=== PATIENT | female | born 1955 | race Caucasian/White ===

== ENCOUNTER → 2019-10-06 09:30 | Outpatient (BNVA) | payer MEDICARE, MEDICAID, SELFPAY | PROVIDERS: Visit Provider Family Medicine | DX: E11.9 Type 2 diabetes mellitus without complications (principal); I10 Essential (primary) hypertension; F41.9 Anxiety disorder, unspecified; N39.46 Mixed incontinence; K21.9 Gastro-esophageal reflux disease without esophagitis; J44.9 Chronic obstructive pulmonary disease, unspecified; F32.9 Major depressive disorder, single episode, unspecified; F17.219 Nicotine dependence, cigarettes, with unspecified nicotine-induced disorders | CPT/HCPCS: 80053; 80061; 82044; 83036; 85025 ==

== ENCOUNTER 2019-10-27 07:14 | Outpatient (CLI) | payer MEDICARE, MEDICAID, SELFPAY ==
[2019-10-27] MEDS: iohexol 300 mg/mL 100 mL Btl IV (07:35)
--- NOTE | 2019-10-27 09:00 | CT_ITS ---
WS: [id number] CT ABDOMEN PELVIS TECHNIQUE: Noncontrast CT of the abdomen and contrast-enhanced CT of the abdomen and pelvis with shadi nal and sagittal reformatted images. CLINICAL INFORMATION: HEMATOMA OF LEFT KIDNEY COMPARISON: August 06, 2019 DLP: 2412.[address] scans at [facility] use at least one of these dose optimization techniques: automat ed exposure control; mA and/or kV adjustment per patient size (includes targeted exams where dose is matched to clinical indication); or iterative reconstruction. FINDINGS: Previously described left renal subcapsular hematoma. Improved subcapsular hematoma with resolution o f the previous described mass effect. Small amount of induration and surrounding perinephric fat. Thi s has nearly resolved with a tiny amount of residual subcapsular hematoma/fluid measuring 3.7 x 0.8 c m. No significant mass effect. Normal renal parenchymal enhancement. Small bilateral renal cortical c ysts. No hydronephrosis. Prominent left extrarenal pelvis Bibasilar atelectasis. Normal GE junction. Diffuse fatty infiltration liver. Portal vein and splenic vein are normal. Cholecystectomy clips. Small right hepatic cyst is unchanged. Normal spleen. Normal visualized pancreas. Adrenal glands are normal. Normal caliber abdominal aorta. Mild aortic iliac ca lcification. No periaortic lymphadenopathy. No inguinal or pelvic sidewall lymphadenopathy. Diverticulosis. No evidence of acute diverticulitis. Scattered stool in the colon. Fat-containing ing uinal hernia with herniated abutting small bowel loops. No incarceration. This is unchanged from prev ious. Normal lumbar spine. CT/CT abdomen pelvis wo/w [id number] IMPRESSION: 1. Near interval resolution of the previously described left subcapsular hemat tasha with a trace amount of residual subcapsular fluid/blood products. No mass e ffect or hydronephrosis. 2. Small bilateral renal cysts. 3. Diffuse fatty infiltration of the liver. 4. Fat-containing umbilical hernia with slight herniation of a small bowel loo p. No incarceration. This was present previously. 5. Diverticulosis. No evidence of acute diverticulitis. 6. Normal caliber abdominal aorta.
== END 2019-10-27 07:15 | disposition home or self-care (01) ==
LOC: CT 07:17
PROVIDERS: Family Provider Family Medicine; PCP Urology; Visit Provider Urology
DX: S37.012A Minor contusion of left kidney, initial encounter (principal); X58.XXXA Exposure to other specified factors, initial encounter; Q61.02 Congenital multiple renal cysts; K76.0 Fatty (change of) liver, not elsewhere classified; K42.9 Umbilical hernia without obstruction or gangrene; K57.90 Diverticulosis of intestine, part unspecified, without perforation or abscess without bleeding
CPT/HCPCS: 74178

== ENCOUNTER 2020-11-26 10:29 | Inpatient (IN) | payer MEDICARE, MEDICAID, SELFPAY ==
[2020-11-26] VITALS (10 sets, daily range): BP systolic 110–152; BP diastolic 73–105; PULSE 75–88; RESP 17–24; TEMP 36.2–37.2; O2SAT 91–95; BMI 35.4
--- NOTE | 2020-11-26 10:37 | CTR_ITS ---
PROCEDURE INFORMATION: Exam: CT Angiography Chest With Contrast Exam date and time: 11/26/2020 10:45 AM Age: 65 years old Clinical indication: Chest pain; Additional info: Dyspnea/chest pain TECHNIQUE: Imaging protocol: Computed tomographic angiography of the chest with contrast. 3D rendering (Not supervised by radiologist): MIP and/or 3D reconstructed images were created by the technologist. Radiation optimization: All CT scans at this facility use at least one of these dose optimization techniques: automated exposure control; mA and/or kV adjustment per patient size (includes targeted exams where dose is matched to clinical indication); or iterative reconstruction. Contrast material: OMNI 350; Contrast volume: 68 ml; Contrast route: INTRAVENOUS (IV); COMPARISON: CR (CHEST, ) 11/26/2020 10:56 AM RADIATION DOSE METRICS: Total DLP (mGy-cm): 494.16 FINDINGS: Pulmonary arteries: No pulmonary embolus in the opacified pulmonary arteries. Aorta: Calcification and ectasia of the thoracic aorta. The enlarged ascending thoracic aorta measures 4.1 cm in diameter. Lungs: Interstitial disease, bibasilar airspace disease, and emphysematous change. Pleural spaces: Mild pleural thickening, without a significant pleural effusion. Heart: Borderline cardiomegaly and mild left ventricular hypertrophy. Lymph nodes: Enlarged lymph nodes including 2.4 x 2.0 by 1.9 cm right paratracheal and 3.7 x 2.5 x 2.3 cm right hilar lymph nodes. Upper abdomen: Fatty infiltration of the liver. Spleen upper limits of normal in size. 1 mm nonobstructing right renal calculus. Subcentimeter renal cyst. Bones/joints: Degenerative change. Soft tissues: Punctate left breast calcifications. CT/CT angio chest PE protcl [id number] IMPRESSION: 1. No pulmonary embolus in the opacified pulmonary arteries. 2. Enlarged lymph nodes including 2.4 x 2.0 by 1.9 cm right paratracheal and 3.7 x 2.5 x 2.3 cm right hilar lymph nodes. 3. Interstitial disease, bibasilar airspace disease, and emphysematous change. 4. Additional findings as described above. Radiation Dose CTDIVOL = (mGy): DLP = 494.16 (mGy-cm)
--- NOTE | 2020-11-26 10:37 | XRR_ITS ---
PROCEDURE INFORMATION: Exam: XR Chest Exam date and time: 11/26/2020 10:39 AM Age: 65 years old Clinical indication: Chest pain TECHNIQUE: Imaging protocol: XR of the chest Views: 1 view. COMPARISON: CR Chest 1 [place] [id number] 08/06/2019 5:58 PM FINDINGS: Lungs: Hypoinflation, interstitial disease, and mild basilar airspace disease. Pleural spaces: Questionable small pleural effusions. Heart/Mediastinum: Cardiac silhouette upper limits of normal in size. Bones/joints: Degenerative change. XR/XR chest 1V portable [id number] IMPRESSION: Hypoinflation, interstitial disease, and mild basilar airspace disease.
--- NOTE | 2020-11-26 10:39 | ED_ITS ---
HPI - Chest Pain General: Chief Complaint: Chest Pain Stated Complaint: SOB, CHEST PAIN Time Seen by Provider: 11/26/20 10:37 History of Present Illness: HPI narrative: 65-year-old female presents emergency room with severe chest pain and shortness of breath she said it began last night it was quite a bit worse this morning. On arrival here she is complaining of intense upper chest pain radiating across the chest she denies a going to the back she is short of breath with it she is mildly diaphoretic. She denies a previous [place] she is diabetic and she does have a history of hypertension hyperlipidemia. No history of PE no known history of aneurysm. MD complaint: chest pain Onset (ago): hour(s) Timing of current episode: constant and increasing Onset: during rest Pain location: left chest and right chest Severity: severe Pain scale (0-10): 10 Quality: sharp Relieving factors: nothing Exacerbating factors: nothing Associated symptoms: Reports diaphoresis, dyspnea, nausea and sense of impending doom; Deny abdominal pain, fever(s), leg edema, palpitations, syncope or vomiting Treatment prior to arrival: none Review of Systems Const: Reports: diaphoresis; Denies: fever(s) ENMT: Denies: throat pain, ear or mastoid pain, nasal discharge or nasal congestion Card: Denies: palpitations or syncope Resp: Reports: dyspnea GI: Reports: nausea; Denies: abdominal pain or vomiting : Denies: flank pain, difficulty voiding, dysuria, urinary frequency or urinary urgency Skin/Breast: Denies: rash or pruritus [facility] PFSH: Medical History (Updated 11/28/20 @ 06:36 by Gary Jose DO) Benign essential HTN COPD, moderate GERD (gastroesophageal reflux disease) H/O cholecystitis Hematoma of left kidney Major contusion of left kidney, subsequent encounter Type 2 diabetes mellitus, without long-term current use of insulin Urinary incontinence, mixed Urinary tract infection, site not specified Surgical History H/O: hysterectomy Family History Family/Other Diabetes CAD (coronary artery disease) Hypertension Lung disease Social History Smoking and tobacco status: current every day smoker cigarettes Packs smoked per day: 1 Alcohol intake: never Adopted: No Caregiver/support person: No Marital status: Current occupational status: disabled History of recent travel: No Physical Exam Const: COMMON NORMALS: no acute distress GENERAL APPEARANCE: cooperative and comfortable ORIENTATION/CONSCIOUSNESS: Yes awake, Yes oriented to person, Yes oriented to place and Yes oriented to time HENMT: COMMON NORMALS: normocephalic, atraumatic, hearing grossly normal bilaterally, external ears normal, EAC's normal, TM's normal bilaterally, Normal nasal mucous membranes and turbinates present, moist oral mucous membranes and oropharynx normal HEAD & SCALP: normocephalic and atraumatic NOSE: Normal nasal mucous membranes and turbinates present EXTERNAL EAR: Yes external ears normal EXTERNAL AUDITORY CANAL: EAC's normal TYMPANIC MEMBRANE: TM's normal bilaterally Eye: COMMON NORMALS: Equal, round and reactive pupils present, EOMs intact bilaterally, conjunctivae normal and no scleral icterus CONJUNCTIVA: Yes conjunctivae normal PUPIL: Yes Equal, round and reactive pupils present Neck/C-Spine: COMMON NORMALS: full ROM, no lymphadenopathy, supple and no JVD Lymph: LYMPHATIC: no lymphadenopathy noted and no lymphedema noted Resp: COMMON NORMALS: normal respiratory effort, No retractions, No use of accessory muscles and clear to auscultation bilaterally AUSCULTATION: clear to auscultation bilaterally Cardio: COMMON NORMALS: no JVD, regular rate, regular rhythm and No murmurs present (Cardio) RATE: regular rate RHYTHM: regular rhythm GI: COMMON NORMALS: Soft to palpation and No hepatosplenomegaly present AUSCULTATION: Yes normoactive bowel sounds PALPATION: Yes Soft to palpation, No Tenderness to palpation present (GI), No Guarding due to palpation present (GI) and Yes No hepatosplenomegaly present Extremity: COMMON NORMALS: normal to inspection, capillary refill normal, no clubbing, cyanosis or edema, no calf tenderness and no pedal edema Neuro: SENSORIUM/ORIENTATION: Yes oriented to person, Yes oriented to place and Yes oriented to time Skin: COMMON NORMALS: no rashes or lesions noted GENERAL SKIN EXAM: no rashes or lesions noted Course Vital Signs: Vital signs: Vital Signs Temperature 98.1 F 11/28/20 06:00 Pulse Rate 68 11/28/20 06:00 Respiratory Rate 20 H 11/28/20 06:00 Blood Pressure 130/81 11/28/20 06:00 Pulse Oximetry 97 11/28/20 06:00 MDM - Chest Pain MDM Narrative: Medical decision making narrative: Patient is currently on prednisone and doxycycline. Suspect that is partially what is driving her white count. At this point and she is failed outpatient therapy. Additionally suspect she has COPD exacerbation. Presentation concerning for coronary disease will admit. She will need further evaluation and treatment on the inpatient side discussed with hospitalist orders are written. Lab Data: Labs: Lab Results 11/26/20 11/26/20 11/26/20 Range/Units 10:35 10:35 10:35 WBC 25.1 H (4.0-10.0) 10^3/ uL RBC 5.64 H (4.1-5.3) 10^6/u L Hgb 15.3 (11.5-15.3) g/dL Hct 47.7 H (37.0-47.0) % MCV 84.6 (81-99) fL MCH 27.1 L (28.0-34.0) pg MCHC 32.1 (30.0-36.0) g/dL RDW 13.5 (12.1-15.1) % Plt Count 314 (130-400) 10^3/c mm MPV 11.2 H (7.4-10.4) fL Neut % (Auto) 76.5 % Lymph % (Auto) 15.2 % [place] % (Auto) 7.1 % Eos % (Auto) 0.2 % Baso % (Auto) 0.4 % Neut # (Auto) 19.21 H (1.8-7.7) 10^3/u L Lymph # (Auto) 3.8 (0.8-4.8) 10^3/u L [place] # (Auto) 1.8 H (0.2-0.9) 10^3/u L Eos # (Auto) 0.0 (0.0-0.8) 10^3/u L Baso # (Auto) 0.1 (0.0-0.1) 10^3/u L Nucleated RBC % (a uto) 0 % Nucleated RBCs # 0.0 /100WBC Specimen Type Sample Site ABG pH (7.35-7.45) ABG pCO2 (35-45) mmHg ABG pO2 (80.0-100.0) mmH g ABG HCO3 (22-26) mmol/L ABG O2 Saturation ABG Base Excess (-2.0-2.0) mmol/ L Renaldo Test A-a O2 Gradient (5-10) mmHg Hematocrit (37-47) % Hgb O2 Saturation (95-100) % Carboxyhemoglobin (0.4-20.1) %THgb Methemoglobin (0.4-1.5) % Total Hemoglobin (12-16) g/dL Ionized Calcium (1.1-1.4) mmol/L O2 Delivery Device O2 Liters/Min % Development Team Lead ID Sodium 135 L (136-145) mmol/L Potassium 4.2 (3.5-5.1) mmol/L Chloride 95 L (98-107) mmol/L Carbon Dioxide 25 (22-29) mmol/L Anion Gap 19.2 H (5-19) BUN 18 (8-23) mg/dL Creatinine 1.0 H (0.5-0.9) mg/dL GFR Calculation 55.8 L (90-130) mL/min Glucose 266 H (65-115) mg/dL POC Glucose (70-110) mg/dL Calculated Osmolal ity 291 (285-295) mOsm/k g Calcium 10.0 (8.5-10.5) mg/dL Total Bilirubin 0.5 (0.15-1.2) mg/dL AST 7 (0-32) U/L ALT 8 (0-33) U/L Alkaline Phosphata se 143 H (35-105) IU/L Creatine Kinase 30 (26-192) U/L Troponin T Baselin e 24 H (0-10) ng/L Troponin T 120 Min [place] (0-10) ng/L Delta Troponin T (0-10) ABS# Total Protein 7.5 (6.6-8.7) g/dL Albumin 4.4 (3.5-5.2) g/dL Globulin 3.1 (1.3-4.6) g/dL Lipase 66 H (13-60) U/L Urine Color (Yellow) Urine Appearance (CLEAR) Urine pH (5-7) Ur Specific Gravit y (1.005-1.030) Urine Protein (Negative) Urine Glucose (UA) (Normal) Urine Ketones (Negative) Urine Blood (Negative) Urine Nitrate (Negative) Urine Bilirubin (Negative) Urine Urobilinogen (Negative) mg/dL Ur Leukocyte Kristi ase (Negative) Urine RBC (0-2) /hpf Urine WBC (0-5) /hpf Ur Squamous Epith Cells (0-5) /hpf Amorphous Sediment Urine Bacteria (NONE) /hpf Hyaline Casts /lpf Urine Mucus /hpf Serum Ketones (Negative) SARS-CoV-2 Ag (Rap id) (Negative) 11/26/20 11/26/20 11/26/20 Range/Units 10:42 11:52 12:16 WBC (4.0-10.0) 10^3/ uL RBC (4.1-5.3) 10^6/u L Hgb (11.5-15.3) g/dL Hct (37.0-47.0) % MCV (81-99) fL MCH (28.0-34.0) pg MCHC (30.0-36.0) g/dL RDW (12.1-15.1) % Plt Count (130-400) 10^3/c mm MPV (7.4-10.4) fL Neut % (Auto) % Lymph % (Auto) % [place] % (Auto) % Eos % (Auto) % Baso % (Auto) % Neut # (Auto) (1.8-7.7) 10^3/u L Lymph # (Auto) (0.8-4.8) 10^3/u L [place] # (Auto) (0.2-0.9) 10^3/u L Eos # (Auto) (0.0-0.8) 10^3/u L Baso # (Auto) (0.0-0.1) 10^3/u L Nucleated RBC % (a uto) % Nucleated RBCs # /100WBC Specimen Type Arterial Sample Site Radial, left ABG pH 7.41 (7.35-7.45) ABG pCO2 41.5 (35-45) mmHg ABG pO2 58.6 L (80.0-100.0) mmH g ABG HCO3 26.1 H (22-26) mmol/L ABG O2 Saturation 91.2 ABG Base Excess 1.2 (-2.0-2.0) mmol/ L Renaldo Test Pos A-a O2 Gradient 5.4 (5-10) mmHg Hematocrit 43.3 (37-47) % Hgb O2 Saturation 89.4 L (95-100) % Carboxyhemoglobin 1.5 (0.4-20.1) %THgb Methemoglobin 0.5 (0.4-1.5) % Total Hemoglobin 14.1 (12-16) g/dL Ionized Calcium 1.3 (1.1-1.4) mmol/L O2 Delivery Device Nc O2 Liters/Min 2.0 % Development Team Lead ID jmn Sodium 134.0 (136-145) mmol/L Potassium 3.7 (3.5-5.1) mmol/L Chloride (98-107) mmol/L Carbon Dioxide (22-29) mmol/L Anion Gap (5-19) BUN (8-23) mg/dL Creatinine (0.5-0.9) mg/dL GFR Calculation (90-130) mL/min Glucose 262.0 H (65-115) mg/dL POC Glucose 262 H (70-110) mg/dL Calculated Osmolal ity (285-295) mOsm/k g Calcium (8.5-10.5) mg/dL Total Bilirubin (0.15-1.2) mg/dL AST (0-32) U/L ALT (0-33) U/L Alkaline Phosphata se (35-105) IU/L Creatine Kinase (26-192) U/L Troponin T Baselin e (0-10) ng/L Troponin T 120 Min [place] (0-10) ng/L Delta Troponin T (0-10) ABS# Total Protein (6.6-8.7) g/dL Albumin (3.5-5.2) g/dL Globulin (1.3-4.6) g/dL Lipase (13-60) U/L Urine Color Yellow (Yellow) Urine Appearance Sl hazy (CLEAR) Urine pH 6.5 (5-7) Ur Specific Gravit y 1.010 (1.005-1.030) Urine Protein 1+ H (Negative) Urine Glucose (UA) Norm (Normal) Urine Ketones 1+ H (Negative) Urine Blood Neg (Negative) Urine Nitrate Negative (Negative) Urine Bilirubin 1+ H (Negative) Urine Urobilinogen 4 H (Negative) mg/dL Ur Leukocyte Kristi ase Trace H (Negative) Urine RBC None (0-2) /hpf Urine WBC 0-4 H (0-5) /hpf Ur Squamous Epith Cells 0-4 H (0-5) /hpf Amorphous Sediment Not Reportable Urine Bacteria Trace (NONE) /hpf Hyaline Casts 15-25 H /lpf Urine Mucus 1+ /hpf Serum Ketones (Negative) SARS-CoV-2 Ag (Rap id) (Negative) 11/26/20 11/26/20 11/26/20 Range/Units 12:37 12:37 13:23 WBC (4.0-10.0) 10^3/ uL RBC (4.1-5.3) 10^6/u L Hgb (11.5-15.3) g/dL Hct (37.0-47.0) % MCV (81-99) fL MCH (28.0-34.0) pg MCHC (30.0-36.0) g/dL RDW (12.1-15.1) % Plt Count (130-400) 10^3/c mm MPV (7.4-10.4) fL Neut % (Auto) % Lymph % (Auto) % [place] % (Auto) % Eos % (Auto) % Baso % (Auto) % Neut # (Auto) (1.8-7.7) 10^3/u L Lymph # (Auto) (0.8-4.8) 10^3/u L [place] # (Auto) (0.2-0.9) 10^3/u L Eos # (Auto) (0.0-0.8) 10^3/u L Baso # (Auto) (0.0-0.1) 10^3/u L Nucleated RBC % (a uto) % Nucleated RBCs # /100WBC Specimen Type Sample Site ABG pH (7.35-7.45) ABG pCO2 (35-45) mmHg ABG pO2 (80.0-100.0) mmH g ABG HCO3 (22-26) mmol/L ABG O2 Saturation ABG Base Excess (-2.0-2.0) mmol/ L Renaldo Test A-a O2 Gradient (5-10) mmHg Hematocrit (37-47) % Hgb O2 Saturation (95-100) % Carboxyhemoglobin (0.4-20.1) %THgb Methemoglobin (0.4-1.5) % Total Hemoglobin (12-16) g/dL Ionized Calcium (1.1-1.4) mmol/L O2 Delivery Device O2 Liters/Min % Development Team Lead ID Sodium (136-145) mmol/L Potassium (3.5-5.1) mmol/L Chloride (98-107) mmol/L Carbon Dioxide (22-29) mmol/L Anion Gap (5-19) BUN (8-23) mg/dL Creatinine (0.5-0.9) mg/dL GFR Calculation (90-130) mL/min Glucose (65-115) mg/dL POC Glucose (70-110) mg/dL Calculated Osmolal ity (285-295) mOsm/k g Calcium (8.5-10.5) mg/dL Total Bilirubin (0.15-1.2) mg/dL AST (0-32) U/L ALT (0-33) U/L Alkaline Phosphata se (35-105) IU/L Creatine Kinase (26-192) U/L Troponin T Baselin e (0-10) ng/L Troponin T 120 Min [place] 21.22 H (0-10) ng/L Delta Troponin T -2.78 L (0-10) ABS# Total Protein (6.6-8.7) g/dL Albumin (3.5-5.2) g/dL Globulin (1.3-4.6) g/dL Lipase (13-60) U/L Urine Color (Yellow) Urine Appearance (CLEAR) Urine pH (5-7) Ur Specific Gravit y (1.005-1.030) Urine Protein (Negative) Urine Glucose (UA) (Normal) Urine Ketones (Negative) Urine Blood (Negative) Urine Nitrate (Negative) Urine Bilirubin (Negative) Urine Urobilinogen (Negative) mg/dL Ur Leukocyte Kristi ase (Negative) Urine RBC (0-2) /hpf Urine WBC (0-5) /hpf Ur Squamous Epith Cells (0-5) /hpf Amorphous Sediment Urine Bacteria (NONE) /hpf Hyaline Casts /lpf Urine Mucus /hpf Serum Ketones Negative (Negative) SARS-CoV-2 Ag (Rap id) Negative (Negative) Discharge Plan Discharge Patient Disposition: Admitted As Inpatient Admit Provider: Leila Soriano Clinical Impression: COPD exacerbation, Chest pain, Type 2 diabetes mellitus, without long-term current use of insulin, Benign essential HTN Condition: Stable Coding Level of Care Code ED Phthalic Acid Purifier for Chg Fwd Exam Comprehensive
[2020-11-26] MEDS: morphine 4 mg/mL SDV 1 mL IVP (10:43)
[2020-11-26] MEDS: aspirin 81 mg Chew Tablet 324 MG PO (10:43)
[2020-11-26 10:46] LABS: Glucose Point of Care 262 mg/dL (70-110)
[2020-11-26] MEDS: nitroglycerin 1 gm/inch oint Pkt 1 INCH TOPICAL (10:46)
[2020-11-26] MEDS: ondansetron 2 mg/ML SDV 2 mL 4 MG IVP (10:48)
[2020-11-26 11:11] LABS: Basophils # 0.1 10^3/uL (0.0-0.1); Basophils % 0.4 %; Eosinophils % 0.2 %; Hematocrit 47.7 % (37.0-47.0); Hemoglobin 15.3 g/dL (11.5-15.3); Lymphocytes # 3.8 10^3/uL (0.8-4.8); Lymphocytes % 15.2 %; Mean Corpuscular HGB Conc 32.1 g/dL (30.0-36.0); Mean Corpuscular Hemoglobin 27.1 pg (28.0-34.0); Mean Corpuscular Volume 84.6 fL (81-99); Mean Platelet Volume 11.2 fL (7.4-10.4); Monocytes # 1.8 10^3/uL (0.2-0.9); Monocytes % 7.1 %; Neutrophils # 19.21 10^3/uL (1.8-7.7); Neutrophils % 76.5 %; Nucleated Red Blood Cells % 0 %; Platelet Count 314 10^3/cmm (130-400); Red Blood Count 5.64 10^6/uL (4.1-5.3); Red Cell Distribution Width 13.5 % (12.1-15.1); White Blood Count 25.1 10^3/uL (4.0-10.0)
[2020-11-26 11:31] LABS: Alanine Aminotransferase 8 U/L (0-33); Albumin Level 4.4 g/dL (3.5-5.2); Alkaline Phosphatase 143 IU/L (35-105); Anion Gap 19.2 (5-19); Aspartate Amino Transferase 7 U/L (0-32); Blood Urea Nitrogen 18 mg/dL (8-23); Carbon Dioxide 25 mmol/L (22-29); Chloride 95 mmol/L (98-107); Creatine Phosphokinase 30 U/L (26-192); Globulin 3.1 g/dL (1.3-4.6); Glomerular Filtration Rate 55.8 mL/min (90-130); Glucose 266 mg/dL (65-115); Lipase 66 U/L (13-60); Osmolality Calculated 291 mOsm/kg (285-295); Potassium 4.2 mmol/L (3.5-5.1); Sodium 135 mmol/L (136-145); Total Bilirubin 0.5 mg/dL (0.15-1.2); Total Protein 7.5 g/dL (6.6-8.7)
[2020-11-26 11:32] LABS: Troponin(5th) Baseline 24 ng/L (0-10)
--- NOTE | 2020-11-26 11:57 | PC.NURSE ---
return from ct
[2020-11-26] MEDS: iohexol 350 mg/mL 100 mL Btl IV (11:59)
[2020-11-26 12:03] LABS: ABG PCO2 41.5 mmHg (35-45); ABG PH Result 7.41 (7.35-7.45); Alveolar-Arterial Oxygen Gradi 5.4 mmHg (5-10); Arterial Blood Gas Hematocrit 43.3 % (37-47); Base Excess ABG 1.2 mmol/L (-2.0-2.0); Blood Gas Allen Test Pos; Blood Gas Sample Type Arterial; Carboxyhemoglobin 1.5 %THgb (0.4-20.1); HCO3 ABG 26.1 mmol/L (22-26); HGB O2 Sat 89.4 % (95-100); Ionized Calcium Level - ABG 1.3 mmol/L (1.1-1.4); Methemoglobin 0.5 % (0.4-1.5); Oxygen Saturation ABG 91.2; PO2 ABG 58.6 mmHg (80.0-100.0); Potassium Level - ABG 3.7 mmol/L (3.5-5.0); Total Hemoglobin 14.1 g/dL (12-16)
[2020-11-26 12:04] LABS: Blood Gas Sample Site Radial, left; Oxygen Device NC
--- NOTE | 2020-11-26 12:37 | ECG_ITS ---
[facility] Test Date: 2020-11-26 Pat Name: Sarah Rogers Department: Room: Gender: Female Special Effects Person: : 1955 Requested By: Gary Teresa Order Number: [id number] Elana MD: Padmini Serrano M.D. Measurements Intervals [place] Rate: 79 P: 52 FL: 151 QRS: -33 QRSD: 100 T: 73 QT: 412 QTc: 472 Interpretive Statements SINUS RHYTHM POSSIBLE LEFT ATRIAL ENLARGEMENT [-0.1mV P WAVE IN V1/V2] LEFT AXIS DEVIATION [QRS AXIS < -30] POSSIBLE LEFT VENTRICULAR HYPERTROPHY [VOLTAGE CRITERIA PLUS LAE OR QRS WIDENING] NONSPECIFIC T-WAVE ABNORMALITY Compared to ECG 08/08/2019 20:10:57 T-wave abnormality now present Electronically Signed On 11-26-2020 19:43:52 SENIOR APPLICATION SECURITY CONSULTANT by Padmini Serrano M.D. [id number]
[2020-11-26 12:50] LABS: Bilirubin Urine 1+ (Negative); Blood Urine Neg (Negative); Glucose Urine UA Norm (Normal); Ketones Urine 1+ (Negative); Leukocyte Esterase Urine Trace (Negative); Nitrate Urine Negative (Negative); Protein Urine 1+ (Negative); Urine Appearance SL Hazy (CLEAR); Urine Color Yellow (Yellow); Urobilinogen Urine 4 mg/dL (Negative); pH Urine 6.5 (5-7)
[2020-11-26 12:51] LABS: Add Urine Microscopic? YES
--- NOTE | 2020-11-26 12:55 | CTR_ITS ---
PROCEDURE INFORMATION: Exam: CT Abdomen And Pelvis With Contrast Exam date and time: 11/26/2020 2:01 PM Age: 65 years old Clinical indication: Abdominal pain; Prior surgery; Surgery date: 6+ months; Surgery type: Hyst, gb, hernia; Patient HX: C/O epigastric/substernal pain w nausea; Additional info: Abd pain TECHNIQUE: Imaging protocol: Computed tomography of the abdomen and pelvis with contrast. Radiation optimization: All CT scans at this facility use at least one of these dose optimization techniques: automated exposure control; mA and/or kV adjustment per patient size (includes targeted exams where dose is matched to clinical indication); or iterative reconstruction. Contrast material: VISI 320; Contrast volume: 57 ml; Contrast route: INTRAVENOUS (IV); COMPARISON: CT abdomen pelvis wo/w [id number] 10/27/2019 7:48 AM and August 06, 2019. CTA chest earlier today. RADIATION DOSE METRICS: Total DLP (mGy-cm): 1804.42 FINDINGS: Lungs: Patchy dependent consolidation at the lung bases. Liver: Mild diffuse hepatic steatosis. No focal lesions. Gallbladder and bile ducts: Cholecystectomy. Unchanged mild prominence of the extrahepatic duct tapering distally, likely secondary to reservoir effect following cholecystectomy. Pancreas: Normal. No ductal dilation. Spleen: Normal. No splenomegaly. Adrenal glands: Normal. No mass. Kidneys and ureters: Excreted contrast within the renal collecting systems and ureters following earlier CTA of the chest. This limits evaluation for stones. No hydronephrosis. There are scattered bilateral small hypoattenuating renal lesions which cannot be definitively characterized but appear grossly unchanged, largest measuring 14 mm and 18 Hounsfield units left anterior upper pole on image 29 series 2 compatible with cyst. Stomach and bowel: Scattered colonic diverticula without active diverticulitis. Appendix: Normal appendix. Intraperitoneal space: No free air. No significant fluid collection. Vasculature: Scattered atherosclerotic calcification. No abdominal aortic aneurysm. Lymph nodes: Unremarkable. No enlarged lymph nodes. Urinary bladder: The bladder is partially filled contains excreted contrast. Reproductive: Uterus not identified. A small amount of contrast is seen within the vaginal canal (see sagittal image 42 series 601), raising the possibility of a vesicovaginal fistula although tract is not identified by CT. Bones/joints: No acute or aggressive osseous lesions. Lumbar degenerative changes. Soft tissues: Small umbilical hernia with short segment of small bowel protruding. No evidence of obstruction or incarceration. CT/CT abdomen pelvis w con* [id number] IMPRESSION: 1. No acute intra-abdominal findings. 2. Umbilical hernia containing a short segment of small bowel without evidence of obstruction or incarceration. Correlate clinically. 3. Mild hepatic steatosis. 4. Diverticulosis without evidence of active diverticulitis. 5. There are again multiple small relatively hypoattenuating bilateral renal lesions, largest 14 mm the left upper pole characterized as simple cyst, subcentimeter lesions too small to definitively characterize but grossly unchanged from prior. No confirmed enhancing mass. 6. There is contrast within the bladder and also within the vaginal canal (from earlier CTA chest) raising the possibility of a vesicovaginal fistula, although no tract is identified. Correlate clinically. COMMENTS: Consistent with the [place] [employer]'s Incidental Findings Committee white paper (J Am Flo Radiol 2018): Any incidental renal lesion less than 1 cm or classified as too small to characterize, or any incidental cystic renal lesion characterized as simple-appearing, is likely benign. No follow-up imaging is recommended for these lesions per consensus recommendations based on imaging criteria. Radiation Dose CTDIVOL = (mGy): DLP = 1804.42 (mGy-cm)
[2020-11-26 12:59] LABS: WBC Urine 0-4 /hpf (0-5)
[2020-11-26 13:00] LABS: Bacteria Urine TRACE /hpf; Hyaline Casts Urine 15-25 /lpf; Mucus Urine 1+ /hpf; Squamous Epithelial Cell Urine 0-4 /hpf (0-5)
[2020-11-26 13:01] LABS: Add Urine Culture? No
[2020-11-26 13:01] LABS: Ketone (Acetest) Serum Negative (Negative)
[2020-11-26 13:12] LABS: Troponin 5 2HR 21.22 ng/L (0-10)
[2020-11-26 13:15] LABS: Troponin 5 2HR Delta -2.78 ABS# (0-10)
[2020-11-26] MEDS: levofloxacin-dextrose 5 % 750 MG/150 ML PREMIX 100 MG IV (13:39)
[2020-11-26] MEDS: iodixanol 320 mg/mL 100mL Btl IV (14:06)
[2020-11-26 14:10] LABS: SARS Covid-2 Antigen Negative (Negative)
--- NOTE | 2020-11-26 16:37 | ECG_ITS ---
[facility] Test Date: 2020-11-26 Pat Name: Sarah Rogers Department: Room: 258 Gender: Female Library Director: : 1955 Requested By: Gary Teresa Order Number: [id number] Elana MD: Padmini Serrano M.D. Measurements Intervals [place] Rate: 79 P: 49 HI: 149 QRS: -35 QRSD: 89 T: 90 QT: 390 QTc: 449 Interpretive Statements SINUS RHYTHM POSSIBLE LEFT ATRIAL ENLARGEMENT [-0.1mV P WAVE IN V1/V2] MARKED LEFT AXIS DEVIATION [QRS AXIS < -30] POSSIBLE LEFT VENTRICULAR HYPERTROPHY [VOLTAGE CRITERIA PLUS LAE OR QRS WIDENING] NONSPECIFIC T-WAVE ABNORMALITY Compared to ECG 11/26/2020 12:32:52 No significant changes Electronically Signed On 11-26-2020 19:45:07 JOCKEY VALET by Padmini Serrano M.D. [id number]
[2020-11-26 16:57] LABS: Lactic Sepsis W/Reflex 1.5 mmol/L (0.5-2.2)
[2020-11-26 16:58] LABS: Troponin 5 6HR 17.39 ng/L (0-10)
[2020-11-26 16:59] LABS: Troponin 5 6HR Delta -6.61 ng/L (0-12)
[2020-11-26] MEDS: sodium chloride 0.9% 1,000 ML 100 ML IV (18:15)
--- NOTE | 2020-11-26 18:32 | P.HP_ITS ---
Providers/Chief Complaint Admitting Physician: Leila Soriano Chief Complaint: SOB, CHEST PAIN History of Present Illness 65 year old with past medical history of renal hematoma in 2019, hypertension, GERD, type 2 diabetes mellitus, urinary incontinence, tobacco abuse and chronic obstructive pulmonary disease who presented to ER with progressively worsening respiratory distress. This was associated with a non-productive cough, generaliz ed weakness and poor appetite. Patient also noted subjective fever and chills in addition to chest discomfort which she described as a heaviness. Patient had been started on doxycycline in addition to prednisone prior to arrival which did not prove to be effective. Denied any prior cardiac diagnosis. Upon arrival to ER her initial laboratory work up showed a WBC of 25.1 , hemoglobin of 15.3, hematocrit 47.7 and a platelet count of 314. Sodium of 135, potassium of 4.2 chloride of 95, bicarbonate of 25, BUN of 18 and a creatinine of 1.0. Glucose of 262. Lipase of 66. Troponin T of 24-> 21.2 -> 17.30. ABG showed a Ph. 7.41, Pco2 of 41.5, Po2 of 58.6 and a HCO3 of 26.1 on 2L via NC. Patient was not previously on supplemental o2 prior to arrival. Rapid COVID-19 was negative however a PCR was sent out. Diagnostic work up included a CTA chest/abd/pelvis which showed enlarged paratracheal lymph nodes and right hisar lymph as well. In ER patient was given Levaquin 750mg IV x1, nitro-paste in addition to iV pain medication. Review of Systems General: Reports: 10 or more systems reviewed and unremarkable except in HPI and below Medications/Allergies Home Medications Medication Instructions Recorded Confirmed Last Taken Type albuterol sulfate 90 mcg/actuation 2 puff INHALATION Q4H PRN gm 10/02/19 11/26/20 Unknown History aerosol inhaler ipratropium 20 mcg-albuterol 100 1 puff INHALATION QID 10/02/19 11/26/20 Unknown History mcg/actuation mist for inhalation metoprolol succinate 25 mg 25 mg PO BID 10/02/19 11/26/20 Unknown History tablet,extended release 24 hr nicotine 14 mg/24 hr daily 1 patch TRANSDERMA Q24H 10/02/19 11/26/20 Unknown History transdermal patch nitroglycerin 0.4 mg sublingual 0.4 mg SUBLINGUAL Q5M PRN 10/02/19 11/26/20 Unknown History tablet pantoprazole 40 mg tablet,delayed 40 mg PO DAILY 10/02/19 11/26/20 Unknown History release bupropion HCl 150 mg 24 hr tablet, 150 mg PO QAM #30 tab 10/06/19 11/26/20 Unknown Rx extended release lisinopril 10 mg tablet 10 mg PO DAILY 10/06/19 11/26/20 Unknown History atorvastatin 20 mg tablet 20 mg PO QDAY #30 tab 10/07/19 11/26/20 Unknown Rx metformin 500 mg tablet,extended 1,000 mg PO .every morning #60 tab 10/07/19 11/26/20 Unknown Rx release 24 hr doxycycline hyclate 100 mg PO BID 11/26/20 11/26/20 11/25/20 History prednisone 20 mg PO BID 11/26/20 11/26/20 11/25/20 History Allergies Allergy/AdvReac Type Severity Reaction Status Date / Time Sulfa (Sulfonamide Allergy na Verified 10/06/19 08:54 Antibiotics) PFSH Acute PFSH: Medical History (Updated 11/26/20 @ 18:59 by Leila Soriano MD) Benign essential HTN COPD, moderate GERD (gastroesophageal reflux disease) H/O cholecystitis Hematoma of left kidney Major contusion of left kidney, subsequent encounter Type 2 diabetes mellitus, without long-term current use of insulin Urinary incontinence, mixed Urinary tract infection, site not specified Surgical History H/O: hysterectomy Family History Family/Other Diabetes CAD (coronary artery disease) Hypertension Lung disease Social History Smoking and tobacco status: current every day smoker cigarettes Packs smoked per day: 1 Alcohol intake: never Adopted: No Caregiver/support person: No Marital status: Current occupational status: disabled History of recent travel: No Vitals/I&O/Wt Last Vital Signs Temp 97.5 F L 11/26/20 17:07 Pulse 76 11/26/20 17:07 Resp 18 11/26/20 17:07 BP 128/83 11/26/20 17:07 Pulse Ox 91 11/26/20 17:07 11/26/20 11/26/20 11/26/20 06:59 14:59 22:59 Intake Total 390 / 390 Balance 390 / 390 Weight last 48 hrs Weight 90.718 kg Physical Exam Narrative: EXAM NARRATIVE: General : Alert, awake oriented x 3 NAD HEENT: EOMI, grossly unremarkable Chest : Non-labored respiration CVS : NSR ABD: Soft,NT,ND Ext: No edema Data : 11/26/20 10:35 11/26/20 10:35 Micro: Microbiology 11/26/20 16:20 Blood Culture - Preliminary Blood SPECIMEN COLLECTED 11/26/20 16:21 Blood Culture - Preliminary Blood SPECIMEN COLLECTED A&P Assessment and plan (1) Chest pain: Status: Acute (2) COPD exacerbation: Status: Acute (3) Type 2 diabetes mellitus, without long-term current use of insulin: Status: Chronic Qualifiers: Diabetes mellitus complication status: without complication Qualified Code(s): E11.9 - Type 2 diabetes mellitus without complications (4) Benign essential HTN: Status: Chronic (5) GERD (gastroesophageal reflux disease): Status: Chronic Qualifiers: Esophagitis presence: esophagitis presence not specified Qualified Code(s): K21.9 - Gastro-esophageal reflux disease without esophagitis Acute respiratory distress due to COPD exacerbation - Possible pneumonia - Leukocytosis - infectious vs steroid induced. - Supplemental 02 as needed - Duoneb q6hr - Prednisone 40 mg PO qAM - Wean o2 as tolerated - Continue levaquin 750 mg daily - Sputum culture and gram stain - Check pro-calcitonin in am Chest pain - Troponin trend not consistent with ACS - Possible due to above - Will obtain ECHO - Monitor on tele - May consider Nuclear stress prior to d/c Diabetes Mellitus - Sliding scale insulin - Hold metformin - A1c in am Hypertension - Metoprolol 25 mg PO BID Dyslipidemia - Continue Lipitor 20 mg po Qhs GI pox - Pepcid 20 mg PO BID DVT pox - SCDs - No heparin given hx of renal hematoma and risk of bleeding Attestations Medical Necessity Statement*: Will require > 2 midnight stay in hospital for eval and treatment of acute hypoxic respiratory failure - possible pneumonia failed outpatient tx and chest pain rq cardiac work up Time Spent in Patient Care: Greater than 35 minutes (>than 50% of time spent in counselling and/or direct pt care on unit) . 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
[2020-11-26] MEDS: ipratropium-albuterol 3 mL Neb INHALATION (20:58)
[2020-11-26 21:45] LABS: Glucose Point of Care 425 mg/dL (70-110)
[2020-11-27] VITALS (28 sets, daily range): BP systolic 102–194; BP diastolic 62–104; PULSE 66–90; RESP 16–26; TEMP 35.9–36.8; O2SAT 89–100
[2020-11-27] MEDS: morphine 4 mg/mL SDV 1 mL 2 MG IVP (00:13)
--- NOTE | 2020-11-27 00:17 | ECG_ITS ---
[facility] Test Date: 2020-11-27 Pat Name: Sarah Rgoers Department: Room: 258 Gender: Female Outside Cutter: : 1955 Requested By: Andres Arriaza Order Number: [id number] Elana MD: Padmini Serrano M.D. Measurements Intervals [place] Rate: 87 P: 38 [place]: 137 QRS: -39 QRSD: 87 T: 91 QT: 363 QTc: 437 Interpretive Statements SINUS RHYTHM POSSIBLE LEFT ATRIAL ENLARGEMENT [-0.1mV P WAVE IN V1/V2] MARKED LEFT AXIS DEVIATION [QRS AXIS < -30] LEFT VENTRICULAR HYPERTROPHY AND ST-T CHANGE [VOLTAGE CRITERIA PLUS ST/T ABNORMALITY] INTERPRETATION BASED ON A DEFAULT AGE OF 40 YEARS Compared to ECG 11/26/2020 17:48:04 ST (T wave) deviation now present T-wave abnormality no longer present Electronically Signed On 11-27-2020 22:39:38 CDT by Padmini Serrano M.D. [id number] f
[2020-11-27] MEDS: nitroglycerin 0.4 mg sublingual Tablet SUBLINGUAL ×2 (00:19→00:24)
[2020-11-27] MEDS: ondansetron 2 mg/ML SDV 2 mL 4 MG IVP (00:22)
--- NOTE | 2020-11-27 00:45 | XRR_ITS ---
PROCEDURE INFORMATION: Exam: XR Chest Exam date and time: 11/27/2020 12:51 AM Age: 65 years old Clinical indication: Chest pain TECHNIQUE: Imaging protocol: XR of the chest Views: 1 view. COMPARISON: CR (CHEST, ) 11/26/2020 10:56 AM FINDINGS: Lungs: Low lung volumes with bibasilar pulmonary opacity. Pleural spaces: Unremarkable. No pleural effusion. No pneumothorax. Heart/Mediastinum: Heart is mildly enlarged. Bones/joints: Unremarkable. XR/XR chest 1V portable [id number] IMPRESSION: 1. Low lung volumes with bibasilar atelectasis versus pneumonia. 2. Mild cardiomegaly.
[2020-11-27] MEDS: FUROsemide 10 mg/mL SDV 4mL 40 MG IVP (00:58)
[2020-11-27 01:06] LABS: ABG PCO2 41.3 mmHg (35-45); Arterial Blood Gas Hematocrit 42.8 % (37-47); Base Excess ABG 0.9 mmol/L (-2.0-2.0); Blood Gas Sample Site Radial, left; Blood Gas Sample Type Arterial; HCO3 ABG 25.8 mmol/L (22-26); Oxygen Device NRB; PO2 ABG 57.9 mmHg (80.0-100.0)
[2020-11-27] MEDS: bumetanide 0.25 mg/mL SDV 4 mL 1 MG IV ×2 (03:09→13:03)
[2020-11-27] MEDS: LORazepam 2 mg/mL INJ 1 mL 1 MG IVP (03:09)
[2020-11-27] MEDS: morphine 4 mg/mL SDV 1 mL 1 MG IVP (03:09)
--- NOTE | 2020-11-27 03:19 | ECG_ITS ---
[facility] Test Date: 2020-11-27 Pat Name: Sarah Rogers Department: Room: 258 Gender: Female Driver Medic: : 1955 Requested By: Andres Arriaza Order Number: [id number] Elana MD: Padmini Serrano M.D. Measurements Intervals [place] Rate: 87 P: 56 [place]: 136 QRS: -34 QRSD: 87 T: 108 QT: 347 QTc: 420 Interpretive Statements SINUS RHYTHM POSSIBLE LEFT ATRIAL ENLARGEMENT [-0.1mV P WAVE IN V1/V2] MARKED LEFT AXIS DEVIATION [QRS AXIS < -30] POSSIBLE LEFT VENTRICULAR HYPERTROPHY [VOLTAGE CRITERIA PLUS LAE OR QRS WIDENING] NONSPECIFIC ST & T-WAVE ABNORMALITY INTERPRETATION BASED ON A DEFAULT AGE OF 40 YEARS Compared to ECG 11/26/2020 17:48:04 No significant changes Electronically Signed On 11-27-2020 22:45:57 CDT by Padmini Serrano M.D. [id number] f
--- NOTE | 2020-11-27 03:28 | PC.PHAR ---
Pharmacokinetic dosing service Date: 11/27/20 Time: 329 Objective: Patient: Sarah Rogers Floor: 258-1 Age: 65 yo Serum creatinine: 1.0 mg/dL Height: 63.0 Inches Weight (kg): 90.718 Diagnosis: Relevant medical/social history: Cultures and sensitivities: Other labs: Assessment: IBW (kg): 52.40 Dosing wt(kg): 90.718 Estimated Creatinine clearance (ml/min): 47.0 CRCL method: Cockcroft and Gault using ibw(default). Drug selected: Vancomycin Loading dose (mg): 0 Vd (liters): 81.6 (factor used: 0.9 L/kg) Tyrell (hr-1): 0.043 Half life (hrs): 16.12 Recommended dose: 1500 mg Interval: 24 hrs Infusion time (hrs): 1.5 Predicted peak (mcg/mL): 27.7 Predicted trough (mcg/mL): 10.53 Total body weight is being used for vancomycin dosing. Renal function is stable [ ] /unstable [ ] Recommendations: Give Vancomycin 1500 mg q 24 hrs with an expected Cpeak of 27.7 mcg/ml and an expected Ctrough of 10.53 mcg/ml Renal dosing of other antibiotics (review renal dosing of other medications and list guidelines here): Thank you for the consult, will continue to follow. Signature: [facility]
--- NOTE | 2020-11-27 03:35 | PC.NURSE ---
At 0010 this nurse observed the Patient walking back to bed from the bathroom, this nurse noticed the patient had an unsteady gait and went to assist Pt back to bed, once Pt got to the edge of the bed the pt grabbed her chest and leaned forward on the bed and stated oh my chest This nurse assisted PT into the bed and asked if she was having chest pain, Pt shook her head yes while holding her chest. This nurse called for help and began taking vital signs, PT's BP was 194/104 HR 90, Charge nurse Chrissy and ISAIAS Kinsey responded to room. Dr. Arriaza was notified by phone. New orders received for STAT EKG, troponin series, Nitro sublingual tab 0.4 mg NOW. PT was complaining of chest pain /, Morphine 2mg IVP administered at 0013, First Nitro tab administered at 0019. BP reassessed and noted to be 164/102 Pt was still complaining of 10/10 chest pain, second nitro tab administered at 0024. BP reassessed at 0033 BP noted to be 102/64. Dr. Arriaza notified at 0041 of EKG results, meds given, pt condition, current vital signs and pt complaints of chest pain 6/10, pt diaphoretic and respiratory status declining. Pt was 89% on non rebreather. Dr. Arriaza ordered 40 mg IV lasix and CXR stat, d/c fluids, place holman catheter, and place on Bipap. Pt placed on BIPAP at 100%. Dr. Arriaza came to see Pt at 0138, nurse updated Dr. Arriaza on current vital signs, Dr informed nurse of new meds he had just ordered for pt, Bumex and solu-medrol, Dr. Arriaza asked PT if she was still in pain and Pt shook her head yes and pointed to right side of her chest. Dr. Arriaza said he believed she was experiencing fluid overload and gave verbal orders for Morphine 1 mg IVP now and ativan 1 mg IVP now. Iv medications administered by charge Nurse chrissy. PT began to relax and bipap turned down to 50% at 0350. Pt resting quietly in bed with eyes closed at this time.
[2020-11-27] MEDS: ipratropium-albuterol 3 mL Neb INHALATION (03:44)
[2020-11-27 04:31] LABS: Basophils # 0.1 10^3/uL (0.0-0.1); Basophils % 0.6 %; Eosinophils # 0.1 10^3/uL (0.0-0.8); Eosinophils % 0.7 %; Hematocrit 42.1 % (37.0-47.0); Hemoglobin 13.4 g/dL (11.5-15.3); Lymphocytes # 4.3 10^3/uL (0.8-4.8); Mean Corpuscular HGB Conc 31.8 g/dL (30.0-36.0); Mean Corpuscular Hemoglobin 27.1 pg (28.0-34.0); Mean Corpuscular Volume 85.1 fL (81-99); Mean Platelet Volume 11.6 fL (7.4-10.4); Monocytes % 5.4 %; Neutrophils # 13.73 10^3/uL (1.8-7.7); Neutrophils % 70.8 %; Nucleated Red Blood Cells % 0 %; Platelet Count 300 10^3/cmm (130-400); Red Blood Count 4.95 10^6/uL (4.1-5.3); Red Cell Distribution Width 13.6 % (12.1-15.1); White Blood Count 19.4 10^3/uL (4.0-10.0)
[2020-11-27] MEDS: vancomycin 1,500 MG/300 ML PIGGYBACK 200 MG IV (04:31)
[2020-11-27 04:47] LABS: Troponin(5th) Baseline 22 ng/L (0-10)
[2020-11-27 05:05] LABS: NT Pro B Type Natriuretic Pept 1021 pg/mL (0-125); Procalcitonin 0.12 ng/mL (0-0.5)
[2020-11-27 05:16] LABS: Alanine Aminotransferase 7 U/L (0-33); Albumin Level 3.5 g/dL (3.5-5.2); Alkaline Phosphatase 124 IU/L (35-105); Anion Gap 19.3 (5-19); Aspartate Amino Transferase 8 U/L (0-32); Blood Urea Nitrogen 23 mg/dL (8-23); C Reactive Protein 83.1 mg/L (0.0-4.9); Carbon Dioxide 22 mmol/L (22-29); Chloride 96 mmol/L (98-107); Globulin 2.8 g/dL (1.3-4.6); Glomerular Filtration Rate 55.8 mL/min (90-130); Glucose 186 mg/dL (65-115); Magnesium 1.8 mg/dL (1.7-2.3); Osmolality Calculated 285 mOsm/kg (285-295); Potassium 4.3 mmol/L (3.5-5.1); Sodium 133 mmol/L (136-145); Total Bilirubin 0.4 mg/dL (0.15-1.2); Total Protein 6.3 g/dL (6.6-8.7)
[2020-11-27] MEDS: piperacillin-tazobactam 3.375 GM in sodium chloride 0.9% (plus) 50 ML IV ×2 (06:32→13:04)
[2020-11-27 06:38] LABS: Glucose Point of Care 336 mg/dL (70-110)
--- NOTE | 2020-11-27 07:19 | ECG_ITS ---
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 Measurements Intervals [place] Rate: 72 P: 61 MD: 160 QRS: -44 QRSD: 88 T: 109 QT: 421 QTc: 462 Interpretive Statements SINUS RHYTHM POSSIBLE LEFT ATRIAL ENLARGEMENT [-0.1mV P WAVE IN V1/V2] MARKED LEFT AXIS DEVIATION [QRS AXIS < -30] POSSIBLE LEFT VENTRICULAR HYPERTROPHY [VOLTAGE CRITERIA PLUS LAE OR QRS WIDENING] POSSIBLE ANTERIOR MYOCARDIAL INFARCTION [30 ms Q WAVE IN V3/V4, OR R < 0.2 mV IN V4], PROBABLY OLD INTERPRETATION BASED ON A DEFAULT AGE OF 40 YEARS Compared to ECG 11/27/2020 00:21:46 Myocardial infarct finding now present ST (T wave) deviation no longer present Electronically Signed On 11-27-2020 22:49:09 CDT by Padmini Serrano M.D. [id number]
[2020-11-27 07:52] LABS: Basophils # 0.1 10^3/uL (0.0-0.1); Basophils % 0.5 %; Eosinophils % 0.2 %; Hematocrit 44.7 % (37.0-47.0); Hemoglobin 13.8 g/dL (11.5-15.3); Lymphocytes # 1.6 10^3/uL (0.8-4.8); Lymphocytes % 10.1 %; Mean Corpuscular HGB Conc 30.9 g/dL (30.0-36.0); Mean Corpuscular Volume 87.5 fL (81-99); Mean Platelet Volume 11.4 fL (7.4-10.4); Monocytes # 0.3 10^3/uL (0.2-0.9); Monocytes % 2.2 %; Neutrophils # 13.62 10^3/uL (1.8-7.7); Neutrophils % 86.4 %; Nucleated Red Blood Cells % 0 %; Platelet Count 217 10^3/cmm (130-400); Red Blood Count 5.11 10^6/uL (4.1-5.3); Red Cell Distribution Width 13.6 % (12.1-15.1); White Blood Count 15.8 10^3/uL (4.0-10.0)
[2020-11-27 08:22] LABS: Alanine Aminotransferase 7 U/L (0-33); Albumin Level 3.7 g/dL (3.5-5.2); Alkaline Phosphatase 130 IU/L (35-105); Anion Gap 16.8 (5-19); Aspartate Amino Transferase 7 U/L (0-32); Blood Urea Nitrogen 26 mg/dL (8-23); Calcium 8.7 mg/dL (8.5-10.5); Carbon Dioxide 23 mmol/L (22-29); Chloride 96 mmol/L (98-107); Globulin 3.2 g/dL (1.3-4.6); Glucose 326 mg/dL (65-115); Osmolality Calculated 289 mOsm/kg (285-295); Potassium 4.8 mmol/L (3.5-5.1); Sodium 131 mmol/L (136-145); Total Bilirubin 0.4 mg/dL (0.15-1.2); Total Protein 6.9 g/dL (6.6-8.7)
[2020-11-27] MEDS: atorvastatin 40 mg Tablet 20 MG PO (08:49)
[2020-11-27] MEDS: famotidine 20 mg Tablet PO ×2 (08:49→18:27)
[2020-11-27] MEDS: buPROPion XL (24 HR) 150 mg Tablet PO (08:49)
[2020-11-27] MEDS: metoprolol succinate ER (24 HR) 25 mg Tablet PO ×2 (08:50→18:27)
[2020-11-27 08:52] LABS: Troponin 5 2HR 18.53 ng/L (0-10)
[2020-11-27 10:04] LABS: Troponin 5 6HR 12.18 ng/L (0-10)
[2020-11-27 10:11] LABS: Troponin 5 6HR Delta -9.8 ng/L (0-12)
[2020-11-27] MEDS: nicotine 14 mg Patch 1 PATCH TRANSDERMA (10:23)
[2020-11-27 10:53] LABS: Glucose Point of Care > 600 mg/dL (70-110)
[2020-11-27 10:53] LABS: Glucose Point of Care 586 mg/dL (70-110)
[2020-11-27 11:10] LABS: Magnesium 1.9 mg/dL (1.7-2.3); Thyroid Stimulating Hormone 0.54 uIU/mL (0.27-4.20)
[2020-11-27 12:37] LABS: Procalcitonin 0.12 ng/mL (0-0.5)
[2020-11-27 12:48] LABS: Chol HDL Ratio 3.51 mg/dL (0.0-4.40); Cholesterol 151 mg/dL (0-200); HDL Cholesterol 43 mg/dL (60-100); LDL Cholesterol Calculated 87 mg/dL (50-129); LDL HDL Ratio 2.02 RATIO (0.00-3.22); Triglycerides 104 mg/dL (0-150)
[2020-11-27 13:52] LABS: Glucose Point of Care > 600 mg/dL (70-110)
[2020-11-27] MEDS: insulin regular-human 10 UNIT in SYRINGE 1 EACH IVP ×2 (14:23→16:06)
[2020-11-27 15:07] LABS: Alanine Aminotransferase 8 U/L (0-33); Albumin Level 3.5 g/dL (3.5-5.2); Alkaline Phosphatase 123 IU/L (35-105); Anion Gap 19.4 (5-19); Aspartate Amino Transferase 7 U/L (0-32); Blood Urea Nitrogen 31 mg/dL (8-23); Calcium 8.9 mg/dL (8.5-10.5); Carbon Dioxide 22 mmol/L (22-29); Chloride 92 mmol/L (98-107); Globulin 3.3 g/dL (1.3-4.6); Osmolality Calculated 302 mOsm/kg (285-295); Potassium 4.4 mmol/L (3.5-5.1); Sodium 129 mmol/L (136-145); Total Bilirubin 0.2 mg/dL (0.15-1.2); Total Protein 6.8 g/dL (6.6-8.7)
[2020-11-27 15:09] LABS: Lactate (Lactic Acid level) 4.5 mmol/L (0.5-2.2)
[2020-11-27 15:19] LABS: Glucose Point of Care 529 mg/dL (70-110)
[2020-11-27 15:22] LABS: Glucose 598 mg/dL (65-115)
[2020-11-27 15:32] LABS: Glucose Point of Care 533 mg/dL (70-110)
[2020-11-27 15:56] LABS: Estmated Average Glucose 249; Hemoglobin A1C 10.3 % (4.0-6.0)
[2020-11-27 16:39] LABS: Troponin 5 2HR Delta -3.5 ABS# (0-10)
[2020-11-27 16:49] LABS: Glucose Point of Care 528 mg/dL (70-110)
[2020-11-27 18:02] LABS: Alanine Aminotransferase 6 U/L (0-33); Albumin Level 3.5 g/dL (3.5-5.2); Alkaline Phosphatase 114 IU/L (35-105); Blood Urea Nitrogen 33 mg/dL (8-23); Calcium 9.3 mg/dL (8.5-10.5); Carbon Dioxide 23 mmol/L (22-29); Chloride 94 mmol/L (98-107); Globulin 3.3 g/dL (1.3-4.6); Glomerular Filtration Rate 37.9 mL/min (90-130); Glucose 450 mg/dL (65-115); Osmolality Calculated 301 mOsm/kg (285-295); Sodium 132 mmol/L (136-145); Total Bilirubin 0.2 mg/dL (0.15-1.2); Total Protein 6.8 g/dL (6.6-8.7)
[2020-11-27 18:04] LABS: Anion Gap 19.2 (5-19); Aspartate Amino Transferase 8 U/L (0-32); Potassium 4.2 mmol/L (3.5-5.1)
[2020-11-27 18:14] LABS: Glucose Point of Care 458 mg/dL (70-110)
[2020-11-27 18:46] LABS: Glucose Point of Care 517 mg/dL (70-110)
--- NOTE | 2020-11-27 18:47 | USCV_ITS ---
Sarah Rogers Age: 65 Gender: F : 1955 Exam Date: 11/27/2020 15:18 Ordering Phys: Leila Soriano MD Technologist: Nataliya Santizo Exam Location: [facility] [place] Indication: CHEST PAIN BP: 112 / 78 HR: 72 Rhythm: Sinus Technical Quality: Fair MEASUREMENTS (Male / Female) Normal Values 2D ECHO LV Diastolic Diameter PLAX 4.6 cm 4.2 - 5.9 / 3.9 - 5.3 cm LV Systolic Diameter PLAX 3.2 cm LV Chamber Size 5.4 cm IVS Diastolic Thickness 1.2 cm 0.6 - 1.0 / 0.6 - 0.9 cm IVS Systolic Thickness 1.8 cm LVPW Diastolic Thickness 1.2 cm 0.6 - 1.0 / 0.6 - 0.9 cm LVPW Systolic Thickness 1.3 cm RV Chamber Size 2.4 cm LVOT Diameter 2.0 cm LV Ejection Fraction 2D Teich 58.9 % LV Ejection Fraction MOD 2C 58.1 % LV Ejection Fraction 2C AL 60.7 % LA Diameter 3.7 cm LA Width 3.8 cm LA Height 5.7 cm RA Width 2.9 cm RA Height 6.2 cm Aorta at Sinotubular Diameter 2.7 cm M-MODE LV Diastolic Diameter MM 7.0 cm 4.2 - 5.9 / 3.9 - 5.3 cm LV Systolic Diameter MM 5.1 cm LV Ejection Fraction MM Teich 52.1 % IVS Diastolic Thickness MM 1.3 cm 0.6 - 1.0 / 0.6 - 0.9 cm IVS Systolic Thickness MM 1.7 cm LVPW Diastolic Thickness MM 1.2 cm 0.6 - 1.0 / 0.6 - 0.9 cm LVPW Systolic Thickness MM 1.3 cm Aortic Annulus Diameter 3.5 cm LA Ao Ratio MM 1.3 MV E Point Septal Separation 1.3 cm DOPPLER AV Peak Velocity 140.0 cm/s LVOT Peak Velocity 102.0 cm/s AV Area Cont Eq vti 2.5 cm squared AV Area Cont Eq pk 2.3 cm squared MV Area PHT 3.0 cm squared Mitral E to A Ratio 0.6 MV E' Velocity 31.0 cm/s Mitral E to MV E' Ratio 13.7 Mitral E to LV E' Lateral Ratio 11.7 Mitral E to LV E' Septal Ratio 16.9 TV Peak E Velocity 40.0 cm/s Right Atrial Pressure 3.0 mmHg PV Peak Velocity 74.0 cm/s RV Acceleration Time 0.1 s RV Ejection Time 0.2 s RV AcT/ET 0.4 FINDINGS Left Ventricle Normal left ventricular size and systolic function, EF 58 %. Mild left ventricular hypertrophy. No regional wall motion abnormalities. Grade I/IV diastolic dysfunction (abnormal relaxation filling pattern), normal to mildly elevated filling pressures. Right Ventricle The right ventricle is normal in size and function. Right Atrium The right atrium is normal in size. Left Atrium The left atrium is normal in size. Mitral Valve Trace mitral valve regurgitation. Aortic Valve Thickened aortic valve. Tricuspid Valve No gross abnormalities noted Pulmonic Valve Pulmonic valve not well visualized. Pericardium Normal pericardium without effusion. Aorta Normal ascending aorta dimension. CONCLUSIONS Normal left ventricular size and systolic function, EF 58 %. Mild left ventricular hypertrophy. No regional wall motion abnormalities. Grade I/IV diastolic dysfunction (abnormal relaxation filling pattern), normal to mildly elevated filling pressures. Trace mitral valve regurgitation. Thickened aortic valve. There is no pericardial effusion. There are no intracardiac masses. No previous study is available for comparison. Dr Padmini Serrano MD FACC (Electronically Signed) Final Date: 27 November 2020 22:20 S
--- NOTE | 2020-11-27 18:54 | PM.PN ---
Subjective Subjective: Interval history: Patient's blood sugar noted to be in excess of 600 this evening with an anion gap of 19, elevated lactate, not resolved with 28 units of subacute insulin and 20 units of IV insulin pushes, transferring to ICU to start insulin drip. HbA1c at 10. Patient reports not taking insulin in over a year as she was depressed after her sister's and did not take any medications as prescribed. 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: no focal neuro deficits Extremity 1+ pitting edema Urinary Catheter Management^: Boyd: Cath Placed During This Visit: yes Reason for Continuing Indwelling Catheter: Other Urinary Catheter Date of Insertion: 11/27/20 Urinary Catheter Time of Insertion: 01:01 Data : 11/27/20 06:27 11/27/20 17:20 Micro: Microbiology 11/26/20 16:21 Blood Culture - Preliminary Blood NEGATIVE TO DATE 11/26/20 16:20 Blood Culture - Preliminary Blood NEGATIVE TO DATE A&P Assessment and plan (1) Chest pain: Status: Acute (2) COPD exacerbation: Status: Acute (3) Type 2 diabetes mellitus, without long-term current use of insulin: Status: Chronic Qualifiers: Diabetes mellitus complication status: without complication Qualified Code(s): E11.9 - Type 2 diabetes mellitus without complications (4) Benign essential HTN: Status: Chronic (5) GERD (gastroesophageal reflux disease): Status: Chronic Qualifiers: Esophagitis presence: esophagitis presence not specified Qualified Code(s): K21.9 - Gastro-esophageal reflux disease without esophagitis Acute respiratory distress due to COPD exacerbation - Ct chest without infiltrates, cannot rule out bacterial bronchitis, mediastinal lymphadenopathy noted, will need outpatient follow-up with pulmonary CTA chest negative for PE - Leukocytosis - infectious vs steroid induced. - Supplemental 02 as needed - Duoneb q6hr - Prednisone 40 mg PO qAM - Wean o2 as tolerated - Continue levaquin 750 mg daily - Sputum culture and gram stain - procal negative -Hyperglycemia, increased anion gap, check serum ketones, urine ketones positive on UA yesterday, fingersticks trending up in spite of 28 units of acute insulin and 20 units of regular IV insulin, will start insulin infusion, moved to ICU for the same due to concern for HHS. HbA1c at 10, patient reports noncompliance with her medications, she is supposed to be on insulin but discontinued use 1 year ago due to depression. 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
[2020-11-27 19:32] LABS: Ketone (Acetest) Serum Negative (Negative)
[2020-11-27 19:45] LABS: Alanine Aminotransferase 7 U/L (0-33); Albumin Level 3.4 g/dL (3.5-5.2); Alkaline Phosphatase 111 IU/L (35-105); Aspartate Amino Transferase 7 U/L (0-32); Blood Urea Nitrogen 34 mg/dL (8-23); Calcium 9.2 mg/dL (8.5-10.5); Carbon Dioxide 24 mmol/L (22-29); Chloride 92 mmol/L (98-107); Globulin 3.3 g/dL (1.3-4.6); Glomerular Filtration Rate 37.9 mL/min (90-130); Osmolality Calculated 301 mOsm/kg (285-295); Sodium 130 mmol/L (136-145); Total Bilirubin 0.2 mg/dL (0.15-1.2); Total Protein 6.7 g/dL (6.6-8.7)
[2020-11-27 19:50] LABS: Anion Gap 18.6 (5-19); Glucose 519 mg/dL (65-115); Potassium 4.6 mmol/L (3.5-5.1)
--- NOTE | 2020-11-27 19:52 | PC.NURSE ---
TRANSFER REPORT: REPORT CALLED TO ICU NURSE SIGRID MESSINA. WILL TRANSFER PATIENT TO ICU.
[2020-11-27] MEDS: insulin regular-human 250 UNIT in sodium chloride 0.9% 250 ML 12.5 UNIT IV (20:40)
[2020-11-28] VITALS (57 sets, daily range): BP systolic 116–149; BP diastolic 60–94; PULSE 60–83; RESP 15–32; TEMP 36.4–37.1; O2SAT 89–100
[2020-11-28 00:38] LABS: Alanine Aminotransferase 6 U/L (0-33); Albumin Level 3.3 g/dL (3.5-5.2); Alkaline Phosphatase 106 IU/L (35-105); Aspartate Amino Transferase 5 U/L (0-32); Blood Urea Nitrogen 35 mg/dL (8-23); Calcium 9.3 mg/dL (8.5-10.5); Carbon Dioxide 24 mmol/L (22-29); Chloride 97 mmol/L (98-107); Globulin 3.4 g/dL (1.3-4.6); Glucose 150 mg/dL (65-115); Osmolality Calculated 287 mOsm/kg (285-295); Sodium 133 mmol/L (136-145); Total Bilirubin 0.2 mg/dL (0.15-1.2); Total Protein 6.7 g/dL (6.6-8.7)
[2020-11-28] MEDS: FUROsemide 10 mg/mL SDV 4mL 40 MG IVP ×2 (00:58→14:10)
[2020-11-28] MEDS: levoFLOXacin 750 mg Tablet PO (06:08)
[2020-11-28] MEDS: buPROPion XL (24 HR) 150 mg Tablet PO (06:08)
[2020-11-28 06:52] LABS: Alanine Aminotransferase 7 U/L (0-33); Albumin Level 3.3 g/dL (3.5-5.2); Alkaline Phosphatase 114 IU/L (35-105); Anion Gap 15.9 (5-19); Aspartate Amino Transferase 6 U/L (0-32); Blood Urea Nitrogen 37 mg/dL (8-23); Calcium 8.8 mg/dL (8.5-10.5); Carbon Dioxide 26 mmol/L (22-29); Chloride 101 mmol/L (98-107); Globulin 3.2 g/dL (1.3-4.6); Glucose 108 mg/dL (65-115); Osmolality Calculated 297 mOsm/kg (285-295); Potassium 3.9 mmol/L (3.5-5.1); Sodium 139 mmol/L (136-145); Total Bilirubin 0.2 mg/dL (0.15-1.2); Total Protein 6.5 g/dL (6.6-8.7)
[2020-11-28] MEDS: famotidine 20 mg Tablet PO ×2 (08:05→17:53)
[2020-11-28] MEDS: atorvastatin 40 mg Tablet 20 MG PO (08:05)
[2020-11-28] MEDS: metoprolol succinate ER (24 HR) 25 mg Tablet PO ×2 (08:05→17:52)
[2020-11-28] MEDS: nicotine 14 mg Patch 1 PATCH TRANSDERMA (08:06)
[2020-11-28 08:13] LABS: Glucose Point of Care 115 mg/dL (70-110)
[2020-11-28 08:13] LABS: Glucose Point of Care 340 mg/dL (70-110)
[2020-11-28 08:13] LABS: Glucose Point of Care 131 mg/dL (70-110)
[2020-11-28 08:13] LABS: Glucose Point of Care 145 mg/dL (70-110)
[2020-11-28 08:13] LABS: Glucose Point of Care 227 mg/dL (70-110)
[2020-11-28 08:13] LABS: Glucose Point of Care 477 mg/dL (70-110)
[2020-11-28 08:13] LABS: Glucose Point of Care 122 mg/dL (70-110)
[2020-11-28 08:13] LABS: Glucose Point of Care 147 mg/dL (70-110)
[2020-11-28 08:13] LABS: Glucose Point of Care 82 mg/dL (70-110)
[2020-11-28 08:13] LABS: Glucose Point of Care 115 mg/dL (70-110)
[2020-11-28 08:13] LABS: Glucose Point of Care 154 mg/dL (70-110)
[2020-11-28 08:13] LABS: Glucose Point of Care 129 mg/dL (70-110)
--- NOTE | 2020-11-28 09:06 | PC.NURSE ---
Received new orders from Dr Mcnamara. Stopped insulin drip and starting on low dose insulin regemin. ACHS. CHange diet to carb consistent, allow breakfast and check blood sugar 1 hour after breakfast.
[2020-11-28 09:28] LABS: Glucose Point of Care 129 mg/dL (70-110)
--- NOTE | 2020-11-28 09:53 | PC.CHAP ---
Pastoral Care Encounter/Spiritual Assessment Type of Contact [] Declined library assistant visit [] Patient/Family/Request visit [] Outpatient visit [] Follow-up visit [] Physician referral [] Code/Alert [x] Routine visit [] Staff referral [] Actively dying [] Patient sleeping [] Family support [] [] Out of room [] Palliative care [] [] Receiving care in room [] Pre-surgical visit [] Trauma [] Long length of stay [x] ICU visit [] Other: Relational/Emotional Strength [] Patient feels connected with others/family/visitors/staff [] Distress [] Loneliness/isolation [] Abandonment Spirituality of Patient [] Person of Nat [] Attends Anglican of their Nat [] Believes in Prayer [] Reads Bible or Shinto materials [] There are Spiritual issues to be addressed Procedures Rn Interventions [x] Prayer [] Active listening [] Non-anxious presence [] Spiritual/emotional support [] Crisis/trauma care [] Spiritual counseling [] Bereavement support [] Provided bereavement packet [] Provided Bible/devotional materials [] Provided toy/stuffed animal, coloring book to patient or family member [] Provided Communion [] Anointing/Gwynn [] Salvation [x] Completed spiritual assessment [] Other: Impact on Illness or Injury [] Angry [] Fearful [] Anxious [] Often cries [] Exhaustion [] Unable to work [] Unable to attend confucianism [] Unable to walk/stand [] Unable to read [] Unable to drive [] Unable to eat/drink [] Unable to sleep [] Unable to be with family [] Patient intubated [] Other: Summary Time spent with patient
--- NOTE | 2020-11-28 10:59 | P.PN_ITS ---
Subjective Subjective: Interval history: No acute event overnight. off insulin drip, AG gas closed.Transitioned to sc insulin. Has remained afebrile,other vitals and labs have been reviewed.She says that she feels fine and is ready to go home. COVID PCR :Negative. Medications: Reviewed: Yes Vitals/I&O/Wt Last Vital Signs Temp 98.3 F 11/28/20 08:00 Pulse 70 11/28/20 10:00 Resp 19 H 11/28/20 10:00 BP 116/81 11/28/20 10:00 Pulse Ox 91 11/28/20 10:00 11/27/20 11/28/20 11/28/20 22:59 06:59 14:59 Intake Total 145.028 / 195.028 30.737 / 225.765 3.383 / 3.383 Output Total 1000 / 1000 1850 / 2850 Balance -854.972 / -804.972 -1819.263 / -2624.235 3.383 / 3.383 Weight last 48 hrs Weight 95.98 kg Weight 95.889 kg Weight 100.924 kg Weight 90.718 kg Physical Exam Const: COMMON NORMALS: patient oriented x3 HENMT: COMMON NORMALS: normocephalic, atraumatic, hearing grossly normal bilaterally and external ears normal HEAD & SCALP: normocephalic and atraumatic EXTERNAL EAR: Yes external ears normal Eye: COMMON NORMALS: no scleral icterus GENERAL EYE: appearance normal, both eyes and all related structures Chest: COMMONS NORMALS: normal inspection of the chest and normal palpation of entire chest wall CHEST: Yes Symmetrical chest wall rise Resp: COMMON NORMALS: normal respiratory effort, No retractions, No use of accessory muscles and clear to auscultation bilaterally EFFORT & INSPECTION: Yes symmetric chest movement AUSCULTATION: clear to auscultation bilaterally Cardio: COMMON NORMALS: regular rate, regular rhythm, S1 normal heart sound present, S2 normal heart sound present, No gallops present (Cardio), No murmurs present (Cardio), No rub (Cardio) and Peripheral pulses 2+ throughout RATE: regular rate RHYTHM: regular rhythm HEART SOUNDS: S1 normal heart sound present and S2 normal heart sound present PERIPHERAL PULSES: Peripheral pulses 2+ throughout GI: COMMON NORMALS: Normal to inspection, nondistended, normoactive bowel soun ds present, Soft to palpation, non-tender, No hepatosplenomegaly present and no masses AUSCULTATION: Yes normoactive bowel sounds PALPATION: Yes Soft to palpation and Yes No hepatosplenomegaly present RECTAL EXAM: deferred Neuro: COMMON NORMALS: patient oriented x3 Urinary Catheter Management^: Boyd: Cath Placed During This Visit: yes Reason for Continuing Indwelling Catheter: Accurate Measurement of Urinary Output in Critically Ill Patients Urinary Catheter Date of Insertion: 11/27/20 Urinary Catheter Time of Insertion: 01:01 Data : 11/27/20 06:27 11/28/20 04:48 Micro: Microbiology 11/27/20 13:50 Urine Culture - Preliminary Urine,Clean Catch 11/27/20 13:30 MRSA Culture - Final Nose 11/26/20 16:21 Blood Culture - Preliminary Blood NEGATIVE TO DATE 11/26/20 16:20 Blood Culture - Preliminary Blood NEGATIVE TO DATE A&P Assessment and plan (1) Chest pain: Status: Acute (2) COPD exacerbation: Status: Acute (3) Heart failure: Status: Acute (4) Type 2 diabetes mellitus, without long-term current use of insulin: Status: Chronic (5) Benign essential HTN: Status: Chronic (6) GERD (gastroesophageal reflux disease): Status: Chronic Qualifiers: Esophagitis presence: esophagitis presence not specified Qualified Code(s): K21.9 - Gastro-esophageal reflux disease without esophagitis Acute respiratory distress due to COPD exacerbation/Decompensated HFpEF - Ct chest without infiltrates, cannot rule out bacterial bronchitis, mediastinal lymphadenopathy noted, will need outpatient follow-up with pulmonary CTA chest negative for PE - Leukocytosis - infectious vs steroid induced. - Supplemental 02 as needed - Duoneb q6hr - Initially on Prednisone 40 mg PO qAM ( Stopped ) - Wean o2 as tolerated - Continue levaquin 750 mg daily - Sputum culture and gram stain - procal negative -COVID PCR ;Negative Decompensated HFpEF: Pro BNP: 1021, 2D Echo : Normal left ventricular size and systolic function, EF 58 %. Mild left ventricular hypertrophy. No regional wall motion abnormalities. Grade I/IV diastolic dysfunction (abnormal relaxation filling pattern), normal to mildly elevated filling pressures. Trace mitral valve regurgitation. Thickened aortic valve. There is no pericardial effusion. There are no intracardiac masses. -Lasix 40 mg I.V Q12 H Daily -Hyperglycemia, increased anion gap, check serum ketones, urine ketones positive on UA yesterday, fingersticks was trending up in spite of 28 units of acute insulin and 20 units of regular IV insulin, she was started on insulin infusion, and moved to ICU for the same due to concern for HHS. HbA1c at 10, patient reports noncompliance with her medications, she is supposed to be on insulin but discontinued use 1 year ago due to depression.off insulin drip, AG gas closed.Transitioned to sc insulin ( Lantus 1 u SC Daily as well as LDSSI ) Chest pain: - Elevated Troponin - Chest Tightness - Uncontrolled DM - Monitor on tele - Am Stress test - NPO after midnight Hypertension - Metoprolol 25 mg PO BID Dyslipidemia - Continue Lipitor 20 mg po Qhs GI pox - Pepcid 20 mg PO BID DVT pox - SCDs - No heparin given hx of renal hematoma and risk of bleeding Attestations Medical Necessity Statement*: Patient needs to be in hospital for the management chest pain, hyperglycemia,respiratory distress. Coding Level of Care Code Acute Director Enterprise Sales for Bobby Rothman Diagnoses Chest pain R07.9 COPD exacerbation J44.1 Heart failure I50.9 Type 2 diabetes mellitus, without long-term current use of insulin E11.9 Benign essential HTN I10 GERD (gastroesophageal reflux disease) K21.9 Esophagitis presence: esophagitis presence not specified
[2020-11-28] MEDS: insulin glargine 100 units/1 mL 10 UNIT SUBCUT ×2 (11:25→20:26)
[2020-11-28 12:00] LABS: Glucose Point of Care 306 mg/dL (70-110)
[2020-11-28 14:30] LABS: Coronavirus Test Green County Not Detected
[2020-11-28 17:31] LABS: Glucose Point of Care 120 mg/dL (70-110)
--- NOTE | 2020-11-28 18:36 | PC.NURSE ---
Shift summary: Patient was able to come off of the insulin drip. Blood sugar before dinner was 120. Plan for tommorow is to have a stess test. Patient ambulates well and doesn't require supplemental oxygen while sitting. Needs 1 or 2 Liters when laying in bed. 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 Uneventful shift.
[2020-11-28 21:21] LABS: Glucose Point of Care 335 mg/dL (70-110)
[2020-11-29] VITALS (27 sets, daily range): BP systolic 112–162; BP diastolic 63–93; PULSE 57–72; RESP 13–27; TEMP 36.3–37; O2SAT 90–97
[2020-11-29] MEDS: FUROsemide 10 mg/mL SDV 4mL 40 MG IVP (00:31)
[2020-11-29 04:07] LABS: Basophils # 0.1 10^3/uL (0.0-0.1); Basophils % 0.7 %; Eosinophils # 0.4 10^3/uL (0.0-0.8); Eosinophils % 3.1 %; Hematocrit 47.2 % (37.0-47.0); Hemoglobin 14.8 g/dL (11.5-15.3); Lymphocytes # 3.3 10^3/uL (0.8-4.8); Lymphocytes % 27.1 %; Mean Corpuscular HGB Conc 31.4 g/dL (30.0-36.0); Mean Corpuscular Hemoglobin 27.6 pg (28.0-34.0); Mean Corpuscular Volume 87.9 fL (81-99); Mean Platelet Volume 11.3 fL (7.4-10.4); Monocytes # 0.7 10^3/uL (0.2-0.9); Neutrophils # 7.56 10^3/uL (1.8-7.7); Neutrophils % 62.8 %; Nucleated Red Blood Cells % 0 %; Platelet Count 236 10^3/cmm (130-400); Red Blood Count 5.37 10^6/uL (4.1-5.3); Red Cell Distribution Width 13.5 % (12.1-15.1)
[2020-11-29 04:28] LABS: Blood Urea Nitrogen 38 mg/dL (8-23); Calcium 9.1 mg/dL (8.5-10.5); Carbon Dioxide 25 mmol/L (22-29); Chloride 99 mmol/L (98-107); Glucose 233 mg/dL (65-115); Osmolality Calculated 299 mOsm/kg (285-295); Sodium 136 mmol/L (136-145)
[2020-11-29 04:30] LABS: Anion Gap 16.4 (5-19); Potassium 4.4 mmol/L (3.5-5.1)
[2020-11-29 04:47] LABS: Magnesium 1.9 mg/dL (1.7-2.3)
[2020-11-29] MEDS: buPROPion XL (24 HR) 150 mg Tablet PO (05:21)
[2020-11-29] MEDS: levoFLOXacin 750 mg Tablet PO (05:21)
--- NOTE | 2020-11-29 06:52 | NMCV_ITS ---
NM masha perf SPECT r/s* [id number] Sarah Rogers Age: 65 Gender: F : 1955 Exam Date: 11/29/2020 07:58 Ordering Phys: Dee Gannon MD ([email or web address]) Technologist: BROOKE Florian Exam Location: [facility] Indications: Chest pain, SOB on exertion STRESS TEST Please see separate stress test report in [facility] for full findings IMAGE PROTOCOL Rest/Stress 1 Lexiscan Day Radiopharmaceutical Dose (mCi) Administration Site Administered by Rest: Tc-99m 11.0 IV BROOKE Price Sestamibi Stress:Tc-99m 32.7 IV BROOKE Florian Sestamibi Rest: 29-Nov-2020 60 Discovery 630 Stress: 29-Nov-2020 45 Discovery 630 0.4mg Lexiscan. Images obtained in supine and prone position. SPECT RESULTS Technical Quality: Poor Raw Data Analysis: Breast attenuation, Sub diaphragmatic attenuation artifact Image Corrections: No attenuation or motion correction applied Summed Stress Score: 3 Summed Rest Score: 0 Summed Difference Score: 3 PERFUSION FINDINGS Small sized perfusion abnormality of mild severity of mid inferior, mid inferolateral and apical lateral wall on rest images with subtle reversibility in stress images. FUNCTIONAL RESULTS (calculated via Gated SPECT) Stress Image LV EF (%): 22 Stress EDV (mL):166 TID: 1.12 Stress ESV (mL):130 FUNCTIONAL FINDINGS: The left ventricle is dilated. Transient Ischemia Dilatation of 1.1. There is severely reduced left ventricular global systolic function. The left ventricular ejection fraction is reduced with a value of 22%. There is global hypokinesis. Increased end diastolic anf end systolic volumes. IMPRESSIONS 1. Small sized perfusion abnormality of mild severity of mid inferior, mid inferolateral and apical lateral machado with subtle reversibility in stress images. 2. This very likely represents attenuation artifact. However, very small area of ischmia in circumflex artery territory cannot be completely ruled out. 3. The left ventricular ejection fraction is reduced with a value of 22%. There is global hypokinesis. 4. No prior similar studies to compare. Dee Gannon MD (Electronically Signed) Final Date: 29 November 2020 22:48 S
[2020-11-29 08:13] LABS: Glucose Point of Care 211 mg/dL (70-110)
[2020-11-29] MEDS: ondansetron 2 mg/ML SDV 2 mL 4 MG IVP (08:59)
[2020-11-29] MEDS: regadenoson 0.4 Mg/5 ml Syringe IVP (09:04)
--- NOTE | 2020-11-29 09:06 | PC.CHAP ---
Pastoral Care Encounter/Spiritual Assessment Type of Contact [] Declined natural gas treating unit operator visit [] Patient/Family/Request visit [] Outpatient visit [] Follow-up visit [] Physician referral [] Code/Alert [x] Routine visit [] Staff referral [] Actively dying [] Patient sleeping [] Family support [] [x] Out of room [] Palliative care [] [] Receiving care in room [] Pre-surgical visit [] Trauma [] Long length of stay [x] ICU visit [x] Other: testing Relational/Emotional Strength [] Patient feels connected with others/family/visitors/staff [] Distress [] Loneliness/isolation [] Abandonment Spirituality of Patient [] Person of Nat [] Attends Sikhism of their Nat [] Believes in Prayer [] Reads Bible or Anglican materials [] There are Spiritual issues to be addressed Dryer Feeder Interventions [x] Prayer [] Active listening [] Non-anxious presence [] Spiritual/emotional support [] Crisis/trauma care [] Spiritual counseling [] Bereavement support [] Provided bereavement packet [] Provided Bible/devotional materials [] Provided toy/stuffed animal, coloring book to patient or family member [] Provided Communion [] Anointing/Alviso [] Salvation [x] Completed spiritual assessment [] Other: Impact on Illness or Injury [] Angry [] Fearful [] Anxious [] Often cries [] Exhaustion [] Unable to work [] Unable to attend episcopal [] Unable to walk/stand [] Unable to read [] Unable to drive [] Unable to eat/drink [] Unable to sleep [] Unable to be with family [] Patient intubated [] Other: Summary Time spent with patient
--- NOTE | 2020-11-29 09:08 | PC.NURSE ---
6212 Transport personell here to take patient to stress test. Up into wheelchair. Tolerated well. No c/o's except slight nausea from not eating yet.
[2020-11-29] MEDS: aminophylline 25 mg/mL SDV 10 mL IVP (09:13)
[2020-11-29] MEDS: atorvastatin 40 mg Tablet 20 MG PO (10:32)
[2020-11-29] MEDS: famotidine 20 mg Tablet PO (10:33)
[2020-11-29] MEDS: metoprolol succinate ER (24 HR) 25 mg Tablet PO (10:33)
[2020-11-29] MEDS: nicotine 14 mg Patch 1 PATCH TRANSDERMA (10:34)
[2020-11-29 11:37] LABS: Glucose Point of Care 368 mg/dL (70-110)
--- NOTE | 2020-11-29 12:51 | P.DS_ITS ---
Discharge Providers Date of Admission: 11/26/20 15:23 Date of Discharge: November 29, 2020 Attending Provider at Admission: Leila Soriano Attending Provider at Discharge: Bonilla Mcnamara MD Diagnoses at Discharge Discharge Diagnosis (1) Chest pain: (2) COPD exacerbation: (3) Heart failure: (4) Uncontrolled diabetes mellitus: Status: Acute (5) Benign essential HTN: (6) GERD (gastroesophageal reflux disease): Qualifiers: Esophagitis presence: esophagitis presence not specified Qualified Code(s): K21.9 - Gastro-esophageal reflux disease without esophagitis Reason for Visit Reason for Visit: SOB, CHEST PAIN Hospital Course Hospital Course renal hematoma in 2019, hypertension, GERD, type 2 diabetes mellitus, urinary incontinence, tobacco abuse and chronic obstructive pulmonary disease who presented to ER with progressively worsening respiratory distress. This was associated with a non-productive cough, generalized weakness and poor appetite. Patient also noted subjective fever and chills in addition to chest discomfort which she described as a heaviness. Patient had been started on doxycycline in addition to prednisone prior to arrival which did not prove to be effective. Denied any prior cardiac diagnosis. Upon arrival to ER her initial laboratory work up showed a WBC of 25.1 , hemoglobin of 15.3, hematocrit 47.7 and a platelet count of 314. Sodium of 135, potassium of 4.2 chloride of 95, bicarbonate of 25, BUN of 18 and a creatinine of 1.0. Glucose of 262. Lipase of 66. Troponin T of 24-> 21.2 -> 17.30. ABG showed a Ph. 7.41, Pco2 of 41.5, Po2 of 58.6 and a HCO3 of 26.1 on 2L via NC. Patient was not previously on supplemental o2 prior to arrival. Rapid COVID-19 was negative , PCR was negative . Diagnostic work up included a CTA chest/abd/pelvis which showed enlarged paratracheal lymph nodes and right hisar lymph as well.She was admitted for the management and work up of chest paian as well as COPD Exacerbation. For her chest pain she underwent 2D Echo:Normal left ventricular size and systolic function, EF 58 %. Mild left ventricular hypertrophy. No regional wall motion abnormalities. Grade I/IV diastolic dysfunction (abnormal relaxation filling pattern), normal to mildly elevated filling pressures. Trace mitral valve regurgitation. Thickened aortic valve. There is no pericardial effusion. There are no intracardiac masses.Stress test:Small sized perfusion abnormality of mild severity of mid inferior, mid inferolateral and apical lateral machado with subtle reversibility in stress images. This very likely represents attenuation artifact. However, very small a joie of ischmia in circumflex artery territory cannot be completely ruled out. The left ventricular ejection fraction is reduced with a value of 22%. There is global hypokinesis. Chest pain is likely related to GERD. Hospital course was also complicated by the development of hyperglycemia concerning for HHS for which she was transferred to ICU and was kept on insulin drip later transitioned to subcutaneous insulin.She was also managed for Mildly Decompensated HFpEF: for which she was kept on lasix and is being discharged on lasix 40 mg po daily. Patient was also managed for COPD Exacerbation and was kept on duo nebs as well as on steroids as well as levofloxacin,she required supplemental oxygen during hospital stay but at the time of discharge she was saturating well on R/A and did not qualified for home oxygen.Cultures were negative. Patient responded well to the above medical management and is being discharged home in stable condition. She will continue to follow cardiology as well as PCP as outpatient. Physical Exam Const: COMMON NORMALS: patient oriented x3 HENMT: COMMON NORMALS: normocephalic, atraumatic, hearing grossly normal bilaterally and external ears normal HEAD & SCALP: normocephalic and atraumatic EXTERNAL EAR: Yes external ears normal Eye: COMMON NORMALS: no scleral icterus GENERAL EYE: appearance normal, both eyes and all related structures Chest: COMMONS NORMALS: normal inspection of the chest and normal palpation of entire chest wall CHEST: Yes Symmetrical chest wall rise Resp: COMMON NORMALS: normal respiratory effort, No retractions, No use of accessory muscles and clear to auscultation bilaterally EFFORT & INSPECTION: Yes symmetric chest movement AUSCULTATION: clear to auscultation bilaterally Cardio: COMMON NORMALS: regular rate, regular rhythm, S1 normal heart sound present, S2 normal heart sound present, No gallops present (Cardio), No murmurs present (Cardio), No rub (Cardio) and Peripheral pulses 2+ throughout RATE: regular rate RHYTHM: regular rhythm HEART SOUNDS: S1 normal heart sound present and S2 normal heart sound present PERIPHERAL PULSES: Peripheral pulses 2+ throughout GI: COMMON NORMALS: Normal to inspection, nondistended, normoactive bowel sounds present, Soft to palpation, non-tender, No hepatosplenomegaly present and no masses AUSCULTATION: Yes normoactive bowel sounds PALPATION: Yes Soft to palpation and Yes No hepatosplenomegaly present RECTAL EXAM: deferred Neuro: COMMON NORMALS: patient oriented x3 Urinary Catheter Management^: Boyd: Cath Placed During This Visit: yes Reason for Continuing Indwelling Catheter: Accurate Measurement of Urinary Output in Critically Ill Patients Urinary Catheter Date of Insertion: 11/27/20 Urinary Catheter Time of Insertion: 01:01 Discharge Data Data Completed and Pending: Completed Studies During Hospitalization Category Date Time Status CT abdomen pelvis w con* [id number] Stat Cat Scan 11/26/20 12:[address] angio chest PE protcl [id number] Stat Cat Scan 11/26/20 10:37 Completed Sestamibi Stress Test Request Routi ne Exams 11/29/20 18:50 Draft XR chest 1V rafael ble [id number] Stat Exams 11/26/20 10:37 Completed XR chest 1V rafael ble [id number] Stat Exams 11/27/20 00:45 Completed CV echo complete* [id number] Routine Ultrasound 11/27/20 18:47 Completed Pending at discharge Category Date Time Status Sestamibi Stress Test Request Routi ne Exams 11/28/20 18:50 Stop Req Sestamibi Stress Test Request Routi ne Exams 11/29/20 06:52 Ordered Basic Metabolic P merrick AM LABS Lab 11/30/20 04:00 Ordered Basic Metabolic P merrick AM LABS Lab 12/01/20 04:00 Ordered Blood Culture Sta t Lab 11/26/20 16:20 Results Magnesium AM LABS Lab 11/30/20 04:00 Ordered Magnesium AM LABS Lab 12/01/20 04:00 Ordered NM masha perf SPECT r/s* [id number] Routin e Nuc Med 11/29/20 06:52 Taken Labs from last 24 hours 11/29/20 11/29/20 11/29/20 11:34 07:52 03:27 WBC RBC Hgb Hct MCV MCH MCHC RDW Plt Count MPV Neut % (Auto) Lymph % (Auto) Burnett % (Auto) Eos % (Auto) Baso % (Auto) Neut # (Auto) Lymph # (Auto) Burnett # (Auto) Eos # (Auto) Baso # (Auto) Nucleated RBC % (a uto) Nucleated RBCs # Sodium Potassium Chloride Carbon Dioxide Anion Gap BUN Creatinine GFR Calculation Glucose POC Glucose 368 H 211 H Calculated Osmolal ity Calcium Magnesium 1.9 Nasal/Oral COVID-1 9 PCR 11/29/20 11/29/20 11/28/20 03:27 03:27 19:40 WBC 12.0 H RBC 5.37 H Hgb 14.8 Hct 47.2 H MCV 87.9 MCH 27.6 L MCHC 31.4 RDW 13.5 Plt Count 236 MPV 11.3 H Neut % (Auto) 62.8 Lymph % (Auto) 27.1 Burnett % (Auto) 6.0 Eos % (Auto) 3.1 Baso % (Auto) 0.7 Neut # (Auto) 7.56 Lymph # (Auto) 3.3 Burnett # (Auto) 0.7 Eos # (Auto) 0.4 Baso # (Auto) 0.1 Nucleated RBC % (a uto) 0 Nucleated RBCs # 0.0 Sodium 136 Potassium 4.4 Chloride 99 Carbon Dioxide 25 Anion Gap 16.4 BUN 38 H Creatinine 0.9 GFR Calculation 63.0 L Glucose 233 H POC Glucose 335 H Calculated Osmolal ity 299 H Calcium 9.1 Magnesium Nasal/Oral COVID-1 9 PCR 11/28/20 11/26/20 17:24 15:36 WBC RBC Hgb Hct MCV MCH MCHC RDW Plt Count MPV Neut % (Auto) Lymph % (Auto) Burnett % (Auto) Eos % (Auto) Baso % (Auto) Neut # (Auto) Lymph # (Auto) Burnett # (Auto) Eos # (Auto) Baso # (Auto) Nucleated RBC % (a uto) Nucleated RBCs # Sodium Potassium Chloride Carbon Dioxide Anion Gap BUN Creatinine GFR Calculation Glucose POC Glucose 120 H Calculated Osmolal ity Calcium Magnesium Nasal/Oral COVID-1 9 PCR Not detected Vitals: Last Vital Signs Temp 97.3 F L 11/29/20 11:05 Pulse 66 11/29/20 11:48 Resp 16 11/29/20 11:48 BP 124/80 11/29/20 11:05 Pulse Ox 97 11/29/20 12:41 Discharge Plan Discharge Patient Disposition: Home Condition: Stable Prescriptions: New Lasix 40 mg tablet 40 mg PO DAILY Qty: 30 RF: 0 Klor-Con 10 10 mEq tablet extended release 20 meq PO ONCE Qty: 30 RF: 0 Continued lisinopril 10 mg tablet 10 mg PO DAILY RF: 0 bupropion HCl [Wellbutrin XL] 150 mg tablet extended release 24 hr 150 mg PO QAM Qty: 30 RF: 0 nicotine 14 mg/24 hr patch 24 hour 1 patch TRANSDERMA Q24H RF: 0 albuterol sulfate 90 mcg/actuation HFA aerosol inhaler 2 puff INHALATION Q4H PRN (Reason: Shortness Of Breath) RF: 0 metoprolol succinate 25 mg tablet extended release 24 hr 25 mg PO BID RF: 0 nitroglycerin 0.4 mg tablet, sublingual 0.4 mg SUBLINGUAL Q5M PRN (Reason: Chest Pain) RF: 0 pantoprazole 40 mg tablet,delayed release (DR/EC) 40 mg PO DAILY RF: 0 Combivent Respimat 20-100 mcg/actuation mist 1 puff INHALATION QID RF: 0 atorvastatin 20 mg tablet 20 mg PO QDAY Qty: 30 RF: 0 metformin 500 mg tablet extended release 24 hr 1,000 mg PO .every morning Qty: 60 RF: 0 Discontinued doxycycline hyclate 100 mg Capsule 100 mg PO BID RF: 0 prednisone 20 mg tablet 20 mg PO BID RF: 0 Discharge Orders: Discharge Order (Routine); Ordered 11/29/20 Ordered By: Bonilla Mcnamara Referrals: Dee Rizvi MD [Physician] - 1 month (YOU HAVE A FOLLOW UP APPOINTMENT WITH DR RIZVI ON December AT 230 PM. IF YOU HAVE ANY QUESTIONS PLEASE CALL [phone].) Discharge Diet: Diabetic Discharge Activity: Resume usual activity Patient Instructions: Nitroglycerin (By mouth), Bupropion (By mouth), Lisinopril (By mouth), Albuterol (By breathing), Nicotine (Absorbed through the skin), Metformin (By mouth), Atorvastatin (By mouth), Ipratropium/Albuterol (By breathing), Pantoprazole (By mouth), Diabetes Mellitus Type 2 in Adults (DC), Gastroesophageal Reflux Disease (DC), Chronic Hypertension (DC), COPD Stoplight, Chest Pain Stoplight Discharge Attestations Time Spent in Discharge Care*: greater than 30 min Specific Discharge Activities: educating patient, educating and/or supporting family/caregiver, discussing with pcp/other providers, discussing with showcase maker/social workers/dc planners, documenting/other paperwork and evaluating patient/reviewing data Time Spent in Smoking Cessation: 3 to 10 minutes Status at Discharge: Cognitive status at discharge: cognitively intact , Behavioral status at discharge: cooperative , Functional status at discharge: independent ambulation Overall status at discharge: patient is back to baseline Quality Metrics Clinical Quality Measures During this hospital stay, did patient experience: None Coding Level of Care Code Acute Chg FW IN note Exam Detailed Diagnoses Chest pain R07.9 COPD exacerbation J44.1 Heart failure I50.9 Uncontrolled diabetes mellitus E11.65 Benign essential HTN I10 GERD (gastroesophageal reflux disease) K21.9 Esophagitis presence: esophagitis presence not specified
--- NOTE | 2020-11-29 13:47 | PC.SOCIAL ---
IMM update: Pg 2 IMM update given to patient. Patient verbalized an understanding, initialed, dated, and copy placed in chart.
--- NOTE | 2020-11-29 15:52 | PC.NURSE ---
1500 Discharge orders written. Patient preferred pharmacy newly [facility]. No continued meds at home. Has not had Rx filled over a year. Contacted Dr. Mcnamara, he contacted [facility] pharmacy to fill needed Rx to have at home. Patient does not have a primary care physician, but had contact with a [facility] pediatric care coordinator she liked and has her number and name at home and says she will contact [facility] to get an appointment with them within the next 30 days. Sister at bedside and discharged via w/c with all belongings to go home at 1535. To pickup Rx at [facility] on way home.
--- NOTE | 2020-11-29 18:50 | ECG_ITS ---
[facility] Test Date: 2020-11-29 Pat Name: Sarah Rogers Department: Room: ICU09 Gender: Female Jet Operator: : 1955 Requested By: Dee Gannon Order Number: [id number] Elana MD: Dee Gannon M.D. Interpretive Statements NAME OF STUDY: LEXISCAN SESTAMIBI STRESS TEST INDICATION: CHEST PAIN, dyspnea on exertion PROCEDURE: At the baseline, the blood pressure was 95/72 mmHg, oxygen saturation 91% with a heart rate of 62 bpm. The electrocardiogram showed normal sinus rhythm, leftward axis and nonspecific T wave changes. The Lexiscan was infused over a period of 20 seconds. A total of 0.4 milligrams of Lexiscan was infused. The stress phase was continued for a total of 5 minutes. Heart rate at the end of the stress phase was 64 bpm, oxygen saturation 85% with a blood pressure 107/70 mmHg. The EKG at the peak infusion revealed sinus rhythm with no significant ST-T wave changes. Sestamibi was injected 20 seconds after the Lexiscan infusion. Blood pressure at the end of the recovery phase was 139/82 mmHg, oxygen saturation 83 with a heart rate of 64 beats per minute. CONCLUSION: 1. No significant EKG changes with the LexiScan infusion. 2. No LexiScan induced chest pain or cardiac arrhythmia. 3. Normal blood pressure and heart rate response. 4. Sestamibi/sestamibi perfusion scan pending; see separate report. Electronically Signed On 11-30-2020 16:33:24 CDT by Dee Gannon M.D. [email or web address]
--- NOTE | 2020-11-29 22:22 | PM.CONSULT ---
Providers/Reason For Consult Consulting Physican/Specialty*: Dr. Gannon, Cardiology Reason for Consult*: Dyspnea on exertion Attending Physician: Bonilla Mcnamara MD History of Present Illness History of Present Illness Sarah Rogers is a 65 year old female with past medical history of hypertension, GERD, type 2 diabetes mellitus x 5 years, h/o urinary incontinence, tobacco abuse, h/o renal hematoma in 2019 and chronic obstructive pulmonary disease was in ER with worsening respiratory distress. Patient also noted some chest discomfort which she described as a heaviness on admission but denies it now. She was managed for elevated blood sugar and was treated for COPD exacerbation and congestive heart failure. Denied any prior cardiac diagnosis. Troponin T of 24-> 21.2 -> 17.30. Rapid COVID-19 was negative and PCR was negative. I was asked to assist in further evaluation. Review of Systems General: Reports: 10 or more systems reviewed and unremarkable except in HPI and below Meds/Allergies Home Medications and Allergies Home Medications Medication Instructions Recorded Confirmed Last Taken Type albuterol sulfate 90 mcg/actuation 2 puff INHALATION Q4H PRN gm 10/02/19 11/26/20 Unknown History aerosol inhaler ipratropium 20 mcg-albuterol 100 1 puff INHALATION QID 10/02/19 11/26/20 Unknown History mcg/actuation mist for inhalation metoprolol succinate 25 mg 25 mg PO BID 10/02/19 11/26/20 Unknown History tablet,extended release 24 hr nicotine 14 mg/24 hr daily 1 patch TRANSDERMA Q24H 10/02/19 11/26/20 Unknown History transdermal patch nitroglycerin 0.4 mg sublingual 0.4 mg SUBLINGUAL Q5M PRN 10/02/19 11/26/20 Unknown History tablet pantoprazole 40 mg tablet,delayed 40 mg PO DAILY 10/02/19 11/26/20 Unknown History release bupropion HCl 150 mg 24 hr tablet, 150 mg PO QAM #30 tab 10/06/19 11/26/20 Unknown Rx extended release lisinopril 10 mg tablet 10 mg PO DAILY 10/06/19 11/26/20 Unknown History atorvastatin 20 mg tablet 20 mg PO QDAY #30 tab 10/07/19 11/26/20 Unknown Rx metformin 500 mg tablet,extended 1,000 mg PO .every morning #60 tab 10/07/19 11/26/20 Unknown Rx release 24 hr furosemide [Lasix] 40 mg PO DAILY #30 tab 11/29/20 Unknown Rx potassium chloride [Klor-Con 10] 20 meq PO ONCE #30 tab 11/29/20 Unknown Rx Allergies Allergy/AdvReac Type Severity Reaction Status Date / Time Sulfa (Sulfonamide Allergy na Verified 10/06/19 08:54 Antibiotics) PFSH Acute PFSH: Medical History Benign essential HTN Chest pain COPD exacerbation COPD, moderate GERD (gastroesophageal reflux disease) H/O cholecystitis Heart failure Hematoma of left kidney Major contusion of left kidney, subsequent encounter Type 2 diabetes mellitus, without long-term current use of insulin Urinary incontinence, mixed Urinary tract infection, site not specified Surgical History H/O: hysterectomy Family History Family/Other Diabetes CAD (coronary artery disease) Hypertension Lung disease Social History Smoking and tobacco status: current every day smoker cigarettes Packs smoked per day: 1 Alcohol intake: never Adopted: No Caregiver/support person: No Marital status: Current occupational status: disabled History of recent travel: No Vitals/I&O/Wt Last Vital Signs Temp 97.4 F L 11/29/20 15:35 Pulse 72 11/29/20 15:35 Resp 20 H 11/29/20 15:35 BP 136/72 11/29/20 15:35 Pulse Ox 95 11/29/20 15:35 11/29/20 11/29/20 11/29/20 06:59 14:59 22:59 Intake Total 0 / 1361.383 360 / 360 Output Total 1900 / 3300 Balance -1900 / -1938.617 360 / 360 Weight last 48 hrs Weight 195 lb 8 oz Weight 211 lb 9.6 oz Weight 211 lb 6.4 oz Physical Exam Narrative: EXAM NARRATIVE: GENERAL: A obese woman sitting in bed in no acute distress HEENT: Extraocular movement intact. Pupils equal round reactive to light. No pallor or icterus. NECK: central trachea, no JVD appreciated. No carotid bruit. CARDIOVASCULAR SYSTEM: S1-S2 regular. No S3 or S4 present. No murmur rubs or gallops. RESPIRATORY SYSTEM: Chest clear to auscultation. No wheezes rhonchi or rubs heard. No use of accessory muscles. ABDOMEN: Soft, nontender and nondistended. Normal bowel sounds present. EXTREMITIES: No cyanosis or clubbing. No edema. No signs of chronic venous insufficiency. STAFF SUBMARINE WARFARE OFFICER: Patient is alert oriented ?3. No focal neurological deficits. SKIN: Normal turgor and temperature. No breakdown, rash or nail changes noted. PSYCH: Normal insight and judgment. Urinary Catheter Management^: Boyd: Cath Placed During This Visit: yes Reason for Continuing Indwelling Catheter: Accurate Measurement of Urinary Output in Critically Ill Patients Urinary Catheter Date of Insertion: 11/27/20 Urinary Catheter Time of Insertion: 01:01 Data Micro: Micro: Microbiology 11/27/20 13:50 Urine Culture - Fi nal Urine,Clean Catch Other Data: Attestation for Other Data: I personally reviewed and interpreted the following: Other data: Transthoracic echocardiogram 27 November 2020 CONCLUSIONS Normal left ventricular size and systolic function, EF 58 %. Mild left ventricular hypertrophy. No regional wall motion abnormalities. Grade I/IV diastolic dysfunction (abnormal relaxation filling pattern), normal to mildly elevated filling pressures. Trace mitral valve regurgitation. Thickened aortic valve. There is no pericardial effusion. There are no intracardiac masses. No previous study is available for comparison. Lexiscan sestamibi myocardial perfusion imaging 29 November 2020 IMPRESSIONS 1. Small sized perfusion abnormality of mild severity of mid inferior, mid inferolateral and apical lateral machado with subtle reversibility in stress images. 2. This very likely represents attenuation artifact. However, very small area of ischmia in circumflex artery territory cannot be completely ruled out. 3. The left ventricular ejection fraction is reduced with a value of 22%. There is global hypokinesis. 4. No prior similar studies to compare. A&P Assessment and plan (1) Chest pain: Patient denies having any chest discomfort but complains of exertional dyspnea. -Stress test without any significant reversible ischemia. -Finding of stress test as well as further management plan was discussed with the patient in detail and all her questions were answered. -Continue to manage medically for now with aspirin and statin. -Follow-up in 1 month with me in [facility] (2) Heart failure: Heart failure with preserved EF -There is a discrepancy in left ventricle ejection fraction reported by stress test and by echocardiogram. -Images were reviewed personally and LV function seems to be in range of 55 to 60% even though the study was technically difficult. -Continue with Lasix and potassium (3) Uncontrolled diabetes mellitus: Status: Acute (4) COPD, moderate: Status: Chronic (5) Benign essential HTN: Consult Attestations Medical Necessity Statement: As per primary team Time Spent in Patient Care: Greater than 35 minutes (>than 50% of time spent in counselling and/or direct pt care on unit). Coding Level of Care Code Acute Shipwright Apprentice for Chg Fwd Diagnoses Chest pain R07.9 Heart failure I50.9 Uncontrolled diabetes mellitus E11.65 COPD, moderate J44.9 Benign essential HTN I10
== END 2020-11-29 15:35 | disposition home or self-care (01) | DRG 190 ==
LOC: ER 15:43 → MEDSURG 15:45 → ICU 11-27 20:19
PROVIDERS: Family Medicine; Student in an Organized Health Care Education/Training Program; Admitting Provider Hospitalist; Emergency Provider Family Medicine; Visit Provider Internal Medicine
DX: J44.1 Chronic obstructive pulmonary disease with (acute) exacerbation (principal); J18.9 Pneumonia, unspecified organism; I50.33 Acute on chronic diastolic (congestive) heart failure; J96.01 Acute respiratory failure with hypoxia; E87.2 Acidosis; J44.0 Chronic obstructive pulmonary disease with (acute) lower respiratory infection; I11.0 Hypertensive heart disease with heart failure; K21.9 Gastro-esophageal reflux disease without esophagitis; E11.65 Type 2 diabetes mellitus with hyperglycemia; N39.46 Mixed incontinence; F17.210 Nicotine dependence, cigarettes, uncomplicated; R59.0 Localized enlarged lymph nodes; Z87.440 Personal history of urinary (tract) infections; E78.5 Hyperlipidemia, unspecified; T38.3X6A Underdosing of insulin and oral hypoglycemic [antidiabetic] drugs, initial encounter; Z91.128 Patient's intentional underdosing of medication regimen for other reason; F32.9 Major depressive disorder, single episode, unspecified; Z63.4 Disappearance and death of family member; I34.0 Nonrheumatic mitral (valve) insufficiency; Z79.51 Long term (current) use of inhaled steroids
CPT/HCPCS: 36415; 36416; 36600; 51702; 71045; 71275; 74177; 78452; 80048; 80051; 80053; 80061; 81001; 82009; 82330; 82550; 82803; 82805; 82962; 83036; 83605; 83690; 83735; 83880; 84145; 84443; 84484; 85025; 86140; 87040; 87086; 87426; 87635; 87641; 93005; 93017; 93306; 94640; 94660; 94760; 96365; 96372; 96375; 96376; 99285; A9500; J0280; J1815 ×2; J1940; J1956; J2060; J2270; J2405; J2543; J2785; J2930; J3370; J3490; J3535; J7030; J7050; Q9967

== ENCOUNTER 2021-01-16 15:15 | Outpatient (CLI) | payer MEDICARE, MEDICAID, SELFPAY ==
--- NOTE | 2021-01-16 | XR_ITS ---
WS: [id number] DEXA (DUAL ENERGY X-RAY ABSORPTIOMETRY) Bone mineral density was performed using a Exinda machine. HISTORY: POST MENOPAUSAL ESTROGEN DEFICIENCY COMPARISON: None available. Lumbar spine BMD (L1-L4): 1.035 g/cm2 T score: -1.2 Z score: -0.5 Total hip BMD: Left: 0.960 g/cm2. T score: -0.4 Z score: 0.2 Right: 0.924 g/cm2. T score: -0.7 Z score: -0.1 10 year probability of a major osteoporotic fracture is 8%. XR/XR DEXA axial skeleton* [id number] IMPRESSION: OSTEOPENIA based upon the WHO classification for females.
== END 2021-01-16 15:16 | disposition home or self-care (01) ==
PROVIDERS: Visit Provider Nurse Practitioner
DX: Z78.0 Asymptomatic menopausal state (principal); M85.89 Other specified disorders of bone density and structure, multiple sites
CPT/HCPCS: 77080

== ENCOUNTER 2021-10-13 19:03 | Inpatient (IN) | payer MEDICARE, MEDICAID, SELFPAY ==
[2021-10-13 19:08] VITALS: PULSE 85; RESP 45; O2SAT 85
--- NOTE | 2021-10-13 19:32 | XRR_ITS ---
PROCEDURE INFORMATION: Exam: XR Chest Exam date and time: 10/13/2021 7:32 PM Age: 66 years old Clinical indication: Shortness of breath; Additional info: SOB TECHNIQUE: Imaging protocol: XR of the chest. Views: 1 view. COMPARISON: CR XR chest 1V portable [id number] 11/27/2020 1:08 AM FINDINGS: There are bilateral lower lobe infiltrates. There is a right pleural effusion. There is no pneumothorax. There is cardiomegaly. There is plan vascular congestion. XR/XR chest 1V portable [id number] IMPRESSION: Findings suggestive of congestive heart failure.
[2021-10-13 19:40] VITALS: PULSE 92
[2021-10-13 19:47] LABS: Basophils # 0.1 10^3/uL (0.0-0.1); Basophils % 0.8 %; Eosinophils # 0.2 10^3/uL (0.0-0.8); Eosinophils % 2.3 %; Hematocrit 41.9 % (37.0-47.0); Hemoglobin 13.6 g/dL (11.5-15.3); Lymphocytes # 2.2 10^3/uL (0.8-4.8); Lymphocytes % 23.5 %; Mean Corpuscular HGB Conc 32.5 g/dL (30.0-36.0); Mean Corpuscular Hemoglobin 27.5 pg (28.0-34.0); Mean Corpuscular Volume 84.8 fl (81-99); Mean Platelet Volume 10.6 fL (7.4-10.4); Monocytes # 0.6 10^3/uL (0.2-0.9); Monocytes % 5.9 %; Neutrophils # 6.23 10^3/uL (1.8-7.7); Neutrophils % 67.3 %; Nucleated Red Blood Cells % 0 %; Platelet Count 257 10^3/cmm (130-400); Red Blood Count 4.94 10^6/uL (4.1-5.3); Red Cell Distribution Width 13.3 % (12.1-15.1); White Blood Count 9.3 10^3/uL (4.0-10.0)
[2021-10-13] MEDS: LORazepam 2 mg/mL INJ 1 mL 0.5 MG IVP (19:58)
--- NOTE | 2021-10-13 20:00 | ED_ITS ---
HPI - SOB/Dyspnea General: Chief Complaint: Shortness of Breath/Dyspnea Stated Complaint: sob Time Seen by Provider: 10/13/21 19:15 History of Present Illness: HPI Narrative: 66-year-old female with a history of COPD. She presents with worsening shortness of breath over the last week. She says she has not come in, because she had to find care for her grandson before she could come. She has been using her nebulizer machine but without any improvement. Cough is nonproductive. No fever. No leg swelling lately. No known sick contacts She does not use oxygen at home MD elicited complaint: shortness of breath and cough Pertinent past history: COPD Onset (ago): day(s) Timing: constant and progressively worsening Severity: severe Exacerbating factors: lying flat, exertion and coughing Relieving factors: oxygen Known history of: COPD Associated symptoms: Reports chest congestion and cough Treatment prior to arrival: bronchodilator Review of Systems Resp: Reports: chest congestion [facility] PFSH: Medical History (Updated 10/13/21 @ 22:41 by Andres Arriaza MD) Benign essential HTN Chest pain COPD exacerbation COPD, moderate GERD (gastroesophageal reflux disease) H/O cholecystitis Heart failure Hematoma of left kidney Major contusion of left kidney, subsequent encounter Type 2 diabetes mellitus, without long-term current use of insulin Uncontrolled diabetes mellitus Urinary incontinence, mixed Urinary tract infection, site not specified Surgical History H/O: hysterectomy Family History Family/Other Diabetes CAD (coronary artery disease) Hypertension Lung disease Social History Smoking and tobacco status: current every day smoker cigarettes Packs smoked per day: 1 Alcohol intake: never Adopted: No Caregiver/support person: No Marital status: Current occupational status: disabled History of recent travel: No Physical Exam Const: GENERAL APPEARANCE: cooperative, in distress and ill appearing HENMT: COMMON NORMALS: normocephalic, atraumatic and Normal external nose present HEAD & SCALP: normocephalic and atraumatic FACE & SINUS: normal facial exam NOSE: Normal external nose present Eye: COMMON NORMALS: Equal, round and reactive pupils present and EOMs intact bilaterally PUPIL: Yes Equal, round and reactive pupils present Chest: COMMONS NORMALS: normal inspection of the chest Resp: COMMON NORMALS: clear to auscultation bilaterally EFFORT & INSPECTION: Yes tachypneic, Yes respiratory distress and Yes uses accessory muscles AUSCULTATION: clear to auscultation bilaterally and diminished lung sounds Cardio: COMMON NORMALS: regular rate and regular rhythm RATE: regular rate RHYTHM: regular rhythm GI: COMMON NORMALS: Normal to inspection, nondistended, normoactive bowel sounds present and Soft to palpation PALPATION: Yes Soft to palpation Extremity: GENERAL: No edema Neuro: ANYI COMA SCALE: document GCS findings Anyi coma scale eye opening: Spontaneous Anyi coma scale verbal response: Orientated Anyi coma scale motor response: Obey commands [place] coma scale total score: 15 Skin: COMMON NORMALS: no rashes or lesions noted GENERAL SKIN EXAM: no rashes or lesions noted Course Consultations: Consultation #1: tiffani Time: 21:33 Vital Signs: Vital signs: Vital Signs Temperature 98.6 F 10/14/21 00:00 Pulse Rate 79 10/14/21 00:00 Respiratory Rate 18 10/14/21 00:00 Blood Pressure 138/92 10/14/21 00:00 Pulse Oximetry 94 10/14/21 00:00 MDM - SOB/Dyspnea Medical Decision Making 66-year-old female with shortness of breath. Her BNP is elevated. Her first troponin is 18. She does not have any chest pain. Sinus rhythm on the monitor. She was quite hypertensive on arrival, improved after nitroglycerin, Lasix and labetalol. Saturations are 93% now on 3 L. Respirations have come down from 40-20 per she has received Solu-Medrol, nebulizer treatment, Lasix, and is covered with antibiotics for what appears to be a right lower lobe infiltrate, superimposed on bilateral infiltrate suggestive of pulmonary edema. She will need to be admitted for hypoxic respiratory failure. Spoke with hospitalist. He requests CT angio as well as rapid flu. Her rapid Covid is negative. Lab Data : 10/13/21 19:35 10/13/21 19:35 Labs/Radiology: Radiology Impressions Chest X-Ray 10/13/21 19:32 IMPRESSION: Findings suggestive of congestive heart failure. Chest CTA 10/13/21 21:32 IMPRESSION: 1. No evidence for pulmonary embolism. 2. Findings suggestive of congestive heart failure. 3. Mediastinal and hilar adenopathy. This appears similar to the previous exam. Laboratory Results WBC 9.3 10^3/uL (4.0-10.0) 10/13/21 19:35 RBC 4.94 10^6/uL (4.1-5.3) 10/13/21 19:35 Hgb 13.6 g/dL (11.5-15.3) 10/13/21 19:35 Hct 41.9 % (37.0-47.0) 10/13/21 19:35 MCV 84.8 fl (81-99) 10/13/21 19: MCH 27.5 pg (28.0-34.0) L 10/13/21 19: MCHC 32.5 g/dL (30.0-36.0) 10/13/21 19:35 RDW 13.3 % (12.1-15.1) 10/13/21 19:35 Plt Count 257 10^3/cmm (130-400) 10/13/21 19:35 MPV 10.6 fL (7.4-10.4) H 10/13/21 19:35 Neut % (Auto) 67.3 % 10/13/21 19:35 Lymph % (Auto) 23.5 % 10/13/21 19:35 [place] % (Auto) 5.9 % 10/13/21 19:35 Eos % (Auto) 2.3 % 10/13/21 19:35 Baso % (Auto) 0.8 % 10/13/21:35 Neut # (Auto) 6.23 10^3/uL (1.8-7.7) 10/13/21 19:35 Lymph # (Auto) 2.2 10^3/uL (0.8-4.8) 10/13/21 19:35 [place] # (Auto) 0.6 10^3/uL (0.2-0.9) 10/13/21 19:35 Eos # (Auto) 0.2 10^3/uL (0.0-0.8) 10/13/21 19:35 Baso # (Auto) 0.1 10^3/uL (0.0-0.1) 10/13/21 19:35 Nucleated RBC % (auto) 0 % 10/13/21 19:35 Nucleated RBCs # 0.0 /100WBC 10/13/21 19:35 D-Dimer 1.00 ug/mIFEU (0-0.59) H 10/13/21 19:35 Sodium 137 mmol/L (136-145) 10/13/21 19:35 Potassium 4.2 mmol/L (3.5-5.1) 10/13/21 19:35 Chloride 102 mmol/L (98-107) 10/13/21 19:35 Carbon Dioxide 22 mmol/L (22-29) 10/13/21 19:35 Anion Gap 17.2 (5-19) 10/13/21 19:35 BUN 14 mg/dL (8-23) 10/13/21 19:35 Creatinine 0.8 mg/dL (0.5-0.9) 10/13/21 19:35 GFR Calculation 72.0 mL/min (90-130) L 10/13/21 19:35 Glucose 319 mg/dL (65-115) H 10/13/21 19:35 Estimat Average Glucose 243 10/13/21 19:35 Hemoglobin A1c 10.1 % (4.0-6.0) H 10/13/21 19:35 Calculated Osmolality 297 mOsm/kg (285-295) H 10/13/21 19:35 Lactic Acid 2.1 mmol/L (0.5-2.2) 10/13/21 19:35 Calcium 9.0 mg/dL (8.5-10.5) 10/13/21 19:35 Total Bilirubin 0.3 mg/dL (0.15-1.2) 10/13/21 19:35 AST 7 U/L (0-32) 10/13/21 19:35 ALT 6 U/L (0-33) 10/13/21 19:35 Alkaline Phosphatase 124 IU/L (35-105) H 10/13/21 19:35 Troponin T Gen 5 ng/L 18 ng/L (0-10) H 10/13/21 19:35 C-Reactive Protein 31.9 mg/L (0.0-4.9) H 10/13/21 19:35 NT-Pro-B Natriuret Pep 3988 pg/mL (0-125) H 10/13/21 19:35 Total Protein 6.4 g/dL (6.6-8.7) L 10/13/21 19:35 Albumin 3.9 g/dL (3.5-5.2) 10/13/21 19:35 Globulin 2.5 g/dL (1.3-4.6) 10/13/21 19:35 Procalcitonin 0.05 ng/mL (0-0.5) 10/13/21 19:35 TSH 0.61 uIU/mL (0.27-4.20) 10/13/21 19:35 SARS-CoV-2 Ag (Rapid) Negative (Negative) 10/13/21 20:02 Discharge Plan Discharge Patient Disposition: Admitted As Inpatient Admit Provider: Andres Arriaza Clinical Impression: Acute respiratory failure with hypoxia Condition: Stable Coding Level of Care Code ED Disability Counselor for Micheleg Fwd Exam Comprehensive
[2021-10-13 20:03] LABS: Lactic Sepsis W/Reflex 2.1 mmol/L (0.5-2.2)
[2021-10-13 20:06] LABS: Troponin T (5th) Once 18 ng/L (0-10)
[2021-10-13 20:13] LABS: Alanine Aminotransferase 6 U/L (0-33); Albumin Level 3.9 g/dL (3.5-5.2); Alkaline Phosphatase 124 IU/L (35-105); Anion Gap 17.2 (5-19); Aspartate Amino Transferase 7 U/L (0-32); Blood Urea Nitrogen 14 mg/dL (8-23); C Reactive Protein 31.9 mg/L (0.0-4.9); Carbon Dioxide 22 mmol/L (22-29); Chloride 102 mmol/L (98-107); Globulin 2.5 g/dL (1.3-4.6); Glucose 319 mg/dL (65-115); NT Pro B Type Natriuretic Pept 3988 pg/mL (0-125); Osmolality Calculated 297 mOsm/kg (285-295); Potassium 4.2 mmol/L (3.5-5.1); Sodium 137 mmol/L (136-145); Total Bilirubin 0.3 mg/dL (0.15-1.2); Total Protein 6.4 g/dL (6.6-8.7)
[2021-10-13 20:34] LABS: SARS Covid-2 Antigen Negative (Negative)
[2021-10-13 20:37] VITALS: PULSE 89; RESP 26; O2SAT 93
[2021-10-13] MEDS: ipratropium-albuterol 3 mL Neb INHALATION (20:37)
[2021-10-13] MEDS: FUROsemide 10 mg/mL SDV 10mL 80 MG IVP (21:02)
[2021-10-13] MEDS: cefTRIAXone 1,000 MG in sodium chloride 0.9% (plus) 50 ML 100 MG IV (21:02)
[2021-10-13] MEDS: nitroglycerin 1 gm/inch oint Pkt 2 INCH TOPICAL (21:02)
--- NOTE | 2021-10-13 21:13 | ECG_ITS ---
[facility] Test Date: 2021-10-13 Pat Name: Sarah Rogers Department: Room: Gender: Female Junior Programmer: : [id number] Requested By: Akash Lomax Order Number: [id number] Elana MD: LEW MOULTON Measurements Intervals Raymond Rate: 81 P: 20 CA: 151 QRS: -33 QRSD: 100 T: 73 QT: 417 QTc: 485 Interpretive Statements SINUS RHYTHM LEFT AXIS DEVIATION [QRS AXIS < -30] VOLTAGE CRITERIA FOR LVH [MEETS CRITERIA IN ONE OF: R(aVL), S(V1), R(V5), R(V5/V6)+S(V1)] POSSIBLE SEPTAL MYOCARDIAL INFARCTION , OF INDETERMINATE AGE [30 ms Q WAVE IN V1/V2] Compared to ECG 11/27/2020 10:10:45 No significant changes Electronically Signed On 10-14-2021 17:45:10 DATA WAREHOUSE SPECIALIST by LEW MOULTON [email or web address]
--- NOTE | 2021-10-13 21:32 | CTR_ITS ---
PROCEDURE INFORMATION: Exam: CTA Chest With Contrast Exam date and time: 10/13/2021 9:32 PM Age: 66 years old Clinical indication: Cough and shortness of breath; Patient HX: Cough with SOB and hypoxia. Elevated d d leo. History of copd. TECHNIQUE: Imaging protocol: Computed tomographic angiography of the chest with contrast. 3D rendering (Not supervised by radiologist): MIP and/or 3D reconstructed images were created by the technologist. Radiation optimization: All CT scans at this facility use at least one of these dose optimization techniques: automated exposure control; mA and/or kV adjustment per patient size (includes targeted exams where dose is matched to clinical indication); or iterative reconstruction. Contrast material: OMNI 350; Contrast volume: 63 ml; Contrast route: INTRAVENOUS (IV); COMPARISON: CT angio chest PE protcl [id number] 11/26/2020 12:04 PM RADIATION DOSE METRICS: Total DLP (mGy-cm): 497.02 FINDINGS: There are degenerative changes of the spine. There are bilateral lower lobe infiltrates. Interstitial infiltrates are seen throughout the lungs. There is a mosaic attenuation pattern of the lungs. There are bilateral pleural effusions right greater than left. There is no pneumothorax. There are no suspicious pulmonary nodules. The central airways are normal in caliber. The thyroid gland is unremarkable. There is no axillary adenopathy. There is mediastinal adenopathy. There is hilar adenopathy. This appears similar to the previous exam. Interrogation of the pulmonary arteries in multiple planes shows no evidence for pulmonary embolism. The aorta is normal in caliber with no evidence for aneurysm or dissection. There is cardiomegaly. There is no evidence for right heart failure. The upper abdominal structures are unremarkable. CT/CT angio chest PE protcl [id number] IMPRESSION: 1. No evidence for pulmonary embolism. 2. Findings suggestive of congestive heart failure. 3. Mediastinal and hilar adenopathy. This appears similar to the previous exam.
[2021-10-13 21:33] LABS: Reflex Lactate Order REFLEX LACTIC ORDERD
[2021-10-13] MEDS: iohexol 350 mg/mL 100 mL Btl IV (22:04)
[2021-10-13] MEDS: azithromycin 500 MG in sodium chloride 0.9% 250 ML 250 MG IV (22:22)
[2021-10-13 22:23] VITALS: BP 157/93; PULSE 85; RESP 25; O2SAT 90
[2021-10-13 22:27] LABS: Influenza A by IFA Negative (Negative); Influenza B by IFA Negative (Negative)
--- NOTE | 2021-10-13 22:36 | P.HP_ITS ---
Providers/Chief Complaint Chief Complaint: sob History of Present Illness Sarah Rogers is a 66 year old female with a past medical history of COPD, current smoker, diastolic CHF, insulin-dependent type 2 diabetes mellitus, hypertension, dyslipidemia who presents [facility] due to shortness of breath. She has not been vaccinated for Covid, has not received flu vaccine, has received pneumonia vaccine. No known exposure to COVID-19. She tells me that recently she has been undergoing a housing issue so she moved into a camper, she tells me that she has been a bit more immobile as she is in the camper, but with exertion she has been noticing increasingly more short of breath, some lower extremity edema, no orthopnea, no paroxysmal nocturnal dyspnea. She does report smoking, no cough, no fevers, no wheezing. Denies using oxygen at home. She tells me that her shortness of breath progressively worsened, she does take Lasix at home Review of Systems Const: Denies: fever(s), chills, fatigue or malaise Eyes: Denies: change in vision or blurry vision ENMT: Denies: nasal congestion Card: Reports: edema; Denies: chest pain, palpitations or irregular heart rhythm Resp: Reports: dyspnea; Denies: productive cough, non-productive cough or wheezing GI: Denies: abdominal pain, nausea, vomiting, hematemesis, diarrhea, constipation, hematochezia or melena : Denies: flank pain, dysuria or urinary frequency Musc: Denies: neck pain or back pain Skin/Breast: Denies: rash Neuro: Denies: headache(s), dizziness or vertigo Psych: Denies: anxiety or depression Endo: Denies: polyuria or polydipsia Medications/Allergies Home Medications Medication Instructions Recorded Confirmed Last Taken Type albuterol sulfate 90 mcg/actuation 2 puff INHALATION Q4H PRN gm 10/02/19 07/24/21 Unknown History aerosol inhaler ipratropium 20 mcg-albuterol 100 1 puff INHALATION QID 10/02/19 07/24/21 Unknown History mcg/actuation mist for inhalation (Combivent Respimat) metoprolol succinate 25 mg 25 mg PO BID 10/02/19 07/24/21 Unknown History tablet,extended release 24 hr nitroglycerin 0.4 mg sublingual 0.4 mg SUBLINGUAL Q5M PRN 10/02/19 07/24/21 Unknown History tablet pantoprazole 40 mg tablet,delayed 40 mg PO DAILY 10/02/19 07/24/21 Unknown History release bupropion HCl 150 mg 24 hr tablet, 150 mg PO QAM #30 tab 10/06/19 07/24/21 Unknown Rx extended release (Wellbutrin XL) lisinopril 10 mg tablet 10 mg PO DAILY 10/06/19 07/24/21 Unknown History atorvastatin 20 mg tablet 20 mg PO QDAY #30 tab 10/07/19 07/24/21 Unknown Rx metformin 500 mg tablet,extended 1,000 mg PO .every morning #60 tab 10/07/19 07/24/21 Unknown Rx release 24 hr furosemide 40 mg tablet (Lasix) 40 mg PO DAILY #30 tab 11/29/20 07/24/21 Unknown Rx potassium chloride 10 mEq 20 meq PO ONCE #30 tab 11/29/20 07/24/21 Unknown Rx tablet,extended release (Klor-Con) Allergies Allergy/AdvReac Type Severity Reaction Status Date / Time Sulfa (Sulfonamide Allergy na Verified 10/13/21 19:11 Antibiotics) PFSH Acute PFSH: Medical History (Updated 10/13/21 @ 22:41 by Andres Arriaza MD) Benign essential HTN Chest pain COPD exacerbation COPD, moderate GERD (gastroesophageal reflux disease) H/O cholecystitis Heart failure Hematoma of left kidney Major contusion of left kidney, subsequent encounter Type 2 diabetes mellitus, without long-term current use of insulin Uncontrolled diabetes mellitus Urinary incontinence, mixed Urinary tract infection, site not specified Surgical History H/O: hysterectomy Family History Family/Other Diabetes CAD (coronary artery disease) Hypertension Lung disease Social History Smoking and tobacco status: current every day smoker cigarettes Packs smoked per day: 1 Alcohol intake: never Adopted: No Caregiver/support person: No Marital status: Current occupational status: disabled History of recent travel: No Vitals/I&O/Wt Last Vital Signs Pulse 85 10/13/21 22:23 Resp 25 H 10/13/21 22:23 BP 157/93 10/13/21 22:23 Pulse Ox 90 10/13/21 22:23 Weight last 48 hrs Weight 90.718 kg Physical Exam Const: COMMON NORMALS: no acute distress and patient oriented x3 GENERAL APPEARANCE: cooperative, well kempt and well developed HENMT: COMMON NORMALS: normocephalic, Normal external nose present and orophar ynx normal HEAD & SCALP: normocephalic FACE & SINUS: normal facial exam NOSE: Normal external nose present MOUTH: Normal oral and palatal mucosa present THROAT: posterior oropharynx normal Eye: COMMON NORMALS: Equal, round and reactive pupils present, EOMs intact bilaterally, conjunctivae normal and no scleral icterus CONJUNCTIVA: Yes conjunctivae normal PUPIL: Yes Equal, round and reactive pupils present Neck/C-Spine: COMMON NORMALS: full ROM, no lymphadenopathy, Thyroid normal and No carotid bruits THYROID: Thyroid normal Lymph: LYMPHATIC: no lymphadenopathy noted Chest: COMMONS NORMALS: normal inspection of the chest Resp: COMMON NORMALS: normal respiratory effort, No retractions and No use of accessory muscles AUSCULTATION: crackles Cardio: COMMON NORMALS: regular rate, regular rhythm, S1 normal heart sound present, S2 normal heart sound present, No murmurs present (Cardio) and Peripheral pulses 2+ throughout RATE: regular rate RHYTHM: regular rhythm HEART SOUNDS: S1 normal heart sound present and S2 normal heart sound present PERIPHERAL PULSES: Peripheral pulses 2+ throughout GI: COMMON NORMALS: Normal to inspection, nondistended, normoactive bowel sounds present, Soft to palpation, non-tender and No hepatosplenomegaly present PALPATION: Yes Soft to palpation and Yes No hepatosplenomegaly present : COMMON NORMALS: Yes no CVA tenderness BLADDER/KIDNEY EXAM: Yes no CVA tenderness Back/Pelvis: COMMON NORMALS: no CVA tenderness Extremity: COMMON NORMALS: normal to inspection, full ROM, capillary refill normal, no calf tenderness and no pedal edema Neuro: COMMON NORMALS: patient oriented x3, CN's II-XII intact bilaterally, moves all extremities, no focal motor deficits and no sensory deficits noted MENINGEAL SIGNS: Yes no meningeal signs Psych: COMMON NORMALS: mental status grossly normal, Normal thought process present, cooperative and speech normal APPEARANCE: Yes well kempt SPEECH: Yes normal speech THOUGHT PROCESS: Normal thought process present Skin: COMMON NORMALS: turgor normal and no jaundice GENERAL SKIN EXAM: t urgor normal Data : 10/13/21 19:35 10/13/21 19:35 Micro: Microbiology 10/13/21 19:55 Blood Culture - Preliminary Blood SPECIMEN COLLECTED 10/13/21 19:46 Blood Culture - Preliminary Blood SPECIMEN COLLECTED A&P Assessment and plan (1) Acute respiratory failure with hypoxia: Status: Acute (2) Anxiety and depression: Status: Acute (3) Diastolic CHF: Status: Acute Plan Acute hypoxic respiratory failure secondary to diastolic CHF -CT angiogram showing evidence of fluid overload, elevated BNP -Echocardiogram in November 2020 showed diastolic CHF -Possible underlying pneumonia? Plan: -Admit to general medical floors -Lasix 40 mg IV twice daily -Fluid restrictions 1200 cc -Mag greater than 2, potassium greater than 4, monitor urine output, monitor creatinine -For now continue Rocephin azithromycin for antibiotic coverage, will consider de-escalating the next 24 hours -Follow blood cultures, sputum cultures, urine bacterial antigens, Legionella -No active wheezing, in my opinion not in a COPD exacerbation received Solu- [facility] emergency room, hold prednisone for now -Duo nebs every 4 hours -Serial troponins, serial EKGs, telemetry monitoring -Flu negative, Covid negative -Full code -Lovenox for DVT prophylaxis History of COPD, not in exacerbation Diastolic CHF as above Anxiety and depression, continue home meds Insulin-dependent type 2 diabetes mellitus, low-dose sliding scale Hypertension, continue home meds Attestations Medical Necessity Statement*: Patient requires hospitalization for diastolic CHF exacerbation Coding Level of Care Code 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
[2021-10-13 22:51] LABS: Estmated Average Glucose 243; Hemoglobin A1C 10.1 % (4.0-6.0)
[2021-10-13 22:59] LABS: Procalcitonin 0.05 ng/mL (0-0.5)
[2021-10-13 23:06] LABS: Lactic Acid level (Lactate) 1.3 mmol/L (0.5-2.2)
[2021-10-14] VITALS (16 sets, daily range): BP systolic 97–138; BP diastolic 61–92; PULSE 70–104; RESP 16–24; TEMP 36.4–37; O2SAT 90–97; BMI 34.9
[2021-10-14 00:06] LABS: Thyroid Stimulating Hormone 0.61 uIU/mL (0.27-4.20)
[2021-10-14] MEDS: acetaminophen 325 mg Tablet 650 MG PO (03:31)
[2021-10-14 04:22] LABS: Basophils % 0.3 %; Lymphocytes # 0.9 10^3/uL (0.8-4.8); Lymphocytes % 11.3 %; Mean Corpuscular HGB Conc 31.7 g/dL (30.0-36.0); Mean Corpuscular Hemoglobin 27.3 pg (28.0-34.0); Mean Corpuscular Volume 86.1 fl (81-99); Mean Platelet Volume 11.1 fL (7.4-10.4); Monocytes % 0.4 %; Neutrophils # 6.61 10^3/uL (1.8-7.7); Neutrophils % 87.6 %; Nucleated Red Blood Cells % 0 %; Platelet Count 256 10^3/cmm (130-400); Red Blood Count 4.76 10^6/uL (4.1-5.3); Red Cell Distribution Width 13.2 % (12.1-15.1); White Blood Count 7.5 10^3/uL (4.0-10.0)
[2021-10-14 05:04] LABS: Alanine Aminotransferase 7 U/L (0-33); Albumin Level 3.8 g/dL (3.5-5.2); Alkaline Phosphatase 123 IU/L (35-105); Aspartate Amino Transferase 7 U/L (0-32); Blood Urea Nitrogen 19 mg/dL (8-23); Calcium 9.1 mg/dL (8.5-10.5); Carbon Dioxide 22 mmol/L (22-29); Chloride 97 mmol/L (98-107); Glomerular Filtration Rate 62.8 mL/min (90-130); Osmolality Calculated 310 mOsm/kg (285-295); Phosphorus 4.3 mg/dL (2.5-4.5); Sodium 136 mmol/L (136-145); Total Bilirubin 0.3 mg/dL (0.15-1.2); Total Protein 6.8 g/dL (6.6-8.7)
[2021-10-14 05:13] LABS: Glucose 566 mg/dL (65-115)
[2021-10-14] MEDS: insulin glargine 100 units/1 mL 10 UNIT SUBCUT (06:01)
[2021-10-14] MEDS: buPROPion XL (24 HR) 150 mg Tablet PO (06:01)
[2021-10-14] MEDS: enoxaparin 40 mg/0.4 mL Syringe SUBCUT (06:01)
[2021-10-14] MEDS: insulin lispro 100 unit/1 mL 8 UNIT SUBCUT (06:01)
[2021-10-14] MEDS: ipratropium-albuterol 3 mL Neb INHALATION ×4 (07:42→21:47)
[2021-10-14 08:08] LABS: Glucose Point of Care 452 mg/dL (70-110)
[2021-10-14] MEDS: FUROsemide 10 mg/mL SDV 4mL 40 MG IVP ×2 (08:39→21:04)
[2021-10-14] MEDS: insulin lispro 100 unit/1 mL SUBCUT ×4 (09:03→21:41)
[2021-10-14] MEDS: atorvastatin 40 mg Tablet 20 MG PO (09:04)
[2021-10-14] MEDS: pantoprazole DR 40 mg Tablet PO (09:04)
[2021-10-14] MEDS: metoprolol succinate ER (24 HR) 25 mg Tablet PO ×2 (09:04→18:17)
[2021-10-14] MEDS: lisinopril 10 mg Tablet PO (09:04)
[2021-10-14] MEDS: potassium chloride ER 20 mEq Tablet 40 MEQ PO (09:05)
--- NOTE | 2021-10-14 11:35 | USCV_ITS ---
Ken Sarah Age: 66 Gender: F : 1955 Exam Date: 10/14/2021 13:09 Ordering Phys: Zulma Alex MD Technologist: Nataliya Santizo [place] [facility] [place]: CHF, Estimate systolic and diastolic function BP: 130 / 77 HR: 74 Rhythm: Sinus Technical Quality: Fair MEASUREMENTS (Male / Female) Normal Values 2D ECHO LV Diastolic Diameter PLAX 5.0 cm 4.2 - 5.9 / 3.9 - 5.3 cm LV Systolic Diameter PLAX 3.9 cm IVS Diastolic Thickness 1.1 cm 0.6 - 1.0 / 0.6 - 0.9 cm IVS Systolic Thickness 1.7 cm LVPW Diastolic Thickness 1.1 cm 0.6 - 1.0 / 0.6 - 0.9 cm LVPW Systolic Thickness 1.6 cm RV Chamber Size 2.2 cm LVOT Diameter 2.1 cm LV Ejection Fraction 2D Teich 42.7 % LV Ejection Fraction MOD 2C 36.6 % LV Ejection Fraction 2C AL 37.2 % LA Diameter 3.4 cm LA Width 3.6 cm LA Height 5.7 cm RA Width 2.1 cm RA Height 5.2 cm Aorta at Sinotubular Diameter 2.5 cm M-MODE Aortic Annulus Diameter 3.4 cm LA Ao Ratio MM 1.1 MV E Point Septal Separation 1.2 cm DOPPLER AV Peak Velocity 151.0 cm/s LVOT Peak Velocity 108.0 cm/s AV Area Cont Eq vti 2.3 cm squared AV Area Cont Eq pk 2.5 cm squared MV Area PHT 3.6 cm squared Mitral E to A Ratio 1.2 MV E' Velocity 46.0 cm/s Mitral E to MV E' Ratio 13.5 Mitral E to LV E' Lateral Ratio 10.9 Mitral E to LV E' Septal Ratio 18.2 TR Peak Velocity 240.0 cm/s TR Peak Gradient 23.0 mmHg TV Peak E Velocity 39.0 cm/s Right Atrial Pressure 3.0 mmHg Pulmonary Artery Systolic Pressu 26.0 mmHg RV Acceleration Time 0.1 s RV Ejection Time 0.2 s RV AcT/ET 0.4 FINDINGS Left Ventricle Moderately increased left ventricular cavity size. Moderately decreased left ventricular systolic function. Global left ventricular hypokinesis. Left ventricular ejection fraction is estimated at 40 %. Grade II/IV diastolic dysfunction, moderately elevated filling pressures. Right Ventricle The right ventricle is normal in size and function. Right Atrium The right atrium is normal in size. Left Atrium Moderately increased left atrial size. Mitral Valve Moderately thickened mitral valve. No mitral valve stenosis. Moderate mitral valve regurgitation. Aortic Valve Moderate aortic valve calcification. No aortic valve stenosis. Trace aortic valve regurgitation. Tricuspid Valve Mild tricuspid valve regurgitation. Pulmonic Valve Structurally normal pulmonic valve without significant stenosis. There is no pulmonic regurgitation. Pericardium Normal pericardium without effusion. Aorta Normal ascending aorta dimension. CONCLUSIONS 1-Moderately increased left ventricular cavity size. Moderately decreased left ventricular systolic function. Global left ventricular hypokinesis. Left ventricular ejection fraction is estimated at 40 %. Grade II/IV diastolic dysfunction, moderately elevated filling pressures. 2-Moderately increased left atrial size. 3-Moderately thickened mitral valve. No mitral valve stenosis. Moderate mitral valve regurgitation. 4-Moderate aortic valve calcification. No aortic valve stenosis. Trace aortic valve regurgitation. 5-There is no pericardial effusion. 6-Pulmonary artery systolic pressure is within normal limits. 7-Right atrial pressure is around 5 mm of mercury. 8-No significant change from the prior echocardiogram dated 11/27/2020 at that time ejection fraction was calculated as normal 58% however when compared it appear to be 40 to 45%. Danna Dawson MD (Electronically Signed) Final Date: 14 October 2021 16:58 S
[2021-10-14 11:50] LABS: Glucose Point of Care 515 mg/dL (70-110)
[2021-10-14 11:50] LABS: Glucose Point of Care 522 mg/dL (70-110)
[2021-10-14] MEDS: insulin regular-human 8 UNIT in SYRINGE 1 EACH IVP (12:19)
[2021-10-14 17:13] LABS: Glucose Point of Care 193 mg/dL (70-110)
--- NOTE | 2021-10-14 18:27 | P.PN_ITS ---
Subjective Subjective: Interval history: overnight labs and H&P reviewed, no acute interim events, no new complaints, afebrile and hemodynamically stable , blood sugar >500 Vitals/I&O/Wt Last Vital Signs Temp 97.8 F 10/14/21 14:57 Pulse 77 10/14/21 16:07 Resp 18 10/14/21 16:07 BP 97/61 10/14/21 14:57 Pulse Ox 95 10/14/21 16:07 10/14/21 10/14/21 10/14/21 06:59 14:59 22:59 Intake Total 780 / 780 120.08 / 120.08 Output Total 100 / 100 Balance 680 / 680 120.08 / 120.08 Weight last 48 hrs Weight 89.494 kg Weight 90.718 kg Physical Exam Narrative: EXAM NARRATIVE: GEN: Awake, alert and oriented, no acute distress CVS: S1S2 N RS: crackles to auscultation B/L lower lobes Abd: Soft, nt/nd , bs+ CHIEF DEPUTY: no focal neuro deficits Data : 10/14/21 03:43 10/14/21 03:43 Micro: Microbiology 10/14/21 03:40 Legionella Urinary Antigen - Final Urine,Voided Bacterial Antigens - Final 10/13/21 19:55 Blood Culture - Preliminary Blood SPECIMEN COLLECTED 10/13/21 19:46 Blood Culture - Preliminary Blood SPECIMEN COLLECTED A&P Assessment and plan (1) Acute respiratory failure with hypoxia: Status: Acute (2) Anxiety and depression: Status: Acute (3) Diastolic CHF: Status: Acute Plan Acute hypoxic respiratory failure secondary to diastolic CHF -CT angiogram showing evidence of fluid overload, elevated BNP -Echocardiogram in November 2020 showed diastolic CHF, repeat ordered to assess for interval change -Possible underlying pneumonia given effusion Plan: -Lasix 40 mg IV twice daily continued -Fluid restrictions 1200 cc -Mag greater than 2, potassium greater than 4, monitor urine output, monitor creatinine -For now continue Rocephin azithromycin for antibiotic coverage, will likely D/c over next 24 hrs if w/up remains negative -Duo nebs every 4 hours -Serial troponins negative, serial EKGs, telemetry monitoring -Flu negative, Covid rapid Ag neg, sent for PCR -Full code -Lovenox for DVT prophylaxis History of COPD, not in exacerbation Diastolic CHF as above Anxiety and depression, continue home meds Insulin-dependent type 2 diabetes mellitus, change to high dose sliding scale given BS >500, mild anion gap on labs. 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
[2021-10-14 20:48] LABS: Glucose Point of Care 209 mg/dL (70-110)
[2021-10-14] MEDS: azithromycin 500 MG in sodium chloride 0.9% 250 ML 250 MG IV (21:41)
[2021-10-14] MEDS: cefTRIAXone 1,000 MG in sodium chloride 0.9% (plus) 50 ML 100 MG IV (23:29)
[2021-10-15] VITALS (12 sets, daily range): BP systolic 101–136; BP diastolic 65–96; PULSE 67–73; RESP 16–24; TEMP 36.4–36.8; O2SAT 91–98
[2021-10-15 06:39] LABS: Glucose Point of Care 174 mg/dL (70-110)
[2021-10-15] MEDS: enoxaparin 40 mg/0.4 mL Syringe SUBCUT (06:49)
[2021-10-15] MEDS: buPROPion XL (24 HR) 150 mg Tablet PO (06:49)
[2021-10-15 06:59] LABS: Alanine Aminotransferase 9 U/L (0-33); Albumin Level 3.7 g/dL (3.5-5.2); Alkaline Phosphatase 114 IU/L (35-105); Aspartate Amino Transferase 9 U/L (0-32); Blood Urea Nitrogen 33 mg/dL (8-23); Calcium 8.7 mg/dL (8.5-10.5); Carbon Dioxide 22 mmol/L (22-29); Chloride 104 mmol/L (98-107); Glomerular Filtration Rate 55.6 mL/min (90-130); Glucose 186 mg/dL (65-115); Magnesium 2.2 mg/dL (1.7-2.3); Osmolality Calculated 298 mOsm/kg (285-295); Phosphorus 4.9 mg/dL (2.5-4.5); Sodium 138 mmol/L (136-145); Total Bilirubin 0.2 mg/dL (0.15-1.2); Total Protein 6.7 g/dL (6.6-8.7)
[2021-10-15 07:03] LABS: Basophils # 0.1 10^3/uL (0.0-0.1); Basophils % 0.5 %; Eosinophils # 0.1 10^3/uL (0.0-0.8); Eosinophils % 0.9 %; Hematocrit 41.2 % (37.0-47.0); Hemoglobin 12.9 g/dL (11.5-15.3); Lymphocytes # 3.5 10^3/uL (0.8-4.8); Lymphocytes % 24.9 %; Mean Corpuscular HGB Conc 31.3 g/dL (30.0-36.0); Mean Corpuscular Hemoglobin 27.9 pg (28.0-34.0); Mean Corpuscular Volume 89.2 fl (81-99); Mean Platelet Volume 10.8 fL (7.4-10.4); Monocytes # 0.8 10^3/uL (0.2-0.9); Monocytes % 5.7 %; Neutrophils # 9.38 10^3/uL (1.8-7.7); Neutrophils % 67.5 %; Nucleated Red Blood Cells % 0 %; Platelet Count 265 10^3/cmm (130-400); Red Blood Count 4.62 10^6/uL (4.1-5.3); Red Cell Distribution Width 13.5 % (12.1-15.1); White Blood Count 13.9 10^3/uL (4.0-10.0)
[2021-10-15] MEDS: ipratropium-albuterol 3 mL Neb INHALATION ×3 (08:15→20:05)
[2021-10-15] MEDS: metoprolol succinate ER (24 HR) 25 mg Tablet PO ×2 (09:01→18:19)
[2021-10-15] MEDS: insulin lispro 100 unit/1 mL SUBCUT ×3 (09:01→18:19)
[2021-10-15] MEDS: lisinopril 10 mg Tablet PO (09:01)
[2021-10-15] MEDS: potassium chloride ER 20 mEq Tablet 40 MEQ PO (09:01)
[2021-10-15] MEDS: atorvastatin 40 mg Tablet 20 MG PO (09:01)
[2021-10-15] MEDS: pantoprazole DR 40 mg Tablet PO (09:01)
[2021-10-15] MEDS: FUROsemide 10 mg/mL SDV 4mL 40 MG IVP (10:45)
[2021-10-15 11:49] LABS: Glucose Point of Care 256 mg/dL (70-110)
[2021-10-15 15:22] LABS: Quest SARS-CoV-2 RNA NOT DETECTED (NOT DETECTED)
--- NOTE | 2021-10-15 16:44 | PM.PN ---
Subjective Subjective: Interval history: Feels symptomatically improved. Down to room air today. Lower extremity edema is significantly improved. Stable renal function.Blood sugar is better controlled after transition to high-dose insulin sliding scale. Covid PCR returned negative. 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 Data : 10/15/21 05:57 10/15/21 05:57 Micro: Microbiology 10/13/21 19:55 Blood Culture - Preliminary Blood NEGATIVE TO DATE 10/13/21 19:46 Blood Culture - Preliminary Blood NEGATIVE TO DATE A&P Assessment and plan (1) Acute respiratory failure with hypoxia: Status: Acute (2) Anxiety and depression: Status: Acute (3) Diastolic CHF: Status: Acute Plan Acute hypoxic respiratory failure secondary to diastolic CHF -CT angiogram showing evidence of fluid overload, elevated BNP -Echocardiogram with grade 2 diastolic dysfunction, EF 40 to 45%, likely acute on chronic systolic and diastolic heart failure. -Possible underlying pneumonia given effusion, continue with ceftriaxone and azithromycin. -Diuresed well with Lasix 40 mg IV twice daily, today down to room air on which she currently appears comfortable. Lower extremity edema significantly improved. Transition to oral Lasix 80 mg twice daily and monitor for response -Fluid restrictions 1200 cc -Mag greater than 2, potassium greater than 4, monitor urine output, monitor creatinine -Duo nebs every 4 hours -Serial troponins negative, serial EKGs, telemetry monitoring without any acute events -Flu negative, Covid PCR negative, discontinue isolation precautions -Full code -Lovenox for DVT prophylaxis History of COPD, not in exacerbation DuoNeb inhalation scheduled Diastolic CHF as above Anxiety and depression, continue home meds Insulin-dependent type 2 diabetes mellitus, fingersticks are much better controlled after change to high-dose insulin sliding scale Hypertension, continue home meds Attestations Medical Necessity Statement*: Clinically improving today, down to room air, transition IV to oral diuretics and monitor for response over the next 24 hours. Continued need of IV antibiotics. 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
[2021-10-15 17:01] LABS: Glucose Point of Care 157 mg/dL (70-110)
[2021-10-15] MEDS: FUROsemide 40 mg Tablet 80 MG PO (18:19)
[2021-10-15 21:14] LABS: Glucose Point of Care 138 mg/dL (70-110)
[2021-10-15] MEDS: cefTRIAXone 1,000 MG in sodium chloride 0.9% (plus) 50 ML 100 MG IV (23:12)
[2021-10-16] VITALS: BP 111/67; PULSE 68; RESP 20; TEMP 36.6; O2SAT 93
[2021-10-16 04:00] VITALS: BP 106/67; PULSE 62; RESP 20; TEMP 36.6; O2SAT 93
[2021-10-16 04:50] LABS: Basophils # 0.1 10^3/uL (0.0-0.1); Basophils % 0.9 %; Eosinophils # 0.3 10^3/uL (0.0-0.8); Eosinophils % 2.7 %; Hematocrit 43.8 % (37.0-47.0); Hemoglobin 13.6 g/dL (11.5-15.3); Lymphocytes # 3.2 10^3/uL (0.8-4.8); Lymphocytes % 25.8 %; Mean Corpuscular HGB Conc 31.1 g/dL (30.0-36.0); Mean Corpuscular Hemoglobin 26.8 pg (28.0-34.0); Mean Corpuscular Volume 86.2 fl (81-99); Mean Platelet Volume 11.1 fL (7.4-10.4); Monocytes # 0.8 10^3/uL (0.2-0.9); Monocytes % 6.3 %; Neutrophils # 7.81 10^3/uL (1.8-7.7); Neutrophils % 63.9 %; Nucleated Red Blood Cells % 0 %; Platelet Count 277 10^3/cmm (130-400); Red Blood Count 5.08 10^6/uL (4.1-5.3); Red Cell Distribution Width 13.3 % (12.1-15.1); White Blood Count 12.2 10^3/uL (4.0-10.0)
[2021-10-16] MEDS: buPROPion XL (24 HR) 150 mg Tablet PO (05:05)
[2021-10-16] MEDS: enoxaparin 40 mg/0.4 mL Syringe SUBCUT (05:05)
[2021-10-16 05:20] LABS: Alanine Aminotransferase 9 U/L (0-33); Albumin Level 3.8 g/dL (3.5-5.2); Alkaline Phosphatase 119 IU/L (35-105); Aspartate Amino Transferase 10 U/L (0-32); Blood Urea Nitrogen 38 mg/dL (8-23); Calcium 9.1 mg/dL (8.5-10.5); Carbon Dioxide 22 mmol/L (22-29); Chloride 99 mmol/L (98-107); Globulin 3.2 g/dL (1.3-4.6); Glucose 216 mg/dL (65-115); Magnesium 2.1 mg/dL (1.7-2.3); Osmolality Calculated 298 mOsm/kg (285-295); Phosphorus 3.7 mg/dL (2.5-4.5); Sodium 136 mmol/L (136-145); Total Bilirubin 0.3 mg/dL (0.15-1.2)
[2021-10-16 05:30] LABS: Anion Gap 19.1 (5-19); Potassium 4.1 mmol/L (3.5-5.1)
[2021-10-16 06:45] LABS: Glucose Point of Care 229 mg/dL (70-110)
[2021-10-16 08:00] VITALS: BP 111/74; PULSE 67; RESP 18; TEMP 36.7; O2SAT 94
[2021-10-16] MEDS: pantoprazole DR 40 mg Tablet PO (10:13)
[2021-10-16] MEDS: metoprolol succinate ER (24 HR) 25 mg Tablet PO (10:13)
[2021-10-16] MEDS: FUROsemide 40 mg Tablet 80 MG PO (10:13)
[2021-10-16] MEDS: potassium chloride ER 20 mEq Tablet 40 MEQ PO (10:13)
[2021-10-16] MEDS: lisinopril 10 mg Tablet PO (10:13)
[2021-10-16] MEDS: atorvastatin 40 mg Tablet 20 MG PO (10:17)
[2021-10-16] MEDS: insulin lispro 100 unit/1 mL SUBCUT (10:21)
--- NOTE | 2021-10-16 10:47 | PM.DCS ---
Discharge Providers Date of Admission: 10/13/21 21:36 Date of Discharge: October 16, 2021 Attending Provider at Admission: Andres Arriaza MD Attending Provider at Discharge: Tank Epstein Diagnoses at Discharge Discharge Diagnosis (1) Acute respiratory failure with hypoxia: Status: Acute (2) Diastolic CHF: Status: Acute (3) Anxiety and depression: Status: Acute Reason for Visit Reason for Visit: sob Hospital Course Hospital Course Pleasant 66-year-old lady with history of COPD, current smoker CHF, DM 2, HTN, HLD, was admitted and treated for after presenting with shortness of breath, not normally on oxygen, requiring up to 6 L nasal cannula support in the hospital, with finding of acute respiratory failure with hypoxia presentation, with acute systolic and diastolic congestive heart failure, with CTA without evidence of PE, findings suggestive of CHF exacerbation, with incidentally noted mediastinal and hilar adenopathy, not new. During hospitalization echocardiogram was repeated without significant change, although ejection fraction was calculated as 50% in November 2020, when compared it appears to be 40-45%. Currently 40%, grade 2 diastolic dysfunction noted. Moderately increased left atrial size, moderately thickened MV moderate MVR. Trace AVR. No effusion. RA pressure around 5 mmHg. She underwent diuresis with IV Lasix, fluid restriction 1200mL/day, with good response. In negative balance. Subjectively feeling much better. Empirically also treated for possible pneumonia with noted leukocytosis, WBC count as high as 13.9, currently decreasing down to 12.2, although does not have cough. No fever or other signs of sepsis. On ceftriaxone azithromycin in the hospital will complete a brief course with cefdinir and azithromycin. COPD not found in exacerbation. Was not continue steroids after receiving initial dose. Rapid flu negative. Covid PCR negative. As she is feeling much better, hypoxia has resolved and she is doing well on room air, feels ready for discharge home. She is continued on Lasix by mouth, fluid restriction, referred for additional follow-up with cardiology in office. At presentation also noted significantly elevated blood glucose, which had improved. She is continued on Tresiba. Due to CHF, diabetes, was also started on dapagliflozin. She is asked to maintain a log of blood glucose at home. Please follow-up and reassess diabetes control. Please assist her in quitting smoking. Physical Exam Const: COMMON NORMALS: no acute distress and patient oriented x3 HENMT: COMMON NORMALS: oropharynx normal Neck/C-Spine: COMMON NORMALS: no JVD Resp: COMMON NORMALS: normal respiratory effort and clear to auscultation bilaterally AUSCULTATION: clear to auscultation bilaterally Cardio: COMMON NORMALS: no JVD, regular rhythm, S1 normal heart sound present, S2 normal heart sound present and No murmurs present (Cardio) RHYTHM: regular rhythm HEART SOUNDS: S1 normal heart sound present and S2 normal heart sound present GI: COMMON NORMALS: Normal to inspection, nondistended, normoactive bowel sounds present, Soft to palpation and non-tender PALPATION: Yes Soft to palpation Extremity: COMMON NORMALS: no joint enlargement and no pedal edema Neuro: COMMON NORMALS: patient oriented x3 and moves all extremities Skin: COMMON NORMALS: no rashes or lesions noted GENERAL SKIN EXAM: no rashes or lesions noted Discharge Data Studies Completed and Pending Completed Studies During Hospitalization Category Date Time Status CT angio chest PE protcl [id number] Urgent Cat Scan 10/13/21 21:32 Completed XR chest 1V portable [id number] Stat Exams 10/13/21 19:32 Completed CV. echo complete* [id number] Routine Ultrasound 10/14/21 11:35 Completed Pending at discharge Category Date Time Status Arterial Blood Gas W/O Coox Stat Lab 10/13/21 20:05 Received Blood Culture Stat Lab 10/13/21 19:55 Results Sputum Culture and Gram Stain Stat Lab 10/13/21 22:34 Uncollected Radiology Impressions Chest X-Ray 10/13/21 19:32 IMPRESSION: Findings suggestive of congestive heart failure. Chest CTA 10/13/21 21:32 IMPRESSION: 1. No evidence for pulmonary embolism. 2. Findings suggestive of congestive heart failure. 3. Mediastinal and hilar adenopathy. This appears similar to the previous exam. Laboratory Results WBC 12.2 10^3/uL (4.0-10.0) H 10/16/21 03:56 RBC 5.08 10^6/uL (4.1-5.3) 10/16/21 03:56 Hgb 13.6 g/dL (11.5-15.3) 10/16/21 03:56 Hct 43.8 % (37.0-47.0) 10/16/21 03:56 MCV 86.2 fl (81-99) 10/16/21 03:56 MCH 26.8 pg (28.0-34.0) L 10/16/21 03:56 MCHC 31.1 g/dL (30.0-36.0) 10/16/21 03:56 RDW 13.3 % (12.1-15.1) 10/16/21 03:56 Plt Count 277 10^3/cmm (130-400) 10/16/21 03:56 MPV 11.1 fL (7.4-10.4) H 10/16/21 03:56 Neut % (Auto) 63.9 % 10/16/21 03:56 Lymph % (Auto) 25.8 % 10/16/21 03:56 [place] % (Auto) 6.3 % 10/16/21 03:56 Eos % (Auto) 2.7 % 10/16/21 03:56 Baso % (Auto) 0.9 % 10/16/21 03:56 Neut # (Auto) 7.81 10^3/uL (1.8-7.7) H 10/16/21 03:56 Lymph # (Auto) 3.2 10^3/uL (0.8-4.8) 10/16/21 03:56 [place] # (Auto) 0.8 10^3/uL (0.2-0.9) 10/16/21 03:56 Eos # (Auto) 0.3 10^3/uL (0.0-0.8) 10/16/21 03:56 Baso # (Auto) 0.1 10^3/uL (0.0-0.1) 10/16/21 03:56 Nucleated RBC % (auto) 0 % 10/16/21 03:56 Nucleated RBCs # 0.0 /100WBC 10/16/21 03:56 D-Dimer 1.00 ug/mIFEU (0-0.59) H 10/13/21 19:35 Sodium 136 mmol/L (136-145) 10/16/21 03:56 Potassium 4.1 mmol/L (3.5-5.1) 10/16/21 03:56 Chloride 99 mmol/L (98-107) 10/16/21 03:56 Carbon Dioxide 22 mmol/L (22-29) 10/16/21 03:56 Anion Gap 19.1 (5-19) H 10/16/21 03:56 BUN 38 mg/dL (8-23) H 10/16/21 03:56 Creatinine 0.8 mg/dL (0.5-0.9) 10/16/21 03:56 GFR Calculation 72.0 mL/min (90-130) L 10/16/21 03:56 Glucose 216 mg/dL (65-115) H 10/16/21 03:56 POC Glucose 229 mg/dL (70-110) H 10/16/21 06:31 Estimat Average Glucose 243 10/13/21 19:35 Hemoglobin A1c 10.1 % (4.0-6.0) H 10/13/21 19:35 Calculated Osmolality 298 mOsm/kg (285-295) H 10/16/21 03:56 Lactic Acid 2.1 mmol/L (0.5-2.2) 10/13/21 19:35 Lactic Acid (Sepsis) 1.3 mmol/L (0.5-2.2) 10/13/21 22:25 Calcium 9.1 mg/dL (8.5-10.5) 10/16/21 03:56 Phosphorus 3.7 mg/dL (2.5-4.5) 10/16/21 03:56 Magnesium 2.1 mg/dL (1.7-2.3) 10/16/21 03:56 Total Bilirubin 0.3 mg/dL (0.15-1.2) 10/16/21 03:56 AST 10 U/L (0-32) 10/16/21 03:56 ALT 9 U/L (0-33) 10/16/21 03:56 Alkaline Phosphatase 119 IU/L (35-105) H 10/16/21 03:56 Troponin T Gen 5 ng/L 18 ng/L (0-10) H 10/13/21 19:35 C-Reactive Protein 31.9 mg/L (0.0-4.9) H 10/13/21 19:35 NT-Pro-B Natriuret Pep 3988 pg/mL (0-125) H 10/13/21 19:35 Total Protein 7.0 g/dL (6.6-8.7) 10/16/21 03:56 Albumin 3.8 g/dL (3.5-5.2) 10/16/21 03:56 Globulin 3.2 g/dL (1.3-4.6) 10/16/21 03:56 Procalcitonin 0.05 ng/mL (0-0.5) 10/13/21 19:35 TSH 0.61 uIU/mL (0.27-4.20) 10/13/21 19:35 Influenza Type A Ag Negative (Negative) 10/13/21 21:50 Influenza Type B Ag Negative (Negative) 10/13/21 21:50 SARS-CoV-2 RNA (RT-PCR) Not detected (NOT DETECTED) 10/14/21 Unknown SARS-CoV-2 Ag (Rapid) Negative (Negative) 10/13/21 20:02 Vitals Last Vital Signs Temp 98.0 F 10/16/21 08:00 Pulse 67 10/16/21 08:00 Resp 18 10/16/21 08:00 BP 111/74 10/16/21 08:00 Pulse Ox 94 10/16/21 08:00 Discharge Plan Discharge Patient Disposition: Home Condition: Stable Prescriptions: New azithromycin 250 mg tablet 250 mg PO DAILY 3 Days Qty: 3 0RF Rx Instructions: start on day 2 of therapy cefdinir 300 mg capsule 300 mg PO BID 3 Days Qty: 6 0RF dapagliflozin 5 mg tablet 5 mg PO DAILY Qty: 90 0RF Continued lisinopril 10 mg tablet 10 mg PO DAILY 0RF bupropion HCl [Wellbutrin XL] 150 mg tablet extended release 24 hr 150 mg PO QAM Qty: 30 0RF albuterol sulfate 90 mcg/actuation HFA aerosol inhaler 2 puff INHALATION Q4H PRN (Reason: Shortness Of Breath) 0RF metoprolol succinate 25 mg tablet extended release 24 hr 25 mg PO BID 0RF nitroglycerin 0.4 mg tablet, sublingual 0.4 mg SUBLINGUAL Q5M PRN (Reason: Chest Pain) 0RF pantoprazole 40 mg tablet,delayed release (DR/EC) 40 mg PO DAILY 0RF Combivent Respimat 20-100 mcg/actuation mist 1 puff INHALATION QID 0RF atorvastatin 20 mg tablet 20 mg PO QDAY Qty: 30 0RF metformin 500 mg tablet extended release 24 hr 1,000 mg PO .every morning Qty: 60 0RF furosemide [Lasix] 40 mg tablet 40 mg PO DAILY Qty: 30 0RF potassium chloride [Klor-Con 10] 10 mEq tablet extended release 20 meq PO ONCE Qty: 30 0RF Tresiba FlexTouch U-200 200 unit/mL (3 mL) insulin pen SUBCUT 0RF Discharge Orders: Discharge Order (Routine); Ordered 10/16/21 Ordered By: Tnak Epstein Referrals: CARDIOLOGY [Provider Group] - 2 weeks (CHF) Randi Peralta FNP [Staff Physician] - 4-7 days (CHF, hyperglycemia) Discharge Diet: Cardiac and Diabetic Discharge Activity: Increase activity as tolerated Patient Instructions: Diabetes and Diet, Furosemide (By injection), Dapagliflozin (By mouth), Insulin Degludec (By injection) (Tresiba), Heart Failure (GEN), How to Stop Smoking (GEN), Cigarette Smoking and Your Health (GEN), Low-Sodium Diet (GEN), Type 2 Diabetes Management for Adults (GEN) Activity Restrictions/Additional Instructions: Please maintain fluid restriction of 1200 mL/day. Please resume taking your diuretic -Lasix 40 mg daily. Please note for both congestive heart failure and diabetes you are also started on dapagliflozin. Please monitor blood sugars at least 3 times a day, write down values to bring to your appointment. Continues to take insulin, please maintain consistent carbohydrate diet. Increase insulin dose by 2 units unless any of the blood sugars are 100 or below. Please stop smoking. Discharge Attestations Time Spent in Discharge Care*: greater than 30 min Status at Discharge: Cognitive status at discharge: cognitively intact, Behavioral status at discharge: cooperative, Quality Metrics Clinical Quality Measures [ No reported AMI, CVA or VTE this stay] Coding Level of Care Code Acute Chg FW DC note Diagnoses Acute respiratory failure with hypoxia J96.01 Anxiety and depression F41.9; F32.9 Diastolic CHF I50.30
[2021-10-16 10:48] VITALS: O2SAT 95; O2SAT 96
[2021-10-16 12:00] VITALS: BP 108/70; PULSE 69; RESP 18; TEMP 36.4; O2SAT 93
[2021-10-16 12:19] LABS: Glucose Point of Care 336 mg/dL (70-110)
[2021-10-16 14:05] VITALS: BP 108/70; PULSE 69; RESP 18; TEMP 36.4; O2SAT 93
== END 2021-10-16 14:05 | disposition home or self-care (01) | DRG 291 ==
LOC: ER 21:35 → MEDSURG 22:45
PROVIDERS: Student in an Organized Health Care Education/Training Program; Admitting Provider Family Medicine; Emergency Provider Emergency Medicine; Visit Provider Internal Medicine
DX: I11.0 Hypertensive heart disease with heart failure (principal); I50.43 Acute on chronic combined systolic (congestive) and diastolic (congestive) heart failure; J96.01 Acute respiratory failure with hypoxia; K21.9 Gastro-esophageal reflux disease without esophagitis; Z87.440 Personal history of urinary (tract) infections; F17.210 Nicotine dependence, cigarettes, uncomplicated; E11.9 Type 2 diabetes mellitus without complications; E78.5 Hyperlipidemia, unspecified; F41.8 Other specified anxiety disorders; Z79.51 Long term (current) use of inhaled steroids; Z79.84 Long term (current) use of oral hypoglycemic drugs; Z79.4 Long term (current) use of insulin
CPT/HCPCS: 36415; 36416; 36600; 71045; 71275; 80053; 82803; 82962; 83036; 83605; 83735; 83880; 84100; 84145; 84443; 84484; 85025; 85378; 86140; 86403; 87040; 87426; 87449; 87635; 87804; 93005; 93306; 94640; 96365; 96367; 96372; 96375; 97116; 97161; 97165; 99285; J0456; J0696; J1650; J1815 ×2; J1940; J2060; J2930; J7050; Q9967

== ENCOUNTER → 2021-11-03 12:12 | Outpatient (BNVA) | payer MEDICARE, MEDICAID, SELFPAY | PROVIDERS: PCP Counselor Professional; Visit Provider Internal Medicine Cardiovascular Disease | DX: I50.9 Heart failure, unspecified (principal) | CPT/HCPCS: 80053; 83735; 83880 ==

== ENCOUNTER 2022-01-24 14:01 | Inpatient (IN) | payer MEDICARE, MEDICAID, SELFPAY ==
[2022-01-24] VITALS (13 sets, daily range): BP systolic 130–177; BP diastolic 68–131; PULSE 62–84; RESP 18–28; TEMP 36.7; O2SAT 90–97; BMI 35.4
--- NOTE | 2022-01-24 15:18 | ECG_ITS ---
[facility] Test Date: 2022-01-24 Pat Name: Sarah Rogers Department: Room: Gender: Female Brass Buffer: : 1955 Requested By: Thaddeus Schulz Order Number: [id number] Elana MD: Dee Gannon M.D. Measurements Intervals [place] Rate: 76 P: 56 MS: 165 QRS: -36 QRSD: 93 T: 94 QT: 366 QTc: 413 Interpretive Statements SINUS RHYTHM LEFT AXIS DEVIATION [QRS AXIS < -30] VOLTAGE CRITERIA FOR LVH [MEETS CRITERIA IN ONE OF: R(aVL), S(V1), R(V5), R(V5/V6)+S(V1)] NONSPECIFIC T-WAVE ABNORMALITY Compared to ECG 10/13/2021 21:48:04 T-wave abnormality now present Myocardial infarct finding no longer present Electronically Signed On 01-24-2022 22:32:45 CDT by Dee Gannon M.D. [id number]
--- NOTE | 2022-01-24 15:18 | XR_ITS ---
WS: [id number] XR chest 1V portable [id number] REASON FOR EXAM: SOB FINDINGS: Moderate tortuosity thoracic thoracic aorta with mild dilatation of the ascending aorta. Heart is at the upper limits of normal in size. Calcified granulomatous disease bilaterally. Interstitial reticular lung opacities in both lower lung lindsay which appear to be chronic in nature. No active pulmonary parenchymal or pleural disease is noted. Moderate to significant degenerative change in the mid and lower thoracic spine. XR/XR chest 1V portable [id number] IMPRESSION: No acute chest abnormality.
[2022-01-24 15:30] LABS: Basophils # 0.1 10^3/uL (0.0-0.1); Basophils % 0.8 %; Eosinophils # 0.2 10^3/uL (0.0-0.8); Eosinophils % 1.3 %; Hematocrit 48.4 % (37.0-47.0); Hemoglobin 15.4 g/dL (11.5-15.3); Lymphocytes % 23.7 %; Mean Corpuscular HGB Conc 31.8 g/dL (30.0-36.0); Mean Corpuscular Hemoglobin 26.6 pg (28.0-34.0); Mean Corpuscular Volume 83.4 fl (81-99); Mean Platelet Volume 11.2 fL (7.4-10.4); Monocytes # 0.7 10^3/uL (0.2-0.9); Monocytes % 5.2 %; Neutrophils # 8.77 10^3/uL (1.8-7.7); Neutrophils % 68.6 %; Nucleated Red Blood Cells % 0 %; Platelet Count 339 10^3/cmm (130-400); Red Cell Distribution Width 13.7 % (12.1-15.1); White Blood Count 12.8 10^3/uL (4.0-10.0)
[2022-01-24 15:48] LABS: Alanine Aminotransferase 10 U/L (0-33); Albumin Level 4.3 g/dL (3.5-5.2); Alkaline Phosphatase 140 IU/L (35-105); Aspartate Amino Transferase 13 U/L (0-32); Blood Urea Nitrogen 18 mg/dL (8-23); Carbon Dioxide 18 mmol/L (22-29); Chloride 100 mmol/L (98-107); Globulin 3.8 g/dL (1.3-4.6); Glomerular Filtration Rate 71.8 mL/min (90-130); Glucose 354 mg/dL (65-115); Magnesium 2.1 mg/dL (1.7-2.3); NT Pro B Type Natriuretic Pept 4127 pg/mL (0-125); Osmolality Calculated 298 mOsm/kg (285-295); Sodium 136 mmol/L (136-145); Total Bilirubin 0.4 mg/dL (0.15-1.2); Total Protein 8.1 g/dL (6.6-8.7)
[2022-01-24 16:27] LABS: Base Excess VBG -0.6 mmol/L (-3.0-3.0); Blood Gas Operator Identificat AMH; Blood Gas Sample Site Not specified; Blood Gas Sample Type Venous; HCO3 VBG 24.5 mmol/L (24-28); PCO2 VBG 41.1 mmHg (41-51); PO2 VBG 37.8 mmHg (25-40); Venous Blood Gas Hematocrit 44.5 % (37-47); pH VBG 7.38 (7.32-7.42)
[2022-01-24 18:24] LABS: Ketone (Acetest) Serum Negative (Negative)
[2022-01-24 19:05] LABS: Glucose Point of Care 198 mg/dL (70-110)
[2022-01-24] MEDS: albuterol 8 gm MDI 2 PUFF INHALATION (19:29)
--- NOTE | 2022-01-24 19:34 | ED_ITS ---
HPI - General Adult General: Chief complaint: Shortness of Breath/Dyspnea Stated complaint: RESPIRATORY DISTRESS Time Seen by Provider: 01/24/22 14:26 History of Present Illness: 67-year-old female presents the emergency department with several complaints including shortness of breath, high blood sugar, being out of her Tresiba insulin, being out of her Lasix. Patient does endorse some coughing and wheezing. Her shortness of breath seems to be intermittent. She denies any fever, hemoptysis, purulent sputum production. She is not having any chest pain. She has not noticed any swelling in her ankles. She does have orthopnea and dyspnea on exertion. She is still taking her metformin and metoprolol. Patient reports that she does not have a car and so she could not go to the pharmacy. She does not know whether the medications are ready at the pharmacy or not as she has not attempted to call them. Patient is also taking dapagliflozin. Patient has had nausea but is still eating. Associated symptoms: Deny chest pain, rash, syncope or vomiting Review of Systems General: Reports: 10 or more systems reviewed and unremarkable except in HPI and below Const: Denies: fever(s), chills or body aches Eyes: Denies: change in vision ENMT: Denies: throat pain Card: Denies: chest pain or syncope GI: Denies: abdominal pain, vomiting or diarrhea : Denies: flank pain, dysuria or urinary frequency Musc: Denies: neck pain, back pain, extremity pain or extremity swelling Skin/Breast: Denies: rash or erythema Neuro: Denies: numbness in extremities, weakness in extremities, lack of coordination or difficulty walking [facility] ED PFSH: Medical History (Updated 11/03/21 @ 12:09 by Dee Gannon MD) Anxiety and depression Benign essential HTN Chest pain CHF (congestive heart failure), NYHA class III COPD exacerbation COPD, moderate GERD (gastroesophageal reflux disease) H/O cholecystitis Heart failure Hematoma of left kidney Major contusion of left kidney, subsequent encounter Type 2 diabetes mellitus, without long-term current use of insulin Uncontrolled diabetes mellitus Urinary incontinence, mixed Urinary tract infection, site not specified Surgical History H/O: hysterectomy Family History Family/Other Diabetes CAD (coronary artery disease) Hypertension Lung disease Social History Smoking and tobacco status: current every day smoker cigarettes Packs smoked per day: 1 Alcohol intake: never Adopted: No Caregiver/support person: No Marital status: Current occupational status: disabled History of recent travel: No Physical Exam Const: COMMON NORMALS: no limitations, alert and well nourished EXAM RAI ITATIONS: no altered mental status GENERAL APPEARANCE: cooperative and well developed ORIENTATION/CONSCIOUSNESS: Yes awake; not confused HENMT: COMMON NORMALS: normocephalic, atraumatic, external ears normal and Normal external nose present HEAD & SCALP: normal to inspection, normocephalic and atraumatic FACE & SINUS: face symmetric NOSE: Normal external nose present EXTERNAL EAR: Yes external ears normal MOUTH: lip normal; no muffled voice Eye: COMMON NORMALS: EOMs intact bilaterally and conjunctivae normal GENERAL EYE: appearance normal, both eyes and all related structures CONJUNCTIVA: Yes conjunctivae normal Neck/C-Spine: COMMON NORMALS: no JVD GENERAL: Yes normal visual inspection and Yes trachea midline Resp: EFFORT & INSPECTION: Yes tachypneic, Yes labored, No retractions, No audible wheezes, Yes prolonged expiratory phase and Yes other (decreased breath sounds) Cardio: COMMON NORMALS: no JVD, regular rate and regular rhythm RATE: regular rate RHYTHM: regular rhythm PERIPHERAL PULSES: radial pulses present GI: COMMON NORMALS: Soft to palpation INSPECTION: Yes normal to inspection PALPATION: Yes Soft to palpation, No Tenderness to palpation present (GI) and No Guarding due to palpation present (GI) Back/Pelvis: COMMON NORMALS: thoraco-lumbar ROM normal Extremity: COMMON NORMALS: normal to inspection GENERAL: Yes normal exam except as noted Neuro: COMMON NORMALS: moves all extremities, no focal motor deficits and no sensory deficits noted SENSORIUM/ORIENTATION: Yes alert Psych: COMMON NORMALS: mental status grossly normal, Normal thought process present, cooperative, normal affect and speech normal SPEECH: Yes normal speech THOUGHT PROCESS: Normal thought process present Skin: COMMON NORMALS: no rashes or lesions noted, turgor normal and no jau ndice GENERAL SKIN EXAM: no rashes or lesions noted and turgor normal Course Vital Signs: Vital signs: Vital Signs Pulse Rate 76 01/24/22 19:00 Respiratory Rate 28 H 01/24/22 16:30 Blood Pressure 144/115 01/24/22 19:00 Pulse Oximetry 92 01/24/22 19:00 MDM - General Adult Medical Decision Making EKG: sinus, 76 bpm, LVH, left deviation of axis, no concerning st-t changes other than some t flattening 1,aVL Patient has COPD with decreased breath sounds, has been out of her lasix and re portedly gaining fluid, and is hyperglycemic. She may be hyperventilating trying to blow off acid if she is developing DKA. She has been noncompliant with some of her medications partly due to transportation issues. CXR: no focal consolidations, mild vascular congestion UPDATE: Patient does have metabolic acidosis and a widened anion gap but does not have serum ketones. pH is not less than 7.35. Patient does have an elevated BNP and orthopnea. She has an EF of around 40% on last echocardiogram. Therefore did not bolus her with fluids. I was preparing to give her IV insulin but her re peat glucose came down with fasting. Therefore I have changed her from an IV bolus to a correctional insulin regimen. I have not started her on diuresis at this point. Patient does not have a way to get her insulin if I discharged her. This needs to be arranged for since she is close to diabetic ketoacidosis. I discussed with the hospitalist for admission to close her anion gap and ensure that she has adequate resources in order to obtain her medications. Lab Data : 01/24/22 14:00 01/24/22 14:00 Radiology Impressions Chest X-Ray 01/24/22 15:18 IMPRESSION: No acute chest abnormality. Laboratory Results WBC 12.8 10^3/uL (4.0-10.0) H 01/24/22 14:00 RBC 5.80 10^6/uL (4.1-5.3) H 01/24/22 14:00 Hgb 15.4 g/dL (11.5-15.3) H 01/24/22 14:00 Hct 48.4 % (37.0-47.0) H 01/24/22 14:00 MCV 83.4 fl (81-99) 01/24/22 14:00 MCH 26.6 pg (28.0-34.0) L 01/24/22 14:00 MCHC 31.8 g/dL (30.0-36.0) 01/24/22 14:00 RDW 13.7 % (12.1-15.1) 01/24/22 14:00 Plt Count 339 10^3/cmm (130-400) 01/24/22 14:00 MPV 11.2 fL (7.4-10.4) H 01/24/22 14:00 Neut % (Auto) 68.6 % 01/24/22 14:00 Lymph % (Auto) 23.7 % 01/24/22 14:00 [place] % (Auto) 5.2 % 01/24/22 14:00 Eos % (Auto) 1.3 % 01/24/22 14:00 Baso % (Auto) 0.8 % 01/24/22 14:00 Neut # (Auto) 8.77 10^3/uL (1.8-7.7) H 01/24/22 14:00 Lymph # (Auto) 3.0 10^3/uL (0.8-4.8) 01/24/22 14:00 [place] # (Auto) 0.7 10^3/uL (0.2-0.9) 01/24/22 14:00 Eos # (Auto) 0.2 10^3/uL (0.0-0.8) 01/24/22 14:00 Baso # (Auto) 0.1 10^3/uL (0.0-0.1) 01/24/22 14:00 Nucleated RBC % (auto) 0 % 01/24/22 14:00 Nucleated RBCs # 0.0 /100WBC 01/24/22 14:00 Specimen Type Venous 01/24/22 16:06 Sample Site Not specified 01/24/22 16:06 Renaldo Test N/a 01/24/22 16:06 VBG pH 7.38 (7.32-7.42) 01/24/22 16:06 VBG pCO2 41.1 mmHg (41-51) 01/24/22 16:06 VBG pO2 37.8 mmHg (25-40) 01/24/22 16:06 VBG HCO3 24.5 mmol/L (24-28) 01/24/22 16:06 VBG Base Excess -0.6 mmol/L (-3.0-3.0) 01/24/22 16:06 VBG Hematocrit 44.5 % (37-47) 01/24/22 16:06 O2 Delivery Device Not Reportable 01/24/22 16:06 Linseed Oil Refiner ID Amh 01/24/22 16:06 Sodium 136 mmol/L (136-145) 01/24/22 14:00 Potassium 4.0 mmol/L (3.5-5.1) 01/24/22 14:00 Chloride 100 mmol/L (98-107) 01/24/22 14:00 Carbon Dioxide 18 mmol/L (22-29) L 01/24/22 14:00 Anion Gap 22.0 (5-19) H 01/24/22 14:00 BUN 18 mg/dL (8-23) 01/24/22 14:00 Creatinine 0.8 mg/dL (0.5-0.9) 01/24/22 14:00 GFR Calculation 71.8 mL/min (90-130) L 01/24/22 14:00 Glucose 354 mg/dL (65-115) H 01/24/22 14:00 POC Glucose 198 mg/dL (70-110) H 01/24/22 19:01 Calculated Osmolality 298 mOsm/kg (285-295) H 01/24/22 14:00 Calcium 10.0 mg/dL (8.5-10.5) 01/24/22 14:00 Magnesium 2.1 mg/dL (1.7-2.3) 01/24/22 14:00 Total Bilirubin 0.4 mg/dL (0.15-1.2) 01/24/22 14:00 AST 13 U/L (0-32) 01/24/22 14:00 ALT 10 U/L (0-33) 01/24/22 14:00 Alkaline Phosphatase 140 IU/L (35-105) H 01/24/22 14:00 NT-Pro-B Natriuret Pep 4127 pg/mL (0-125) H 01/24/22 14:00 Total Protein 8.1 g/dL (6.6-8.7) 01/24/22 14:00 Albumin 4.3 g/dL (3.5-5.2) 01/24/22 14:00 Globulin 3.8 g/dL (1.3-4.6) 01/24/22 14:00 Serum Ketones Negative (Negative) 01/24/22 14:00 Discharge Plan Discharge Condition: Stable Prescriptions: No Action furosemide [Lasix] 40 mg tablet 40 mg PO DAILY PRN (Reason: edema) 0RF aspirin 81 mg tablet,chewable 81 mg PO DAILY Qty: 30 3RF lisinopril 10 mg tablet 10 mg PO DAILY 0RF metoprolol succinate 25 mg tablet extended release 24 hr 25 mg PO BID 0RF nitroglycerin 0.4 mg tablet, sublingual 0.4 mg SUBLINGUAL Q5M PRN (Reason: Chest Pain) 0RF pantoprazole 40 mg tablet,delayed release (DR/EC) 40 mg PO DAILY 0RF Combivent Respimat 20-100 mcg/actuation mist 1 puff INHALATION QID 0RF atorvastatin 20 mg tablet 20 mg PO QDAY Qty: 30 0RF metformin 500 mg tablet extended release 24 hr 1,000 mg PO .every morning Qty: 60 0RF potassium chloride [Klor-Con 10] 10 mEq tablet extended release 20 meq PO ONCE Qty: 30 0RF Tresiba FlexTouch U-200 200 unit/mL (3 mL) insulin pen SUBCUT 0RF dapagliflozin 5 mg tablet 5 mg PO DAILY Qty: 90 0RF Referrals: Joann Cardona PA [Primary Care Provider] - Coding Level of Care Code ED Ceramic Mold Designer for Bobby Rothman
--- NOTE | 2022-01-24 19:40 | ECG_ITS ---
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 Measurements Intervals [place] Rate: 80 P: 25 MI: 169 QRS: -41 QRSD: 96 T: 83 QT: 393 QTc: 456 Interpretive Statements SINUS RHYTHM LEFT AXIS DEVIATION [QRS AXIS < -30] POSSIBLE RIGHT VENTRICULAR CONDUCTION DELAY [RSR (QR) IN V1/V2] LEFT VENTRICULAR HYPERTROPHY AND ST-T CHANGE Compared to ECG 01/24/2022 15:40:32 ST (T wave) deviation now present Myocardial infarct finding now present T-wave abnormality no longer present Electronically Signed On 01-24-2022 22:31:48 CDT by Dee Gannon M.D. [id number]
--- NOTE | 2022-01-24 19:42 | P.HP_ITS ---
Providers/Chief Complaint Primary Care Provider: Joann Cardona Chief Complaint: RESPIRATORY DISTRESS History of Present Illness The patient is a [age]-year-old female who percent chief complaint of shortness of breath. She is a known smoker and has a history of COPD and CHF. Is noncompliant with her medication intake as well. From what I was able to ascertain, the patient Cates that her dyspnea started proximally 24 hours prior to hospitalization and was of gradual onset. She missed onset of rigors. She denies fever, nausea, vomiting, cough, wheeze, abdominal pain, diarrhea, myalgia, chest pain, peripheral edema, a no dyspnea, dysgeusia, headache. She presents for further evaluation Review of Systems General: Reports: 10 or more systems reviewed and unremarkable except in HPI and below Medications/Allergies Home Medications Medication Instructions Recorded Confirmed Last Taken Type ipratropium 20 mcg-albuterol 100 1 puff INHALATION QID 10/02/19 11/03/21 Unknown History mcg/actuation mist for inhalation (Combivent Respimat) metoprolol succinate 25 mg 25 mg PO BID 10/02/19 11/03/21 Unknown History tablet,extended release 24 hr nitroglycerin 0.4 mg sublingual 0.4 mg SUBLINGUAL Q5M PRN 10/02/19 11/03/21 Unknown History tablet pantoprazole 40 mg tablet,delayed 40 mg PO DAILY 10/02/19 11/03/21 Unknown History release lisinopril 10 mg tablet 10 mg PO DAILY 10/06/19 11/03/21 Unknown History atorvastatin 20 mg tablet 20 mg PO QDAY #30 tab 10/07/19 11/03/21 Unknown Rx metformin 500 mg tablet,extended 1,000 mg PO .every morning #60 tab 10/07/19 11/03/21 Unknown Rx release 24 hr potassium chloride 10 mEq 20 meq PO ONCE #30 tab 11/29/20 11/03/21 Unknown Rx tablet,extended release (Klor-Con) dapagliflozin 5 mg tablet 5 mg PO DAILY #90 tab 10/16/21 11/03/21 Unknown Rx insulin degludec 200 unit/mL (3 unit SUBCUT 10/16/21 11/03/21 Unknown History mL) subcutaneous pen (Tresiba FlexTouch U-200 insulin) aspirin 81 mg chewable tablet 81 mg PO DAILY #30 tab 11/03/21 11/03/21 Unknown Rx furosemide 40 mg tablet (Lasix) 40 mg PO DAILY PRN tab 11/03/21 11/03/21 Unknown History Allergies Allergy/AdvReac Type Severity Reaction Status Date / Time Sulfa (Sulfonamide Allergy na Verified 11/03/21 11:28 Antibiotics) PFSH Acute PFSH: Medical History Anxiety and depression Benign essential HTN Chest pain CHF (congestive heart failure), NYHA class III COPD exacerbation COPD, moderate GERD (gastroesophageal reflux disease) H/O cholecystitis Heart failure Hematoma of left kidney Major contusion of left kidney, subsequent encounter Type 2 diabetes mellitus, without long-term current use of insulin Uncontrolled diabetes mellitus Urinary incontinence, mixed Urinary tract infection, site not specified Surgical History H/O: hysterectomy Family History Family/Other Diabetes CAD (coronary artery disease) Hypertension Lung disease Social History Smoking and tobacco status: current every day smoker cigarettes Packs smoked per day: 1 Alcohol intake: never Adopted: No Caregiver/support person: No Marital status: Current occupational status: disabled History of recent travel: No Vitals/I&O/Wt Last Vital Signs Pulse 76 01/24/22 19:35 Resp 20 H 01/24/22 19:35 BP 144/115 01/24/22 19:00 Pulse Ox 93 01/24/22 19:35 Weight last 48 hrs Weight 90.718 kg Physical Exam Narrative: General: -Alert -No acute distress -No dyspnea -No tachypnea Head: -Atraumatic -Normocephalic Eyes: -Pupils equally round and reactive to light and accommodation -Extraocular muscles intact Neurological: -Cranial nerves II-XII intact Neck: -No jugular venous distention -No thyromegaly -No cervical lymphadenopathy Heart: -Regular rate -Regular rhythm -No murmurs -No gallops -No rubs Lungs: -No wheeze -No rhonchi -No rales ? Abdomen: -Normal bowel sounds in all four quadrants -No rebound -No guarding -No tenderness Extremities: -2/4 pulse in all four extremities -No clubbing -No cyanosis -No edema -No calf tenderness present bilaterally -Negative John?s sign bilaterally Musculoskeletal: -5/5 bilateral upper extremity strength -5/5 bilateral lower extremity strength -Sensorium of bilateral upper extremities are equal and intact -Sensorium of bilateral lower extremities are equal and intact ? Additional Details / Additional Findings / Exceptions / Miscellaneous: Data : 01/24/22 14:00 01/24/22 14:00 A&P Assessment and plan (1) CHF (congestive heart failure), NYHA class III: Status: Acute Plan Dyspnea secondary to CHF exacerbation and/or COPD exacerbation CHF, ejection fraction 40% as of echo Blade randle from [facility] 05/06/2022 with moderate mitral regurgitation and grade 2 diastolic dysfunction. Strict I/O. Daily weight. Will monitor patient on telemetry and checks her cardiac enzymes. Recheck EKG on the morning of January 25, 2022. Lasix 20 Mill grams IV every 8 hours COPD, not O2 dependent. DuoNeb every 6 hours + Medrol 40 Mill cans IV every 8 hours Medical noncompliance. The patient will need to be counseled regarding medical compliance Query history of vesicovaginal fistula. Patient follow-up with obstetrics/gynecology upon discharge as directed Diverticulosis Hepatic steatosis Osteopenia Erythrocytosis. Will monitor hemoglobin level intermittently. Likely sequelae of her history of COPD Diabetes. Will check fasting glucose before meals and at bedtime and provide some slight scale plus Lantus 15 units subcu tensely twice a day GERD. Protonix 40 Mill grams by mouth daily Hyper lipemia Hypertension. Lasix 20 Mill grams IV every 8 hours Obesity. The patient becomes regarding left eye medication Smoker. The patient becomes regarding smoking cessation DVT Proflex is. Lovenox 40 Mill grams subcu tensely daily Attestations Medical Necessity Statement*: The patient's anticipated length of stay is less than 2 midnights for treatment of her dyspnea Coding Level of Care Code Acute Track Car Operator for Micheleg Fwd Diagnoses CHF (congestive heart failure), NYHA class III I50.9
[2022-01-24 20:18] LABS: Troponin(5th) Baseline 13 ng/L (0-10)
[2022-01-24 20:47] LABS: Glucose Point of Care 267 mg/dL (70-110)
[2022-01-24] MEDS: enoxaparin 40 mg/0.4 mL Syringe SUBCUT (21:30)
[2022-01-24] MEDS: FUROsemide 10 mg/mL SDV 2mL 20 MG IVP (21:30)
[2022-01-24] MEDS: insulin lispro 100 unit/1 mL SUBCUT (21:31)
[2022-01-24] MEDS: hyDRALAzine 20 mg/mL INJ 1 mL 10 MG IVP (21:31)
[2022-01-24] MEDS: ipratropium-albuterol 3 mL Neb INHALATION (21:38)
--- NOTE | 2022-01-24 21:40 | ECG_ITS ---
[facility] Test Date: 2022-01-24 Pat Name: Sarah Rogers Department: Room: 259 Gender: Female Key Maker: : 1955 Requested By: Mare Freire Order Number: [id number] Elana MD: Padmini Serrano M.D. Measurements Intervals [place] Rate: 80 P: 30 NM: 171 QRS: -39 QRSD: 92 T: 85 QT: 391 QTc: 451 Interpretive Statements SINUS RHYTHM LEFT AXIS DEVIATION [QRS AXIS < -30] POSSIBLE RIGHT VENTRICULAR CONDUCTION DELAY [RSR (QR) IN V1/V2] LEFT VENTRICULAR HYPERTROPHY AND ST-T CHANGE [VOLTAGE CRITERIA PLUS ST/T ABNORMALITY] POSSIBLE SEPTAL MYOCARDIAL INFARCTION , OF INDETERMINATE AGE [30 ms Q WAVE IN V1/V2] Compared to ECG 01/24/2022 20:56:05 Myocardial infarct finding now present ST (T wave) deviation still present Electronically Signed On 01-26-2022 0:10:44 CDT by Padmini Serrano M.D. [id number]
[2022-01-24 21:46] LABS: Troponin 5 2HR 13.97 ng/L (0-10)
[2022-01-24 21:53] LABS: Troponin 5 2HR Delta 0.97 ABS# (0-10)
[2022-01-25] VITALS (21 sets, daily range): BP systolic 111–145; BP diastolic 65–87; PULSE 71–89; RESP 16–24; TEMP 36.5–36.9; O2SAT 87–96
[2022-01-25] MEDS: hyDRALAzine 20 mg/mL INJ 1 mL 10 MG IVP ×3 (00:47→08:09)
--- NOTE | 2022-01-25 01:40 | ECG_ITS ---
[facility] Test Date: 2022-01-25 Pat Name: Sarah Rogers Department: Room: 259 Gender: Female Main Line Station Engineer: : 1955 Requested By: Mare Freire Order Number: [id number] Elana MD: Padmini Serrano M.D. Measurements Intervals [place] Rate: 76 P: 54 AL: 157 QRS: -48 QRSD: 94 T: 91 QT: 411 QTc: 465 Interpretive Statements SINUS RHYTHM POSSIBLE LEFT ATRIAL ENLARGEMENT [-0.1mV P-WAVE IN V1/V2] POSSIBLE RIGHT VENTRICULAR CONDUCTION DELAY [RSR (QR) IN V1/V2] LEFT ANTERIOR FASCICULAR BLOCK [QRS AXIS <= -45, QR IN I, RS IN II] POSSIBLE LEFT VENTRICULAR HYPERTROPHY [VOLTAGE CRITERIA PLUS LAE OR QRS WIDENING] POSSIBLE SEPTAL MYOCARDIAL INFARCTION , OF INDETERMINATE AGE [30 ms Q WAVE IN V1/V2] Nonspecific T wave changes Compared to ECG 01/24/2022 20:56:45 Left anterior fascicular block now present Left-axis deviation no longer present ST (T wave) deviation no longer present Myocardial infarct finding still present Electronically Signed On 01-26-2022 0:11:54 CDT by Padmini Serrano M.D. [id number]
[2022-01-25 03:05] LABS: Troponin 5 6HR 11.59 ng/L (0-10)
[2022-01-25 03:17] LABS: Troponin 5 6HR Delta -1.41 ng/L (0-12)
[2022-01-25 05:00] LABS: Amphetamines Screen Urine Negative (Negative); Barbiturates Screen Urine Negative (Negative); Benzodiazepines Screen Urine Negative (Negative); Cocaine Screen Urine Negative (Negative); Opiate Screen Urine Negative (Negative); PCP Screen Urine Negative (Negative); THC Screen Urine Negative (Negative)
[2022-01-25] MEDS: FUROsemide 10 mg/mL SDV 2mL 20 MG IVP (05:08)
[2022-01-25 07:36] LABS: Glucose Point of Care 293 mg/dL (70-110)
[2022-01-25] MEDS: atorvastatin 40 mg Tablet 20 MG PO (08:07)
[2022-01-25] MEDS: pantoprazole DR 40 mg Tablet PO ×2 (08:07→08:55)
[2022-01-25] MEDS: metoprolol succinate ER (24 HR) 25 mg Tablet PO ×2 (08:08→17:59)
[2022-01-25] MEDS: lisinopril 10 mg Tablet PO (08:08)
[2022-01-25] MEDS: aspirin 81 mg Chew Tablet PO (08:08)
[2022-01-25] MEDS: ipratropium-albuterol 3 mL Neb INHALATION ×4 (08:08→20:26)
[2022-01-25] MEDS: insulin glargine 100 units/1 mL 15 UNIT SUBCUT (08:08)
[2022-01-25] MEDS: insulin lispro 100 unit/1 mL SUBCUT ×2 (08:13→12:28)
[2022-01-25 09:20] LABS: Glucose Point of Care 381 mg/dL (70-110)
--- NOTE | 2022-01-25 10:09 | P.PN_ITS ---
Subjective Subjective: Seen this morning. Patient states that she has not seen a primary care doctor in months. She was set up at discharge last time to see Dr. Cardona but she has not made it to her appointments. She says she ran out of her medications about 4 weeks ago and has not taken any of her medications which i nclude insulin, blood pressure medications and her water pill. He states she lives at home with her grandson who she takes care of. She has been coughing the last couple of days more than usual and is also bringing up some sputum. She has also been fairly short of breath at times. Denies any fever or recent weight loss. Denies diarrhea nausea vomiting constipation. Patient is also a poor historian and does not know all of her medical conditions. She received a DuoNeb this morning. When I saw her she was coughing continuously and just looks like she was in distress. Vitals/I&O/Wt Last Vital Signs Temp 97.8 F 01/25/22 08:13 Pulse 87 01/25/22 08:13 Resp 18 01/25/22 08:13 BP 145/85 01/25/22 08:13 Pulse Ox 94 01/25/22 08:13 01/24/22 01/25/22 01/25/22 22:59 06:59 14:59 Intake Total 1100 / 1100 240 / 240 Output Total 700 / 700 Balance 400 / 400 240 / 240 Weight last 48 hrs Weight 67.631 kg Weight 90.718 kg Weight 90.718 kg Physical Exam Narrative: General: Alert oriented x3, patient seen sitting up in bed coughing continuously and appears in mild distress. Saturating 94% on room air at this time. HEENT: Normocephalic, atraumatic, EOMI, Cardio: Regular rate rhythm, normal S1-S2, Respiratory: Gross expiratory wheezes bilaterally all throughout posterior lung lindsay, anteriorly clear to auscultation GI: Abdomen soft, nontender, nondistended, bowel sounds + Extremities: 1+ edema bilateral lower extremities Data : 01/25/22 10:35 01/25/22 10:33 A&P Assessment and plan (1) CHF (congestive heart failure), NYHA class III: Status: Acute (2) Type 2 diabetes mellitus, without long-term current use of insulin: Status: Acute (3) Diastolic CHF: Status: Acute (4) COPD, moderate: Status: Acute (5) Nicotine dependence, cigarettes, with unspecified nicotine-induced disorders: Status: Chronic Plan #High anion gap metabolic acidosis due to hyperglycemia/DKA #Noncompliance to medications and medical treatment. Ran out of medication 4 weeks ago. Has not seen primary care in months. #Congestive heart failure NYHA class III, reduced EF #COPD with acute exacerbation #Diabetes mellitus complicated by peripheral neuropathy and hyperglycemia, last A1c 10.8 #GERD #Anxiety depression #Uncontrolled hypertension #Nicotine dependence #Elevated hemoglobin ? Patient was admitted for dyspnea secondary to CHF exacerbation and/or COPD exacerbation. Last echo from September 2021 shows moderate mitral regurgitation, grade 2 diastolic dysfunction with EF of 40%. BNP at admission 4038. ? Continue Lasix 40 IV daily ? Reduce Solu-Medrol to 40 daily instead of 3 times daily. Start azithromycin for 5 days ? Continue DuoNeb every 4 hours scheduled - Check sputum gram stain, MRSA nares. ? Transfer to ICU for insulin drip as anion gap is 23 and blood glucose 466. Once gap closes and we bridged her insulin we will transfer her back to floor. -Blood pressure has been elevated and she has been requiring 10 mg of IV hydralazine every 4 hours and has received 4 doses so far. I will switch her from lisinopril 10 mg to 40 mg daily. We will further optimize blood pressure medications in preparation for discharge in next 24 to 48 hours. ? Hemoglobin 15 today most likely secondary to smoking. Will monitor ? Tight glucose control. Most glucoses are in better range we will place her on sliding scale and adjust her medications ? Patient will require refill on all her medications at discharge. ? Continue Protonix ? Offered nicotine patch and counseled on smoking cessation. ? DVT prophylaxis: Lovenox 40 daily Full code Attestations Medical Necessity Statement*: Patient will need to stay in the hospital tonight for management of the above. Depending on her clinical improvement she may possibly be discharged tomorrow versus in the next 48 hours. She will be converted to inpatient today. Coding Level of Care Code Acute Gis Physical Scientist for Bobby Rothman Diagnoses CHF (congestive heart failure), NYHA class III I50.9 Type 2 diabetes mellitus, without long-term current use of insulin E11.9 Diastolic CHF I50.30 COPD, moderate J44.9 Nicotine dependence, cigarettes, with unspecified nicotine-induced disorders F17.219
[2022-01-25 11:00] LABS: Estmated Average Glucose 206; Hemoglobin A1C 8.8 % (4.0-6.0)
--- NOTE | 2022-01-25 11:00 | PC.CHAP ---
Pastoral Care Encounter/Spiritual Assessment Type of Contact [] Declined weight training instructor visit [] Patient/Family/Request visit [] Outpatient visit [] Follow-up visit [] Physician referral [] Code/Alert [x] Routine visit [] Staff referral [] Actively dying [] Patient sleeping [] Family support [] [] Out of room [] Palliative care [] [x] Receiving care in room [] Pre-surgical visit [] Trauma [x] Long length of stay [] ICU visit [] Other: Relational/Emotional Strength [] Patient feels connected with others/family/visitors/staff [x] Distress [] Loneliness/isolation [] Abandonment Spirituality of Patient [x] Person of Nat [] Attends Scientology of their Nat [x] Believes in Prayer [] Reads Bible or Muslim materials [] There are Spiritual issues to be addressed Floor Service Worker [place] Interventions [x] Prayer [x] Active listening [x] Non-anxious presence [x] Spiritual/emotional support [] Crisis/trauma care [x] Spiritual counseling [] Bereavement support [] Provided bereavement packet [] Provided Bible/devotional materials [] Provided toy/stuffed animal, coloring book to patient or family member [] Provided Communion [] Anointing/[place] [] Salvation [x] Completed spiritual assessment [] Other: Impact on Illness or Injury [] Angry [x] Fearful [] Anxious [] Often cries [] Exhaustion [x] Unable to work [] Unable to attend roman catholic [] Unable to walk/stand [] Unable to read [] Unable to drive [] Unable to eat/drink [] Unable to sleep [] Unable to be with family [] Patient intubated [] Other: Summary not able to coomunicate about her health negative feeling at this point, well get to go home soon Time spent with patient 10 mins
[2022-01-25 11:05] LABS: Basophils % 0.1 %; Hematocrit 46.5 % (37.0-47.0); Hemoglobin 14.9 g/dL (11.5-15.3); Lymphocytes # 0.9 10^3/uL (0.8-4.8); Lymphocytes % 6.8 %; Mean Corpuscular Hemoglobin 26.6 pg (28.0-34.0); Monocytes # 0.1 10^3/uL (0.2-0.9); Monocytes % 0.5 %; Neutrophils # 12.78 10^3/uL (1.8-7.7); Neutrophils % 92.2 %; Nucleated Red Blood Cells % 0 %; Platelet Count 314 10^3/cmm (130-400); Red Cell Distribution Width 13.7 % (12.1-15.1); White Blood Count 13.9 10^3/uL (4.0-10.0)
[2022-01-25 11:22] LABS: Alanine Aminotransferase 9 U/L (0-33); Albumin Level 4.4 g/dL (3.5-5.2); Alkaline Phosphatase 136 IU/L (35-105); Anion Gap 23.1 (5-19); Aspartate Amino Transferase 10 U/L (0-32); Blood Urea Nitrogen 23 mg/dL (8-23); Calcium 9.8 mg/dL (8.5-10.5); Carbon Dioxide 20 mmol/L (22-29); Chloride 96 mmol/L (98-107); Chol HDL Ratio 4.27 mg/dL (0.0-4.40); Cholesterol 175 mg/dL (0-200); Globulin 3.7 g/dL (1.3-4.6); Glomerular Filtration Rate 55.5 mL/min (90-130); Glucose 466 mg/dL (65-115); HDL Cholesterol 41 mg/dL (60-100); LDL Cholesterol Calculated 113 mg/dL (50-129); LDL HDL Ratio 2.76 RATIO (0.00-3.22); Osmolality Calculated 304 mOsm/kg (285-295); Potassium 4.1 mmol/L (3.5-5.1); Sodium 135 mmol/L (136-145); Total Bilirubin 0.3 mg/dL (0.15-1.2); Total Protein 8.1 g/dL (6.6-8.7); Triglycerides 107 mg/dL (0-150)
[2022-01-25 11:27] LABS: Procalcitonin 0.04 ng/mL (0-0.5)
[2022-01-25] MEDS: azithromycin 500 MG in sodium chloride 0.9% 250 ML 250 MG IV (12:08)
[2022-01-25 12:21] LABS: Glucose Point of Care 376 mg/dL (70-110)
[2022-01-25 13:17] LABS: ABG PCO2 29.8 mmHg (35-45); Alveolar-Arterial Oxygen Gradi 5.8 mmHg (5-10); Arterial Blood Gas Hematocrit 45.2 % (37-47); Base Excess ABG -4.9 mmol/L (-2.0-2.0); Blood Gas Allen Test Pos; Blood Gas Sample Site Radial, right; Blood Gas Sample Type Arterial; Carboxyhemoglobin 0.8 %THgb (0.4-20.1); HCO3 ABG 18.6 mmol/L (22-26); HGB O2 Sat 92.3 % (95-100); Ionized Calcium Level - ABG 1.2 mmol/L (1.1-1.4); Oxygen Saturation ABG 94.1; PO2 ABG 67.3 mmHg (80.0-100.0); Potassium Level - ABG 4.1 mmol/L (3.5-5.0); Total Hemoglobin 14.7 g/dL (12-16)
[2022-01-25] MEDS: acetaminophen 325 mg Tablet 650 MG PO ×2 (13:18→18:30)
[2022-01-25 14:52] LABS: Glucose Point of Care 430 mg/dL (70-110)
--- NOTE | 2022-01-25 16:20 | PC.NURSE ---
Called report to Jacque in ICU at 1540.
--- NOTE | 2022-01-25 16:31 | PC.NURSE ---
Patient arrived to ICU at 1615.
[2022-01-25] MEDS: insulin regular-human 250 UNIT in sodium chloride 0.9% 250 ML 9.1 UNIT IV (16:56)
[2022-01-25 17:00] LABS: Glucose Point of Care 363 mg/dL (70-110)
[2022-01-25 17:58] LABS: Glucose Point of Care 301 mg/dL (70-110)
--- NOTE | 2022-01-25 18:17 | PC.NURSE ---
Dr. Nguyen called and gave verbal orders to start Normal saline at 75 mL/hr and 40 meq of potassium orally. Once blood sugar levels reach 250 to switch fluids to D5 1/2 NS 20 meq of K+. Dr. Nguyen voiced to called Dr. Freire with further orders this evening.
[2022-01-25] MEDS: potassium chloride ER 20 mEq Tablet 40 MEQ PO (18:22)
[2022-01-25] MEDS: sodium chloride 0.9% 1,000 ML 75 ML IV (18:22)
[2022-01-25 19:29] LABS: Anion Gap 20.6 (5-19); Blood Urea Nitrogen 32 mg/dL (8-23); Calcium 10.2 mg/dL (8.5-10.5); Carbon Dioxide 21 mmol/L (22-29); Chloride 99 mmol/L (98-107); Glomerular Filtration Rate 55.5 mL/min (90-130); Glucose 249 mg/dL (65-115); Osmolality Calculated 299 mOsm/kg (285-295); Potassium 3.6 mmol/L (3.5-5.1); Sodium 137 mmol/L (136-145)
[2022-01-25 19:46] LABS: Glucose Point of Care 150 mg/dL (70-110)
[2022-01-25] MEDS: enoxaparin 40 mg/0.4 mL Syringe SUBCUT (20:03)
[2022-01-25] MEDS: D5-NS 0.45% + KCL 20 mEq 20 MEQ/1,000 ML BAG 75 MEQ IV (20:03)
[2022-01-25 20:47] LABS: Glucose Point of Care 108 mg/dL (70-110)
[2022-01-25 21:48] LABS: Glucose Point of Care 145 mg/dL (70-110)
[2022-01-25 22:43] LABS: Glucose Point of Care 173 mg/dL (70-110)
[2022-01-25 23:06] LABS: Anion Gap 16.3 (5-19); Blood Urea Nitrogen 32 mg/dL (8-23); Calcium 10.2 mg/dL (8.5-10.5); Carbon Dioxide 21 mmol/L (22-29); Chloride 106 mmol/L (98-107); Glomerular Filtration Rate 71.8 mL/min (90-130); Glucose 188 mg/dL (65-115); Osmolality Calculated 300 mOsm/kg (285-295); Potassium 4.3 mmol/L (3.5-5.1); Sodium 139 mmol/L (136-145)
[2022-01-25 23:51] LABS: Glucose Point of Care 171 mg/dL (70-110)
[2022-01-26] VITALS (37 sets, daily range): BP systolic 108–148; BP diastolic 52–85; PULSE 59–79; RESP 15–32; TEMP 36.6–37.1; O2SAT 90–99
[2022-01-26] MEDS: insulin glargine 100 units/1 mL 15 UNIT SUBCUT ×3 (00:52→20:57)
[2022-01-26 00:53] LABS: Glucose Point of Care 151 mg/dL (70-110)
--- NOTE | 2022-01-26 03:54 | PC.NURSE ---
01/25/222049 Reported rapid drop in patient's blood glucose to Dr. Freire. Orders to continue insulin drip per protocol to keep glucose greater than 100. At 2309 labs results were reviewed by Dr. Freire and orders for lantus, and to DC IVF and insulin drip one hour after lantus given, ok for patient to have diabetic diet.
[2022-01-26 04:55] LABS: Basophils % 0.2 %; Hematocrit 42.9 % (37.0-47.0); Hemoglobin 13.3 g/dL (11.5-15.3); Lymphocytes # 2.1 10^3/uL (0.8-4.8); Lymphocytes % 10.9 %; Mean Corpuscular Hemoglobin 26.7 pg (28.0-34.0); Mean Platelet Volume 10.9 fL (7.4-10.4); Monocytes # 1.2 10^3/uL (0.2-0.9); Monocytes % 6.2 %; Neutrophils # 15.55 10^3/uL (1.8-7.7); Neutrophils % 82.3 %; Nucleated Red Blood Cells % 0 %; Platelet Count 292 10^3/cmm (130-400); Red Blood Count 4.99 10^6/uL (4.1-5.3); Red Cell Distribution Width 14.1 % (12.1-15.1); White Blood Count 18.9 10^3/uL (4.0-10.0)
[2022-01-26 05:24] LABS: Anion Gap 15.7 (5-19); Blood Urea Nitrogen 32 mg/dL (8-23); Calcium 9.7 mg/dL (8.5-10.5); Carbon Dioxide 20 mmol/L (22-29); Chloride 107 mmol/L (98-107); Glomerular Filtration Rate 71.8 mL/min (90-130); Glucose 145 mg/dL (65-115); Magnesium 2.4 mg/dL (1.7-2.3); Osmolality Calculated 295 mOsm/kg (285-295); Potassium 4.7 mmol/L (3.5-5.1); Sodium 138 mmol/L (136-145)
[2022-01-26 07:51] LABS: Glucose Point of Care 135 mg/dL (70-110)
[2022-01-26] MEDS: ipratropium-albuterol 3 mL Neb INHALATION ×4 (08:07→21:31)
[2022-01-26] MEDS: pantoprazole DR 40 mg Tablet PO (08:34)
[2022-01-26] MEDS: atorvastatin 40 mg Tablet 20 MG PO (08:34)
[2022-01-26] MEDS: aspirin 81 mg Chew Tablet PO (08:34)
[2022-01-26] MEDS: metoprolol succinate ER (24 HR) 25 mg Tablet PO ×2 (08:34→18:04)
[2022-01-26] MEDS: azithromycin 500 MG in sodium chloride 0.9% 250 ML 250 MG IV (08:36)
--- NOTE | 2022-01-26 10:07 | PC.CHAP ---
Pastoral Care Encounter/Spiritual Assessment Type of Contact [] Declined paper rewinder operator visit [] Patient/Family/Request visit [] Outpatient visit [] Follow-up visit [] Physician referral [] Code/Alert [x] Routine visit [] Staff referral [] Actively dying [] Patient sleeping [] Family support [] [] Out of room [] Palliative care [] [] Receiving care in room [] Pre-surgical visit [] Trauma [] Long length of stay [x] ICU visit [] Other: Relational/Emotional Strength [] Patient feels connected with others/family/visitors/staff [] Distress [] Loneliness/isolation [] Abandonment Spirituality of Patient [] Person of Nat [] Attends Rastafarian of their Nat [] Believes in Prayer [] Reads Bible or Methodist materials [] There are Spiritual issues to be addressed Canal Lock Tender Chief Operator Interventions [x] Prayer [x] Active listening [x] Non-anxious presence []x Spiritual/emotional support [] Crisis/trauma care [] Spiritual counseling [] Bereavement support [] Provided bereavement packet [] Provided Bible/devotional materials [] Provided toy/stuffed animal, coloring book to patient or family member [] Provided Communion [] Anointing/[place] [] Salvation [x] Completed spiritual assessment [] Other: Impact on Illness or Injury [] Angry [] Fearful [] Anxious [] Often cries [] Exhaustion [] Unable to work [] Unable to attend shinto [] Unable to walk/stand [] Unable to read [] Unable to drive [] Unable to eat/drink [] Unable to sleep [] Unable to be with family [] Patient intubated [] Other: Summary Time spent with patient
[2022-01-26 11:51] LABS: Glucose Point of Care 234 mg/dL (70-110)
--- NOTE | 2022-01-26 11:59 | USCV_ITS ---
Ken Sarah Age: 67 Gender: F : 1955 Exam Date: 01/26/2022 16:31 Ordering Phys: Shirin Nguyen MD Technologist: Kristie Whitaker Exam Location: [facility] [place] Indication: SHORTNESS OF BREATH BP: / HR: 69 Rhythm: Sinus Technical Quality: Adequate MEASUREMENTS (Male / Female) Normal Values 2D ECHO LV Diastolic Diameter PLAX 4.1 cm 4.2 - 5.9 / 3.9 - 5.3 cm LV Systolic Diameter PLAX 3.1 cm LV Chamber Size 3.2 cm IVS Diastolic Thickness 1.0 cm 0.6 - 1.0 / 0.6 - 0.9 cm IVS Systolic Thickness 1.7 cm LVPW Diastolic Thickness 2.0 cm 0.6 - 1.0 / 0.6 - 0.9 cm LVPW Systolic Thickness 2.4 cm RV Chamber Size 3.6 cm LVOT Diameter 2.1 cm LV Ejection Fraction 2D Teich 49.1 % LV Ejection Fraction MOD 2C 37.7 % LV Ejection Fraction 2C AL 35.6 % LA Diameter 4.0 cm LA Width 3.4 cm LA Height 4.5 cm RA Width 3.5 cm RA Height 4.1 cm Aorta at Sinotubular Diameter 2.7 cm IVC Diameter 1.8 cm M-MODE Aortic Annulus Diameter 3.1 cm LA Ao Ratio MM 1.5 MV E Point Septal Separation 1.1 cm DOPPLER AV Peak Velocity 142.0 cm/s LVOT Peak Velocity 75.0 cm/s AV Area Cont Eq vti 2.2 cm squared AV Area Cont Eq pk 1.8 cm squared MV Area PHT 2.6 cm squared Mitral E to A Ratio 2.1 MV E' Velocity 56.0 cm/s Mitral E to MV E' Ratio 12.5 Mitral E to LV E' Lateral Ratio 9.1 Mitral E to LV E' Septal Ratio 20.3 TR Peak Velocity 237.6 cm/s TR Peak Gradient 22.6 mmHg TR Mean Velocity 188.2 cm/s TR Mean Gradient 15.8 mmHg TR Velocity Time Integral 78.5 cm TV Peak E Velocity 66.0 cm/s Right Atrial Pressure 3.0 mmHg Pulmonary Artery Systolic Pressu 25.6 mmHg PV Peak Velocity 68.0 cm/s RV Acceleration Time 0.1 s RV Ejection Time 0.3 s RV AcT/ET 0.4 FINDINGS Left Ventricle Normal left ventricular cavity size. Moderately decreased left ventricular systolic function. Left ventricular ejection fraction is estimated at 40 %. Moderate global hypokinesis. Grade II diastolic dysfunction, moderately elevated filling pressures. Right Ventricle Normal right ventricular size and systolic function. Right ventricular systolic pressure 25.6 mmHg. Right Atrium Normal right atrial size. Right atrial pressure estimated at 3 mm Hg. Left Atrium Normal left atrial size. Mitral Valve Structurally normal mitral valve. No mitral valve stenosis. Mild mitral valve regurgitation. Aortic Valve Structurally normal trileaflet aortic valve. No aortic valve stenosis. No aortic valve regurgitation. Tricuspid Valve Structurally normal tricuspid valve. Pulmonic Valve Structurally normal pulmonic valve. No pulmonary valve stenosis. No significant pulmonary valve regurgitation. Pericardium No pericardial effusion. Aorta Normal size aortic root and proximal ascending aorta. Normal- sized inferior vena cava with normal respiratory variation. CONCLUSIONS 1. This is a technically difficult study. 2. Normal left ventricular cavity size. Moderately decreased left ventricular systolic function. Left ventricular ejection fraction is estimated at 40 %. Moderate global hypokinesis. Grade II diastolic dysfunction, moderately elevated filling pressures. 3. Mild mitral valve regurgitation. 4. Pulmonary artery pressure estimated at 26 mmHg. 5. When compared to previous echocardiogram report dated 10/14/2021, mitral valve regurgitation appears to be mild now. Dee Gannon MD (Electronically Signed) Final Date: 27 Jan 2022 11:03 S
--- NOTE | 2022-01-26 12:00 | PM.PN ---
Subjective Subjective: Seen this morning. Patient states she is feeling better compared to before. Anion gap is closed. She will be transferred to floor this morning. White count elevated to 18,000. Blood pressure has been stable Vitals/I&O/Wt Last Vital Signs Temp 98.8 F 01/26/22 03:00 Pulse 68 01/26/22 11:58 Resp 29 H 01/26/22 11:58 BP 112/82 01/26/22 11:58 Pulse Ox 98 01/26/22 11:10 01/25/22 01/26/22 01/26/22 22:59 06:59 14:59 Intake Total 275.715 / 875.715 100 / 975.715 360 / 360 Output Total 600 / 600 Balance -324.285 / 275.715 100 / 375.715 360 / 360 Weight last 48 hrs Weight 85.729 kg Weight 67.631 kg Weight 90.718 kg Weight 90.718 kg Physical Exam Narrative: General: Alert oriented x3, patient seen sitting up in bed appearing comfortable. HEENT: Normocephalic, atraumatic, EOMI, Cardio: Regular rate rhythm, normal S1-S2, Respiratory: Mild rhonchi at bases bilaterally otherwise clear to auscultation. Diminished bilateral air entry overall. GI: Abdomen soft, nontender, nondistended, bowel sounds + Extremities: 1+ edema bilateral lower extremities Data : 01/26/22 04:08 01/26/22 04:08 A&P Assessment and plan (1) CHF (congestive heart failure), NYHA class III: Status: Acute (2) Type 2 diabetes mellitus, without long-term current use of insulin: Status: Acute (3) Diastolic CHF: Status: Acute (4) COPD, moderate: Status: Acute (5) Hematoma of left kidney: Status: Acute Qualifiers: Encounter type: subsequent encounter Qualified Code(s): S37.012D - Minor contusion of left kidney, subsequent encounter (6) Urinary incontinence, mixed: Status: Chronic (7) Nicotine dependence, cigarettes, with unspecified nicotine-induced disorders: Status: Chronic Plan #High anion gap metabolic acidosis due to hyperglycemia/HHS #Noncompliance to medications and medical treatment.? Ran out of medication 4 weeks ago.? Has not seen primary care in months. #Congestive heart failure NYHA class III, reduced EF #COPD with acute exacerbation #Diabetes mellitus complicated by peripheral neuropathy and hyperglycemia, last A1c 10.8 #GERD #Anxiety depression #Hypertension #Nicotine dependence #Elevated hemoglobin ? Patient was admitted for dyspnea secondary to CHF exacerbation and/or COPD exacerbation.? Last echo from September 2021 shows moderate mitral regurgitation, grade 2 diastolic dysfunction with EF of 40%.? BNP at admission 4038. ? Continue Lasix 40 IV daily ? Continue Solu-Medrol 40 - Levofloxacin 500 daily ? Continue DuoNeb every 4 hours scheduled - Check sputum gram stain, MRSA nares. ? Anion gap closed patient is out of ICU to floor now. Blood sugars much better. ? We will discharge patient on her previous home dose of Tresiba 10, dapagliflozin, metformin. A1c be checked and is now 8.8. I will always prescribe her glucose monitor at discharge to check her sugars at home and to follow-up with her primary for further management. ? Blood pressures have been stable on lisinopril 40 daily however she is also receiving prednisone 40 mg daily. Her home dose was lisinopril 10 mg daily. We will discharge her on lisinopril 20 mg daily. Once prednisone stops hopefully blood pressure will be lower. She will need to keep an eye on her blood pressure at home and take a log of readings to her primary care for further adjustment of medications. ? WBC 18,000 today. Unsure if this is stress leukocytosis versus steroid-induced. ? Monitor white count today in hospital. Hopefully she can be discharged home tomorrow. ? Hemoglobin 15 today most likely secondary to smoking.? Will monitor ? Patient will require refill on all her medications at discharge. I will also have her started on albuterol and Symbicort inhaler at discharge. She will need following with pulmonology for his COPD and follow-up with cardiology as an outpatient as well. ? Continue Protonix ? Offered nicotine patch and counseled on smoking cessation. ? DVT prophylaxis: Lovenox 40 daily Full code Attestations Medical Necessity Statement*: Monitor in the hospital tonight since WBC count jumped to 18,000. Unsure if this is stress leukocytosis versus steroid-induced. If there is a downward trend by tomorrow we will discharge her home. Continue antibiotics. Coding Level of Care Code Acute Traveling Freight Agent for Bobby Rothman Diagnoses CHF (congestive heart failure), NYHA class III I50.9 Type 2 diabetes mellitus, without long-term current use of insulin E11.9 Diastolic CHF I50.30 COPD, moderate J44.9 Hematoma of left kidney S37.012D Encounter type: subsequent encounter Urinary incontinence, mixed N39.46 Nicotine dependence, cigarettes, with unspecified nicotine-induced disorders F17.219
[2022-01-26] MEDS: insulin lispro 100 unit/1 mL SUBCUT ×3 (12:02→20:56)
[2022-01-26] MEDS: lisinopril 20 mg Tablet 40 MG PO (12:15)
[2022-01-26] MEDS: FUROsemide 10 mg/mL SDV 4mL 40 MG IVP (12:15)
[2022-01-26] MEDS: levofloxacin-dextrose 5 % 750 MG/150 ML PREMIX 100 MG IV (12:16)
[2022-01-26 12:56] LABS: Add Urine Microscopic? NO; Charge for UA Resulting for Rev
[2022-01-26 13:09] LABS: Urine Color Yellow (Yellow)
[2022-01-26 13:10] LABS: Bilirubin Urine Neg (Negative); Blood Urine Neg (Negative); Glucose Urine UA 2+ (Normal); Ketones Urine Negative (Negative); Leukocyte Esterase Urine Negative (Negative); Nitrate Urine Negative (Negative); Protein Urine Neg (Negative); Specific Gravity, Urine 1.025 (1.005-1.030); Urine Appearance Hazy (CLEAR); Urobilinogen Urine 1 mg/dL (Negative); pH Urine 5 (5-7)
--- NOTE | 2022-01-26 13:50 | PC.NURSE ---
report given to indio on 2nd floor.transferred to room 277-1 via w/c.
[2022-01-26 17:34] LABS: Glucose Point of Care 229 mg/dL (70-110)
--- NOTE | 2022-01-26 19:10 | PC.NURSE ---
Report given to Milvia ESPARZA at this time.
[2022-01-26 20:48] LABS: Glucose Point of Care 225 mg/dL (70-110)
[2022-01-26] MEDS: enoxaparin 40 mg/0.4 mL Syringe SUBCUT (20:57)
[2022-01-27] VITALS (7 sets, daily range): BP systolic 108–133; BP diastolic 69–81; PULSE 58–68; RESP 16–17; TEMP 36.4–36.7; O2SAT 94–97
[2022-01-27 04:56] LABS: Basophils # 0.1 10^3/uL (0.0-0.1); Basophils % 0.3 %; Eosinophils % 0.1 %; Hemoglobin 13.1 g/dL (11.5-15.3); Lymphocytes % 18.7 %; Mean Corpuscular HGB Conc 31.2 g/dL (30.0-36.0); Mean Corpuscular Hemoglobin 26.4 pg (28.0-34.0); Mean Corpuscular Volume 84.5 fl (81-99); Mean Platelet Volume 11.2 fL (7.4-10.4); Monocytes # 1.1 10^3/uL (0.2-0.9); Monocytes % 6.6 %; Neutrophils % 73.8 %; Nucleated Red Blood Cells % 0 %; Platelet Count 290 10^3/cmm (130-400); Red Blood Count 4.97 10^6/uL (4.1-5.3); Red Cell Distribution Width 14.1 % (12.1-15.1); White Blood Count 16.1 10^3/uL (4.0-10.0)
[2022-01-27 05:18] LABS: Anion Gap 17.1 (5-19); Blood Urea Nitrogen 39 mg/dL (8-23); Calcium 10.1 mg/dL (8.5-10.5); Carbon Dioxide 23 mmol/L (22-29); Chloride 103 mmol/L (98-107); Glomerular Filtration Rate 55.5 mL/min (90-130); Glucose 115 mg/dL (65-115); Magnesium 2.1 mg/dL (1.7-2.3); Osmolality Calculated 298 mOsm/kg (285-295); Potassium 4.1 mmol/L (3.5-5.1); Sodium 139 mmol/L (136-145)
[2022-01-27 06:44] LABS: Glucose Point of Care 112 mg/dL (70-110)
[2022-01-27] MEDS: ipratropium-albuterol 3 mL Neb INHALATION (07:33)
--- NOTE | 2022-01-27 08:00 | XRR_ITS ---
PROCEDURE INFORMATION: Exam: XR Chest Exam date and time: 01/27/2022 9:42 AM Age: 67 years old Clinical indication: Shortness of breath; Additional info: R/O pneumonia TECHNIQUE: Imaging protocol: XR of the chest. Views: 1 view. COMPARISON: CR XR chest 1V portable [id number] 01/24/2022 3:30 PM FINDINGS: Lungs: Mildly prominent interstitial markings similar to prior exam. No significant dense confluent lobar opacities concerning for pneumonia. Pleural spaces: No pneumothorax. No pleural effusion. Heart/Mediastinum: The cardiac silhouette is at the upper limits of normal versus mildly enlarged. Bones/joints: Unremarkable. XR/XR chest 1V portable [id number] IMPRESSION: No significant dense confluent lobar opacities concerning for pneumonia.
[2022-01-27] MEDS: atorvastatin 40 mg Tablet 20 MG PO (08:34)
[2022-01-27] MEDS: insulin glargine 100 units/1 mL 15 UNIT SUBCUT (08:34)
[2022-01-27] MEDS: lisinopril 20 mg Tablet 40 MG PO (08:34)
[2022-01-27] MEDS: aspirin 81 mg Chew Tablet PO (08:35)
[2022-01-27] MEDS: pantoprazole DR 40 mg Tablet PO (08:35)
[2022-01-27] MEDS: metoprolol succinate ER (24 HR) 25 mg Tablet PO (08:35)
--- NOTE | 2022-01-27 10:11 | PC.SOCIAL ---
Pg 2 IMM Explained to pt Pg 2 IMM. No questions voiced. Provided pt a copy. Initialed, dated, & timed a copy & placed in chart.
--- NOTE | 2022-01-27 10:47 | P.DS_ITS ---
Discharge Providers Date of Admission: 01/24/22 20:57 Date of Discharge: January 27, 2022 Attending Provider at Admission: Mare Freire DO Attending Provider at Discharge: Shirin Nguyen MD Primary Care Provider: Joann Cardona Diagnoses at Discharge Discharge Diagnosis (1) CHF (congestive heart failure), NYHA class III: Status: Acute (2) Type 2 diabetes mellitus, without long-term current use of insulin: Status: Acute (3) Diastolic CHF: Status: Acute (4) COPD, moderate: Status: Acute (5) Hematoma of left kidney: Status: Acute Qualifiers: Encounter type: subsequent encounter Qualified Code(s): S37.012D - Minor contusion of left kidney, subsequent encounter (6) Urinary incontinence, mixed: Status: Chronic (7) Nicotine dependence, cigarettes, with unspecified nicotine-induced disorders: Status: Chronic Reason for Visit Reason for Visit: RESPIRATORY DISTRESS Brief History: The patient is a [age]-year-old female who percent chief complaint of shortness of breath.? She is a known smoker and has a history of COPD and CHF.? Is noncompliant with her medication intake as well.? From what I was able to ascertain, the patient Cates that her dyspnea started proximally 24 hours prior to hospitalization and was of gradual onset.? She missed onset of rigors.? She denies fever, nausea, vomiting, cough, wheeze, abdominal pain, diarrhea, myalgia, chest pain, peripheral edema, a no dyspnea, dysgeusia, headache.? She presents for further evaluation Hospital Course Hospital Course Patient was admitted for shortness of breath. She had not taken her medications for 4 weeks and has not seen a primary care doctor in months. She says she ran out and has not taken any of her meds. During hospital stay she did have HHS with blood sugar of 466 and high anion gap metabolic acidosis. Patient was transferred to ICU for insulin drip. After being. She was transferred back to the floor. She was also treated for COPD exacerbation with Solu-Medrol 40 daily and given levofloxacin 5 days at discharge. She was also started on albuterol inhaler and Symbicort inhaler. Patient's BNP was 4000 but patient clinically does not seem to be in fluid overload. She is on Lasix as needed at home. However I started her on Lasix 40 daily. Echo showed EF 40% with global hypokinesis and mitral regurgitation that has improved. WBC count was high which was probably due to stress leukocytosis versus steroid-induced. Urine was clear. Chest x-ray did not show any evidence of pneumonia. Procalcitonin was negative. I had a low suspicion for infection. Patient also had a home oxygen evaluation and she did not qualify for any home oxygen. At discharge she was heavily counseled regarding all her home medications and to take them on time. It seems patient did not know how to use a glucometer. I showed her how to use a glucometer and check her blood sugar at home. She demonstrated understanding. I also went over all her medications with her at bedside and she demonstrated understanding. I also asked her to check her blood pressure at home and keep readings for blood glucose and blood blood pressure and to take to her primary care doctor's appointment. She will get a 30-day supply of all her medications at this time. Lisinopril was increased to 20 mg daily. All the rest of her medications were kept the same as her home doses previously. I did not make any major changes. She will follow-up with her primary care for further adjust ments. Patient states that she will follow-up with cardiology and her primary care doctor as advised. She will also go see her primary care doctor. She also agreed to write down her blood sugar readings twice a day including her blood pressure check. Physical Exam Narrative: General: Alert oriented x3, patient seen sitting up in bed appearing comfortable. HEENT: Normocephalic, atraumatic, EOMI, Cardio: Regular rate rhythm, normal S1-S2, Respiratory: Clear to auscultation bilaterally but diminished at bases. GI: Abdomen soft, nontender, nondistended, bowel sounds + Extremities: Trace edema bilateral lower extremities Discharge Data Studies Completed and Pending Completed Studies During Hospitalization Category Date Time Status XR chest 1V portable [id number] Routine Exams 01/27/22 08:00 Completed XR chest 1V portable [id number] Urgent Exams 01/24/22 15:18 Completed Pending at discharge Category Date Time Status Sputum Culture and Gram Stain Stat Lab 01/25/22 09:58 Uncollected Vancomycin Trough Timed Lab 01/28/22 06:00 Ordered CV. echo complete* [id number] Routine Ultrasound 01/26/22 11:59 Taken Radiology Impressions Chest X-Ray 01/27/22 08:00 IMPRESSION: No significant dense confluent lobar opacities concerning for pneumonia. Laboratory Results WBC 16.1 10^3/uL (4.0-10.0) H 01/27/22 03:45 RBC 4.97 10^6/uL (4.1-5.3) 01/27/22 03:45 Hgb 13.1 g/dL (11.5-15.3) 01/27/22 03:45 Hct 42.0 % (37.0-47.0) 01/27/22 03:45 MCV 84.5 fl (81-99) 01/27/22 03:45 MCH 26.4 pg (28.0-34.0) L 01/27/22 03:45 MCHC 31.2 g/dL (30.0-36.0) 01/27/22 03:45 RDW 14.1 % (12.1-15.1) 01/27/22 03:45 Plt Count 290 10^3/cmm (130-400) 01/27/22 03:45 MPV 11.2 fL (7.4-10.4) H 01/27/22 03:45 Neut % (Auto) 73.8 % 01/27/22 03:45 Lymph % (Auto) 18.7 % 01/27/22 03:45 Clarke % (Auto) 6.6 % 01/27/22 03:45 Eos % (Auto) 0.1 % 01/27/22 03:45 Baso % (Auto) 0.3 % 01/27/22 03:45 Neut # (Auto) 11.90 10^3/uL (1.8-7.7) H 01/27/22 03:45 Lymph # (Auto) 3.0 10^3/uL (0.8-4.8) 01/27/22 03:45 Clarke # (Auto) 1.1 10^3/uL (0.2-0.9) H 01/27/22 03:45 Eos # (Auto) 0.0 10^3/uL (0.0-0.8) 01/27/22 03:45 Baso # (Auto) 0.1 10^3/uL (0.0-0.1) 01/27/22 03:45 Nucleated RBC % (auto) 0 % 01/27/22 03:45 Nucleated RBCs # 0.0 /100WBC 01/27/22 03:45 Specimen Type Arterial 01/25/22 13:06 Sample Site Radial, right 01/25/22 13:06 ABG pH 7.40 (7.35-7.45) 01/25/22 13:06 ABG pCO2 29.8 mmHg (35-45) L 01/25/22 13:06 ABG pO2 67.3 mmHg (80.0-100.0) L 01/25/22 13:06 ABG HCO3 18.6 mmol/L (22-26) L 01/25/22 13:06 ABG O2 Saturation 94.1 01/25/22 13:06 ABG Base Excess -4.9 mmol/L (-2.0-2.0) L 01/25/22 13:06 Renaldo Test Pos 01/25/22 13:06 VBG pH 7.38 (7.32-7.42) 01/24/22 16:06 VBG pCO2 41.1 mmHg (41-51) 01/24/22 16:06 VBG pO2 37.8 mmHg (25-40) 01/24/22 16:06 VBG HCO3 24.5 mmol/L (24-28) 01/24/22 16:06 VBG Base Excess -0.6 mmol/L (-3.0-3.0) 01/24/22 16:06 VBG Hematocrit 44.5 % (37-47) 01/24/22 16:06 A-a O2 Gradient 5.8 mmHg (5-10) 01/25/22 13:06 Hematocrit 45.2 % (37-47) 01/25/22 13:06 Hgb O2 Saturation 92.3 % (95-100) L 01/25/22 13:06 Carboxyhemoglobin 0.8 %THgb (0.4-20.1) 01/25/22 13:06 Methemoglobin 1.0 % (0.4-1.5) 01/25/22 13:06 Total Hemoglobin 14.7 g/dL (12-16) 01/25/22 13:06 Sodium 139.0 mmol/L (131-143) 01/25/22 13:06 Potassium 4.1 mmol/L (3.5-5.0) 01/25/22 13:06 Glucose 423.0 mg/dL (70-115) H 01/25/22 13:06 Ionized Calcium 1.2 mmol/L (1.1-1.4) 01/25/22 13:06 O2 Delivery Device Not Reportable 01/25/22 13:06 FiO2 21.0 % 01/25/22 13:06 Medical Office Professional Instructor ID yorna 01/25/22 13:06 Sodium 139 mmol/L (136-145) 01/27/22 03:45 Potassium 4.1 mmol/L (3.5-5.1) 01/27/22 03:45 Chloride 103 mmol/L (98-107) 01/27/22 03:45 Carbon Dioxide 23 mmol/L (22-29) 01/27/22 03:45 Anion Gap 17.1 (5-19) 01/27/22 03:45 BUN 39 mg/dL (8-23) H 01/27/22 03:45 Creatinine 1.0 mg/dL (0.5-0.9) H 01/27/22 03:45 GFR Calculation 55.5 mL/min (90-130) L 01/27/22 03:45 Glucose 115 mg/dL (65-115) 01/27/22 03:45 POC Glucose 112 mg/dL (70-110) H 01/27/22 06:40 Estimat Average Glucose 206 01/24/22 14:00 Hemoglobin A1c 8.8 % (4.0-6.0) H 01/24/22 14:00 Glucose Screen Cancelled 01/24/22 14:00 Calculated Osmolality 298 mOsm/kg (285-295) H 01/27/22 03:45 Calcium 10.1 mg/dL (8.5-10.5) 01/27/22 03:45 Magnesium 2.1 mg/dL (1.7-2.3) 01/27/22 03:45 Total Bilirubin 0.3 mg/dL (0.15-1.2) 01/25/22 10:33 AST 10 U/L (0-32) 01/25/22 10:33 ALT 9 U/L (0-33) 01/25/22 10:33 Alkaline Phosphatase 136 IU/L (35-105) H 01/25/22 10:33 Troponin T Baseline 13 ng/L (0-10) H 01/24/22 14:00 Troponin T 120 Minute 13.97 ng/L (0-10) H 01/24/22 21:12 Delta Troponin T 0.97 ABS# (0-10) 01/24/22 21:12 Troponin T Hi Sens 6Hr 11.59 ng/L (0-10) H 01/25/22 01:42 Troponin T Hi Sens 6Hr Delta -1.41 ng/L (0-12) L 01/25/22 01:42 NT-Pro-B Natriuret Pep 4127 pg/mL (0-125) H 01/24/22 14:00 Total Protein 8.1 g/dL (6.6-8.7) 01/25/22 10:33 Albumin 4.4 g/dL (3.5-5.2) 01/25/22 10:33 Globulin 3.7 g/dL (1.3-4.6) 01/25/22 10:33 Triglycerides 107 mg/dL (0-150) 01/25/22 10:33 Cholesterol 175 mg/dL (0-200) 01/25/22 10:33 LDL Cholesterol, Calc 113 mg/dL (50-129) 01/25/22 10:33 HDL Cholesterol 41 mg/dL (60-100) L 01/25/22 10:33 LDL/HDL Ratio 2.76 RATIO (0.00-3.22) 01/25/22 10: Cholesterol/HDL Ratio 4.27 mg/dL (0.0-4.40) 01/25/22 10:33 Procalcitonin 0.04 ng/mL (0-0.5) 01/25/22 10:33 Urine Color Yellow (Yellow) 01/25/22 12:15 Urine Appearance Hazy (CLEAR) A 01/25/22 12:15 Urine pH 5 (5-7) 01/25/22 12:15 Ur Specific [place] 1.025 (1.005-1.030) 01/25/22 12:15 Urine Protein Neg (Negative) 01/25/22 12:15 Urine Glucose (UA) 2+ (Normal) H 01/25/22 12:15 Urine Ketones Negative (Negative) 01/25/22 12:15 Urine Blood Neg (Negative) 01/25/22 12:15 Urine Nitrate Negative (Negative) 01/25/22 12:15 Urine Bilirubin Neg (Negative) 01/25/22 12:15 Urine Urobilinogen 1 mg/dL (Negative) H 01/25/22 12:15 Ur Leukocyte Esterase Negative (Negative) 01/25/22 12:15 Urine Opiates Screen Negative ng/mL (Negative) 01/25/22 04:10 Ur Barbiturates Screen Negative ng/mL (Negative) 01/25/22 04:10 Ur Phencyclidine Scrn Negative ng/mL (Negative) 01/25/22 04:10 Ur Amphetamines Screen Negative ng/mL (Negative) 01/25/22 04:10 U Benzodiazepines Scrn Negative ng/mL (Negative) 01/25/22 04:10 Urine Cocaine Screen Negative ng/mL (Negative) 01/25/22 04:10 U Marijuana (THC) Screen Negative ng/mL (Negative) 01/25/22 04:10 Serum Ketones Negative (Negative) 01/24/22 14:00 Vitals Last Vital Signs Temp 97.9 F 01/27/22 08:10 Pulse 58 L 01/27/22 08:10 Resp 16 01/27/22 08:10 BP 108/69 01/27/22 08:10 Pulse Ox 94 01/27/22 08:10 Discharge Plan Discharge Patient Disposition: Home Condition: Stable Prescriptions: New levofloxacin 500 mg tablet 500 mg PO DAILY 5 Days Qty: 5 0RF prednisone 20 mg tablet 20 mg PO DAILY 3 Days Qty: 6 0RF albuterol sulfate 90 mcg/actuation HFA aerosol inhaler 2 inh inhalation Q6H PRN (Reason: shortness of breath or wheezing) 30 Days Qty: 8.5 0RF Symbicort 160-4.5 mcg/actuation HFA aerosol inhaler 2 inh inhalation BID 30 Days Qty: 10.2 0RF (DME) Accu-Chek Guide Glucose Meter Misc See Rx Instructions .Route Qty: 1 0RF Rx Instructions: As directed (DME) Accu-Chek Coretta Plus test strp Strip See Rx Instructions .Route Qty: 100 0RF Rx Instructions: As directed (DME) Accu-Chek Fastclix Lancet Drum Misc See Rx Instructions .Route Qty: 100 0RF Rx Instructions: As directed (DME) Blood Pressure Cuff Misc See Rx Instructions .Route Qty: 1 0RF Rx Instructions: As directed Continued metoprolol succinate 25 mg tablet extended release 24 hr 25 mg PO BID 0RF pantoprazole 40 mg tablet,delayed release (DR/EC) 40 mg PO DAILY 0RF metformin 500 mg tablet extended release 24 hr 1,000 mg PO .every morning Qty: 60 0RF atorvastatin 20 mg tablet 20 mg PO QDAY 30 Days Qty: 30 0RF potassium chloride 20 mEq tablet,ER particles/crystals 20 meq PO DAILY 30 Days Qty: 30 0RF nitroglycerin 0.4 mg tablet, sublingual 0.4 mg SUBLINGUAL Q5M PRN (Reason: Chest Pain) 30 Days Qty: 10 0RF aspirin 81 mg tablet,chewable 81 mg PO DAILY 30 Days Qty: 30 3RF Tresiba FlexTouch U-200 200 unit/mL (3 mL) insulin pen 10 unit SUBCUT DAILY 30 Days Qty: 3 0RF dapagliflozin 5 mg tablet 5 mg PO DAILY 30 Days Qty: 30 0RF Changed Lasix 40 mg tablet 40 mg PO DAILY 30 Days Qty: 30 0RF lisinopril 10 mg tablet 20 mg PO DAILY 30 Days Qty: 30 0RF Discharge Orders: Discharge Order (Routine); Ordered 01/27/22 Ordered By: Shirin Nguyen Other Ambulatory Orders: Basic Metabolic Panel (Routine) Timeframe: 1 Week Facility: [facility] - Location: Lab - Main Lab Ordered By: Shirin Nguyen Complete Blood Count w/Auto (Routine) Timeframe: 1 Week Location: Determined by Patient Ordered By: Shirin Nguyen Referrals: [facility] [Other] (You can call this number to set up transportation for doctors appointments. You will need your Medicaid number and address of where you going and where you are being picked up from when you call. ) Joann Cardona PA [Primary Care Provider] - 01/30/22 11:00 am Dee Gannon MD [Physician] - 1 month (Please call Saturday01/29/22 to schedule appointment ) Joe Giron MD [Physician] - 2 weeks Discharge Diet: Cardiac and Diabetic Discharge Activity: Resume usual activity Patient Instructions: Albuterol (By breathing), Prednisone (By mouth), Lev ofloxacin (By mouth), Heart Failure (DC), Diabetic Ketoacidosis (DC), How to Check your Blood Sugar (DC), Opioid Safety Activity Restrictions/Additional Instructions: Please check your blood sugars at home using glucose monitor. Record your readings and take to your primary care doctor for further adjustment of your medications. If glucose more than 250 or less than 120 on checks, please call your primary right away. Please monitor your blood pressure at home as well. If blood pressure less than 100/60 or greater than 140/90, please call your primary care doctor right away. Keep a record of your readings and take to your primary doctor at next appointment for adjustment of medications. If you experience chest pain, shortness of breath, lightheadedness please return to the ER. Please take all medications as directed and take them on time. Do not miss doses of your medications. PLEASE DO NOT TAKE ANY OTHER MEDICATIONS THAT ARE NOT ON THIS DISCHARGE LIST OF MEDICATIONS. Discharge Attestations Time Spent in Discharge Care*: greater than 30 min Status at Discharge: Cognitive status at discharge: cognitively intact , Behavioral status at discharge: [facility] , Quality Metrics Clinical Quality Measures [ No reported AMI, CVA or VTE this stay] Coding Level of Care Code Acute [facility] [place] note Diagnoses CHF (congestive heart failure), NYHA class III I50.9 Type 2 diabetes mellitus, without long-term current use of insulin E11.9 Diastolic CHF I50.30 COPD, moderate J44.9 Hematoma of left kidney S37.012D Encounter type: subsequent encounter Urinary incontinence, mixed N39.46 Nicotine dependence, cigarettes, with unspecified nicotine-induced disorders F17.219
[2022-01-27 11:22] LABS: Glucose Point of Care 160 mg/dL (70-110)
== END 2022-01-27 12:16 | disposition home or self-care (01) | DRG 190 ==
LOC: ER 19:40 → MEDSURG 21:15 → ICU 01-25 16:10 → MEDSURG 01-26 14:03
PROVIDERS: Admitting Provider Internal Medicine; Emergency Provider Emergency Medicine; PCP Physician Assistant; Visit Provider Internal Medicine
DX: J44.1 Chronic obstructive pulmonary disease with (acute) exacerbation (principal); E11.00 Type 2 diabetes mellitus with hyperosmolarity without nonketotic hyperglycemic-hyperosmolar coma (NKHHC); I50.33 Acute on chronic diastolic (congestive) heart failure; I11.0 Hypertensive heart disease with heart failure; E11.42 Type 2 diabetes mellitus with diabetic polyneuropathy; F17.210 Nicotine dependence, cigarettes, uncomplicated; Z91.19 Patient's noncompliance with other medical treatment and regimen; K57.90 Diverticulosis of intestine, part unspecified, without perforation or abscess without bleeding; K76.0 Fatty (change of) liver, not elsewhere classified; D75.1 Secondary polycythemia; K21.9 Gastro-esophageal reflux disease without esophagitis; E78.5 Hyperlipidemia, unspecified; E66.9 Obesity, unspecified; Z68.33 Body mass index [BMI] 33.0-33.9, adult; F41.8 Other specified anxiety disorders; I34.0 Nonrheumatic mitral (valve) insufficiency; Z79.4 Long term (current) use of insulin; Z79.84 Long term (current) use of oral hypoglycemic drugs; Z79.82 Long term (current) use of aspirin
CPT/HCPCS: 36415; 36416; 36600; 71045; 80048; 80051; 80053; 80061; 80306; 81003; 82009; 82330; 82803; 82805; 82962; 83036; 83735; 83880; 84145; 84484; 85025; 87641; 93005; 93306; 94640; 96361; 96372; 96374; 97161; 99285; J0360; J0456; J1650; J1815 ×2; J1940; J1956; J2920; J3535; J7030; J7050

== ENCOUNTER 2022-07-09 19:05 | Emergency (ER) | payer MEDICARE, MEDICAID, SELFPAY ==
--- NOTE | 2022-07-09 19:08 | XRR_ITS ---
PROCEDURE INFORMATION: Exam: XR Chest Exam date and time: 07/09/2022 7:29 PM Age: 67 years old Clinical indication: Shortness of breath; Additional info: SOB TECHNIQUE: Imaging protocol: Radiologic exam of the chest. Views: 1 view. COMPARISON: CR (CHEST, ) 01/27/2022 9:42 AM FINDINGS: Lungs: Unremarkable. No consolidation. Pleural spaces: Unremarkable. No pleural effusion. No pneumothorax. Heart/Mediastinum: Unremarkable. No cardiomegaly. Bones/joints: Unremarkable. XR/XR chest 1V portable [id number] IMPRESSION: No acute findings.
[2022-07-09 19:22] VITALS: BP 186/106; PULSE 85; RESP 33; TEMP 36.6; O2SAT 96; BMI 37.2
[2022-07-09 19:28] LABS: Basophils # 0.1 10^3/uL (0.0-0.1); Basophils % 0.7 %; Eosinophils # 0.2 10^3/uL (0.0-0.8); Eosinophils % 1.9 %; Hematocrit 45.5 % (37.0-47.0); Lymphocytes # 2.4 10^3/uL (0.8-4.8); Lymphocytes % 25.1 %; Mean Corpuscular Hemoglobin 27.6 pg (28.0-34.0); Mean Corpuscular Volume 83.6 fl (81-99); Mean Platelet Volume 10.5 fL (7.4-10.4); Monocytes # 0.7 10^3/uL (0.2-0.9); Monocytes % 6.9 %; Neutrophils # 6.21 10^3/uL (1.8-7.7); Neutrophils % 65.1 %; Nucleated Red Blood Cells % 0 %; Platelet Count 227 10^3/cmm (130-400); Red Blood Count 5.44 10^6/uL (4.1-5.3); Red Cell Distribution Width 14.3 % (12.1-15.1); White Blood Count 9.6 10^3/uL (4.0-10.0)
--- NOTE | 2022-07-09 19:29 | ECG_ITS ---
[facility] Test Date: 2022-07-09 Pat Name: Sarah Rogers Department: Room: Gender: Female Raw Sampler: : 1955 Requested By: Teresa Diego Order Number: [id number] Elana MD: Dee Gannon M.D. Measurements Intervals [place] Rate: 85 P: 40 [place]: 163 QRS: -47 QRSD: 102 T: 87 QT: 398 QTc: 474 Interpretive Statements SINUS RHYTHM POSSIBLE LEFT ATRIAL ENLARGEMENT [-0.1mV P-WAVE IN V1/V2] LEFT ANTERIOR FASCICULAR BLOCK [QRS AXIS <= -45, QR IN I, RS IN II] LEFT VENTRICULAR HYPERTROPHY AND ST-T CHANGE [VOLTAGE CRITERIA PLUS ST/T ABNORMALITY] Compared to ECG 01/25/2022 01:18:56 ST (T wave) deviation now present Myocardial infarct finding no longer present T-wave abnormality no longer present Electronically Signed On 07-09-2022 22:48:21 CDT by Dee Gannon M.D. [email or web address]
[2022-07-09 19:56] LABS: Alanine Aminotransferase 8 U/L (0-33); Albumin Level 3.9 g/dL (3.5-5.2); Alkaline Phosphatase 118 U/L (35-105); Anion Gap 15.2 (5-19); Aspartate Amino Transferase 9 U/L (0-32); Blood Urea Nitrogen 20 mg/dL (8-23); Calcium 9.7 mg/dL (8.5-10.5); Carbon Dioxide 22 mmol/L (22-29); Chloride 94 mmol/L (98-107); Globulin 3.4 g/dL (1.3-4.6); Glomerular Filtration Rate 44.9 mL/min (90-130); NT Pro B Type Natriuretic Pept 1698 pg/mL (0-125); Osmolality Calculated 290 mOsm/kg (285-295); Potassium 4.2 mmol/L (3.5-5.1); Sodium 127 mmol/L (136-145); Total Bilirubin 0.2 mg/dL (0.15-1.2); Total Protein 7.3 g/dL (6.6-8.7)
[2022-07-09 19:59] LABS: Glucose 523 mg/dL (65-115)
--- NOTE | 2022-07-09 20:31 | W.ED.SOB ---
HPI - SOB/Dyspnea General: Chief Complaint: Shortness of Breath/Dyspnea Stated Complaint: SOB Time Seen by Provider: 07/09/22 20:26 Source: patient Mode of arrival: ambulatory Limitations: no limitations History of Present Illness: HPI Narrative: 67-year-old female has a history of hypertension along with CHF COPD and diabetes. She states that she had got something in the back of her meds in room and all of her meds 2 days ago. She states that she had a throughout all of her meds and she has not had any of them. States she has been hypertensive and her glucose has been high and she has been out of her Lasix and has had some shortness of breath. She has had some right-sided chest pain as well she denies any worsening improving factors denies any vomiting or diarrhea. Associated symptoms: Deny abdominal pain, chest pain, fever(s), nausea or vomiting Review of Systems Const: Denies: fever(s), chills, body aches or change in appetite Eyes: Denies: blurry vision or eye discomfort ENMT: Denies: throat pain or dental pain Card: Denies: chest pain Resp: Reports: dyspnea GI: Denies: abdominal pain, nausea, vomiting or diarrhea : Denies: dysuria Musc: Denies: neck pain or back pain Skin/Breast: Denies: rash Neuro: Denies: headache(s) Psych: Denies: depression Yuval/Lymph: Denies: easy bruising All/Imm: Denies: urticaria PFSH ED PFSH: Medical History Anxiety and depression Benign essential HTN Chest pain CHF (congestive heart failure), NYHA class III COPD exacerbation COPD, moderate GERD (gastroesophageal reflux disease) H/O cholecystitis Heart failure Hematoma of left kidney Major contusion of left kidney, subsequent encounter Type 2 diabetes mellitus, without long-term current use of insulin Uncontrolled diabetes mellitus Urinary incontinence, mixed Urinary tract infection, site not specified Surgical History H/O: hysterectomy Family History Family/Other Diabetes CAD (coronary artery disease) Hypertension Lung disease Social History Smoking and tobacco status: current every day smoker cigarettes Packs smoked per day: 1 Alcohol intake: never Adopted: No Caregiver/support person: No Marital status: Current occupational status: disabled History of recent travel: No Physical Exam Const: COMMON NORMALS: no acute distress, patient oriented x3 and healthy appearing HENMT: COMMON NORMALS: normocephalic and atraumatic HEAD & SCALP: normocephalic and atraumatic Eye: COMMON NORMALS: Equal, round and reactive pupils present and EOMs intact bilaterally PUPIL: Yes Equal, round and reactive pupils present Neck/C-Spine: COMMON NORMALS: full ROM and supple Chest: COMMONS NORMALS: normal inspection of the chest and normal palpation of entire chest wall Resp: COMMON NORMALS: normal respiratory effort, No retractions, No use of accessory muscles and clear to auscultation bilaterally AUSCULTATION: clear to auscultation bilaterally Cardio: COMMON NORMALS: regular rate, regular rhythm and No murmurs present (Cardio) RATE: regular rate RHYTHM: regular rhythm GI: COMMON NORMALS: Normal to inspection, nondistended, normoactive bowel sounds present, Soft to palpation, non-tender and no masses PALPATION: Yes Soft to palpation Extremity: COMMON NORMALS: normal to inspection and full ROM Neuro: COMMON NORMALS: patient oriented x3, moves all extremities and no focal motor deficits Psych: COMMON NORMALS: mental status grossly normal, Normal thought process present and cooperative THOUGHT PROCESS: Normal thought process present Skin: COMMON NORMALS: no rashes or lesions noted and no wounds GENERAL SKIN EXAM: no rashes or lesions noted Course Vital Signs: Vital signs: Vital Signs Temperature 97.9 F 07/09/22 19:22 Pulse Rate 81 07/09/22 21:22 Respiratory Rate 16 07/09/22 21:22 Blood Pressure 193/120 07/09/22 21:22 Pulse Oximetry 99 07/09/22 21:22 Oxygen Delivery Me thod 07/09/22 21:22 MDM - SOB/Dyspnea Medical Decision Making Patient presents here with shortness of breath that is improved here her blood sugar and blood pressure is improved however symptoms likely due to her being out of her medicines over the last 2 days we will refill her meds for her she is to follow-up with her PCP and return for worsening she has no signs of acute coronary syndrome or pulmonary embolism. Lab Data : 07/09/22 19:20 07/09/22 19:20 Labs/Radiology: Radiology Impressions Chest X-Ray 07/09/22 19:08 IMPRESSION: No acute findings. Laboratory Results WBC 9.6 10^3/uL (4.0-10.0) 07/09/22 19:20 RBC 5.44 10^6/uL (4.1-5.3) H 07/09/22 19:20 Hgb 15.0 g/dL (11.5-15.3) 07/09/22 19:20 Hct 45.5 % (37.0-47.0) 07/09/22 19:20 MCV 83.6 fl (81-99) 07/09/22 19:20 MCH 27.6 pg (28.0-34.0) L 07/09/22 19:20 MCHC 33.0 g/dL (30.0-36.0) 07/09/22 19:20 RDW 14.3 % (12.1-15.1) 07/09/22 19:20 Plt Count 227 10^3/cmm (130-400) 07/09/22 19:20 MPV 10.5 fL (7.4-10.4) H 07/09/22 19:20 Neut % (Auto) 65.1 % 07/09/22 19:20 Lymph % (Auto) 25.1 % 07/09/22 19:20 [place] % (Auto) 6.9 % 07/09/22 19:20 Eos % (Auto) 1.9 % 07/09/22 19:20 Baso % (Auto) 0.7 % 07/09/22 19:20 Neut # (Auto) 6.21 10^3/uL (1.8-7.7) 07/09/22 19:20 Lymph # (Auto) 2.4 10^3/uL (0.8-4.8) 07/09/22 19:20 [place] # (Auto) 0.7 10^3/uL (0.2-0.9) 07/09/22 19:20 Eos # (Auto) 0.2 10^3/uL (0.0-0.8) 07/09/22 19:20 Baso # (Auto) 0.1 10^3/uL (0.0-0.1) 07/09/22 19:20 Nucleated RBC % (auto) 0 % 07/09/22 19:20 Nucleated RBCs # 0.0 /100WBC 07/09/22 19:20 Sodium 127 mmol/L (136-145) L 07/09/22 19:20 Potassium 4.2 mmol/L (3.5-5.1) 07/09/22 19:20 Chloride 94 mmol/L (98-107) L 07/09/22 19:20 Carbon Dioxide 22 mmol/L (22-29) 07/09/22 19:20 Anion Gap 15.2 (5-19) 07/09/22 19:20 BUN 20 mg/dL (8-23) 07/09/22 19:20 Creatinine 1.2 mg/dL (0.5-0.9) H 07/09/22 19:20 GFR Calculation 44.9 mL/min (90-130) L 07/09/22 19:20 Glucose 523 mg/dL (65-115) H* 07/09/22 19:20 POC Glucose 298 mg/dL (70-110) H 07/09/22 22:19 Calculated Osmolality 290 mOsm/kg (285-295) 07/09/22 19:20 Calcium 9.7 mg/dL (8.5-10.5) 07/09/22 19:20 Total Bilirubin 0.2 mg/dL (0.15-1.2) 07/09/22 19:20 AST 9 U/L (0-32) 07/09/22 19:20 ALT 8 U/L (0-33) 07/09/22 19:20 Alkaline Phosphatase 118 U/L (35-105) H 07/09/22 19:20 Troponin T Baseline 13 ng/L (0-10) H 07/09/22 19:20 Troponin T 120 Minute 12.45 ng/L (0-10) H 07/09/22 21:30 Delta Troponin T -0.55 ABS# (0-10) L 07/09/22 21:30 NT-Pro-B Natriuret Pep 1698 pg/mL (0-125) H 07/09/22 19:20 Total Protein 7.3 g/dL (6.6-8.7) 07/09/22 19:20 Albumin 3.9 g/dL (3.5-5.2) 07/09/22 19:20 Globulin 3.4 g/dL (1.3-4.6) 07/09/22 19:20 EKG Data EKG 1: I personally reviewed and interpreted this EKG as follows: EKG Interpretation Date: 07/09/22 EKG interpretation time: 20:41 Interpretation: nsr hr [address] or t wave abnormalities qrs 89 qtc 437 Discharge Plan Discharge Patient Disposition: Home Clinical Impression: Dyspnea, Chest pain, Hyperglycemia, Hypertension Condition: Stable Prescriptions: Continued Lasix 40 mg tablet 40 mg PO DAILY 30 Days Qty: 30 0RF potassium chloride 20 mEq tablet,ER particles/crystals 20 meq PO DAILY 30 Days Qty: 30 0RF pantoprazole 40 mg tablet,delayed release (DR/EC) 40 mg PO DAILY Qty: 30 0RF lisinopril 10 mg tablet 20 mg PO DAILY 30 Days Qty: 30 0RF nitroglycerin 0.4 mg tablet, sublingual 0.4 mg SUBLINGUAL Q5M PRN (Reason: Chest Pain) 30 Days Qty: 10 0RF metoprolol succinate 25 mg tablet extended release 24 hr 25 mg PO DAILY Qty: 30 0RF Changed atorvastatin 20 mg tablet 20 mg PO DAILY Qty: 30 0RF aspirin 81 mg tablet,chewable 81 mg PO EVERY OTHER DAY Qty: 30 0RF metformin 500 mg tablet extended release 24 hr 1,000 mg PO BEDTIME Qty: 30 0RF No Action (DME) lancets [Accu-Chek Fastclix Lancet Drum] Misc See Rx Instructions .Route Qty: 100 0RF Rx Instructions: As directed (DME) Blood Pressure Cuff Misc See Rx Instructions .Route Qty: 1 0RF Rx Instructions: As directed Discharge Orders: Discharge ED (Routine); Ordered 07/09/22 Ordered By: Teresa Diego Referrals: Joann Cardona PA [Primary Care Provider] - 1-3 days Discharge Diet: Advance as tolerated Discharge Activity: Resume usual activity Patient Instructions: Dyspnea (ED) Coding Level of Care Code ED Layboy Operator for Chg Fwd Exam Comprehensive
--- NOTE | 2022-07-09 20:32 | ECG_ITS ---
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 Measurements Intervals [place] Rate: 81 P: 35 TX: 157 QRS: -48 QRSD: 89 T: 93 QT: 400 QTc: 465 Interpretive Statements SINUS RHYTHM POSSIBLE LEFT ATRIAL ENLARGEMENT [-0.1mV P-WAVE IN V1/V2] LEFT ANTERIOR FASCICULAR BLOCK [QRS AXIS <= -45, QR IN I, RS IN II] LEFT VENTRICULAR HYPERTROPHY AND ST-T CHANGE Compared to ECG 01/25/2022 01:18:56 ST (T wave) deviation now present Myocardial infarct finding no longer present T-wave abnormality no longer present Electronically Signed On 07-09-2022 22:47:45 CDT by Dee Gannon M.D. [id number]
[2022-07-09] MEDS: FUROsemide 10 mg/mL SDV 4mL 40 MG IVP (20:52)
[2022-07-09] MEDS: insulin regular-human 100 units/1 mL 10 UNIT IVP (20:52)
[2022-07-09] MEDS: hyDRALAzine 20 mg/mL INJ 1 mL 10 MG IVP (20:52)
[2022-07-09 20:57] VITALS: BP 191/11; PULSE 81; RESP 16; O2SAT 96
[2022-07-09 20:57] LABS: Troponin(5th) Baseline 13 ng/L (0-10)
[2022-07-09 21:12] VITALS: PULSE 85; RESP 18; O2SAT 94
[2022-07-09] MEDS: ipratropium-albuterol 3 mL Neb INHALATION (21:12)
[2022-07-09 21:15] VITALS: PULSE 84
[2022-07-09 21:22] VITALS: BP 193/120; PULSE 81; RESP 16; O2SAT 99
[2022-07-09 21:23] LABS: Glucose Point of Care 349 mg/dL (70-110)
[2022-07-09] MEDS: labetalol 5 mg/mL SDV 20mL 10 MG IVP (21:28)
[2022-07-09 22:07] LABS: Troponin 5 2HR 12.45 ng/L (0-10); Troponin 5 2HR Delta -0.55 ABS# (0-10)
[2022-07-09 22:21] LABS: Glucose Point of Care 298 mg/dL (70-110)
[2022-07-09 22:29] VITALS: BP 193/120; PULSE 81; RESP 16; O2SAT 99
== END 2022-07-09 22:30 | disposition home or self-care (01) ==
PROVIDERS: Emergency Provider Emergency Medicine; PCP Physician Assistant
DX: R06.00 Dyspnea, unspecified (principal); R07.9 Chest pain, unspecified; E11.65 Type 2 diabetes mellitus with hyperglycemia; Z79.82 Long term (current) use of aspirin; Z79.84 Long term (current) use of oral hypoglycemic drugs; F17.210 Nicotine dependence, cigarettes, uncomplicated; I11.0 Hypertensive heart disease with heart failure; I50.9 Heart failure, unspecified
CPT/HCPCS: 36415; 36416; 71045; 80053; 82962; 83880; 84484; 85025; 93005; 94640; 96374; 96375; 99285; J0360; J1815; J1940; J3490

== ENCOUNTER 2023-04-09 20:21 | Inpatient (IN) | payer MEDICARE, MEDICAID, SELFPAY ==
[2023-04-09 20:24] VITALS: BP 173/114; PULSE 88; RESP 24; TEMP 36.7; O2SAT 94; BMI 33.6
--- NOTE | 2023-04-09 20:36 | CTR_ITS ---
PROCEDURE INFORMATION: Exam: CT Head Without Contrast Exam date and time: 04/09/2023 8:39 PM Age: 68 years old Clinical indication: Stroke-like symptoms; Altered mental status/memory loss and other: Unresponsive; Additional info: Symptoms of acute stroke. Lkw [id number] TECHNIQUE: Imaging protocol: Computed tomography of the head without contrast. Radiation optimization: All CT scans at this facility use at least one of these dose optimization techniques: automated exposure control; mA and/or kV adjustment per patient size (includes targeted exams where dose is matched to clinical indication); or iterative reconstruction. Other technique: STROKE PROTOCOL was implemented. REPORTING DATA: Count of CT and Cardiac NM exams in prior 12 months: This patient has received 0 known CTs and 0 known cardiac nuclear medicine studies in the 12 months prior to the current study. COMPARISON: No relevant prior studies available. RADIATION DOSE METRICS: Total DLP (mGy-cm): 1182.39 FINDINGS: Brain: No acute infarct. No hemorrhage. Involutional changes of the brain, commensurate with age. No mass effect. Cerebral ventricles: No ventriculomegaly. Paranasal sinuses: No significant inflammation. No fluid levels. Mastoid air cells: Visualized mastoid air cells are well aerated. Bones/joints: Unremarkable. No acute fracture. Soft tissues: Unremarkable. CT/CT head thrombolytic [id number] IMPRESSION: No acute intracranial abnormality. ASSESSMENT: ASPECTS ([place] Stroke Program Early CT Score) is 10.
--- NOTE | 2023-04-09 20:36 | XRR_ITS ---
PROCEDURE INFORMATION: Exam: XR Chest Exam date and time: 04/09/2023 8:43 PM Age: 68 years old Clinical indication: Other: AMS TECHNIQUE: Imaging protocol: Radiologic exam of the chest. Views: 1 view. COMPARISON: CR XR chest 1V portable [id number] 07/09/2022 7:29 PM FINDINGS: Lungs: Minimal perihilar and right medial lung base interstitial infiltrates are present. Pleural spaces: Unremarkable. No pleural effusion. No pneumothorax. Heart/Mediastinum: Heart size is unchanged. Bones/joints: Bones are stable. XR/XR chest 1V portable [id number] IMPRESSION: Minimal perihilar and right medial lung base interstitial infiltrates are present. Correlate for pneumonia versus pulmonary vascular congestion.
--- NOTE | 2023-04-09 20:36 | ECG_ITS ---
[facility] Test Date: 2023-04-09 Pat Name: Sarah Rogers Department: Room: Gender: Female Health Advisor: : 1955 Requested By: Jayesh Leary Order Number: [id number] Elana MD: Oj Rojas M.D. Measurements Intervals [place] Rate: 82 P: 21 [place]: 168 QRS: -39 QRSD: 97 T: 90 QT: 349 QTc: 408 Interpretive Statements SINUS RHYTHM LEFT AXIS DEVIATION [QRS AXIS < -30] LEFT VENTRICULAR HYPERTROPHY AND ST-T CHANGE [VOLTAGE CRITERIA PLUS ST/T ABNORMALITY] Compared to ECG 04/09/2023 22:31:42 No significant changes Electronically Signed On 04-09-2023 23:29:34 CDT by Oj Rojas M.D. [id number]
--- NOTE | 2023-04-09 20:37 | ECG_ITS ---
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 Measurements Intervals [place] Rate: 83 P: 20 MA: 158 QRS: -39 QRSD: 98 T: 94 QT: 392 QTc: 462 Interpretive Statements SINUS RHYTHM LEFT AXIS DEVIATION [QRS AXIS < -30] LEFT VENTRICULAR HYPERTROPHY AND ST-T CHANGE [VOLTAGE CRITERIA PLUS ST/T ABNORMALITY] Compared to ECG 04/09/2023 22:30:26 No significant changes Electronically Signed On 04-09-2023 23:29:38 CDT by Oj Rojas M.D. [id number]
[2023-04-09 20:38] LABS: Glucose Point of Care 466 mg/dL (70-110)
--- NOTE | 2023-04-09 20:40 | ED_ITS ---
HPI - Altered Mental Status General: Chief Complaint: Altered Mental Status Stated Complaint: AMS Time Seen by Provider: 04/09/23 20:29 Limitations: altered mental status History of Present Illness: Presents to the ER by EMS with complaints of unresponsiveness, with lethargy, altered mental status, patient's last known well was approximately 1955 when she was at home and lay down. Patient's son tried to arouse her and she was altered and unresponsive. EMS was called and they obtained a glucose on scene of 562. Patient has a history of being noncompliant diabetic. There is no family members currently here and patient is unable to give any history. Review of Systems General: Reports: ROS unobtainable due to medical condition and ROS unobtainable due to mental status PFSH ED PFSH: Medical History Anxiety and depression Benign essential HTN Chest pain CHF (congestive heart failure), NYHA class III COPD exacerbation COPD, moderate GERD (gastroesophageal reflux disease) H/O cholecystitis Heart failure Hematoma of left kidney Major contusion of left kidney, subsequent encounter Type 2 diabetes mellitus, without long-term current use of insulin Uncontrolled diabetes mellitus Urinary incontinence, mixed Urinary tract infection, site not specified Surgical History H/O: hysterectomy Family History Family/Other Diabetes CAD (coronary artery disease) Hypertension Lung disease Social History Smoking and tobacco status: current every day smoker cigarettes Packs smoked per day: 1 Alcohol intake: never Substance/Drug Use: never Adopted: No Caregiver/support person: No Marital status: Current occupational status: disabled Physical Exam Const: EXAM LIMITATIONS: altered mental status HENMT: COMMON NORMALS: normocephalic, atraumatic, Normal external nose present and moist oral mucous membranes HEAD & SCALP: normocephalic and atraumatic NOSE: Normal external nose present Eye: COMMON NORMALS: Equal, round and reactive pupils present, conjunctivae normal and no scleral icterus CONJUNCTIVA: Yes conjunctivae normal PUPIL: Yes Equal, round and reactive pupils present Neck/C-Spine: COMMON NORMALS: no JVD Chest: COMMONS NORMALS: normal inspection of the chest and normal palpation of entire chest wall Resp: COMMON NORMALS: normal respiratory effort, No retractions, No use of a ccessory muscles and clear to auscultation bilaterally AUSCULTATION: clear to auscultation bilaterally Cardio: COMMON NORMALS: no JVD, regular rate, regular rhythm, S1 normal heart sound present, S2 normal heart sound present, No gallops present (Cardio), No clicks present (Cardio) and No murmurs present (Cardio) RATE: regular rate RHYTHM: regular rhythm HEART SOUNDS: S1 normal heart sound present and S2 normal heart sound present GI: COMMON NORMALS: Normal to inspection, nondistended, normoactive bowel sounds present, Soft to palpation, non-tender, No hepatosplenomegaly present and no masses PALPATION: Yes Soft to palpation and Yes No hepatosplenomegaly present Neuro: OTHER: Painful sternal rub only. Patient will move all 4 extremities and head and will open eyes but will not follow commands or answer questions. Course Reevaluation(s): Reevaluation #1: Further evaluation patient is now alert oriented moving all extremities sitting up in bed mumbling. Patient She tries to answer questions but she does not make any sense verbally. Patient will follow commands. Family is now at bedside and said she normally does not mumble and she speaks normal understandable. Vital Signs: Vital signs: Vital Signs Temperature 98.1 F 04/09/23 20:24 Pulse Rate 88 04/09/23 20:24 Respiratory Rate 24 H 04/09/23 20:24 Blood Pressure 173/114 04/09/23 20:24 Pulse Oximetry 94 04/09/23 20:24 Oxygen Delivery Me thod Room Air 04/09/23 20:24 MDM - Altered Mental Status Medical Decision Making Presents to the ER by EMS with complaints of altered mental status. Patient's arousable only to sternal rub. Code stroke was called Dr. Faye was on hand for evaluation. Patient was still altered she would not follow commands making an NIH almost impossible to get but patient would move all 4 extremities and try to sit up and reposition herself in bed. Stroke work-up and altered mental status work-up was obtained which showed slightly elevated white count of 12.5 very elevated blood sugar in the 400s. Head CT was negative chest x-ray showed minimal perihilar and right medial lung base infiltrates correlate for pneumonia versus pulmonary vascular congestion. Once we get the rest of the lab work and imaging back Dr. Faye was called again to come back down and reassess the patient. Dr. Sykes was consulted who agreed for admission. Dr. Faye came down and reevaluated the patient still no need for tPA at this time. He wants to goal blood pressure the mean blood pressure between 70 and 100. And he suggested we do a 2D echo and a carotid ultrasound as well as speech PT and OT for in the morning. Differential Diagnosis Likely altered mental status; Unlikely alcoholic intoxication, delirium, dementia, hypoglycemia, hyponatremia, subarachnoid hemorrhage or sepsis Medical Records I reviewed the patient's medical records. Lab Data I reviewed the patient's lab results. 04/09/23 20:12 04/09/23 21:25 Radiology Impressions Chest X-Ray 04/09/23 20:36 IMPRESSION: Minimal perihilar and right medial lung base interstitial infiltrates are present. Correlate for pneumonia versus pulmonary vascular congestion. Head CT 04/09/23 20:36 IMPRESSION: No acute intracranial abnormality. ASSESSMENT: ASPECTS ([place] Stroke Program Early CT Score) is 10. Laboratory Results WBC 12.5 10^3/uL (4.0-10.0) H 04/09/23 20:12 RBC 5.41 10^6/uL (4.1-5.3) H 04/09/23 20:12 Hgb 14.5 g/dL (11.5-15.3) 04/09/23 20:12 Hct 44.9 % (37.0-47.0) 04/09/23 20:12 MCV 83.0 fl (81-99) 04/09/23 20:12 MCH 26.8 pg (28.0-34.0) L 04/09/23 20:12 MCHC 32.3 g/dL (30.0-36.0) 04/09/23 20:12 RDW 13.7 % (12.1-15.1) 04/09/23 20:12 Plt Count 257 10^3/cmm (130-400) 04/09/23 20:12 MPV 11.5 fL (7.4-10.4) H 04/09/23 20:12 Neut % (Auto) 76.2 % 04/09/23 20:12 Lymph % (Auto) 16.6 % 04/09/23 20:12 [place] % (Auto) 5.8 % 04/09/23 20:12 Eos % (Auto) 0.4 % 04/09/23 20:12 Baso % (Auto) 0.7 % 04/09/23 20:12 Neut # (Auto) 9.51 10^3/uL (1.8-7.7) H 04/09/23 20:12 Lymph # (Auto) 2.1 10^3/uL (0.8-4.8) 04/09/23 20:12 [place] # (Auto) 0.7 10^3/uL (0.2-0.9) 04/09/23 20:12 Eos # (Auto) 0.1 10^3/uL (0.0-0.8) 04/09/23 20:12 Baso # (Auto) 0.1 10^3/uL (0.0-0.1) 04/09/23 20:12 Nucleated RBC % (auto) 0 % 04/09/23 20:12 Nucleated RBCs # 0.0 /100WBC 04/09/23 20:12 PT 14.50 SECONDS (12.1-14.9) 04/09/23 21:25 INR 1.09 (0.8-1.2) 04/09/23 21:25 APTT 25.1 SECONDS (23.9-36.7) 04/09/23 21:25 Sodium 136 mmol/L (136-145) 04/09/23 21:25 Potassium 3.8 mmol/L (3.5-5.1) 04/09/23 21:25 Chloride 102 mmol/L (98-107) 04/09/23 21:25 Carbon Dioxide 22 mmol/L (22-29) 04/09/23 21:25 Anion Gap 15.8 (5-19) 04/09/23 21:25 BUN 15 mg/dL (8-23) 04/09/23 21:25 Creatinine 1.0 mg/dL (0.5-0.9) H 04/09/23 21:25 GFR Calculation 55.3 mL/min (90-130) L 04/09/23 21:25 Glucose 308 mg/dL (65-115) H 04/09/23 21:25 POC Glucose 316 mg/dL (70-110) H 04/09/23 21:29 Calculated Osmolality 294 mOsm/kg (285-295) 04/09/23 21:25 Lactic Acid 3.0 mmol/L (0.5-2.2) H 04/09/23 21:25 Calcium 9.1 mg/dL (8.5-10.5) 04/09/23 21: Magnesium 1.9 mg/dL (1.7-2.3) 04/09/23 21: Total Bilirubin 0.2 mg/dL (0.15-1.2) 04/09/23 21: AST 10 U/L (0-32) 04/09/23 21: ALT 9 U/L (0-33) 04/09/23 21:25 Alkaline Phosphatase 128 U/L (35-105) H 04/09/23 21:25 Troponin T Baseline 19 ng/L (0-10) H 04/09/23 20:12 Troponin T 120 Minute 17.07 ng/L (0-10) H 04/09/23 22:09 Delta Troponin T -1.93 ABS# (0-10) L 04/09/23 22:09 NT-Pro-B Natriuret Pep 1461 pg/mL (0-125) H 04/09/23 21:25 Total Protein 6.9 g/dL (6.6-8.7) 04/09/23 21:25 Albumin 3.6 g/dL (3.5-5.2) 04/09/23 21: Globulin 3.3 g/dL (1.3-4.6) 04/09/23 21:25 Urine Color Yellow (Yellow) 04/09/23 21:00 Urine Appearance Clear (CLEAR) 04/09/23 21:00 Urine pH 5 (5-7) 04/09/23 21:00 Ur Specific [place] 1.020 (1.005-1.030) 04/09/23 21:00 Urine Protein Neg (Negative) 04/09/23 21:00 Urine Glucose (UA) 4+ (Normal) H 04/09/23 21:00 Urine Ketones Negative (Negative) 04/09/23 21:00 Urine Blood Neg (Negative) 04/09/23 21:00 Urine Nitrate Negative (Negative) 04/09/23 21:00 Urine Bilirubin Neg (Negative) 04/09/23 21:00 Urine Urobilinogen Norm mg/dL (Negative) 04/09/23 21:00 Ur Leukocyte Esterase Negative (Negative) 04/09/23 21:00 Urine Opiates Screen Negative ng/mL (Negative) 04/09/23 21:00 Ur Barbiturates Screen Negative ng/mL (Negative) 04/09/23 21:00 Ur Phencyclidine Scrn Negative ng/mL (Negative) 04/09/23 21:00 Ur Amphetamines Screen Positive ng/mL (Negative) H 04/09/23 21:00 U Benzodiazepines Scrn Negative ng/mL (Negative) 04/09/23 21:00 Urine Cocaine Screen Negative ng/mL (Negative) 04/09/23 21:00 U Marijuana (THC) Screen Negative ng/mL (Negative) 04/09/23 21:00 Ethyl Alcohol < 10 mg/dL (0-10) 04/09/23 21:25 Serum Ketones Negative (Negative) 04/09/23 21:25 EKG Data EKG 1: I personally reviewed and interpreted this EKG as follows: EKG interpretation date: 04/09/23 EKG interpretation time: 20:33 Prior EKG tracings: not available for review Interpretation: EKG shows sinus rhythm at 90 bpm, ND interval 166, QRS duration 95, QTc 445, left axis deviation, Q waves in V1 and V2, Discharge Plan Discharge Patient Disposition: Admitted As Inpatient Clinical Impression: Type 2 diabetes mellitus, without long-term current use of insulin Qualifiers: Diabetes mellitus complication status: with hyperglycemia Qualified Code(s): E11.65 - Type 2 diabetes mellitus with hyperglycemia CHF (congestive heart failure), NYHA class III Qualifiers: Congestive heart failure type: unspecified Qualified Code(s): I50.9 - Heart failure, unspecified Altered mental status Qualifiers: Altered mental status type: unspecified Qualified Code(s): R41.82 - Altered mental status, unspecified Condition: Stable Coding Level of Care Code ED Vegetable Washer for [facility] Stephan
[2023-04-09 20:47] LABS: Basophils # 0.1 10^3/uL (0.0-0.1); Basophils % 0.7 %; Eosinophils # 0.1 10^3/uL (0.0-0.8); Eosinophils % 0.4 %; Hematocrit 44.9 % (37.0-47.0); Hemoglobin 14.5 g/dL (11.5-15.3); Lymphocytes # 2.1 10^3/uL (0.8-4.8); Lymphocytes % 16.6 %; Mean Corpuscular HGB Conc 32.3 g/dL (30.0-36.0); Mean Corpuscular Hemoglobin 26.8 pg (28.0-34.0); Mean Platelet Volume 11.5 fL (7.4-10.4); Monocytes # 0.7 10^3/uL (0.2-0.9); Monocytes % 5.8 %; Neutrophils # 9.51 10^3/uL (1.8-7.7); Neutrophils % 76.2 %; Nucleated Red Blood Cells % 0 %; Platelet Count 257 10^3/cmm (130-400); Red Blood Count 5.41 10^6/uL (4.1-5.3); Red Cell Distribution Width 13.7 % (12.1-15.1); White Blood Count 12.5 10^3/uL (4.0-10.0)
[2023-04-09] MEDS: sodium chloride 0.9% 1,000 ML 999 ML IV ×2 (20:47→22:45)
[2023-04-09 20:52] VITALS: BP 164/108; PULSE 86; RESP 25; O2SAT 92
[2023-04-09] MEDS: insulin regular-human 100 units/1 mL 10 UNIT IVP (20:57)
[2023-04-09 21:07] VITALS: BP 117/111; PULSE 84; RESP 30; O2SAT 95
[2023-04-09 21:12] LABS: Troponin(5th) Baseline 19 ng/L (0-10)
[2023-04-09 21:14] LABS: Add Urine Microscopic? NO; Charge for UA Resulting for Rev
[2023-04-09 21:22] VITALS: BP 177/110; PULSE 87; RESP 30; O2SAT 95
[2023-04-09 21:22] LABS: Bilirubin Urine Neg (Negative); Blood Urine Neg (Negative); Glucose Urine UA 4+ (Normal); Ketones Urine Negative (Negative); Nitrate Urine Negative (Negative); Protein Urine Neg (Negative); Urine Appearance Clear (CLEAR); Urine Color Yellow (Yellow); pH Urine 5 (5-7)
[2023-04-09 21:23] LABS: Leukocyte Esterase Urine Negative (Negative); Urobilinogen Urine Norm (Negative)
[2023-04-09 21:26] LABS: Amphetamines Screen Urine Positive (Negative); Barbiturates Screen Urine Negative (Negative); Benzodiazepines Screen Urine Negative (Negative); Cocaine Screen Urine Negative (Negative); Opiate Screen Urine Negative (Negative); PCP Screen Urine Negative (Negative); THC Screen Urine Negative (Negative)
--- NOTE | 2023-04-09 21:29 | PM.CONSULT ---
Providers/Reason For Consult Consulting Physician/Specialty*: Michael Faye MD Neurology and Epilepsy Reason for Consult*: Code stroke ER 13/Encephalopathy Primary Care Provider: Joann Cardona History of Present Illness History of Present Illness Sarah Rogers is a 68 year old female with a history of poorly controlled diabetes mellitus, COPD and congestive heart failure. The patient was reported to go to bed around 7:55 PM on 04/09/2023. It was reported that the patient's son could not arouse the patient and therefore she was brought to [facility] emergency room. Code stroke was initiated but after blood sugar was obtained and was 466 patient's clinical presentation was more consistent with a diffuse encephalopathy related to hyperglycemic. No family member was available to give any additional details. Initially the patient was only arousable to sternal rub. The patient was given IV insulin for elevated blood sugar 466. After approximately 15 minutes the patient became more arousable and remained awake although still confused and nonverbal except for moaning and mumbling. The patient will follow some commands. There is no obvious facial weakness. Pupils 3 to 4 mm and reactive to light. Patient looking in all directions. The patient moves all extremities with no obvious focal weakness. Plantar responses flexor bilaterally. There is no clonus. Sensory examination is intact to touch and tactile stimulation. There was no obvious neglect. Visual lindsay could not be assessed secondary to lack of patient cooperation and confusion. There was no obvious ataxia when the patient was moving her arms and legs. Dysarthria and speech could not be assessed secondary to confusion. Grossly NIH score =5. Noncontrast head CT scan was obtained and reported to be negative. Blood pressure was elevated 177/111 with heart rate of 82 and O2 saturations 94% on room. CBC reveals slightly elevated white of 12.5. Other metabolic labs were pending at the time of this dictation. Past medical history: Chronic obstructive pulmonary disease Diabetes mellitus, poorly controlled Hypertension Congestive heart failure Drug allergies: Sulfonamide antibiotics type of reaction unknown Home medications: Lipitor 40 mg p.o. daily Wellbutrin XL 150 mg p.o. daily Farxiga 5 mg p.o. daily Lasix 40 mg p.o. daily Potassium chloride 20 mEq p.o. daily Lisinopril 10 mg p.o. daily Metformin 1000 mg p.o. daily Metoprolol XL 25 mg p.o. daily Pantoprazole 40 mg p.o. daily Nitroglycerin as needed chest pain Tresiba 200 units subcutaneously daily Habits: Unknown Family history: Unknown Review of Systems General: Reports: ROS unobtainable due to mental status Medications/Allergies Home Medications Medication Instructions Recorded Confirmed Last Taken Type lancets (Accu-Chek Fastclix Lancet #100 ea 01/26/22 07/09/22 Unknown Rx Drum) miscellaneous medical supply #1 ea 01/26/22 07/09/22 Unknown Rx (Blood Pressure Cuff) aspirin 81 mg chewable tablet 81 mg PO EVERY OTHER DAY #30 tabs 07/09/22 Unknown Rx atorvastatin 20 mg tablet 20 mg PO DAILY #30 tabs 07/09/22 Unknown Rx furosemide 40 mg tablet (Lasix) 40 mg PO DAILY 30 days #30 tabs 07/09/22 Unknown Rx lisinopril 10 mg tablet 20 mg PO DAILY 30 days #30 tabs 07/09/22 Unknown Rx metformin 500 mg tablet,extended 1,000 mg PO BEDTIME #30 tabs 07/09/22 Unknown Rx release 24 hr metoprolol succinate 25 mg 25 mg PO DAILY #30 tabs 07/09/22 Unknown Rx tablet,extended release 24 hr nitroglycerin 0.4 mg sublingual 0.4 mg sublingual Q5M PRN Chest 07/09/22 Unknown Rx tablet Pain 30 days #10 tabs pantoprazole 40 mg tablet,delayed 40 mg PO DAILY #30 tabs 07/09/22 Unknown Rx release potassium chloride 20 mEq 20 meq PO DAILY 30 days #30 tabs 07/09/22 Unknown Rx tablet,extended release(part/cryst) Allergies Allergy/AdvReac Type Severity Reaction Status Date / Time Sulfa (Sulfonamide Allergy na Verified 11/03/21 11:28 Antibiotics) Current Medications Generic Name Dose Route Start Last Admin Trade Name Freq PRN Reason Stop Dose Admin Sodium Chloride 1,000 mls @ 999 mls/hr 04/09/23 20:39 04/09/23 20:47 Sodium Chloride 0.9% IV 04/09/23 21:39 999 mls/hr .Q1H1M ONE Administration PFSH Acute PFSH: Medical History Anxiety and depression Benign essential HTN Chest pain CHF (congestive heart failure), NYHA class III COPD exacerbation COPD, moderate GERD (gastroesophageal reflux disease) H/O cholecystitis Heart failure Hematoma of left kidney Major contusion of left kidney, subsequent encounter Type 2 diabetes mellitus, without long-term current use of insulin Uncontrolled diabetes mellitus Urinary incontinence, mixed Urinary tract infection, site not specified Surgical History H/O: hysterectomy Family History Family/Other Diabetes CAD (coronary artery disease) Hypertension Lung disease Social History Smoking and tobacco status: current every day smoker cigarettes Packs smoked per day: 1 Alcohol intake: never Substance/Drug Use: never Adopted: No Caregiver/support person: No Marital status: Current occupational status: disabled Vitals/I&O/Wt Last Vital Signs Temp 98.1 F 04/09/23 20:24 Pulse 88 04/09/23 20:24 Resp 24 H 04/09/23 20:24 BP 173/114 04/09/23 20:24 Pulse Ox 94 04/09/23 20:24 O2 Del Method Room Air 04/09/23 20:24 Weight last 48 hrs Weight 190 lb Physical Exam Narrative: NIH score =5 Blood sugar 466 in the emergency room Blood pressure 177/111 heart rate 82 O2 saturations 94% on room air The patient is alert but confused and nonverbal except for moaning and mumbling. The patient will follow some commands. There is no obvious facial weakness. Pupils 3 to 4 mm and reactive to light. Patient looking in all directions. The patient moves all extremities with no obvious focal weakness. Plantar responses flexor bilaterally. There is no clonus. Sensory examination is intact to touch and tactile stimulation. There was no obvious neglect. Visual lindsay could not be assessed secondary to lack of patient cooperation and confusion. There was no obvious ataxia when the patient was moving her arms and legs. Dysarthria and speech could not be assessed secondary to confusion. Throat clear. Patient periodically coughing there is no obvious wheezes. Heart regular rhythm and rate. Abdomen soft extremities were negative for clubbing cyanosis or edema Data 04/09/23 20:12 04/09/23 20:12 A&P Assessment and plan (1) Encephalopathy acute: Assessment: 1. Metabolic encephalopathy secondary to uncontrolled diabetes/hyperglycemia 2. Insulin-dependent diabetes mellitus, poorly controlled 3. Congestive heart failure 4. Chronic obstructive pulmonary disease 5. Hypertension Plan: 1. Agree with current work-up and treatment for metabolic causes for altered mental status 2. Patient was not a candidate for tPA and no tPA was administered (2) CHF (congestive heart failure), NYHA class III: (3) Type 2 diabetes mellitus, without long-term current use of insulin: (4) COPD, moderate: (5) Nicotine dependence, cigarettes, with unspecified nicotine-induced disorders: (6) Diastolic CHF: Consult Attestations Medical Necessity Statement: Patient was evaluated by neurology for code stroke and diffuse encephalopathy secondary to uncontrolled diabetes/hyperglycemia Coding Level of Care Code 53556 Diagnoses Encephalopathy acute G93.40 CHF (congestive heart failure), NYHA class III I50.9 Type 2 diabetes mellitus, without long-term current use of insulin E11.9 COPD, moderate J44.9 Nicotine dependence, cigarettes, with unspecified nicotine-induced disorders F17.219 Diastolic CHF I50.30 Time Spent (min) 40
[2023-04-09 21:34] LABS: Glucose Point of Care 316 mg/dL (70-110)
[2023-04-09 21:49] LABS: INR 1.09 (0.8-1.2)
[2023-04-09 21:50] LABS: Partial Thromboplastin Time 25.1 SECONDS (23.9-36.7)
[2023-04-09 22:05] LABS: Ketone (Acetest) Serum Negative (Negative)
[2023-04-09 22:23] LABS: Alanine Aminotransferase 9 U/L (0-33); Albumin Level 3.6 g/dL (3.5-5.2); Alkaline Phosphatase 128 U/L (35-105); Anion Gap 15.8 (5-19); Aspartate Amino Transferase 10 U/L (0-32); Blood Urea Nitrogen 15 mg/dL (8-23); Calcium 9.1 mg/dL (8.5-10.5); Carbon Dioxide 22 mmol/L (22-29); Chloride 102 mmol/L (98-107); Globulin 3.3 g/dL (1.3-4.6); Glomerular Filtration Rate 55.3 mL/min (90-130); Glucose 308 mg/dL (65-115); Magnesium 1.9 mg/dL (1.7-2.3); NT Pro B Type Natriuretic Pept 1461 pg/mL (0-125); Osmolality Calculated 294 mOsm/kg (285-295); Potassium 3.8 mmol/L (3.5-5.1); Sodium 136 mmol/L (136-145); Total Bilirubin 0.2 mg/dL (0.15-1.2); Total Protein 6.9 g/dL (6.6-8.7)
[2023-04-09 22:25] LABS: Alcohol Level < 10 mg/dL (0-10)
[2023-04-09 22:31] LABS: Troponin 5 2HR 17.07 ng/L (0-10); Troponin 5 2HR Delta -1.93 ABS# (0-10)
--- NOTE | 2023-04-09 22:37 | ECG_ITS ---
[facility] Test Date: 2023-04-09 Pat Name: Sarah Rogers Department: Room: Gender: Female Chain Person: : 1955 Requested By: Jayesh Leary Order Number: [id number] Elana MD: Oj Rojas M.D. Measurements Intervals [place] Rate: 81 P: 19 [place]: 164 QRS: -38 QRSD: 97 T: 87 QT: 391 QTc: 455 Interpretive Statements SINUS RHYTHM LEFT AXIS DEVIATION [QRS AXIS < -30] LEFT VENTRICULAR HYPERTROPHY AND ST-T CHANGE [VOLTAGE CRITERIA PLUS ST/T ABNORMALITY] Compared to ECG 07/09/2022 20:41:22 Left-axis deviation now present Left anterior fascicular block no longer present ST (T wave) deviation still present Electronically Signed On 04-09-2023 23:31:57 CDT by Oj Rojas M.D. [id number]
[2023-04-09 23:18] LABS: Reflex Lactate Order REFLEX LACTIC ORDERD
[2023-04-09] MEDS: hyDRALAzine 20 mg/mL INJ 1 mL 10 MG IVP (23:18)
[2023-04-09 23:33] VITALS: BP 162/102; BP 173/104; PULSE 80; PULSE 88; RESP 21; O2SAT 94; O2SAT 96
[2023-04-09 23:50] VITALS: BP 153/81; RESP 18; TEMP 36.6; O2SAT 97
[2023-04-09 23:53] LABS: Glucose Point of Care 263 mg/dL (70-110)
[2023-04-10] VITALS (34 sets, daily range): BP systolic 116–200; BP diastolic 69–144; PULSE 78–93; RESP 15–32; TEMP 36.2–38.2; O2SAT 91–99; BMI 33.6
[2023-04-10 00:51] LABS: Lactic Acid level (Lactate) 1.5 mmol/L (0.5-2.2)
--- NOTE | 2023-04-10 00:55 | P.HP_ITS ---
Providers/Chief Complaint Admitting Physician: Anthony Kelly MD Primary Care Provider: Joann Cardona Chief Complaint: AMS History of Present Illness History as per conversation with ER physician and documentation review. Patient is unable to provide history. No family members around. Sarah Rogers is a 68 year old female with a history of poorly controlled diabetes mellitus, hypertension, COPD and congestive heart failure.? The patient was reported to go to bed around 7:55 PM on 04/09/2023.? It was reported that the patient's son could not arouse the patient and therefore she was brought to [facility] emergency room.? Code stroke was initiated. She was found to have uncontrolled blood sugars and high blood pressures. She was given IV insulin, IV fluids and CT head without contrast was obtained. Neurology was consulted. After fluid resuscitation and better control of blood sugar patient woke up but continued to have dysarthria. Decision was made against tPA given concerns for metabolic encephalopathy in setting of uncontrolled diabetes kristin itus and hypertension along with amphetamines in urine drug screen. Hospital service was consulted for further evaluation. On examination patient was awake and alert but not following simple commands, confused, not able to form a sentence but moving all limbs, looking in all directions. So far in the ER patient has received 2 L of IV fluids, 10 units of insulin and 10 mg of IV hydralazine. Patient blood pressure on examination 168/110 mmHg with heart rate running in 88 bpm and saturating 95% on room air. Review of Systems General: Reports: ROS unobtainable due to mental status Medications/Allergies Home Medications Medication Instructions Recorded Confirmed Last Taken Type lancets (Accu-Chek Fastclix Lancet #100 ea 01/26/22 07/09/22 Unknown Rx Drum) miscellaneous medical supply #1 ea 01/26/22 07/09/22 Unknown Rx (Blood Pressure Cuff) aspirin 81 mg chewable tablet 81 mg PO EVERY OTHER DAY #30 tabs 07/09/22 Unknown Rx atorvastatin 20 mg tablet 20 mg PO DAILY #30 tabs 07/09/22 Unknown Rx furosemide 40 mg tablet (Lasix) 40 mg PO DAILY 30 days #30 tabs 07/09/22 Unknown Rx lisinopril 10 mg tablet 20 mg PO DAILY 30 days #30 tabs 07/09/22 Unknown Rx metformin 500 mg tablet,extended 1,000 mg PO BEDTIME #30 tabs 07/09/22 Unknown Rx release 24 hr metoprolol succinate 25 mg 25 mg PO DAILY #30 tabs 07/09/22 Unknown Rx tablet,extended release 24 hr nitroglycerin 0.4 mg sublingual 0.4 mg sublingual Q5M PRN Chest 07/09/22 Unknown Rx tablet Pain 30 days #10 tabs pantoprazole 40 mg tablet,delayed 40 mg PO DAILY #30 tabs 07/09/22 Unknown Rx release potassium chloride 20 mEq 20 meq PO DAILY 30 days #30 tabs 07/09/22 Unknown Rx tablet,extended release(part/cryst) Allergies Allergy/AdvReac Type Severity Reaction Status Date / Time Sulfa (Sulfonamide Allergy na Verified 11/03/21 11:28 Antibiotics) PFSH Acute PFSH: Medical History (Updated 04/10/23 @ 01:04 by Anthony Kelly MD) Anxiety and depression Benign essential HTN Chest pain CHF (congestive heart failure), NYHA class III COPD exacerbation COPD, moderate GERD (gastroesophageal reflux disease) H/O cholecystitis Heart failure Hematoma of left kidney Major contusion of left kidney, subsequent encounter Type 2 diabetes mellitus, without long-term current use of insulin Uncontrolled diabetes mellitus Urinary incontinence, mixed Urinary tract infection, site not specified Surgical History H/O: hysterectomy Family History Family/Other Diabetes CAD (coronary artery disease) Hypertension Lung disease Social History Smoking and tobacco status: current every day smoker cigarettes Packs smoked per day: 1 Alcohol intake: never Substance/Drug Use: never Adopted: No Caregiver/support person: No Marital status: Current occupational status: disabled Vitals/I&O/Wt Last Vital Signs Temp 98.1 F 04/09/23 20:24 Pulse 88 04/10/23 00:53 Resp 20 H 04/10/23 00:53 BP 164/105 04/10/23 00:53 Pulse Ox 97 04/10/23 00:53 O2 Del Method Room Air 04/10/23 00:00 04/09/23 04/09/23 04/10/23 14:59 22:59 06:59 Intake Total 1000 / 1000 999 / 1999 Balance 1000 / 1000 999 / 1999 Weight last 48 hrs Weight 86.183 kg Physical Exam Narrative: General: No acute distress, awake, not following commands, altered, dysarthria HEENT: PERRLA, pupils bilaterally equal and reactive Chest: Normal vesicular breath sounds, no added sounds, equal good air entry bilaterally CVS: S1-S2 regular, no murmurs, no tachycardia, no gallops, no rubs Abdomen: Soft, nontender, no organomegaly, bowel sounds present Neuro: No focal deficits, no facial deformity, moving all limbs Urinary Catheter Management: Boyd: Cath Placed During This Visit: yes Urinary Catheter Date of Insertion: 04/09/23 Urinary Catheter Time of Insertion: 20:50 Data 04/09/23 20:12 04/09/23 21:25 A&P Assessment and plan (1) Encephalopathy acute: Unknown etiology. CVA ruled out with a normal CT head on admission. Neurology consulted by ER. Decision not to give tPA. Etiology most likely in setting of uncontrolled hypertension along with uncontrolled hyperglycemia and amphetamine abuse as seen in urine drug screen. Cannot rule out press syndrome. If mentation does not improve in next 24 hours can plan for MRI brain. Alcohol level negative. Check salicylate and Tylenol level. Liver functions normal on admission. Sitter at bedside. We will try to avoid benzos/Haldol or Precedex. Keep NPO. PT/OT/speech therapy once patient is more alert. Frequent orientation. (2) Uncontrolled diabetes mellitus: Check A1c. Insulin sliding scale at moderate dose protocol every 6 hourly. (3) Uncontrolled hypertension: Goal blood pressure less than 140/90 mmHg. Currently cannot give any oral medication given poor mentation. Start on nitro drip. Wean as per goal blood pressures. (4) Amphetamine abuse: As seen in urine drug screen. Start on gentle IV hydration with normal saline at 75 cc/h given history of systolic congestive heart failure. (5) CHF (congestive heart failure), NYHA class III: Past history. Echocardiogram from January 2022 showed EF of 40% with grade 2 diastolic dysfunction, moderate global LV hypokinesia. Mild MR, PASP of 26 mmHg. Myocardial perfusion scan negative for acute ischemia. Compensated for now. Watch for fluid overload. Qualifiers: Congestive heart failure type: unspecified Qualified Code(s): I50.9 - Heart failure, unspecified (6) COPD, moderate: No exacerbation. DuoNebs as needed. (7) Nicotine dependence, cigarettes, with unspecified nicotine-induced disorders: Nicotine patch Plan Full code NPO. Protonix for PUD prophylaxis Lovenox for DVT prophylaxis. Attestations Medical Necessity Statement*: Admission for more than 2 midnights for further evaluation and management of altered mental status in a patient with uncontrolled type 2 diabetes mellitus, uncontrolled hypertension, amphetamine abuse Coding Level of Care Code Critical Care >/= 30 minutes Critical care time (in minutes): 60 The high probability of a clinically significant, sudden or life threatening deterioration, as referenced in this documentation, required my full and direct attention, intervention and personal management. The critical care time shown is in addition to time spent performing any reported separately billable procedures and includes the following: [x] Data and vital sign review and interpretation [x ] Patient assessment, examination and intervention [x] Medication orders and management [x] Patient/Family updates as able [x] Care Coordination and Documentation. Diagnoses Encephalopathy acute G93.40 Uncontrolled diabetes mellitus E11.65 Uncontrolled hypertension I10 Amphetamine abuse F15.10 CHF (congestive heart failure), NYHA class III I50.9 Congestive heart failure type: unspecified COPD, moderate J44.9 Nicotine dependence, cigarettes, with unspecified nicotine-induced disorders F17.219
[2023-04-10 01:12] LABS: Iron 36 ug/dL (37-145); Percent Saturation 12.8 % (20-50); Total Iron Binding Capacity 281 mcg/dl; Unsaturated Iron Binding 245 ug/dL (112-347)
[2023-04-10 01:19] LABS: Glucose Point of Care 282 mg/dL (70-110)
[2023-04-10] MEDS: enoxaparin 40 mg/0.4 mL Syringe SUBCUT (01:26)
[2023-04-10] MEDS: insulin lispro 100 unit/1 mL SUBCUT ×3 (01:26→14:14)
[2023-04-10] MEDS: pantoprazole 40 mg SDV IVP (01:26)
[2023-04-10] MEDS: nitroglycerin drip 50 MG/250 ML PREMIX IV (01:27)
[2023-04-10 01:28] LABS: Vitamin B12 732 pg/mL (232-1245)
[2023-04-10 02:53] LABS: Basophils # 0.1 10^3/uL (0.0-0.1); Basophils % 0.4 %; Eosinophils # 0.1 10^3/uL (0.0-0.8); Eosinophils % 0.7 %; Hematocrit 42.6 % (37.0-47.0); Hemoglobin 13.9 g/dL (11.5-15.3); Lymphocytes # 2.2 10^3/uL (0.8-4.8); Lymphocytes % 19.3 %; Mean Corpuscular HGB Conc 32.6 g/dL (30.0-36.0); Mean Corpuscular Hemoglobin 27.2 pg (28.0-34.0); Mean Corpuscular Volume 83.4 fl (81-99); Monocytes # 0.5 10^3/uL (0.2-0.9); Monocytes % 4.3 %; Neutrophils # 8.56 10^3/uL (1.8-7.7); Nucleated Red Blood Cells % 0 %; Platelet Count 224 10^3/cmm (130-400); Red Blood Count 5.11 10^6/uL (4.1-5.3); Red Cell Distribution Width 13.5 % (12.1-15.1); White Blood Count 11.4 10^3/uL (4.0-10.0)
[2023-04-10 03:16] LABS: Alanine Aminotransferase 8 U/L (0-33); Albumin Level 3.6 g/dL (3.5-5.2); Alkaline Phosphatase 126 U/L (35-105); Anion Gap 16.4 (5-19); Aspartate Amino Transferase 10 U/L (0-32); Blood Urea Nitrogen 12 mg/dL (8-23); Calcium 8.6 mg/dL (8.5-10.5); Carbon Dioxide 20 mmol/L (22-29); Chloride 104 mmol/L (98-107); Chol HDL Ratio 4.43 mg/dL (0.0-4.40); Cholesterol 133 mg/dL (0-200); Creatinine Clr Calc Pharmacy 71.0055; Globulin 2.9 g/dL (1.3-4.6); Glomerular Filtration Rate 71.5 mL/min (90-130); Glucose 221 mg/dL (65-115); HDL Cholesterol 30 mg/dL (60-100); LDL Cholesterol Calculated 76 mg/dL (50-129); Osmolality Calculated 291 mOsm/kg (285-295); Potassium 3.4 mmol/L (3.5-5.1); Sodium 137 mmol/L (136-145); Total Bilirubin 0.3 mg/dL (0.15-1.2); Total Protein 6.5 g/dL (6.6-8.7); Triglycerides 137 mg/dL (0-150); VLDL Cholestrol Calculation 27 mg/dL (0-30)
[2023-04-10 03:19] LABS: Troponin 5 6HR Delta 0 ng/L (0-12)
[2023-04-10 03:22] LABS: Estmated Average Glucose 258; Hemoglobin A1C 10.6 % (4.0-6.0)
[2023-04-10 03:26] LABS: Procalcitonin 0.04 ng/mL (0-0.5)
[2023-04-10 03:28] LABS: Thyroid Stimulating Hormone 0.58 uIU/mL (0.27-4.20)
[2023-04-10 03:45] LABS: Folate Level 13.4 ng/mL (4.8-37.3)
--- NOTE | 2023-04-10 05:56 | CTR_ITS ---
PROCEDURE INFORMATION: Exam: CT Head Without Contrast Exam date and time: 04/10/2023 6:03 AM Age: 68 years old Clinical indication: Stroke-like symptoms; Altered mental status/memory loss and speech disturbance; Additional info: Right sided weakness TECHNIQUE: Imaging protocol: Computed tomography of the head without contrast. Radiation optimization: All CT scans at this facility use at least one of these dose optimization techniques: automated exposure control; mA and/or kV adjustment per patient size (includes targeted exams where dose is matched to clinical indication); or iterative reconstruction. Other technique: STROKE PROTOCOL was implemented. REPORTING DATA: Count of CT and Cardiac NM exams in prior 12 months: This patient has received [address] and 0 known cardiac nuclear medicine studies in the 12 months prior to the current study. COMPARISON: CT head thrombolytic [id number] 04/09/2023 8:39 PM RADIATION DOSE METRICS: Total DLP (mGy-cm): 1148.09 FINDINGS: Brain: There is developing heterogeneity within the left posterior insula, posterior temporal lobe and inferior parietal lobule with smudging of the berger-white indicating developing acute infarct. Patchy hemispheric white matter disease likely reflects microvascular ischemic change. Cerebral ventricles: No ventriculomegaly. Paranasal sinuses: Patchy mucosal thickening and opacities noted within ethmoid air cells. Mastoid air cells: Visualized mastoid air cells are well aerated. Bones/joints: Unremarkable. No acute fracture. Soft tissues: Unremarkable. CT/CT head wo con* [id number] IMPRESSION: Developing acute infarct in the posterior left insula and M3 branch distribution. ASSESSMENT: ASPECTS ([place] Stroke Program Early CT Score) is 8.
[2023-04-10 05:58] LABS: Glucose Point of Care 226 mg/dL (70-110)
--- NOTE | 2023-04-10 06:21 | CTR_ITS ---
PROCEDURE INFORMATION: Exam: CTA Head With Contrast, Arteriography Exam date and time: 04/10/2023 6:41 AM Age: 68 years old Clinical indication: Speech disturbance; Type not specified; Additional info: Acute stroke TECHNIQUE: Imaging protocol: Computed tomographic angiography of the head with contrast. Exam focused on the arteries. 3D rendering (Not supervised by radiologist): MIP and/or 3D reconstructed images were created by the technologist. Radiation optimization: All CT scans at this facility use at least one of these dose optimization techniques: automated exposure control; mA and/or kV adjustment per patient size (includes targeted exams where dose is matched to clinical indication); or iterative reconstruction. Contrast material: OMNIPAQUE 350; Contrast volume: 100 ml; Contrast route: INTRAVENOUS (IV); REPORTING DATA: Count of CT and Cardiac NM exams in prior 12 months: This patient has received [address] and 0 known cardiac nuclear medicine studies in the 12 months prior to the current study. COMPARISON: CT head wo con* [id number] 04/10/2023 6:03 AM RADIATION DOSE METRICS: Total DLP (mGy-cm): 545.9 FINDINGS: ANTERIOR CIRCULATION: Right internal carotid artery: Intracranial segment is patent with no significant stenosis. No aneurysm. Right middle cerebral artery: No occlusion or significant stenosis. No aneurysm. Right anterior cerebral artery: No occlusion or significant stenosis. No aneurysm. Left internal carotid artery: Intracranial segment is patent with no significant stenosis. No aneurysm. Left middle cerebral artery: No occlusion or significant stenosis. No aneurysm. Left anterior cerebral artery: No occlusion or significant stenosis. No aneurysm. POSTERIOR CIRCULATION: Right vertebral artery: No occlusion or significant stenosis. No aneurysm. Left vertebral artery: No occlusion or significant stenosis. No aneurysm. Basilar artery: No occlusion or significant stenosis. No aneurysm. Right posterior cerebral artery: No occlusion or significant stenosis. No aneurysm. Left posterior cerebral artery: No occlusion or significant stenosis. No aneurysm. Brain: There is again noted heterogeneous low density developing in the left posterior temporal and inferior parietal lobes compatible with developing acute infarct in the branch distribution of the left middle cerebral artery. No large vessel occlusion is identified. Cerebral ventricles: No ventriculomegaly. Bones/joints: Unremarkable. No acute fracture. Soft tissues: Unremarkable. PROCEDURE INFORMATION: Exam: CTA Neck With Contrast Exam date and time: 04/10/2023 6:41 AM Age: 68 years old Clinical indication: Speech disturbance; Type not specified; Additional info: Acute stroke TECHNIQUE: Imaging protocol: Computed tomographic angiography of the neck with contrast. 3D rendering (Not supervised by radiologist): MIP and/or 3D reconstructed images were created by the technologist. Radiation optimization: All CT scans at this facility use at least one of these dose optimization techniques: automated exposure control; mA and/or kV adjustment per patient size (includes targeted exams where dose is matched to clinical indication); or iterative reconstruction. Contrast material: OMNIPAQUE 350; Contrast volume: 100 ml; Contrast route: INTRAVENOUS (IV); REPORTING DATA: Count of CT and Cardiac NM exams in prior 12 months: This patient has received [address] and 0 known cardiac nuclear medicine studies in the 12 months prior to the current study. COMPARISON: CT angio chest PE protcl [id number] 10/13/2021 9:57 PM RADIATION DOSE METRICS: Total DLP (mGy-cm): 0.01 FINDINGS: Right common carotid artery: No stenosis. No dissection or occlusion. Right internal carotid artery: No stenosis of the extracranial segment. No dissection or occlusion. Right external carotid artery: No occlusion or stenosis of the origin. Left common carotid artery: No stenosis. No dissection or occlusion. Left internal carotid artery: No stenosis of the extracranial segment. No dissection or occlusion. Left external carotid artery: No occlusion or stenosis of the origin. Right vertebral artery: No stenosis. No dissection or occlusion. Left vertebral artery: No stenosis. No dissection or occlusion. Soft tissues: Normal. No significant soft tissue swelling. Bones/joints: No acute fracture. CT/CT angio headneck* [id number] IMPRESSION: No intracranial large vessel occlusion. IMPRESSION: No stenosis or occlusion. REFERENCES: NASCET CRITERIA. The degree of stenosis in the cervical segment of the internal carotid artery is based on NASCET criteria. Normal is no stenosis. Mild is less than 50% stenosis. Moderate is 50-69% stenosis. Severe is 70% to 99% stenosis. Total occlusion is no detectable patent lumen.
[2023-04-10] MEDS: hyDRALAzine 20 mg/mL INJ 1 mL 10 MG IVP ×2 (06:27→06:33)
[2023-04-10] MEDS: aspirin 300 mg Supp PR (06:32)
[2023-04-10] MEDS: iohexol 350 mg/mL 500 mL Btl (per mL) IV (06:44)
--- NOTE | 2023-04-10 07:10 | PC.NURSE ---
Pt sat up and became more lucid at approx. 0600. This nurse asked the pt her name and she was able to say her name. It was very slurred, but previously the pt was unable to answer any questions. Pt was asked to squeeze this nurse's hands and only the left hand had a aluminum can collector. The right arm was held up, but pt was unable to hold the arm in the air. Dr Kelly was notified and a CT head was ordered. See MAR for medications given and reports for CT head results and CTA results. Report given to SIGRID Vogel and care transferred.
[2023-04-10] MEDS: LORazepam 2 mg/mL INJ 1 mL 0.5 MG IVP (07:20)
--- NOTE | 2023-04-10 07:57 | PM.PN ---
Subjective Subjective: Sarah Rogers is a 68 year old female with a history of poorly controlled diabetes mellitus, COPD and congestive heart failure.? The patient was reported to go to bed around 7:55 PM on 04/09/2023.? It was reported that the patient's grandson who is 12 years of age could not arouse the patient and therefore she was brought to [facility] emergency room.? Code stroke was initiated but after blood sugar was obtained and was 466 patient's clinical presentation was more consistent with a diffuse encephalopathy related to hyperglycemic.? No family member was available to give any additional details.? Initially the patient was only arousable to sternal rub. The patient was given IV insulin for elevated blood sugar 466.? After approximately 15 minutes the patient became more arousable and remained awake although still confused and nonverbal except for moaning and mumbling. The patient will follow some commands.? There is no obvious facial weakness.? Pupils 3 to 4 mm and reactive to light.? Patient looking in all directions.? The patient moves all extremities with no obvious focal weakness.? Plantar responses flexor bilaterally.? There is no clonus.? Sensory examination is intact to touch and tactile stimulation.? There was no obvious neglect.? Visual lindsay could not be assessed secondary to lack of patient cooperation and confusion.? There was no obvious ataxia when the patient was moving her arms and legs.? Dysarthria and speech could not be assessed secondary to confusion.? Grossly NIH score =5.? Noncontrast head CT scan was obtained and reported to be negative.? Blood pressure was elevated 177/111 with heart rate of 82 and O2 saturations 94% on room.? CBC reveals slightly elevated white of 12.5.? Drug screen was positive for amphetamines. Other metabolic labs were unrevealing. In view of the patient's history of poorly controlled diabetes with significant elevated blood glucose and malignant hypertension and noncompliant with medications, the decision not to give tPA was made since patient's clinical picture was suggestive of metabolic encephalopathy and patient would be at increased risk for intracerebral hemorrhage secondary to history of poorly controlled diabetes if tPA was administered. I reassessed the patient 1 hour later and her condition remained unchanged. The patient's sister and another family member were at the patient's bedside in the emergency room. The family informing that the patient does not take her medications as prescribed. The family also informed me that the patient drinks moonshine. They are not sure when the last time she had moonshine. I question the family regarding the patient's positive amphetamine drug screen but they are unsure and could not give me any additional information on 04/09/2023. I spoke with the ER physician and the patient was admitted to address the malignant hypertension and uncontrolled blood glucose. At 6:19 AM on 04/10/2023 I was contacted by the hospitalist who reported that the patient was displaying some right sided weakness after the patient was reported to sit up in bed. Repeat noncontrast head CT scan was obtained and revealed Developing acute infarct in the posterior left insula and M3 branch distribution. CT angiogram of the head and neck were ordered and were reported to be negative for thrombus. The patient was brought back to the intensive care unit bed #3 and at this time the patient was moving all extremities awake, agitated and confused and still nonverbal. Blood glucose 226 blood pressure elevated 191/84. I recommended discontinuing hydralazine and continuing nitroglycerin drip to manage blood pressure. Also recommended starting IV thiamine 100 mg IV daily since patient has history of using moonshine. Also ordered Ativan IV to be used as needed for any agitation. Currently the patient is awake, moving all extremities, patient is turning over in bed from the right side of the bed to the left side of the bed and lying on either her right side or left side. Patient not following commands. Past medical history: Chronic obstructive pulmonary disease Diabetes mellitus, poorly controlled Hypertension Congestive heart failure Drug allergies: Sulfonamide antibiotics type of reaction unknown Home medications: Lipitor 40 mg p.o. daily Wellbutrin XL 150 mg p.o. daily Farxiga 5 mg p.o. daily Lasix 40 mg p.o. daily Potassium chloride 20 mEq p.o. daily Lisinopril 10 mg p.o. daily Metformin 1000 mg p.o. daily Metoprolol XL 25 mg p.o. daily Pantoprazole 40 mg p.o. daily Nitroglycerin as needed chest pain Tresiba 200 units subcutaneously daily Habits: Unknown Family history: Unknown Habits: Unknown Family history: Unknown ROS: Unable to obtain secondary to confusion and agitation Vitals/I&O/Wt Last Vital Signs Temp 97.1 F L 04/10/23 07:36 Pulse 88 04/10/23 07:36 Resp 19 H 04/10/23 03:00 BP 184/144 04/10/23 07:36 Pulse Ox 91 04/10/23 05:00 O2 Del Method Room Air 04/10/23 00:55 04/09/23 04/10/23 04/10/23 22:59 06:59 14:59 Intake Total 1000 / 1000 1002.325 / 2002.325 Output Total 300 / 300 Balance 1000 / 1000 702.325 / 1702.325 Weight last 48 hrs Weight 190 lb Physical Exam Narrative: Blood pressure 191/84 blood sugar 226 The patient is alert but agitated and confused. Patient is moving all extremities. Head atraumatic. Cranial nerves II through XII grossly intact. Pupils 4 mm and reactive to light. There is no obvious facial weakness. Motor testing patient moves all extremities against gravity spontaneously. Deep tendon reflexes grossly symmetrical plantar responses flexor bilaterally. There is no clonus. Sensory examination was intact to touch. Throat clear. Lungs revealed no obvious wheezes. Heart regular rhythm and rate. Abdomen soft bowel sounds positive. Extremities were negative for clubbing or cyanosis Urinary Catheter Management: Boyd: Cath Placed During This Visit: yes Reason for Continuing Indwelling Catheter: Accurate Measurement of Urinary Output in Critically Ill Patients Urinary Catheter Date of Insertion: 04/09/23 Urinary Catheter Time of Insertion: 20:50 Data 04/10/23 02:25 04/10/23 02:25 A&P Assessment and plan (1) Cerebral infarction, left hemisphere: Assessment: 1. Acute left cerebral infarction involving the left insula and M3 branch on repeat head CT performed on 04/10/2023 (CT angiogram of the head and neck on 04/10/2023 report to be negative for thrombus) 1a.? Metabolic encephalopathy secondary to uncontrolled diabetes/hyperglycemia 2.? Insulin-dependent diabetes mellitus, poorly controlled 3.? Congestive heart failure 4.? Chronic obstructive pulmonary disease 5.? Hypertension 6. Positive drug screen for amphetamine 7. History of drinking moonshine Plan: 1. Recommend titrating nitroglycerin to control malignant hypertension and maintain mean arterial blood pressure between 70 and 100 2. Discontinue hydralazine 3. Thiamine 100 mg IV daily 4. Continue to monitor neurological condition 5. Ativan 1 to 2 mg IV every 6 hours as needed agitation 6. Continue medical management for COPD, and congestive heart failure 7. In my medical opinion with a reasonable degree of medical certainty, patient is not a candidate for tPA (2) Encephalopathy acute: (3) Altered mental status: Qualifiers: Altered mental status type: unspecified Qualified Code(s): R41.82 - Altered mental status, unspecified (4) Uncontrolled hypertension: (5) Amphetamine abuse: (6) Type 2 diabetes mellitus, without long-term current use of insulin: Qualifiers: Diabetes mellitus complication status: with hyperglycemia Qualified Code(s): E11.65 - Type 2 diabetes mellitus with hyperglycemia (7) CHF (congestive heart failure), NYHA class III: Qualifiers: Congestive heart failure type: unspecified Qualified Code(s): I50.9 - Heart failure, unspecified (8) COPD, moderate: Attestations Medical Necessity Statement*: Patient evaluated by neurology for metabolic encephalopathy, and stroke Coding Level of Care Code 83023 Diagnoses Cerebral infarction, left hemisphere I63.9 Encephalopathy acute G93.40 Altered mental status R41.82 Altered mental status type: unspecified Uncontrolled hypertension I10 Amphetamine abuse F15.10 Type 2 diabetes mellitus, without long-term current use of insulin E11.65 Diabetes mellitus complication status: with hyperglycemia CHF (congestive heart failure), NYHA class III I50.9 Congestive heart failure type: unspecified COPD, moderate J44.9 Time Spent (min) 20
[2023-04-10] MEDS: morphine 4 mg/mL SDV 1 mL 2 MG IVP (09:24)
[2023-04-10] MEDS: nicotine 14 mg Patch 1 PATCH TRANSDERMA (10:41)
[2023-04-10 12:41] LABS: Glucose Point of Care 225 mg/dL (70-110)
--- NOTE | 2023-04-10 13:51 | PC.OT ---
Occupational therapy eval held per nursing recommendation.
--- NOTE | 2023-04-10 13:55 | PM.MISC ---
Miscellaneous Note Purpose of Documentation: Overnight labs and H&P, consult reviewed. This morning patient continues to be lethargic. Moves all extremities while laying in bed however does not follow commands or respond meaningfully to questions. She motors her name Barbara on and off. She is currently on a nitro drip at 40, systolic blood pressure currently between 1 50-1 60. Continue Thiamine, CIWA monitoring, nitro infusion, monitor for improvement in mentation .
--- NOTE | 2023-04-10 17:13 | PC.SLP ---
Orders received, chart reviewed. Patient is not alert enough at this time to fully participate in her bedside swallowing evaluation. Will continue to monitor and evaluate patient when it is appropriate.
[2023-04-10 17:26] LABS: Ammonia 23 umol/L (11-51)
[2023-04-10 17:35] LABS: Creatine Phosphokinase 50 U/L (26-192)
[2023-04-10 17:45] LABS: Glucose Point of Care 175 mg/dL (70-110)
[2023-04-11] VITALS (39 sets, daily range): BP systolic 107–177; BP diastolic 56–111; PULSE 76–98; RESP 14–39; TEMP 37.2–37.9; O2SAT 91–99
[2023-04-11 00:52] LABS: Glucose Point of Care 237 mg/dL (70-110)
[2023-04-11] MEDS: insulin lispro 100 unit/1 mL SUBCUT ×4 (01:21→18:32)
[2023-04-11] MEDS: pantoprazole 40 mg SDV IVP (01:22)
[2023-04-11] MEDS: enoxaparin 40 mg/0.4 mL Syringe SUBCUT (01:22)
[2023-04-11 04:25] LABS: Basophils # 0.1 10^3/uL (0.0-0.1); Basophils % 0.5 %; Eosinophils % 0.2 %; Hematocrit 44.5 % (37.0-47.0); Hemoglobin 13.8 g/dL (11.5-15.3); Lymphocytes # 2.2 10^3/uL (0.8-4.8); Lymphocytes % 16.3 %; Mean Corpuscular Hemoglobin 26.5 pg (28.0-34.0); Mean Corpuscular Volume 85.6 fl (81-99); Monocytes % 7.3 %; Neutrophils # 10.06 10^3/uL (1.8-7.7); Neutrophils % 75.3 %; Nucleated Red Blood Cells % 0 %; Platelet Count 221 10^3/cmm (130-400); Red Cell Distribution Width 13.9 % (12.1-15.1); White Blood Count 13.4 10^3/uL (4.0-10.0)
[2023-04-11 04:50] LABS: Alanine Aminotransferase 7 U/L (0-33); Albumin Level 3.9 g/dL (3.5-5.2); Alkaline Phosphatase 134 U/L (35-105); Aspartate Amino Transferase 10 U/L (0-32); Blood Urea Nitrogen 9 mg/dL (8-23); Calcium 9.1 mg/dL (8.5-10.5); Carbon Dioxide 20 mmol/L (22-29); Chloride 103 mmol/L (98-107); Creatinine Clr Calc Pharmacy 71.0055; Globulin 2.5 g/dL (1.3-4.6); Glomerular Filtration Rate 83.5 mL/min (90-130); Glucose 212 mg/dL (65-115); Magnesium 1.9 mg/dL (1.7-2.3); Osmolality Calculated 289 mOsm/kg (285-295); Phosphorus 2.9 mg/dL (2.5-4.5); Sodium 137 mmol/L (136-145); Total Bilirubin 0.5 mg/dL (0.15-1.2); Total Protein 6.4 g/dL (6.6-8.7)
[2023-04-11 05:42] LABS: Glucose Point of Care 199 mg/dL (70-110)
--- NOTE | 2023-04-11 07:48 | P.PN_ITS ---
Subjective Subjective: Sarah Rogers is a 68 year old f emale with a histo ry of poorly contr olled diabetes huber litus, COPD and co ngestive heart ilda lure.? The patient was reported to g o to bed around 7: 55 PM on 04/09/2023 .? It was reported that the patient' s grandson who is 12 years of age co uld not arouse the patient and there fore she was broug ht to [facility] emergency ro om.? Code stroke w as initiated but a fter blood sugar w as obtained and wa s 466 patient's cl inical presentatio n was more consist ent with a diffuse encephalopathy re lated to hyperglyc emic.? No family m ember was availabl e to give any rocky tional details.? I nitially the patie nt was only arousa ble to sternal rub . The patient was given IV insulin f or elevated blood sugar 466.? After approximately 15 m inutes the patient became more arous able and remained awake although sti ll confused and no nverbal except for moaning and mumbl ing. The patient w ill follow some co mmands.? There is no obvious facial weakness.? Pupils 3 to 4 mm and reac tive to light.? Pa tient looking in a ll directions.? Th e patient moves al l extremities with no obvious focal weakness.? Plantar responses flexor bilaterally.? Ther e is no clonus.? S ensory examination is intact to touc h and tactile stim ulation.? There wa s no obvious negle ct.? Visual lindsay could not be asse ssed secondary to lack of patient co operation and conf usion.? There was no obvious ataxia when the patient w as moving her arms and legs.? [place] hria and speech co uld not be assesse d secondary to con fusion.? Grossly N IH score =5.? Nonc ontrast head CT sc an was obtained an d reported to be n egative.? Blood pr essure was elevate d 177/111 with hea rt rate of 82 and O2 saturations 94% on room.? CBC rev eals slightly elev ated white of 12.5 .? Drug screen was positive for amph etamines.? Other m etabolic labs were unrevealing.? In view of the patien t's history of poo rly controlled lopez betes with signifi cant elevated bloo d glucose and cathy gnant hypertension and noncompliant with medications, the decision not t o give tPA was mad e since patient's clinical picture w as suggestive of m etabolic encephalo wilfrido and patient would be at increa sed risk for intra cerebral hemorrhag e secondary to his tory of poorly con trolled diabetes i f tPA was administ ered.? I reassesse d the patient 1 ho ur later and her c ondition remained unchanged.? The pa eunice's sister and another family me mber were at the p atient's bedside i n the emergency ro om.? The family in forming that the p atient does not ta ke her medications as prescribed.? T he family also inf ormed me that the patient drinks moo nshine.? They are not sure when the last time she had moonshine.? I ques tion the family re garding the patien t's positive amphe tamine drug screen but they are unsu re and could not g joselyn me any additio nal information on 04/09/2023.? I spo ke with the ER brook lemus and the pat lauren was admitted to address the mal ignant hypertensio n and uncontrolled blood glucose.? A t 6:19 AM on 2022 I was contact ed by the hospital ist who reported t hat the patient wa s displaying some right sided weakne ss after the patie nt was reported to sit up in bed.? R epeat noncontrast head CT scan was o btained on 04/10/20 and revealed?de veloping acute inf arct in the director of patient care ior left insula an d M3 branch distri bution.? CT angiog smiley of the head an d neck were ordere d and were reporte d to be negative f or thrombus.? The patient [facility] su[facility] and at this t anastacia the patient wa s moving all extre mities awake, agit ated and confused and still nonverba l. Blood glucose 2 26 blood pressure elevated 191/84.? I recommended disc ontinuing hydralaz ine and continuing nitroglycerin dri p to manage blood pressure.? Also I recommended starti ng IV thiamine 100 mg IV daily since patient has histo ry of using moonsh ine.? Also ordered Ativan IV to be u sed as needed for any agitation.? Cu rrently the patien t is awake, moving all extremities, patient is able to turn over in bed from her right si de to her left si de.? Patient is fo llowing commands w hen I asked her to squeeze with both hands and move he r legs which appea r to be fairly sym metrical. The pat ient is still nonv erbal. The patien t is less agitated and rested last e vening. Blood pre ssure on IV nitrog lycerin drip 151/9 3 with a mean edgar rial blood pressur e 112 heart rate 8 2 O2 saturation 96 % on room air. Am monia level was un remarkable at 23. CPK was normal at 50. Glucose this morning was 199. Past medical his tory: Chronic obst ructive pulmonary disease Diabetes m ellitus, poorly co ntrolled Hypertens ion Congestive hea rt failure Positiv e drug screen for amphetamine Histor y of drinking hankins shine Drug allerg ies: Sulfonamide a ntibiotics type of reaction unknown Home medications: Lipitor 40 mg p.o . daily Wellbutrin XL 150 mg p.o. da ricky Farxiga 5 mg p .o. daily Lasix 40 mg p.o. daily Pot assium chloride 20 mEq p.o. daily Li sinopril 10 mg p.o . daily Metformin 1000 mg p.o. daily Metoprolol XL 25 mg p.o. daily Pant oprazole 40 mg p.o . daily Nitroglyce rin as needed ches t pain Tresiba 200 units subcutaneou sly daily Habits: Patient smokes, d rug screen positiv e for amphetamine Family history: U nknown Habits: Un known ROS: Unabl e to obtain second karoline to confusion a nd agitation Vitals/I&O/Wt Last Vital Signs Temp 100.2 F H 04/11/23 03:00 Pulse 83 04/11/23 05:43 Resp 30 H 04/11/23 04:45 BP 166/90 04/11/23 04:45 Pulse Ox 94 04/11/23 04:45 O2 Del Method Room Air 04/10/23 20:00 04/10/23 04/11/23 04/11/23 22:59 06:59 14:59 Intake Total 83.625 / 83.625 22.875 / 106.500 Output Total 700 / 700 250 / 950 Balance -616.375 / -616.375 -227.125 / -843.500 Weight last 48 hrs Weight 190 lb Weight 190 lb Physical Exam Narrative: Physical examination: Blood pressure on IV nitroglycerin drip 151/93 mean arterial blood pressure 112, heart rate 82, O2 saturation 96% on room air. Serum glucose 199, ammonia level 23, CPK 50 The patient is alert but still nonverbal. The patient will follow some commands when I asked her to squeeze my hands and move her legs. Head atraumatic. Cranial nerves II through XII revealed right lower facial weakness. Motor testing grossly nonfocal and patient moving all extremities. Deep tendon reflexes grossly symmetrical plantar responses flexor bilaterally. There was no clonus. Sensory examination intact to touch. Throat clear. Lungs reveal no obvious wheezes. Heart regular rhythm and rate. Extremities were negative for clubbing or cyanosis Urinary Catheter Management: Boyd: Cath Placed During This Visit: yes Reason for Continuing Indwelling Catheter: Accurate Measurement of Urinary Output in Critically Ill Patients Urinary Catheter Date of Insertion: 04/09/23 Urinary Catheter Time of Insertion: 20:50 Data 04/11/23 04:00 04/11/23 04:00 Micro: Microbiology 04/11/23 04:04 Blood Culture - Preliminary Blood SPECIMEN COLLECTED 04/11/23 04:00 Blood Culture - Preliminary Blood SPECIMEN COLLECTED A&P Assessment and plan (1) Cerebral infarction, left hemisphere: (2) Encephalopathy acute: (3) Uncontrolled hypertension: (4) Uncontrolled diabetes mellitus: (5) Altered mental status: Qualifiers: Altered mental status type: unspecified Qualified Code(s): R41.82 - Altered mental status, unspecified (6) Amphetamine abuse: (7) CHF (congestive heart failure), NYHA class III: Qualifiers: Congestive heart failure type: unspecified Qualified Code(s): I50.9 - Heart failure, unspecified (8) Type 2 diabetes mellitus, without long-term current use of insulin: Qualifiers: Diabetes mellitus complication status: with hyperglycemia Qualified Code(s): E11.65 - Type 2 diabetes mellitus with hyperglycemia (9) Nicotine dependence, cigarettes, with unspecified nicotine-induced disorders: Plan 1.? Acute left cerebral infarction involving the left insula and M3 branch on repeat head CT performed on 04/10/2023 (CT angiogram of the head and neck on 04/10/2023 report to be negative for thrombus) 1a.? Metabolic encephalopathy secondary to uncontrolled diabetes/hyperglycemia 2.? Insulin-dependent diabetes mellitus, poorly controlled 3.? Congestive heart failure 4.? Chronic obstructive pulmonary disease 5.? Hypertension 6.? Positive drug screen for amphetamine 7.? History of drinking moonshine Plan: 1.? Recommend continue titrating nitroglycerin to control malignant hypertension and maintain mean arterial blood pressure between 70 and 100 2.? Discontinue hydralazine (done on 04/10/2023) 3.? Continue Thiamine 100 mg IV daily 4.? Continue to monitor neurological condition 5.?Continue Ativan 1 to 2 mg IV every 6 hours as needed agitation 6.? Continue medical management for COPD, and congestive heart failure 7.? In my medical opinion with a reasonable degree of medical certainty, patient was not a candidate for tPA Attestations Medical Necessity Statement*: Patient evaluated by neurology for metabolic encephalopathy, and left cerebral stroke Coding Level of Care Code 27826 Diagnoses Cerebral infarction, left hemisphere I63.9 Encephalopathy acute G93.40 Uncontrolled hypertension I10 Uncontrolled diabetes mellitus E11.65 Altered mental status R41.82 Altered mental status type: unspecified Amphetamine abuse F15.10 CHF (congestive heart failure), NYHA class III I50.9 Congestive heart failure type: unspecified Type 2 diabetes mellitus, without long-term current use of insulin E11.65 Diabetes mellitus complication status: with hyperglycemia Nicotine dependence, cigarettes, with unspecified nicotine-induced disorders F17.219 Time Spent (min) 15
[2023-04-11] MEDS: nicotine 14 mg Patch 1 PATCH TRANSDERMA (08:48)
[2023-04-11] MEDS: piperacillin-tazobactam 3.375 GM in sodium chloride 0.9% (plus) 50 ML IV ×2 (11:58→20:26)
[2023-04-11 12:04] LABS: Glucose Point of Care 217 mg/dL (70-110)
--- NOTE | 2023-04-11 15:38 | P.PN_ITS ---
Subjective Subjective: Continues to be disoriented, no understandable words but follows commands. Moves all extremities to command, tries to grab objects put in front of her. developed fever overnight T max 100.7F. Medications: Reviewed: Yes Vitals/I&O/Wt Last Vital Signs Temp 100.2 F H 04/11/23 03:00 Pulse 85 04/11/23 15:00 Resp 16 04/11/23 15:00 BP 133/79 04/11/23 15:00 Pulse Ox 94 04/11/23 15:00 O2 Del Method Room Air 04/11/23 08:00 04/11/23 04/11/23 04/11/23 06:59 14:59 22:59 Intake Total 22.875 / 106.500 32.80 / 32.80 Output Total 250 / 950 Balance -227.125 / -843.500 32.80 / 32.80 Weight last 48 hrs Weight 86.183 kg Weight 86.183 kg Physical Exam Narrative: General: No acute distress, follows commands but does not use any words. Moans and groans only. HEENT: PERRLA, pupils bilaterally equal and reactive, pallors not present Chest: reduced breath sounds LLL CVS: S1-S2 regular, no murmurs, no tachycardia, no gallops, no rubs Abdomen: Soft, non distended , BS+ Neuro: moves all extremities, though left appearing to weaker compared to right, follows commands to line tender flakeboard fingers, moves legs, billing customer service representative objects to command Urinary Catheter Management: Boyd: Cath Placed During This Visit: yes Reason for Continuing Indwelling Catheter: Accurate Measurement of Urinary Output in Critically Ill Patients Urinary Catheter Date of Insertion: 04/09/23 Urinary Catheter Time of Insertion: 20:50 Data 04/11/23 04:00 04/11/23 04:00 Micro: Microbiology 04/11/23 04:04 Blood Culture - Preliminary Blood SPECIMEN COLLECTED 04/11/23 04:00 Blood Culture - Preliminary Blood SPECIMEN COLLECTED A&P Assessment and plan (1) Cerebral infarction, left hemisphere: Sarah Rogers is a 68 year old female with a history of poorly controlled diabetes mellitus, hypertension, COPD and congestive heart failure.? lase ssen normal at 7:55 PM on 04/09/2023. She was unable to be awakened the next morning by her family and brought to the ER. Found to be hypertensive on arrival, with aletred mental status which has persisted Initial CT head did not show any CVA Subsequently repeated a few hours later when she developed RUE weakness which showed developing infarct in posterior insula and M3. NIHSS 5 at time of neuro evaluation. Not a candidate for tPA (2) Altered mental status: related to CVA vs metabolic encephalopathy Ct head as above Htn on admission for which patient has been on nitro drip, being titrated down TSH WNL , ammonia 23 Ethyl alcohol negative, has h/o moonshine use in the past per family, currently sober On [place] monitoring currently U tox + amphetamines Overnight has now developed fever, blood cx taken CXR with infiltrates which may represent pneumonia, perhaps aspiration UA negative start Zosyn empirically Qualifiers: Altered mental status type: unspecified Qualified Code(s): R41.82 - Altered mental status, unspecified (3) Uncontrolled diabetes mellitus: hba1c 10.6 Insulin sliding scale at moderate dose protocol every 6 hourly. (4) Uncontrolled hypertension: Goal blood pressure less than 140/90 mmHg. Currently cannot give any oral medication given poor mentation. Start on nitro drip. Wean as per goal blood pressures. Avoding hydralazine per neuro recommendations Labetalol prn (5) Amphetamine abuse: As seen in urine drug screen. (6) CHF (congestive heart failure), NYHA class III: Past history. Echocardiogram from January 2022 showed EF of 40% with grade 2 diastolic dysfunction, moderate global LV hypokinesia. Mild MR, PASP of 26 mmHg. Myocardial perfusion from 2020 scan negative for acute ischemia. Compensated for now. trop series 19--> 17--> 19, not concerning for ACS Qualifiers: Congestive heart failure type: unspecified Qualified Code(s): I50.9 - Heart failure, unspecified (7) COPD, moderate: No exacerbation. DuoNebs as needed. (8) Nicotine dependence, cigarettes, with unspecified nicotine-induced disorders: Nicotine patch Plan Full code NPO. Protonix for PUD prophylaxis Lovenox for DVT prophylaxis. Attestations Medical Necessity Statement*: persisting AMS, needs neuro monitoring, BP management, fever, iv abx Coding Level of Care Code Acute Code for Chg Fwd Diagnoses Cerebral infarction, left hemisphere I63.9 Altered mental status R41.82 Altered mental status type: unspecified Uncontrolled diabetes mellitus E11.65 Uncontrolled hypertension I10 Amphetamine abuse F15.10 CHF (congestive heart failure), NYHA class III I50.9 Congestive heart failure type: unspecified COPD, moderate J44.9 Nicotine dependence, cigarettes, with unspecified nicotine-induced disorders F17.219
[2023-04-11 18:16] LABS: Adenovirus Not Detected (NOT DETECT); Chlamydia Pneumoniae Not Detected (NOT DETECT); Coronavirus 229E,HKU1,NL63,OC4 Not Detected (NOT DETECT); Human Metapneumovirus Not Detected (NOT DETECT); Human Rhinovirus/Enterovirus Not Detected (NOT DETECT); Influenza A Not Detected (NOT DETECT); Influenza A H1 Not Detected (NOT DETECT); Influenza A H1-2009 Not Detected (NOT DETECT); Influenza A H3 Not Detected (NOT DETECT); Influenza B Not Detected (NOT DETECT); Mycoplasma Pneumoniae Not Detected (NOT DETECT); Parainfluenza Virus Type 1 Not Detected (NOT DETECT); Parainfluenza Virus Type 2 Not Detected (NOT DETECT); Parainfluenza Virus Type 3 Not Detected (NOT DETECT); Parainfluenza Virus Type 4 Not Detected (NOT DETECT); Respiratory Syncytial Virus A Not Detected (NOT DETECT); Respiratory Syncytial Virus B Not Detected (NOT DETECT); SARS-COV-2 Not Detected (NOT DETECT)
[2023-04-11 18:33] LABS: Glucose Point of Care 175 mg/dL (70-110)
[2023-04-12] VITALS (25 sets, daily range): BP systolic 118–166; BP diastolic 78–114; PULSE 70–86; RESP 15–29; TEMP 36.3–37.3; O2SAT 89–99
[2023-04-12 01:02] LABS: Glucose Point of Care 209 mg/dL (70-110)
[2023-04-12] MEDS: enoxaparin 40 mg/0.4 mL Syringe SUBCUT (01:05)
[2023-04-12] MEDS: pantoprazole 40 mg SDV IVP (01:05)
[2023-04-12] MEDS: insulin lispro 100 unit/1 mL SUBCUT ×4 (01:05→18:15)
[2023-04-12] MEDS: piperacillin-tazobactam 3.375 GM in sodium chloride 0.9% (plus) 50 ML IV ×3 (02:54→18:47)
[2023-04-12 03:55] LABS: Basophils # 0.1 10^3/uL (0.0-0.1); Basophils % 0.5 %; Eosinophils # 0.2 10^3/uL (0.0-0.8); Eosinophils % 1.6 %; Hematocrit 44.1 % (37.0-47.0); Hemoglobin 13.7 g/dL (11.5-15.3); Lymphocytes # 2.4 10^3/uL (0.8-4.8); Lymphocytes % 19.4 %; Mean Corpuscular HGB Conc 31.1 g/dL (30.0-36.0); Mean Corpuscular Hemoglobin 26.3 pg (28.0-34.0); Mean Corpuscular Volume 84.8 fl (81-99); Mean Platelet Volume 11.2 fL (7.4-10.4); Neutrophils % 70.1 %; Nucleated Red Blood Cells % 0 %; Platelet Count 211 10^3/cmm (130-400); Red Cell Distribution Width 13.9 % (12.1-15.1); White Blood Count 12.1 10^3/uL (4.0-10.0)
[2023-04-12 04:16] LABS: Alanine Aminotransferase 6 U/L (0-33); Albumin Level 3.7 g/dL (3.5-5.2); Alkaline Phosphatase 117 U/L (35-105); Anion Gap 17.7 (5-19); Aspartate Amino Transferase 11 U/L (0-32); Blood Urea Nitrogen 13 mg/dL (8-23); Calcium 9.1 mg/dL (8.5-10.5); Carbon Dioxide 22 mmol/L (22-29); Chloride 105 mmol/L (98-107); Globulin 2.5 g/dL (1.3-4.6); Glomerular Filtration Rate 55.3 mL/min (90-130); Glucose 193 mg/dL (65-115); Osmolality Calculated 297 mOsm/kg (285-295); Potassium 3.7 mmol/L (3.5-5.1); Sodium 141 mmol/L (136-145); Total Bilirubin 0.5 mg/dL (0.15-1.2); Total Protein 6.2 g/dL (6.6-8.7)
[2023-04-12 05:20] LABS: Glucose Point of Care 171 mg/dL (70-110)
[2023-04-12] MEDS: nicotine 14 mg Patch 1 PATCH TRANSDERMA (09:01)
--- NOTE | 2023-04-12 09:09 | PC.NURSE ---
Upon morning assessment, patient's mental status has improved. She is following commands, but has moderate weakness to the right arm, and severe weakness to the right leg. It appears as though patient fully understands everything said to her, but is having expressive aphasia and can only grunt. Nurse attempted to have her write to communicate, but she was unable to, unsure if it was due to expressive aphasia or the right arm weakness. Nurse explained stroke symptoms and interventions. Patient appears to understand. NUrse alerted Dr marinelli to mental improvement and received orders for speech therapy.
[2023-04-12 12:17] LABS: Glucose Point of Care 174 mg/dL (70-110)
--- NOTE | 2023-04-12 14:52 | PM.PN ---
Subjective Subjective: Patient is much more alert and awake today. She is sitting up in bed, follows all commands. She is attempting to talk to her sister, however appears to have expressive aphasia. She did not yet passed a speech evaluation. High risk for aspiration. Tmax 99.7 over last 24 hours. Medications: Reviewed: Yes Vitals/I&O/Wt Last Vital Signs Temp 99.2 F 04/12/23 12:00 Pulse 79 04/12/23 12:00 Resp 29 H 04/12/23 12:00 BP 148/86 04/12/23 12:00 Pulse Ox 90 04/12/23 12:00 O2 Del Method Nasal Cannula 04/12/23 12:00 O2 Flow Rate 2 04/12/23 12:00 04/11/23 04/12/23 04/12/23 22:59 06:59 14:59 Intake Total 50 / 82.80 50 / 132.80 150 / 150 Output Total 600 / 600 200 / 800 150 / 150 Balance -550 / -517.20 -150 / -667.20 0 / 0 Weight last 48 hrs Weight 92 kg Physical Exam Narrative: General: No acute distress, following all commands, expressive aphasia , failed swallow eval HEENT: PERRLA, pupils bilaterally equal and reactive, pallors not present Chest: Normal vesicular breath sounds, no added sounds, equal good air entry bilaterally CVS: S1-S2 regular, no murmurs, no tachycardia, no gallops, no rubs Abdomen: Soft, nontender, no organomegaly, bowel sounds present Neuro: RUE and RLE weaker compared to left Urinary Catheter Management: Boyd: Cath Placed During This Visit: yes Reason for Continuing Indwelling Catheter: Accurate Measurement of Urinary Output in Critically Ill Patients Urinary Catheter Date of Insertion: 04/09/23 Urinary Catheter Time of Insertion: 20:50 Data 04/12/23 03:25 04/12/23 03:25 Micro: Microbiology 04/11/23 04:04 Blood Culture - Preliminary Blood NEGATIVE TO DATE 04/11/23 04:00 Blood Culture - Preliminary Blood NEGATIVE TO DATE A&P Assessment and plan (1) Cerebral infarction, left hemisphere: Sarah Rogers is a 68 year old female with a history of poorly controlled diabetes mellitus, hypertension, COPD and congestive heart failure.? lase ssen normal at 7:55 PM on 04/09/2023. She was unable to be awakened the next morning by her family and brought to the ER. Found to be hypertensive on arrival, with aletred mental status which has now started to improve Initial CT head did not show any CVA Subsequently repeated a few hours later when she developed RUE weakness which showed developing infarct in posterior insula and M3. NIHSS 5 at time of neuro evaluation. Not a candidate for tPA Currently patient is much more alert and awake today. She is sitting up in bed, attempting to have a conversation with her sister at bedside, follows all commands, however unable to speak. Suspect she may have expressive aphasia. She is able to point and gesture to make her needs known. She has appreciable right-sided weakness when compared to left. She has failed a swallow evaluation today. (2) Altered mental status: related to CVA vs metabolic encephalopathy Ct head as above Mental status is improving today Other evaluation: TSH WNL , ammonia 23 Ethyl alcohol negative, has h/o moonshine use in the past per family, currently sober On [facility] monitoring currently U tox + amphetamines Has had low-grade fever, blood cx taken and pending continue CXR with infiltrates which may represent pneumonia, perhaps aspiration UA negative Zosyn empirically Qualifiers: Altered mental status type: unspecified Qualified Code(s): R41.82 - Altered mental status, unspecified (3) Uncontrolled diabetes mellitus: hba1c 10.6 Insulin sliding scale at moderate dose protocol every 6 hourly. (4) Uncontrolled hypertension: Goal blood pressure less than 140/90 mmHg. Weaned off nitro drip. Wean as per goal blood pressures. Labetalol prn for now Once able to swallow will resume oral medications (5) Amphetamine abuse: As seen in urine drug screen. (6) CHF (congestive heart failure), NYHA class III: Past history. Echocardiogram from January 2022 showed EF of 40% with grade 2 diastolic dysfunction, moderate global LV hypokinesia. Mild MR, PASP of 26 mmHg. Myocardial perfusion from 2020 scan negative for acute ischemia. Compensated for now. trop series 19--> 17--> 19, not concerning for ACS Qualifiers: Congestive heart failure type: unspecified Qualified Code(s): I50.9 - Heart failure, unspecified (7) COPD, moderate: No exacerbation. DuoNebs as needed. (8) Nicotine dependence, cigarettes, with unspecified nicotine-induced disorders: Nicotine patch Plan Full code NPO. Protonix for PUD prophylaxis Lovenox for DVT prophylaxis. Attestations Medical Necessity Statement*: Mental status improving today, needs continued neuro monitoring, PT OT speech therapy is ongoing. Coding Level of Care Code Acute Code for Chg Fwd High MDM includes number and complexity of problems actively addressed during encounter, amount and/or complexity of data reviewed/ordered and described risk of complication, morbidity or mortality of management as documented Diagnoses Cerebral infarction, left hemisphere I63.9 Altered mental status R41.82 Altered mental status type: unspecified Uncontrolled diabetes mellitus E11.65 Uncontrolled hypertension I10 Amphetamine abuse F15.10 CHF (congestive heart failure), NYHA class III I50.9 Congestive heart failure type: unspecified COPD, moderate J44.9 Nicotine dependence, cigarettes, with unspecified nicotine-induced disorders F17.219
--- NOTE | 2023-04-12 16:01 | PC.SOCIAL ---
IMM update IMM updated. Copy PG 2 placed at bedside. Initialled, dated, timed, and placed in chart.
[2023-04-12] MEDS: ketorolac 30 mg/mL INJ 15 MG IVP (16:20)
--- NOTE | 2023-04-12 17:47 | PC.NURSE ---
SHift SUmmary. Patient sat on the side of the bed with physical therapy, but unable to stand. Mental status, strength, and coordination is improved compared to yesterday. By the end of shift, patient is able to raise both arms with the right arm drifting, raise both legs with the right leg drifting. Able to bring both hands to face, but unable to touch nose due to lack of coordination. Unable to perform heel to merlos test, possibly due to lack of understanding. Patient has been communicating with hand gestures, nodding head yes and no, and occasionally saying yes and no. Speech has been too mumbled to understand, but words are starting to become more clear, whereas this morning it was completely unintelligible. When asked to smile patient is unable to do so, but face appears symmetrical at rest. Ability to perform neuro check tests has varied throughout the day, but overall improved. Total urine output has been 250mL.
[2023-04-12 18:10] LABS: Glucose Point of Care 167 mg/dL (70-110)
[2023-04-13] VITALS (27 sets, daily range): BP systolic 124–180; BP diastolic 68–103; PULSE 65–79; RESP 16–29; TEMP 36.3–37.3; O2SAT 92–98; BMI 35.9
[2023-04-13 00:58] LABS: Glucose Point of Care 143 mg/dL (70-110)
[2023-04-13] MEDS: pantoprazole 40 mg SDV IVP (01:09)
[2023-04-13] MEDS: insulin lispro 100 unit/1 mL SUBCUT ×3 (01:09→17:15)
[2023-04-13] MEDS: enoxaparin 40 mg/0.4 mL Syringe SUBCUT (01:09)
[2023-04-13 02:58] LABS: Basophils # 0.1 10^3/uL (0.0-0.1); Basophils % 0.7 %; Eosinophils # 0.3 10^3/uL (0.0-0.8); Eosinophils % 3.3 %; Hematocrit 42.7 % (37.0-47.0); Hemoglobin 13.5 g/dL (11.5-15.3); Lymphocytes # 1.5 10^3/uL (0.8-4.8); Lymphocytes % 17.1 %; Mean Corpuscular HGB Conc 31.6 g/dL (30.0-36.0); Mean Corpuscular Hemoglobin 26.6 pg (28.0-34.0); Mean Corpuscular Volume 84.2 fl (81-99); Mean Platelet Volume 10.8 fL (7.4-10.4); Monocytes # 0.6 10^3/uL (0.2-0.9); Monocytes % 6.5 %; Neutrophils # 6.41 10^3/uL (1.8-7.7); Neutrophils % 72.2 %; Nucleated Red Blood Cells % 0 %; Platelet Count 195 10^3/cmm (130-400); Red Blood Count 5.07 10^6/uL (4.1-5.3); Red Cell Distribution Width 13.8 % (12.1-15.1); White Blood Count 8.9 10^3/uL (4.0-10.0)
[2023-04-13] MEDS: piperacillin-tazobactam 3.375 GM in sodium chloride 0.9% (plus) 50 ML IV ×3 (03:04→19:42)
[2023-04-13 03:18] LABS: Alanine Aminotransferase 7 U/L (0-33); Albumin Level 3.6 g/dL (3.5-5.2); Alkaline Phosphatase 115 U/L (35-105); Anion Gap 17.7 (5-19); Aspartate Amino Transferase 13 U/L (0-32); Blood Urea Nitrogen 19 mg/dL (8-23); Calcium 8.9 mg/dL (8.5-10.5); Carbon Dioxide 21 mmol/L (22-29); Chloride 106 mmol/L (98-107); Globulin 2.4 g/dL (1.3-4.6); Glomerular Filtration Rate 55.3 mL/min (90-130); Glucose 134 mg/dL (65-115); Osmolality Calculated 296 mOsm/kg (285-295); Potassium 3.7 mmol/L (3.5-5.1); Sodium 141 mmol/L (136-145); Total Bilirubin 0.6 mg/dL (0.15-1.2)
[2023-04-13 06:16] LABS: Glucose Point of Care 138 mg/dL (70-110)
--- NOTE | 2023-04-13 08:16 | PC.NURSE ---
weakness on right remains attempt to verbalize but unadible words understands and follow commands at this time on o2 2l few crackes bases of lungs noted clearing with cough oral care done npo pending speech eval this am
[2023-04-13] MEDS: nicotine 14 mg Patch 1 PATCH TRANSDERMA (08:41)
--- NOTE | 2023-04-13 11:21 | PC.NURSE ---
christopher brown ensure this am.. large loose bm noted . sister here agree with pt going to rehab center when question about grandson who live with her and sister related that he is with her brother
[2023-04-13 11:40] LABS: Glucose Point of Care 209 mg/dL (70-110)
[2023-04-13] MEDS: ketorolac 30 mg/mL INJ 15 MG IVP (13:37)
--- NOTE | 2023-04-13 13:44 | PC.NURSE ---
very restless moaning cleaned linen change done .. loose bm beverley care done medication given for disomfort in back
--- NOTE | 2023-04-13 14:32 | PM.PN ---
Subjective Subjective: Patient continues to be alert and awake today. She is able to answer some questions, however her words are extremely slurred. She has been started on drinking Ensure today with little sips from straw. She is able to communicate that she lives with her grandson and is okay with being transitioned to a SNF. Medications: Reviewed: Yes Vitals/I&O/Wt Last Vital Signs Temp 98 F 04/13/23 14:00 Pulse 74 04/13/23 14:00 Resp 19 H 04/13/23 14:00 BP 131/89 04/13/23 14:00 Pulse Ox 92 04/13/23 13:00 O2 Del Method Nasal Cannula 04/13/23 10:23 O2 Flow Rate 2 04/13/23 10:23 04/12/23 04/13/23 04/13/23 22:59 06:59 14:59 Intake Total 500 / 650 550 / 550 Output Total 250 / 400 300 / 700 600 / 600 Balance 250 / 250 -300 / -50 -50 / -50 Weight last 48 hrs Weight 92 kg Weight 92 kg Physical Exam Narrative: General: No acute distress, following all commands, expressive aphasia HEENT: PERRLA, pupils bilaterally equal and reactive, pallors not present Chest: Normal vesicular breath sounds, no added sounds, equal good air entry bilaterally CVS: S1-S2 regular, no murmurs, no tachycardia, no gallops, no rubs Abdomen: Soft, nontender, no organomegaly, bowel sounds present Neuro: RUE and RLE weaker compared to left , attempting to work with PT currently, unstaedy on her feet, unable to walk Urinary Catheter Management: Boyd: Cath Placed During This Visit: yes Reason for Continuing Indwelling Catheter: Accurate Measurement of Urinary Output in Critically Ill Patients Urinary Catheter Date of Insertion: 04/09/23 Urinary Catheter Time of Insertion: 20:50 Data 04/13/23 02:09 04/13/23 02:09 A&P Assessment and plan (1) Cerebral infarction, left hemisphere: Sarah Rogers is a 68 year old female with a history of poorly controlled diabetes mellitus, hypertension, COPD and congestive heart failure.? lase ssen normal at 7:55 PM on 04/09/2023. She was unable to be awakened the next morning by her family and brought to the ER. Found to be hypertensive on arrival, with altered mental status which is much improved Initial CT head did not show any CVA Subsequently repeated a few hours later when she developed RUE weakness which showed developing infarct in posterior insula and M3. NIHSS 5 at time of neuro evaluation. Not a candidate for tPA Currently patient is much more alert and awake. She is able to communicat evia gestures and few slurred words. Attempting to drink Ensure with straw. (2) Altered mental status: related to CVA Ct head as above Mental status is improved, she has residual right sided paralysis and expressive aphasia. Other evaluation: TSH WNL , ammonia 23 Ethyl alcohol negative, has h/o moonshine use in the past per family, currently sober On [facility] monitoring currently U tox + amphetamines Has had low-grade fever, blood cx taken and pending continue CXR with infiltrates which may represent pneumonia, perhaps aspiration UA negative Zosyn empirically Qualifiers: Altered mental status type: unspecified Qualified Code(s): R41.82 - Altered mental status, unspecified (3) Uncontrolled diabetes mellitus: hba1c 10.6 Insulin sliding scale at moderate dose protocol every 6 hourly. (4) Uncontrolled hypertension: Goal blood pressure less than 140/90 mmHg. Weaned off nitro drip. Wean as per goal blood pressures. Labetalol prn for now Once able to swallow will resume oral medications (5) Amphetamine abuse: As seen in urine drug screen. (6) CHF (congestive heart failure), NYHA class III: Past history. Echocardiogram from January 2022 showed EF of 40% with grade 2 diastolic dysfunction, moderate global LV hypokinesia. Mild MR, PASP of 26 mmHg. Myocardial perfusion from 2020 scan negative for acute ischemia. Compensated for now. trop series 19--> 17--> 19, not concerning for ACS Qualifiers: Congestive heart failure type: unspecified Qualified Code(s): I50.9 - Heart failure, unspecified (7) COPD, moderate: No exacerbation. DuoNebs as needed. (8) Nicotine dependence, cigarettes, with unspecified nicotine-induced disorders: Nicotine patch Plan Full code NPO. Protonix for PUD prophylaxis Lovenox for DVT prophylaxis. Attestations Medical Necessity Statement*: slowly improving, will benefit from continued rehab, transition to SNF Coding Level of Care Code Acute Code for Chg Fwd Diagnoses Cerebral infarction, left hemisphere I63.9 Altered mental status R41.82 Altered mental status type: unspecified Uncontrolled diabetes mellitus E11.65 Uncontrolled hypertension I10 Amphetamine abuse F15.10 CHF (congestive heart failure), NYHA class III I50.9 Congestive heart failure type: unspecified COPD, moderate J44.9 Nicotine dependence, cigarettes, with unspecified nicotine-induced disorders F17.219
[2023-04-13 17:10] LABS: Glucose Point of Care 210 mg/dL (70-110)
[2023-04-14] VITALS (23 sets, daily range): BP systolic 126–218; BP diastolic 74–123; PULSE 62–74; RESP 17–30; TEMP 36.4–36.5; O2SAT 89–98; BMI 35.9
[2023-04-14 00:29] LABS: Glucose Point of Care 188 mg/dL (70-110)
[2023-04-14] MEDS: insulin lispro 100 unit/1 mL SUBCUT ×3 (01:12→18:13)
[2023-04-14] MEDS: pantoprazole 40 mg SDV IVP (01:13)
[2023-04-14] MEDS: enoxaparin 40 mg/0.4 mL Syringe SUBCUT (01:13)
[2023-04-14 03:02] LABS: Basophils # 0.1 10^3/uL (0.0-0.1); Basophils % 0.6 %; Eosinophils # 0.3 10^3/uL (0.0-0.8); Eosinophils % 3.7 %; Hematocrit 42.4 % (37.0-47.0); Hemoglobin 13.3 g/dL (11.5-15.3); Lymphocytes # 1.7 10^3/uL (0.8-4.8); Lymphocytes % 19.6 %; Mean Corpuscular HGB Conc 31.4 g/dL (30.0-36.0); Mean Corpuscular Hemoglobin 26.8 pg (28.0-34.0); Mean Corpuscular Volume 85.5 fl (81-99); Mean Platelet Volume 10.7 fL (7.4-10.4); Monocytes # 0.7 10^3/uL (0.2-0.9); Monocytes % 7.5 %; Neutrophils # 5.89 10^3/uL (1.8-7.7); Neutrophils % 68.4 %; Nucleated Red Blood Cells % 0 %; Platelet Count 208 10^3/cmm (130-400); Red Blood Count 4.96 10^6/uL (4.1-5.3); Red Cell Distribution Width 13.7 % (12.1-15.1); White Blood Count 8.6 10^3/uL (4.0-10.0)
[2023-04-14 03:25] LABS: Alanine Aminotransferase 8 U/L (0-33); Albumin Level 3.5 g/dL (3.5-5.2); Alkaline Phosphatase 108 U/L (35-105); Anion Gap 16.9 (5-19); Aspartate Amino Transferase 12 U/L (0-32); Blood Urea Nitrogen 18 mg/dL (8-23); Calcium 9.1 mg/dL (8.5-10.5); Carbon Dioxide 23 mmol/L (22-29); Chloride 108 mmol/L (98-107); Globulin 2.5 g/dL (1.3-4.6); Glomerular Filtration Rate 62.5 mL/min (90-130); Glucose 170 mg/dL (65-115); Osmolality Calculated 304 mOsm/kg (285-295); Potassium 3.9 mmol/L (3.5-5.1); Sodium 144 mmol/L (136-145); Total Bilirubin 0.3 mg/dL (0.15-1.2)
[2023-04-14] MEDS: piperacillin-tazobactam 3.375 GM in sodium chloride 0.9% (plus) 50 ML IV ×3 (03:59→19:57)
[2023-04-14 05:43] LABS: Glucose Point of Care 124 mg/dL (70-110)
[2023-04-14] MEDS: thiamine 100 mg Tablet PO (08:36)
[2023-04-14] MEDS: folic acid 1 mg Tablet PO (08:36)
[2023-04-14] MEDS: lisinopril 10 mg Tablet 20 MG PO (08:36)
[2023-04-14] MEDS: atorvastatin 40 mg Tablet PO (08:36)
[2023-04-14] MEDS: multivitamin therapeutic Tablet 1 TAB PO (08:36)
[2023-04-14] MEDS: aspirin 81 mg EC Tablet PO (08:36)
[2023-04-14] MEDS: nicotine 14 mg Patch 1 PATCH TRANSDERMA (08:36)
--- NOTE | 2023-04-14 11:00 | PC.SOCIAL ---
IMM Updated Updated pt on IMM. No questions voiced. Provided pt a copy. Initialed, dated, & timed copy in chart.
[2023-04-14 12:02] LABS: Glucose Point of Care 203 mg/dL (70-110)
--- NOTE | 2023-04-14 12:26 | PC.NURSE ---
up in chair assist with beverley care bath had large loose bm at this time . taking po ensure tid no issues at this time .
--- NOTE | 2023-04-14 13:00 | PC.NURSE ---
pt up out of bed and pulled out iv by accident ,, resited into left inner arm has had several loose stools at this time ... taking small amt of pureed food
--- NOTE | 2023-04-14 15:28 | P.PN_ITS ---
Subjective Subjective: No acute overnight events. Continues to participate with the PT OT and which therapy. Cleared to take pur?ed diet today. Medications: Reviewed: Yes Vitals/I&O/Wt Last Vital Signs Temp 98.3 F 04/13/23 23:00 Pulse 68 04/14/23 14:00 Resp 22 H 04/14/23 14:00 BP 145/80 04/14/23 14:00 Pulse Ox 93 04/14/23 12:00 O2 Del Method Nasal Cannula 04/14/23 08:32 O2 Flow Rate 2 04/14/23 08:32 04/14/23 04/14/23 04/14/23 06:59 14:59 22:59 Intake Total 50 / 1215 650 / 650 Output Total 200 / 1400 Balance -150 / -185 650 / 650 Weight last 48 hrs Weight 92 kg Weight 92 kg Physical Exam Narrative: General: No acute distress HEENT: PERRLA, pupils bilaterally equal and reactive, pallors not present Chest: Normal vesicular breath sounds, no added sounds, equal good air entry bilaterally CVS: S1-S2 regular, no murmurs, no tachycardia, no gallops, no rubs Abdomen: Soft, nontender, no organomegaly, bowel sounds present Neuro: Right-sided weakness, facial droop, unchanged over previous exams. Expressive aphasia. Urinary Catheter Management: Boyd: Cath Placed During This Visit: yes Reason for Continuing Indwelling Catheter: Accurate Measurement of Urinary Output in Critically Ill Patients Urinary Catheter Date of Insertion: 04/09/23 Urinary Catheter Time of Insertion: 20:50 Data 04/14/23 02:17 04/14/23 02:17 A&P Assessment and plan (1) Cerebral infarction, left hemisphere: Sarah Rogers is a 68 year old female with a history of poorly controlled diabetes mellitus, hypertension, COPD and congestive heart failure.? lase ssen normal at 7:55 PM on 04/09/2023. She was unable to be awakened the next morning by her family and brought to the ER. Found to be hypertensive on arrival, with altered mental status which is now resolved. Patient has expressive aphasia. She is able to communicate with gestures and response to all commands. Initial CT head did not show any CVA Subsequently repeated a few hours later when she developed RUE weakness which showed developing infarct in posterior insula and M3. NIHSS 5 at time of neuro evaluation. Not a candidate for tPA Cleared by speech therapy today to start pur?ed diet. (2) Altered mental status: related to CVA Ct head as above Mental status is improved, she has residual right sided paralysis and expressive aphasia. Other evaluation: TSH WNL , ammonia 23 Ethyl alcohol negative, has h/o moonshine use in the past per family, currently sober On [facility] monitoring currently U tox + amphetamines Has had low-grade fever, blood cx taken and pending continue CXR with infiltrates which may represent pneumonia, perhaps aspiration UA negative Zosyn empirically for 5 days Qualifiers: Altered mental status type: unspecified Qualified Code(s): R41.82 - Altered mental status, unspecified (3) Uncontrolled diabetes mellitus: hba1c 10.6 Insulin sliding scale at moderate dose protocol every 6 hourly. (4) Uncontrolled hypertension: Goal blood pressure less than 140/90 mmHg. Weaned off nitro drip. Labetalol prn for now Start amlodipine 10 mg p.o. daily now that she is able to swallow (5) Amphetamine abuse: As seen in urine drug screen. (6) CHF (congestive heart failure), NYHA class III: Past history. Echocardiogram from January 2022 showed EF of 40% with grade 2 diastolic dysfu nction, moderate global LV hypokinesia. Mild MR, PASP of 26 mmHg. Myocardial perfusion from 2020 scan negative for acute ischemia. Compensated for now. trop series 19--> 17--> 19, not concerning for ACS Qualifiers: Congestive heart failure type: unspecified Qualified Code(s): I50.9 - Heart failure, unspecified (7) COPD, moderate: No exacerbation. DuoNebs as needed. (8) Nicotine dependence, cigarettes, with unspecified nicotine-induced disorder s: Nicotine patch Plan Full code NPO. Protonix for PUD prophylaxis Lovenox for DVT prophylaxis. Dispo: Plan for transition to SNF for continued rehab post stroke. Case management working on placement. She lives at home with her 12-year-old grandson who is currently being cared for by other family members. Patient will not be safe to return home alone by herself. This documentation was created by [employer] strategy analyst software. Every effort was made to ensure accuracy of strategy analyst. Any obvious errors or omissions should be clarified with the author of the document. Transfer to [facility] [place] Attestations Medical Necessity Statement*: Will benefit from continued inpatient stay for rehab, ongoing disposition planning Coding Level of Care Code Acute Code for Chg Fwd Diagnoses Cerebral infarction, left hemisphere I63.9 Altered mental status R41.82 Altered mental status type: unspecified Uncontrolled diabetes mellitus E11.65 Uncontrolled hypertension I10 Amphetamine abuse F15.10 CHF (congestive heart failure), NYHA class III I50.9 Congestive heart failure type: unspecified COPD, moderate J44.9 Nicotine dependence, cigarettes, with unspecified nicotine-induced disorders F17.219
[2023-04-14 17:54] LABS: Glucose Point of Care 155 mg/dL (70-110)
--- NOTE | 2023-04-14 19:51 | PC.NURSE ---
ISolation order refelxed from testing all testing negative
[2023-04-14 23:22] LABS: Glucose Point of Care 172 mg/dL (70-110)
[2023-04-15] VITALS (7 sets, daily range): BP systolic 112–145; BP diastolic 70–84; PULSE 66–75; RESP 16–18; TEMP 36.4–36.6; O2SAT 92–98
[2023-04-15] MEDS: enoxaparin 40 mg/0.4 mL Syringe SUBCUT (01:14)
[2023-04-15] MEDS: insulin lispro 100 unit/1 mL SUBCUT ×3 (01:14→18:01)
[2023-04-15] MEDS: piperacillin-tazobactam 3.375 GM in sodium chloride 0.9% (plus) 50 ML IV (04:54)
[2023-04-15 06:24] LABS: Glucose Point of Care 135 mg/dL (70-110)
[2023-04-15] MEDS: aspirin 81 mg EC Tablet PO (08:20)
[2023-04-15] MEDS: atorvastatin 40 mg Tablet PO (08:20)
[2023-04-15] MEDS: thiamine 100 mg Tablet PO (08:20)
[2023-04-15] MEDS: nicotine 14 mg Patch 1 PATCH TRANSDERMA (08:20)
[2023-04-15] MEDS: multivitamin therapeutic Tablet 1 TAB PO (08:20)
[2023-04-15] MEDS: amlodipine 5 mg Tablet PO (08:20)
[2023-04-15] MEDS: pantoprazole DR 40 mg Tablet PO (08:20)
[2023-04-15] MEDS: folic acid 1 mg Tablet PO (08:20)
[2023-04-15] MEDS: lisinopril 10 mg Tablet 20 MG PO (08:20)
--- NOTE | 2023-04-15 08:39 | PM.PN ---
Subjective Subjective: History of Present Illness: Sarah Rogers is a 68 year old female with a history of poorly controlled diabetes mellitus, COPD and congestive heart failure, hypertension, nicotine use and positive amphetamine drug screen and history of moonshine use.? The patient was reported to go to bed around 7:55 PM on 04/09/2023.? It was reported that the patient's 12-year-old grandson who lives with the patient could not arouse the patient at 7:55 PM on 04/09/2023 which was the time the patient was reported to go to bed. Therefore the time of the patient's last known well was not clear and could not be determined. The patient was brought to [facility] emergency room only responsive to sternal rub.? Code stroke was initiated but after blood sugar was obtained and reported to elevated at 522, and blood pressure was significantly. The patient's clinical presentation was more consistent with a diffuse encephalopathy related to hyperglycemic.?No family member was available to give any additional information regarding the patient.? Initially the patient was only arousable to sternal rub. The patient was given IV insulin for elevated serum glucose.? After approximately 15 minutes the patient became more arousable and remained awake although still confused and nonverbal except for moaning and mumbling. The patient followed some commands.? There was no obvious facial weakness.? Pupils 3 to 4 mm and reactive to light.? Patient was looking in all directions.? The patient was moving all extremities with no obvious focal weakness.? Plantar responses were flexor bilaterally.? There was no clonus.? Sensory examination was intact to touch and tactile stimulation.? There was no obvious neglect.? Visual lindsay could not be assessed secondary to lack of patient cooperation and confusion.? There was no obvious ataxia when the patient was moving her arms and legs.? Dysarthria and speech could not be assessed secondary to confusion and nonfluent aphasia.? Grossly NIH score =5.? Noncontrast head CT scan was obtained and reported to be negative.? Blood pressure was elevated 177/111 with heart rate of 82 and O2 saturations 94% on room.? CBC reveals slightly elevated white of 12.5.? Other metabolic labs were unremarkable. The patient was admitted to the intensive care unit ICU bed #3. In the ICU the patient's blood pressure remained elevated on IV nitroglycerin and blood sugars although improved remain elevated. The patient was reported to have a change in mental status on 04/10/2023 and repeat noncontrast head CT was obtained and revealed Developing acute infarct in the posterior left insula and M3 branch distribution. The patient was given IV hydralazine but blood pressure remained elevated and therefore IV hydralazine was discontinued in case the medication was contributing to the patient's mental status changes and IV nitroglycerin was titrated up to address elevated blood pressure. Patient was placed on Ativan as needed for agitation. The patient became less agitated and her blood pressure improved as well as her blood sugar and she was transferred to [facility] room 275 bed 1. This morning on 04/15/2023 the patient is in no apparent distress. She is calm and will follow some commands. She will attempt to say her name but has clear nonfluent aphasia. There is no obvious focal weakness. Blood pressure was reported to be stable this morning. Past medical history: Chronic obstructive pulmonary disease Diabetes mellitus, poorly controlled Hypertension Congestive heart failure Drug allergies: Sulfonamide antibiotics type of reaction unknown Home medications: Lipitor 40 mg p.o. daily Wellbutrin XL 150 mg p.o. daily Farxiga 5 mg p.o. daily Lasix 40 mg p.o. daily Potassium chloride 20 mEq p.o. daily Lisinopril 10 mg p.o. daily Metformin 1000 mg p.o. daily Metoprolol XL 25 mg p.o. daily Pantoprazole 40 mg p.o. daily Nitroglycerin as needed chest pain Tresiba 200 units subcutaneously daily Habits: Patient smokes, drug screen positive for amphetamines and family reports patient has history of drinking moonshine Family history: Unknown Review of Systems General:?? Reports: ROS unobt ainable due to men angie status Vitals/I&O/Wt Last Vital Signs Temp 97.7 F 04/15/23 07:47 Pulse 66 04/15/23 07:47 Resp 16 04/15/23 07:47 BP 145/84 04/15/23 07:47 Pulse Ox 92 04/15/23 07:47 O2 Del Method Room Air 04/15/23 07:47 O2 Flow Rate 2 04/14/23 22:41 04/14/23 04/15/23 04/15/23 22:59 06:59 14:59 Intake Total 490 / 1140 50 / 1190 240 / 240 Output Total 325 / 325 Balance 165 / 815 50 / 865 240 / 240 Weight last 48 hrs Weight 202 lb 13.204 oz Weight 202 lb 13.204 oz Physical Exam Narrative: The patient is lying in bed in no apparent distress. The sitter is at the patient's bedside sitting on the left side of the patient in the corner of the patient's room. The patient is alert. Patient has a nonfluent aphasia. The patient does follow some commands and attempted to tell me her name this morning. Cranial nerves II through XII grossly intact pupils 4 mm round and reactive to light. Extraocular movements appear to be grossly intact. Motor exam grossly nonfocal. Throat clear. Lungs reveal no wheezes. Extremities were negative for clubbing or cyanosis Urinary Catheter Management: Boyd: Cath Placed During This Visit: yes Reason for Continuing Indwelling Catheter: Other Urinary Catheter Date of Insertion: 04/09/23 Urinary Catheter Time of Insertion: 20:50 Data 04/14/23 02:17 04/14/23 02:17 A&P Assessment and plan (1) Cerebral infarction, left hemisphere: (2) Encephalopathy acute: (3) Uncontrolled hypertension: (4) Uncontrolled diabetes mellitus: (5) Altered mental status: Qualifiers: Altered mental status type: unspecified Qualified Code(s): R41.82 - Altered mental status, unspecified (6) Amphetamine abuse: (7) CHF (congestive heart failure), NYHA class III: Qualifiers: Congestive heart failure type: unspecified Qualified Code(s): I50.9 - Heart failure, unspecified (8) Type 2 diabetes mellitus, without long-term current use of insulin: Qualifiers: Diabetes mellitus complication status: with hyperglycemia Qualified Code(s): E11.65 - Type 2 diabetes mellitus with hyperglycemia (9) COPD, moderate: (10) Urinary incontinence, mixed: (11) Nicotine dependence, cigarettes, with unspecified nicotine-induced disorders: Plan Assessment: 1. Acute infarct in the posterior left insula and M3 branch distribution associated with nonfluent aphasia 2. Metabolic encephalopathy secondary to hyperglycemia 3. Poorly controlled type 2 diabetes mellitus 4. Malignant hypertension, improved 5. Chronic obstructive pulmonary disease 6. History of noncompliance with prescription medications 7. Congestive heart failure 8. Tobacco use 9. Positive amphetamine drug screen 10. History of drinking moonshine Plan: 1. Discontinue Ativan since patient mental status has improved and patient is no longer agitated 2. Continue occupational therapy, physical therapy and speech therapy 3. Agree with low-dose aspirin 81 mg p.o. every morning and consider increasing aspirin to 325 mg p.o. every morning with food once patient is no longer on Lovenox 4. Agree with Lipitor as prescribed following stroke per NIH stroke protocol Attestations Medical Necessity Statement*: Patient seen by neurology secondary to stroke, and metabolic encephalopathy Coding Level of Care Code 23060 Diagnoses Cerebral infarction, left hemisphere I63.9 Encephalopathy acute G93.40 Uncontrolled hypertension I10 Uncontrolled diabetes mellitus E11.65 Altered mental status R41.82 Altered mental status type: unspecified 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 Urinary incontinence, mixed N39.46 Nicotine dependence, cigarettes, with unspecified nicotine-induced disorders F17.219
--- NOTE | 2023-04-15 11:07 | P.PN_ITS ---
Subjective Subjective: expressive aphasia, shakes head yes and knowingly nod. Does follow simple commands. seen sitting in chair with a sitter. Vitals/I&O/Wt Last Vital Signs Temp 97.7 F 04/15/23 07:47 Pulse 66 04/15/23 07:47 Resp 16 04/15/23 07:47 BP 145/84 04/15/23 07:47 Pulse Ox 92 04/15/23 07:47 O2 Del Method Room Air 04/15/23 07:47 O2 Flow Rate 2 04/14/23 22:41 04/14/23 04/15/23 04/15/23 22:59 06:59 14:59 Intake Total 490 / 1140 50 / 1190 290 / 290 Output Total 325 / 325 Balance 165 / 815 50 / 865 290 / 290 Weight last 48 hrs Weight 92 kg Physical Exam Narrative: 68year-old female in no acute distress. Moist cough. NIHSS: 13. Severe expressive aphasia right arm drift right leg lifts from gravity, unable to say words or repeat sentences. Right arm leg sensory defect possible extinction. Heart: Normal S1-S2 without murmurs gallops or rubs Lungs: Diminished throughout a few scattered rhonch Abdomen: Soft nontender nondistended normal bowel sounds Extremities trace bilateral lower extremity pitting edema i Urinary Catheter Management: Boyd: Cath Placed During This Visit: yes Reason for Continuing Indwelling Catheter: Other Urinary Catheter Date of Insertion: 04/09/23 Urinary Catheter Time of Insertion: 20:50 Data 04/14/23 02:17 04/14/23 02:17 A&P Assessment and plan (1) Cerebral infarction, left hemisphere: Patient was found to have CVA after admission thus no tPA administered. NIHSS is 13. Spoke with case management I think with patient's age and the need to care for a grandson as a legal guardian I would recommend more intensive therapy at a inpatient [facility]. I spoke with patient about that and she seemed to be agreeable. Recommend talking to family. (2) Uncontrolled hypertension: Must allow permissive hypertension for now. Patient is currently on Norvasc and lisinopril with blood pressure 145/84. Will hold Norvasc for now and decrease lisinopril dose allow systolic BP up to 180. In a few months, goal blood pressure would be 140/85 or lower. (3) Uncontrolled diabetes mellitus: Globin A1c 10.6, last checked January 2022 was 8.2. We will start low-dose Lantus with short acting insulin as needed (4) Amphetamine abuse: (5) CHF (congestive heart failure), NYHA class III: Currently only treatment regimen is lisinopril will investigate further Qualifiers: Congestive heart failure type: unspecified Qualified Code(s): I50.9 - Heart failure, unspecified (6) Type 2 diabetes mellitus, without long-term current use of insulin: As above we will start long-term insulin Qualifiers: Diabetes mellitus complication status: with hyperglycemia Qualified Code(s): E11.65 - Type 2 diabetes mellitus with hyperglycemia (7) COPD, moderate: Patient not on any inhalers will attempt to start. I not be able to participate correctly given her CVA. (8) Nicotine dependence, cigarettes, with unspecified nicotine-induced disorders: On nicotine replacement patch, will need counseling to quit Plan Recommend inpatient rehab for more intensive rehabilitation Attestations Medical Necessity Statement*: Patient is status post CVA. Needs close monitoring and transfer to an inpatient rehabilitation program. Coding Level of Care Code Acute Code for [facility] Fwd Diagnoses Cerebral infarction, left hemisphere I63.9 Uncontrolled hypertension I10 Uncontrolled diabetes mellitus E11.65 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 Nicotine dependence, cigarettes, with unspecified nicotine-induced disorders F17.219
[2023-04-15 11:24] LABS: Glucose Point of Care 215 mg/dL (70-110)
[2023-04-15] MEDS: amoxicillin-clav 875-125 mg Tablet 1 TAB PO ×2 (13:01→18:01)
[2023-04-15] MEDS: ipratropium-albuterol 3 mL Neb INHALATION (14:06)
[2023-04-15] MEDS: ketorolac 30 mg/mL INJ 15 MG IVP (16:43)
[2023-04-15] MEDS: acetaminophen 325 mg Tablet 650 MG PO (17:25)
[2023-04-15 18:09] LABS: Glucose Point of Care 225 mg/dL (70-110)
[2023-04-15 20:39] LABS: Glucose Point of Care 213 mg/dL (70-110)
[2023-04-15] MEDS: LORazepam 0.5 mg Tablet PO (20:54)
[2023-04-15] MEDS: insulin glargine 100 units/1 mL 10 UNIT SUBCUT (20:54)
[2023-04-15] MEDS: atorvastatin 40 mg Tablet 80 MG PO (20:55)
[2023-04-16] VITALS (11 sets, daily range): BP systolic 120–166; BP diastolic 58–98; PULSE 62–83; RESP 16–22; TEMP 36.3–36.9; O2SAT 89–98
[2023-04-16 00:20] LABS: Glucose Point of Care 192 mg/dL (70-110)
[2023-04-16] MEDS: enoxaparin 40 mg/0.4 mL Syringe SUBCUT (01:02)
[2023-04-16] MEDS: insulin lispro 100 unit/1 mL SUBCUT ×3 (01:02→18:08)
[2023-04-16 06:11] LABS: Glucose Point of Care 109 mg/dL (70-110)
[2023-04-16] MEDS: acetaminophen 325 mg Tablet 650 MG PO (06:18)
[2023-04-16] MEDS: aspirin 81 mg EC Tablet PO (08:36)
[2023-04-16] MEDS: folic acid 1 mg Tablet PO (08:36)
[2023-04-16] MEDS: lisinopril 10 mg Tablet PO (08:36)
[2023-04-16] MEDS: amoxicillin-clav 875-125 mg Tablet 1 TAB PO ×2 (08:36→18:05)
[2023-04-16] MEDS: multivitamin therapeutic Tablet 1 TAB PO (08:36)
[2023-04-16] MEDS: thiamine 100 mg Tablet PO (08:37)
[2023-04-16] MEDS: nicotine 14 mg Patch 1 PATCH TRANSDERMA (08:37)
[2023-04-16] MEDS: ipratropium-albuterol 3 mL Neb INHALATION ×3 (08:55→20:18)
[2023-04-16 11:59] LABS: Glucose Point of Care 209 mg/dL (70-110)
--- NOTE | 2023-04-16 12:44 | PC.SOCIAL ---
IMM Updated Updated pt on IMM. No questions voiced. Provided pt a copy. Initialed, dated, & timed copy in chart.
[2023-04-16 17:57] LABS: Glucose Point of Care 370 mg/dL (70-110)
--- NOTE | 2023-04-16 18:56 | P.PN_ITS ---
Subjective Subjective: expressive aphasia, shakes head yes and knowingly nod. Does follow simple commands. seen sitting in chair with a sitter. Vitals/I&O/Wt Last Vital Signs Temp 97.5 F L 04/16/23 15:12 Pulse 70 04/16/23 15:12 Resp 20 H 04/16/23 15:12 BP 128/79 04/16/23 15:12 Pulse Ox 89 L 04/16/23 15:12 O2 Del Method Room Air 04/16/23 15:12 O2 Flow Rate 2 04/14/23 22:41 04/16/23 04/16/23 04/16/23 06:59 14:59 22:59 Intake Total 240 / 1490 360 / 360 120 / 480 Output Total 350 / 1150 300 / 300 Balance -110 / 340 360 / 360 -180 / 180 Weight last 48 hrs Weight 95.527 kg Weight 95.572 kg Physical Exam Narrative: Patient seen lying in bed somewhat restless. She had a few moments. Moist cough. NIHSS: 13. Severe expressive aphasia right arm drift right leg lifts from gravity, unable to say words or repeat sentences. Right arm leg sensory deficit Heart: Normal S1-S2 without murmurs gallops or rubs Lungs: Diminished throughout a few scattered rhonch Abdomen: Soft nontender nondistended normal bowel sounds Extremities trace bilateral lower extremity pitting edema Urinary Catheter Management: Boyd: Cath Placed During This Visit: yes Reason for Continuing Indwelling Catheter: Acute Urinary Retention or Obstruction Urinary Catheter Date of Insertion: 04/09/23 Urinary Catheter Time of Insertion: 20:50 Data 04/14/23 02:17 04/14/23 02:17 Micro: Microbiology 04/11/23 04:04 Blood Culture - Final Blood NO GROWTH AFTER 5 DAYS 04/11/23 04:00 Blood Culture - Final Blood NO GROWTH AFTER 5 DAYS A&P Assessment and plan (1) Cerebral infarction, left hemisphere: Patient was found to have CVA after admission thus no tPA administered. NIHSS is 13. Recommend inpatient rehabilitation center. Case management said that [facility] denied admission however I would like to investigate further tomorrow (2) Uncontrolled hypertension: Must allow permissive hypertension for now. Stopped Norvasc on 04/15 and decreased lisinopril. Blood pressures range 1 20-1 60. In a few months, goal blood pressure would be 140/85 or lower. (3) Uncontrolled diabetes mellitus: Yuval globin A1c 10.6, last checked January 2022 was 8.2. We will start low-dose Lantus with short acting insulin as needed (4) Amphetamine abuse: (5) CHF (congestive heart failure), NYHA class III: Currently only treatment regimen is lisinopril will investigate further Qualifiers: Congestive heart failure type: unspecified Qualified Code(s): I50.9 - Heart failure, unspecified (6) Type 2 diabetes mellitus, without long-term current use of insulin: As above we will start long-term insulin Qualifiers: Diabetes mellitus complication status: with hyperglycemia Qualified Cod e(s): E11.65 - Type 2 diabetes mellitus with hyperglycemia (7) COPD, moderate: Patient not on any inhalers will attempt to start. I not be able to participate correctly given her CVA. (8) Nicotine dependence, cigarettes, with unspecified nicotine-induced disorde rs: On nicotine replacement patch, will need counseling to quit Plan Recommend inpatient rehab for more intensive rehabilitation Attestations Medical Necessity Statement*: Patient with stroke monitoring for neurologic conversion blood pressure management and cardiac complications. Coding Level of Care Code Acute Code for [facility] Fwd Diagnoses Cerebral infarction, left hemisphere I63.9 Uncontrolled hypertension I10 Uncontrolled diabetes mellitus E11.65 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 Nicotine dependence, cigarettes, with unspecified nicotine-induced disorders F17.219
[2023-04-16 20:48] LABS: Glucose Point of Care 197 mg/dL (70-110)
[2023-04-16] MEDS: atorvastatin 40 mg Tablet 80 MG PO (20:49)
[2023-04-16] MEDS: insulin glargine 100 units/1 mL 10 UNIT SUBCUT (20:49)
[2023-04-17] VITALS (8 sets, daily range): BP systolic 136–160; BP diastolic 82–100; PULSE 62–74; RESP 16–20; TEMP 36.4–36.6; O2SAT 90–96
[2023-04-17 00:50] LABS: Glucose Point of Care 255 mg/dL (70-110)
[2023-04-17] MEDS: enoxaparin 40 mg/0.4 mL Syringe SUBCUT (00:53)
[2023-04-17] MEDS: acetaminophen 325 mg Tablet 650 MG PO ×2 (00:53→10:18)
[2023-04-17] MEDS: insulin lispro 100 unit/1 mL SUBCUT ×2 (00:54→12:39)
[2023-04-17 06:07] LABS: Glucose Point of Care 123 mg/dL (70-110)
[2023-04-17] MEDS: ipratropium-albuterol 3 mL Neb INHALATION ×2 (08:31→13:23)
[2023-04-17] MEDS: multivitamin therapeutic Tablet 1 TAB PO (09:42)
[2023-04-17] MEDS: amoxicillin-clav 875-125 mg Tablet 1 TAB PO (09:42)
[2023-04-17] MEDS: thiamine 100 mg Tablet PO (09:42)
[2023-04-17] MEDS: aspirin 81 mg EC Tablet PO (09:42)
[2023-04-17] MEDS: lisinopril 10 mg Tablet PO (09:42)
[2023-04-17] MEDS: folic acid 1 mg Tablet PO (09:42)
[2023-04-17] MEDS: nicotine 14 mg Patch 1 PATCH TRANSDERMA (09:42)
[2023-04-17 11:12] LABS: SARS Covid-2 Antigen negative (Negative)
[2023-04-17 11:48] LABS: Glucose Point of Care 208 mg/dL (70-110)
--- NOTE | 2023-04-17 14:38 | P.DS_ITS ---
Discharge Providers Date of Admission: 04/09/23 23:20 Date of Discharge: April 17, 2023 Attending Provider at Admission: Cristiane Kelly MD Attending Provider at Discharge: Rashard Trinidad DO Primary Care Provider: Joann Cardona Diagnoses at Discharge Discharge Diagnosis (1) Cerebral infarction, left hemisphere: Status: Acute (2) Uncontrolled hypertension: Status: Acute (3) Uncontrolled diabetes mellitus: Status: Acute (4) Amphetamine abuse: Status: Acute (5) CHF (congestive heart failure), NYHA class III: Status: Acute Qualifiers: Congestive heart failure type: unspecified Qualified Code(s): I50.9 - Heart failure, unspecified (6) Type 2 diabetes mellitus, without long-term current use of insulin: Status: Acute Qualifiers: Diabetes mellitus complication status: with hyperglycemia Qualified Code(s): E11.65 - Type 2 diabetes mellitus with hyperglycemia (7) COPD, moderate: Status: Acute (8) Nicotine dependence, cigarettes, with unspecified nicotine-induced disorders: Status: Chronic Reason for Visit Reason for Visit: AMS Brief History: Patient presented with altered mental status and was treated for pneumonia initially. Work-up ensued and showed left MCA Hospital Course Hospital Course Patient was admitted and treated for pneumonia. When her mental status improved it was obvious that patient had a right-sided weakness and she was found to have a left MCA stroke and global aphasia. She was out of window for tPA. She was allowed permissive hypertension her blood pressure medicine was on hold. She was placed on a baby aspirin. Initially I recommended inpatient rehabilitation at [facility]. Apparently her insurance limits therapy days. Thus it would be better to go to a long term facility for a few weeks and then to transfer to inpatient rehab. He is allow permissive hypertension for another couple of weeks and then slowly bring her down to a normal blood pressure over the course of 1 to 2 months. Be placed on Lovenox for DVT prophylaxis in approximately 3 more days. Physical Exam Narrative: Patient seen lying in bed somewhat restless. She had a few moments. Moist cough. NIHSS: 13. Severe expressive aphasia right arm drift right leg lifts from gravity, unable to say words or repeat sentences. Right arm leg sensory deficit Heart: Normal S1-S2 without murmurs gallops or rubs Lungs: Diminished throughout a few scattered rhonch Abdomen: Soft nontender nondistended normal bowel sounds Extremities trace bilateral lower extremity pitting edema Urinary Catheter Management: Boyd: Cath Placed During This Visit: yes Reason for Continuing Indwelling Catheter: Acute Urinary Retention or Obstruction Urinary Catheter Date of Insertion: 04/09/23 Urinary Catheter Time of Insertion: 20:50 Discharge Data Studies Completed and Pending Completed Studies During Hospitalization Category Date Time Status CT head thrombolytic [id number] Stat Cat Scan 04/09/23 20:[address] head wo con* [id number] Stat Cat Scan 04/10/23 05:56 Completed CTA head neck [CT angio headneck* [id number]] Stat Cat Scan 04/10/23 06:21 Completed XR chest 1V portable [id number] Stat Exams 04/09/23 20:36 Completed Radiology Impressions Chest X-Ray 04/09/23 20:36 IMPRESSION: Minimal perihilar and right medial lung base interstitial infiltrates are present. Correlate for pneumonia versus pulmonary vascular congestion. Head CT 04/10/23 05:56 IMPRESSION: Developing acute infarct in the posterior left insula and M3 branch distribution. ASSESSMENT: ASPECTS ([place] Stroke Program Early CT Score) is 8. ADDENDUM: 04/10/23 0621 THIS REPORT CONTAINS FINDINGS THAT MAY BE CRITICAL TO PATIENT CARE. The findings were verbally communicated via telephone conference with CRISTIANE KELLY at 6:18 AM CDT on 04/10/2023. The findings were acknowledged and understood. Head/Neck CTA 04/10/23 06:21 IMPRESSION: No intracranial large vessel occlusion. IMPRESSION: No stenosis or occlusion. REFERENCES: NASCET CRITERIA. The degree of stenosis in the cervical segment of the internal carotid artery is based on NASCET criteria. Normal is no stenosis. Mild is less than 50% stenosis. Moderate is 50-69% stenosis. Severe is 70% to 99% stenosis. Total occlusion is no detectable patent lumen. Laboratory Results WBC 8.6 10^3/uL (4.0-10.0) 04/14/23 02:17 RBC 4.96 10^6/uL (4.1-5.3) 04/14/23 02:17 Hgb 13.3 g/dL (11.5-15.3) 04/14/23 02:17 Hct 42.4 % (37.0-47.0) 04/14/23 02:17 MCV 85.5 fl (81-99) 04/14/23 02:17 MCH 26.8 pg (28.0-34.0) L 04/14/23 02:17 MCHC 31.4 g/dL (30.0-36.0) 04/14/23 02:17 RDW 13.7 % (12.1-15.1) 04/14/23 02:17 Plt Count 208 10^3/cmm (130-400) 04/14/23 02:17 MPV 10.7 fL (7.4-10.4) H 04/14/23 02:17 Neut % (Auto) 68.4 % 04/14/23 02:17 Lymph % (Auto) 19.6 % 04/14/23 02:17 [place] % (Auto) 7.5 % 04/14/23 02:17 Eos % (Auto) 3.7 % 04/14/23 02:17 Baso % (Auto) 0.6 % 04/14/23 02:17 Neut # (Auto) 5.89 10^3/uL (1.8-7.7) 04/14/23 02:17 Lymph # (Auto) 1.7 10^3/uL (0.8-4.8) 04/14/23 02:17 [place] # (Auto) 0.7 10^3/uL (0.2-0.9) 04/14/23 02:17 Eos # (Auto) 0.3 10^3/uL (0.0-0.8) 04/14/23 02:17 Baso # (Auto) 0.1 10^3/uL (0.0-0.1) 04/14/23 02:17 Nucleated RBC % (auto) 0 % 04/14/23 02:17 Nucleated RBCs # 0.0 /100WBC 04/14/23 02:17 PT 14.50 SECONDS (12.1-14.9) 04/09/23 21:25 INR 1.09 (0.8-1.2) 04/09/23 21:25 APTT 25.1 SECONDS (23.9-36.7) 04/09/23 21:25 Sodium 144 mmol/L (136-145) 04/14/23 02:17 Potassium 3.9 mmol/L (3.5-5.1) 04/14/23 02:17 Chloride 108 mmol/L (98-107) H 04/14/23 02:17 Carbon Dioxide 23 mmol/L (22-29) 04/14/23 02:17 Anion Gap 16.9 (5-19) 04/14/23 02:17 BUN 18 mg/dL (8-23) 04/14/23 02:17 Creatinine 0.9 mg/dL (0.5-0.9) 04/14/23 02:17 GFR Calculation 62.5 mL/min (90-130) L 04/14/23 02:17 Glucose 170 mg/dL (65-115) H 04/14/23 02:17 POC Glucose 208 mg/dL (70-110) H 04/17/23 11:46 Estimat Average Glucose 258 04/10/23 02:25 Hemoglobin A1c 10.6 % (4.0-6.0) H 04/10/23 02:25 Calculated Osmolality 304 mOsm/kg (285-295) H 04/14/23 02:17 Lactic Acid 3.0 mmol/L (0.5-2.2) H 04/09/23 21:25 Lactic Acid (Sepsis) 1.5 mmol/L (0.5-2.2) 04/10/23 00:27 Calcium 9.1 mg/dL (8.5-10.5) 04/14/23 02:17 Phosphorus 2.9 mg/dL (2.5-4.5) 04/11/23 04:00 Magnesium 1.9 mg/dL (1.7-2.3) 04/11/23 04:00 Iron 36 ug/dL (37-145) L 04/09/23 21:25 TIBC 281 mcg/dl 04/09/23 21:25 % Saturation 12.8 % (20-50) L 04/09/23 21:25 Unsat Iron Binding 245 ug/dL (112-347) 04/09/23 21:25 Total Bilirubin 0.3 mg/dL (0.15-1.2) 04/14/23 02:17 AST 12 U/L (0-32) 04/14/23 02:17 ALT 8 U/L (0-33) 04/14/23 02:17 Alkaline Phosphatase 108 U/L (35-105) H 04/14/23 02:17 Ammonia 23 umol/L (11-51) 04/10/23 17:02 Creatine Kinase 50 U/L (26-192) 04/10/23 17:02 Troponin T Baseline 19 ng/L (0-10) H 04/09/23 20:12 Troponin T 120 Minute 17.07 ng/L (0-10) H 04/09/23 22:09 Delta Troponin T -1.93 ABS# (0-10) L 04/09/23 22:09 Troponin T Hi Sens 6Hr 19.00 ng/L (0-10) H 04/10/23 02:25 Troponin T Hi Sens 6Hr Delta 0 ng/L (0-12) 04/10/23 02:25 NT-Pro-B Natriuret Pep 1461 pg/mL (0-125) H 04/09/23 21:25 Total Protein 6.0 g/dL (6.6-8.7) L 04/14/23 02:17 Albumin 3.5 g/dL (3.5-5.2) 04/14/23 02:17 Globulin 2.5 g/dL (1.3-4.6) 04/14/23 02:17 Triglycerides 137 mg/dL (0-150) 04/10/23 02:25 Cholesterol 133 mg/dL (0-200) 04/10/23 02:25 LDL Cholesterol, Calc 76 mg/dL (50-129) 04/10/23 02:25 Total VLDL Cholesterol 27 mg/dL (0-30) 04/10/23 02:25 HDL Cholesterol 30 mg/dL (60-100) L 04/10/23 02:25 Cholesterol/HDL Ratio 4.43 mg/dL (0.0-4.40) H 04/10/23 02:25 Aldolase 6.0 U/L (< OR = 8.1) 04/10/23 17:02 Vitamin B12 732 pg/mL (232-1245) 04/09/23 21:25 Folate 13.4 ng/mL (4.8-37.3) 04/10/23 02:25 Procalcitonin 0.04 ng/mL (0-0.5) 07/26/23 02:25 TSH 0.58 uIU/mL (0.27-4.20) 04/10/23 02:25 Urine Color Yellow (Yellow) 04/09/23 21:00 Urine Appearance Clear (CLEAR) 04/09/23 21:00 Urine pH 5 (5-7) 04/09/23 21:00 Ur Specific [place] 1.020 (1.005-1.030) 04/09/23 21:00 Urine Protein Neg (Negative) 04/09/23 21:00 Urine Glucose (UA) 4+ (Normal) H 04/09/23 21:00 Urine Ketones Negative (Negative) 04/09/23 21:00 Urine Blood Neg (Negative) 04/09/23 21:00 Urine Nitrate Negative (Negative) 04/09/23 21:00 Urine Bilirubin Neg (Negative) 04/09/23 21:00 Urine Urobilinogen Norm mg/dL (Negative) 04/09/23 21:00 Ur Leukocyte Esterase Negative (Negative) 04/09/23 21:00 Nasal Influ A H1 2009 PCR Not detected (NOT DETECT) 04/11/23 16:27 Urine Opiates Screen Negative ng/mL (Negative) 04/09/23 21:00 Ur Barbiturates Screen Negative ng/mL (Negative) 04/09/23 21:00 Ur Phencyclidine Scrn Negative ng/mL (Negative) 04/09/23 21:00 Ur Amphetamines Screen Positive ng/mL (Negative) H 04/09/23 21:00 U Benzodiazepines Scrn Negative ng/mL (Negative) 04/09/23 21:00 Urine Cocaine Screen Negative ng/mL (Negative) 04/09/23 21:00 U Marijuana (THC) Screen Negative ng/mL (Negative) 04/09/23 21:00 Ethyl Alcohol < 10 mg/dL (0-10) 04/09/23 21:25 Serum Ketones Negative (Negative) 04/09/23 21:25 Adenovirus (PCR) Not detected (NOT DETECT) 04/11/23 16:27 C. pneumoniae DNA (PCR) Not detected (NOT DETECT) 04/11/23 16:27 Coronavirus 229E (PCR) Not detected (NOT DETECT) 04/11/23 16:27 Human Metapneumovir PCR Not detected (NOT DETECT) 04/11/23 16:27 Influenza A (H1) PCR Not detected (NOT DETECT) 04/11/23 16:27 Influenza A (H3) PCR Not detected (NOT DETECT) 04/11/23 16:27 Influenza Type A (PCR) Not detected (NOT DETECT) 04/11/23 16:27 Influenza Type B (PCR) Not detected (NOT DETECT) 04/11/23 16:27 M. pneumoniae (PCR) Not detected (NOT DETECT) 04/11/23 16:27 Parainfluenza 1 (PCR) Not detected (NOT DETECT) 04/11/23 16:27 Parainfluenza 2 (PCR) Not detected (NOT DETECT) 04/11/23 16:27 Parainfluenza 3 (PCR) Not detected (NOT DETECT) 04/11/23 16:27 Parainfluenza 4 (PCR) Not detected (NOT DETECT) 04/11/23 16:27 RSV Type A (PCR) Not detected (NOT DETECT) 04/11/23 16:27 RSV Type B (PCR) Not detected (NOT DETECT) 04/11/23 16:27 Entero/Rhino (PCR) Not detected (NOT DETECT) 04/11/23 16:27 SARS-CoV-2 (PCR) Not detected (NOT DETECT) 04/11/23 16:27 SARS-CoV-2 Ag (Rapid) negative (Negative) 04/17/23 09:52 Vitals Last Vital Signs Temp 97.6 F 04/17/23 11:12 Pulse 62 04/17/23 13:23 Resp 16 04/17/23 13:23 BP 160/100 04/17/23 11:12 Pulse Ox 92 04/17/23 13:23 O2 Del Method Room Air 04/17/23 13:23 O2 Flow Rate 2 04/14/23 22:41 Discharge Plan Discharge Patient Disposition: Xfer SNF Condition: Stable Prescriptions: New nicotine 14 mg/24 hr Patch 24 Hour 1 patch transdermal DAILY Qty: 30 0RF Vitamin B-1 (mononitrate) 100 mg Tablet 100 mg PO DAILY Qty: 30 0RF Continued (DME) lancets [Accu-Chek Fastclix Lancet Drum] Misc See Rx Instructions .Route Qty: 100 0RF Rx Instructions: As directed (DME) Blood Pressure Cuff Misc See Rx Instructions .Route Qty: 1 0RF Rx Instructions: As directed furosemide [Lasix] 40 mg tablet 40 mg PO DAILY 30 Days Qty: 30 0RF potassium chloride 20 mEq tablet,ER particles/crystals 20 meq PO DAILY 30 Days Qty: 30 0RF pantoprazole 40 mg tablet,delayed release (DR/EC) 40 mg PO DAILY Qty: 30 0RF lisinopril 10 mg tablet 20 mg PO DAILY 30 Days Qty: 30 0RF nitroglycerin 0.4 mg tablet, sublingual 0.4 mg SUBLINGUAL Q5M PRN (Reason: Chest Pain) 30 Days Qty: 10 0RF aspirin 81 mg tablet,chewable 81 mg PO EVERY OTHER DAY Qty: 30 0RF metoprolol succinate 25 mg tablet extended release 24 hr 25 mg PO DAILY Qty: 30 0RF atorvastatin 40 mg tablet 40 mg PO DAILY metformin 1,000 mg tablet 1,000 mg PO BID bupropion HCl 150 mg tablet extended release 24 hr 150 mg PO DAILY Tresiba FlexTouch U-200 200 unit/mL (3 mL) insulin pen 10 unit SUBCUT DAILY Combivent Respimat 20-100 mcg/actuation mist 1 puff INHALATION QID PRN (Reason: Shortness Of Breath) Discharge Orders: Discharge Order (Routine); Ordered 04/17/23 Ordered By: Rashard Trinidad Referrals: [facility] [Outside] Joann Cardona PA [Primary Care Provider] - Discharge Diet: Advance as tolerated Discharge Activity: Increase activity as tolerated Discharge Attestations Time Spent in Discharge Care*: greater than 30 min Status at Discharge: Cognitive status at discharge: cognitively intact , Behavioral status at discharge: cooperative , Quality Metrics Clinical Quality Measures [ Cerebrovascular Accident { Contraindication to Antithrombotic: None; antithrombotic prescribed; Contraindication to Anticoagulation: Medical contraindication; Contraindication to Statin: None; Statin prescribed; Contraindication to antithrombotic day 2: Medical contraindication; Contraindication to tPA: Did not meet criteria; Symptom Onset Unknown: Yes; Reason stroke education not provided: Stroke education provided to patient; Rehab services assessed: Physical therapy, Occupational therapy, Speech therapy; Reason rehab assessment not done: Rehab assessment done}] Coding Level of Care Code Acute Code for [facility] Fwd Diagnoses Cerebral infarction, left hemisphere I63.9 Uncontrolled hypertension I10 Uncontrolled diabetes mellitus E11.65 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 Nicotine dependence, cigarettes, with unspecified nicotine-induced disorders F17.219
--- NOTE | 2023-04-17 15:38 | PC.NURSE ---
report called to Sandy ESPARZA at [facility]
== END 2023-04-17 15:40 | disposition skilled nursing facility (03) | DRG 64 ==
LOC: ER 23:03 → ER IP 04-10 00:06 → ICU 04-10 00:45 → MEDSURG 04-14 20:16
PROVIDERS: Psychiatry & Neurology Neurology; Student in an Organized Health Care Education/Training Program; Admitting Provider Student in an Organized Health Care Education/Training Program; Emergency Provider Emergency Medicine; PCP Physician Assistant; Visit Provider Internal Medicine
DX: I63.512 Cerebral infarction due to unspecified occlusion or stenosis of left middle cerebral artery (principal); G93.41 Metabolic encephalopathy; J18.9 Pneumonia, unspecified organism; G81.91 Hemiplegia, unspecified affecting right dominant side; I50.32 Chronic diastolic (congestive) heart failure; J44.0 Chronic obstructive pulmonary disease with (acute) lower respiratory infection; R47.01 Aphasia; R29.810 Facial weakness; R29.713 NIHSS score 13; I11.0 Hypertensive heart disease with heart failure; E11.65 Type 2 diabetes mellitus with hyperglycemia; F15.10 Other stimulant abuse, uncomplicated; F17.210 Nicotine dependence, cigarettes, uncomplicated; Z79.82 Long term (current) use of aspirin; Z79.84 Long term (current) use of oral hypoglycemic drugs; Z79.4 Long term (current) use of insulin; F41.9 Anxiety disorder, unspecified; F32.A Depression, unspecified; K21.9 Gastro-esophageal reflux disease without esophagitis; Z87.440 Personal history of urinary (tract) infections; Z91.148 Patient's other noncompliance with medication regimen for other reason; F10.90 Alcohol use, unspecified, uncomplicated; N39.46 Mixed incontinence; Z75.1 Person awaiting admission to adequate facility elsewhere
CPT/HCPCS: 36415; 36416; 51702; 70450; 70496; 70498; 71045; 80053; 80061; 80306; 80307; 81003; 82009; 82085; 82140; 82550; 82607; 82746; 82962; 83036; 83540; 83550; 83605; 83735; 83880; 84100; 84145; 84443; 84484; 85025; 85610; 85730; 87040; 87426; 87486; 87581; 87633; 92507; 92523; 92526; 92610; 93005; 94640; 96361; 96372; 96374; 96376; 97110; 97112; 97116; 97162; 97166; 97530; 97535; 99285; 99291; 99292; C9113; J0360; J1650; J1815; J1885; J2060; J2270; J2543; J3411; J3490; J7030; Q9967

== ENCOUNTER 2023-04-29 17:07 | Inpatient (IN) | payer MEDICARE, MEDICAID, SELFPAY ==
[2023-04-29] VITALS (11 sets, daily range): BP systolic 102–179; BP diastolic 60–99; PULSE 92–115; RESP 16–33; TEMP 37.8–38.4; O2SAT 87–97
--- NOTE | 2023-04-29 17:15 | CTR_ITS ---
PROCEDURE INFORMATION: Exam: CT Head Without Contrast Exam date and time: 04/29/2023 5:39 PM Age: 68 years old Clinical indication: Stroke-like symptoms; Altered mental status/memory loss; Additional info: Change in mentation TECHNIQUE: Imaging protocol: Computed tomography of the head without contrast. Radiation optimization: All CT scans at this facility use at least one of these dose optimization techniques: automated exposure control; mA and/or kV adjustment per patient size (includes targeted exams where dose is matched to clinical indication); or iterative reconstruction. Other technique: STROKE PROTOCOL was implemented. REPORTING DATA: Count of CT and Cardiac NM exams in prior 12 months: This patient has received 3 known CTs and 0 known cardiac nuclear medicine studies in the 12 months prior to the current study. COMPARISON: CT head wo con* [id number] 04/10/2023 6:03 AM RADIATION DOSE METRICS: Total DLP (mGy-cm): 1564.99 FINDINGS: Brain: There is increasing hypodensity in the left posterior insula, posterior temporal lobe and inferior parietal lobe compared with 04/10/2023 consistent with evolving infarct. There is new cortical hyperdensity in the left posterior parietal region which likely represents petechial hemorrhage in area of prior infarction. No new areas of infarction are identified. There is no large area of parenchymal hemorrhage. There is no mass effect or midline shift. Consider further evaluation with MRI to better determine the age of these findings. Cerebral ventricles: No ventriculomegaly. Paranasal sinuses: Visualized sinuses are unremarkable. No fluid levels. Mastoid air cells: Visualized mastoid air cells are well aerated. Bones/joints: Unremarkable. No acute fracture. Soft tissues: Unremarkable. CT/CT head wo con* [id number] IMPRESSION: Hemorrhagic conversion of early chronic infarcts as described. ASSESSMENT: ASPECTS ([place] Stroke Program Early CT Score) is 10.
--- NOTE | 2023-04-29 17:17 | ECG_ITS ---
[facility] Test Date: 2023-04-29 Pat Name: Sarah Rogers Department: Room: Gender: Female Bingo Attendant: : 1955 Requested By: Andry Browning Order Number: [id number] Elana MD: Dee Gannon M.D. Measurements Intervals [place] Rate: 94 P: 32 IL: 157 QRS: -34 QRSD: 102 T: 70 QT: 368 QTc: 462 Interpretive Statements SINUS RHYTHM WITH FREQUENT SUPRAVENTRICULAR PREMATURE COMPLEXES LEFT AXIS DEVIATION [QRS AXIS < -30] INCOMPLETE RIGHT BUNDLE BRANCH BLOCK [90+ ms QRS DURATION, TERMINAL R IN V1/V2, 40+ ms S IN I/aVL/V4/V5/V6] VOLTAGE CRITERIA FOR LVH [MEETS CRITERIA IN ONE OF: R(aVL), S(V1), R(V5), R(V5/V6)+S(V1)] POSSIBLE SEPTAL MYOCARDIAL INFARCTION , OF INDETERMINATE AGE [30 ms Q WAVE IN V1/V2] Compared to ECG 04/09/2023 22:32:49 Incomplete right bundle-branch block now present Myocardial infarct finding now present ST (T wave) deviation no longer present Electronically Signed On 04-30-2023 3:49:59 CDT by Dee Gannon M.D. [id number]
--- NOTE | 2023-04-29 17:17 | XRR_ITS ---
PROCEDURE INFORMATION: Exam: XR Chest Exam date and time: 04/29/2023 5:24 PM Age: 68 years old Clinical indication: Other: AMS; Additional info: Fever AMS TECHNIQUE: Imaging protocol: Radiologic exam of the chest. Views: 1 view. COMPARISON: CR (CHEST, ) 04/09/2023 8:43 PM FINDINGS: Lungs: Prominent interstitial markings are probably chronic and are not appreciably changed. There are reduced lung volumes. Pleural spaces: Unremarkable. No pleural effusion. No pneumothorax. Heart/Mediastinum: Borderline cardiomegaly. Bones/joints: Unremarkable. XR/XR chest 1V portable [id number] IMPRESSION: Prominent interstitial markings are probably chronic and are not appreciably changed.
[2023-04-29] MEDS: LORazepam 2 mg/mL INJ 1 mL 1 MG IVP (17:20)
[2023-04-29 17:31] LABS: Basophils # 0.1 10^3/uL (0.0-0.1); Basophils % 0.6 %; Eosinophils # 0.1 10^3/uL (0.0-0.8); Eosinophils % 0.3 %; Hematocrit 43.5 % (37.0-47.0); Lymphocytes # 1.7 10^3/uL (0.8-4.8); Lymphocytes % 11.3 %; Mean Corpuscular HGB Conc 32.2 g/dL (30.0-36.0); Mean Corpuscular Hemoglobin 26.5 pg (28.0-34.0); Mean Corpuscular Volume 82.4 fl (81-99); Mean Platelet Volume 10.9 fL (7.4-10.4); Monocytes # 0.6 10^3/uL (0.2-0.9); Monocytes % 4.2 %; Neutrophils # 12.31 10^3/uL (1.8-7.7); Neutrophils % 83.1 %; Nucleated Red Blood Cells % 0 %; Platelet Count 241 10^3/cmm (130-400); Red Blood Count 5.28 10^6/uL (4.1-5.3); Red Cell Distribution Width 13.7 % (12.1-15.1); White Blood Count 14.8 10^3/uL (4.0-10.0)
[2023-04-29 17:39] LABS: ABG PCO2 26.2 mmHg (35-45); ABG PH Result 7.52 (7.35-7.45); Arterial Blood Gas Hematocrit 42.6 % (37-47); Base Excess ABG 0.1 mmol/L (-2.0-2.0); Blood Gas Operator Identificat AMH; Blood Gas Sample Site Brachial, right; Blood Gas Sample Type Arterial; Carboxyhemoglobin 2.2 %THgb (0.4-20.1); HCO3 ABG 21.5 mmol/L (22-26); HGB O2 Sat 90.6 % (95-100); Methemoglobin < 0.0 % (0.4-1.5); Oxygen Device ROOM AIR; PO2 ABG 52.6 mmHg (80.0-100.0); Total Hemoglobin 13.9 g/dL (12-16)
[2023-04-29 17:43] LABS: INR 1.19 (0.8-1.2)
[2023-04-29 17:44] LABS: Partial Thromboplastin Time 28.8 SECONDS (23.9-36.7)
--- NOTE | 2023-04-29 17:51 | PC.NURSE ---
on phone with sister who states pt had stroke about a week ago that affected her speech. states pt was admitted to [facility] but checked herself out the next day. says she does not know if the pt's symptoms had resolved since then because she has not been around her since then.
[2023-04-29 17:55] LABS: Alanine Aminotransferase 11 U/L (0-33); Albumin Level 3.9 g/dL (3.5-5.2); Alkaline Phosphatase 121 U/L (35-105); Blood Urea Nitrogen 11 mg/dL (8-23); Calcium 9.5 mg/dL (8.5-10.5); Carbon Dioxide 22 mmol/L (22-29); Chloride 98 mmol/L (98-107); Globulin 3.5 g/dL (1.3-4.6); Glomerular Filtration Rate 71.5 mL/min (90-130); Glucose 203 mg/dL (65-115); Osmolality Calculated 285 mOsm/kg (285-295); Sodium 135 mmol/L (136-145); Total Bilirubin 0.7 mg/dL (0.15-1.2); Total Protein 7.4 g/dL (6.6-8.7)
--- NOTE | 2023-04-29 17:57 | ED_ITS ---
HPI - Altered Mental Status General: Chief Complaint: Altered Mental Status Stated Complaint: ams Time Seen by Provider: 04/29/23 17:14 History of Present Illness: 68-year-old female brought to emergency room by EMS with a complaint of elevated blood pressure and change in mentation for unknown duration. According to family and EMS patient was recently admitted to the hospital on the of this month and diagnosed with acute ischemic stroke. Patient was discharged to a local rehab center but patient left AMA 2 days after she was admitted. Upon present emergency room today, patient appeared to be aphasic and confused. Patient was also noted to be febrile. Cording to the family no recent fall or known head injury. No recent alcohol or drug abuse. Review of Systems General: Reports: ROS unobtainable due to medical condition PFSH ED PFSH: Medical History (Updated 04/30/23 @ 18:00 by Dami Lamar MD) Altered mental status Anxiety and depression Benign essential HTN Chest pain CHF (congestive heart failure), NYHA class III COPD exacerbation COPD, moderate GERD (gastroesophageal reflux disease) H/O cholecystitis Heart failure Hematoma of left kidney Intracranial bleed Major contusion of left kidney, subsequent encounter Nicotine dependence, cigarettes, with unspecified nicotine-induced disorders Type 2 diabetes mellitus, without long-term current use of insulin Uncontrolled diabetes mellitus Uncontrolled hypertension Urinary incontinence, mixed Urinary tract infection, site not specified Surgical History H/O: hysterectomy Family History Family/Other Diabetes CAD (coronary artery disease) Hypertension Lung disease Social History Smoking and tobacco status: current every day smoker cigarettes Packs smoked per day: 1 Alcohol intake: never Substance/Drug Use: never Adopted: No Caregiver/support person: No Marital status: Current occupational status: disabled Physical Exam Const: EXAM LIMITATIONS: altered mental status and behavioral limitations HENMT: COMMON NORMALS: normocephalic, atraumatic, hearing grossly normal bilaterally, external ears normal, EAC's normal, TM's normal bilaterally, Normal external nose present, Normal nasal mucous membranes and turbinates present, moist oral mucous membranes, oropharynx normal, dentition normal and gingiva normal HEAD & SCALP: normocephalic and atraumatic NOSE: Normal external nose present and Normal nasal mucous membranes and turbinates present EXTERNAL EAR: Yes external ears normal EXTERNAL AUDITORY CANAL: EAC's normal TYMPANIC MEMBRANE: TM's normal bilaterally Eye: COMMON NORMALS: Equal, round and reactive pupils present, EOMs intact bilaterally, conjunctivae normal, no scleral icterus, no papilledema, normal visual lindsay by confrontation and fundi normal bilaterally CONJUNCTIVA: Yes conjunctivae normal PUPIL: Yes Equal, round and reactive pupils present DIRECT OPHTHALMOSCOPY: Yes no papilledema and Yes fundi normal bilaterally Neck/C-Spine: COMMON NORMALS: no meningeal signs GENERAL: No tender, No torticollis, No JVD, No submandibular swelling, No Meningeal signs present and No Mass present (neck) Chest: COMMONS NORMALS: normal inspection of the chest, normal palpation of entire chest wall, normal inspection of the breasts and normal palpation of the breasts Resp: COMMON NORMALS: normal respiratory effort, No retractions, No use of accessory muscles, clear to auscultation bilaterally and percussion normal AUSCULTATION: clear to auscultation bilaterally PERCUSSION: percussion normal GI: COMMON NORMALS: Soft to palpation PALPATION: Yes Soft to palpation, Yes Tenderness to palpation present (GI) Details: other ( gastric area), No Hepatomegaly present, No Splenomegaly present, No Hernia present, No Pulsatile mass present and No Ascites present : EXTERNAL FEMALE EXAM: No Hernia present Neuro: COMMON NORMALS: no focal motor deficits and no sensory deficits noted MENINGEAL SIGNS: Yes no meningeal signs CRANIAL NERVES: Yes CN normal except as noted SPEECH: Total aphasia Skin: COMMON NORMALS: no rashes or lesions noted, no wounds, turgor normal, no jaundice, no petechiae and no mottling GENERAL SKIN EXAM: no rashes or lesions noted and turgor normal Course Reevaluation(s): Reevaluation #1: Stable no new focal deficits. Reevaluation #2: CT scan and lab discussed with patient's family. She remained stable without a ny acute distress at this time. Consultations: Consultation #1: Discussed patient with the radiologist. Consulted the hospitalist and recommended consulting with neurologist. Consultation #2: Discussed patient with neurologist and recommended CTA head and neck Consultation #3: After reviewing the CT the I spoke with neurologist. He is okay admitted patient to the hospitalist at this time. Recommended holding Plavix and aspirin. Vital Signs: Vital signs: Vital Signs Temperature 99.1 F 05/01/23 00:01 Pulse Rate 85 05/01/23 00:00 Respiratory Rate 38 H 05/01/23 00:00 Blood Pressure 163/88 05/01/23 00:00 Pulse Oximetry 95 05/01/23 00:00 Oxygen Delivery Me thod Oxymask 05/01/23 00:00 Oxygen Flow Rate 5 04/30/23 20:30 MDM - Altered Mental Status Medical Decision Making Patient was made comfortable emergency room. I thoroughly reviewed past medical history and medication list. Patient extensive work-up done including CBC, CMP, CT head, CTA head and neck, chest x-ray, CBC, CMP UA and chest x-ray. She was given IV fluid, IV antibiotics and Ativan. Discussed patient with the hospitalist multiple times and with neurology few times. Differential Diagnosis Likely alcoholic intoxication, altered mental status, delirium, dementia, hypoglycemia, hyponatremia, subarachnoid hemorrhage and sepsis Lab Data 04/30/23 04:47 04/30/23 04:[address] 04/29/23 17:15 IMPRESSION: Hemorrhagic conversion of early chronic infarcts as described. ASSESSMENT: ASPECTS (Cara Stroke Program Early CT Score) is 10. ADDENDUM: 04/29/231816 Addendum: THIS REPORT CONTAINS FINDINGS THAT MAY BE CRITICAL TO PATIENT CARE. The findings were verbally communicated via telephone conference with VICKIE FORBES at 6:16 PM CDT on 04/29/2023. The findings were acknowledged and understood. Chest X-Ray 04/29/23 17:17 IMPRESSION: Prominent interstitial markings are probably chronic and are not appreciably changed. Head/Neck CTA 04/29/23 19:33 IMPRESSION: 1. No large vessel stenosis or occlusion. 2. Findings of hemorrhagic conversion of the early chronic infarct again identified. IMPRESSION: 1. Mild left internal carotid artery stenosis. 2. No vascular occlusion involving the carotid or vertebral arteries in the neck. REFERENCES: NASCET CRITERIA. The degree of stenosis in the cervical segment of the internal carotid artery is based on NASCET criteria. Normal is no stenosis. Mild is less than 50% stenosis. Moderate is 50-69% stenosis. Severe is 70% to 99% stenosis. Total occlusion is no detectable patent lumen. Laboratory Results WBC 14.8 10^3/uL (4.0-10.0) H 04/29/23 16:55 RBC 5.28 10^6/uL (4.1-5.3) 04/29/23 16:55 Hgb 14.0 g/dL (11.5-15.3) 04/29/23 16:55 Hct 43.5 % (37.0-47.0) 04/29/23 16:55 MCV 82.4 fl (81-99) 04/29/23 16:55 MCH 26.5 pg (28.0-34.0) L 04/29/23 16:55 MCHC 32.2 g/dL (30.0-36.0) 04/29/23 16:55 RDW 13.7 % (12.1-15.1) 04/29/23 16:55 Plt Count 241 10^3/cmm (130-400) 04/29/23 16:55 MPV 10.9 fL (7.4-10.4) H 04/29/23 16:55 Neut % (Auto) 83.1 % 04/29/23 16:55 Lymph % (Auto) 11.3 % 04/29/23 16:55 [place] % (Auto) 4.2 % 04/29/23 16:55 Eos % (Auto) 0.3 % 04/29/23 16:55 Baso % (Auto) 0.6 % 04/29/23 16:55 Neut # (Auto) 12.31 10^3/uL (1.8-7.7) H 04/29/23 16:55 Lymph # (Auto) 1.7 10^3/uL (0.8-4.8) 04/29/23 16:55 [place] # (Auto) 0.6 10^3/uL (0.2-0.9) 04/29/23 16:55 Eos # (Auto) 0.1 10^3/uL (0.0-0.8) 04/29/23 16:55 Baso # (Auto) 0.1 10^3/uL (0.0-0.1) 04/29/23 16:55 Nucleated RBC % (auto) 0 % 04/29/23 16:55 Nucleated RBCs # 0.0 /100WBC 04/29/23 16:55 PT 15.50 SECONDS (12.1-14.9) H 04/29/23 16:55 INR 1.19 (0.8-1.2) 04/29/23 16:55 APTT 28.8 SECONDS (23.9-36.7) 04/29/23 16:55 Specimen Type Arterial 04/29/23 17:27 Sample Site Brachial, right 04/29/23 17:27 ABG pH 7.52 (7.35-7.45) H 04/29/23 17:27 ABG pCO2 26.2 mmHg (35-45) L 04/29/23 17:27 ABG pO2 52.6 mmHg (80.0-100.0) L 04/29/23 17:27 ABG HCO3 21.5 mmol/L (22-26) L 04/29/23 17:27 ABG Base Excess 0.1 mmol/L (-2.0-2.0) 04/29/23 17:27 Renaldo Test N/a 04/29/23 17:27 Hematocrit 42.6 % (37-47) 04/29/23 17:27 Hgb O2 Saturation 90.6 % (95-100) L 04/29/23 17:27 Carboxyhemoglobin 2.2 %THgb (0.4-20.1) 04/29/23 17:27 Methemoglobin < 0.0 % (0.4-1.5) L 04/29/23 17:27 Total Hemoglobin 13.9 g/dL (12-16) 04/29/23 17:27 O2 Delivery Device Room air 04/29/23 17:27 FiO2 21.0 % 04/29/23 17:27 Coil Repair Technician ID Amh 04/29/23 17:27 Sodium 135 mmol/L (136-145) L 04/29/23 16:55 Potassium 4.2 mmol/L (3.5-5.1) 04/29/23 16:55 Chloride 98 mmol/L (98-107) 04/29/23 16:55 Carbon Dioxide 22 mmol/L (22-29) 04/29/23 16:55 Anion Gap 19.2 (5-19) H 04/29/23 16:55 BUN 11 mg/dL (8-23) 04/29/23 16:55 Creatinine 0.8 mg/dL (0.5-0.9) 04/29/23 16:55 GFR Calculation 71.5 mL/min (90-130) L 04/29/23 16:55 Glucose 203 mg/dL (65-115) H 04/29/23 16:55 Calculated Osmolality 285 mOsm/kg (285-295) 04/29/23 16:55 Lactic Acid 2.2 mmol/L (0.5-2.2) 04/29/23 17:50 Lactic Acid (Sepsis) 2.3 mmol/L (0.5-2.2) H 04/29/23 20:59 Calcium 9.5 mg/dL (8.5-10.5) 04/29/23 16:55 Total Bilirubin 0.7 mg/dL (0.15-1.2) 04/29/23 16:55 AST 15 U/L (0-32) 04/29/23 16:55 ALT 11 U/L (0-33) 04/29/23 16:55 Alkaline Phosphatase 121 U/L (35-105) H 04/29/23 16:55 Total Protein 7.4 g/dL (6.6-8.7) 04/29/23 16:55 Albumin 3.9 g/dL (3.5-5.2) 04/29/23 16:55 Globulin 3.5 g/dL (1.3-4.6) 04/29/23 16:55 Procalcitonin 0.08 ng/mL (0-0.5) 04/29/23 16:55 Urine Color Yellow (Yellow) 04/29/23 22:28 Urine Appearance Cloudy (CLEAR) A 04/29/23 22:28 Urine pH 6.5 (5-7) 04/29/23 22:28 Ur Specific [place] 1.005 (1.005-1.030) 04/29/23 22:28 Urine Protein 2+ (Negative) H 04/29/23 22:28 Urine Glucose (UA) Trace (Normal) H 04/29/23 22:28 Urine Ketones 1+ (Negative) H 04/29/23 22:28 Urine Blood 3+ (Negative) H 04/29/23 22:28 Urine Nitrate Positive (Negative) H 04/29/23 22:28 Urine Bilirubin Neg (Negative) 04/29/23 22:28 Urine Urobilinogen Neg mg/dL (Negative) 04/29/23 22:28 Ur Leukocyte Esterase 2+ (Negative) H 04/29/23 22:28 Urine RBC 10-15 /hpf (0-2) H 04/29/23 22:28 Urine WBC 55-80 /hpf (0-5) H 04/29/23 22:28 Ur Squamous Epith Cells None /hpf (0-5) 04/29/23 22:28 Amorphous Sediment Not Reportable 04/29/23 22:28 Urine Bacteria 3+ /hpf (NONE) H 04/29/23 22:28 Urine Opiates Screen Negative ng/mL (Negative) 04/29/23 18:24 Ur Barbiturates Screen Negative ng/mL (Negative) 04/29/23 18:24 Ur Phencyclidine Scrn Negative ng/mL (Negative) 04/29/23 18:24 Ur Amphetamines Screen Negative ng/mL (Negative) 04/29/23 18:24 U Benzodiazepines Scrn Positive ng/mL (Negative) H 04/29/23 18:24 Urine Cocaine Screen Negative ng/mL (Negative) 04/29/23 18:24 U Marijuana (THC) Screen Negative ng/mL (Negative) 04/29/23 18:24 Ethyl Alcohol < 10 mg/dL (0-10) 04/29/23 16:55 Coronavirus 229E (PCR) Not detected (NOT DETECT) 04/29/23 22:27 SARS-CoV-2 (PCR) Not detected (NOT DETECT) 04/29/23 22:27 Critical Care Time Critical Care Time: Critical Care Time: Yes Total Critical Care Time: 45 Attestation: Time spent for multiple reevaluation of the patient. Time spent discussing patient with multiple field technical support consultant and hospitalist. Time spent discussing care and treatment with family. Time spent to review CT scan and lab work. Discharge Plan Discharge Patient Disposition: Admitted As Inpatient Admit Provider: Danna Campos Clinical Impression: Altered mental status, Encephalopathy acute, Leukocytosis, Fever, Hemorrhagic cerebrovascular accident (CVA) Condition: Stable Coding Level of Care Code ED Freight Sorter for Bobby Rothman
[2023-04-29 18:02] LABS: Procalcitonin 0.08 ng/mL (0-0.5)
[2023-04-29 18:13] LABS: Alcohol Level < 10 mg/dL (0-10); Anion Gap 19.2 (5-19); Aspartate Amino Transferase 15 U/L (0-32); Potassium 4.2 mmol/L (3.5-5.1)
[2023-04-29 18:18] LABS: Lactic Sepsis W/Reflex 2.2 mmol/L (0.5-2.2)
[2023-04-29] MEDS: piperacillin-tazobactam 3.375 GM in sodium chloride 0.9% (plus) 50 ML IV (18:26)
[2023-04-29 19:12] LABS: Amphetamines Screen Urine Negative (Negative); Barbiturates Screen Urine Negative (Negative); Benzodiazepines Screen Urine Positive (Negative); Cocaine Screen Urine Negative (Negative); Opiate Screen Urine Negative (Negative); PCP Screen Urine Negative (Negative); THC Screen Urine Negative (Negative)
--- NOTE | 2023-04-29 19:24 | PC.NURSE ---
RN into room to assess pt. Pt is currently laying on l side, groaning frequently but never lifting head up to look. Continuing to monitor pt.
--- NOTE | 2023-04-29 19:33 | CTR_ITS ---
PROCEDURE INFORMATION: Exam: CTA Head With Contrast, Arteriography Exam date and time: 04/29/2023 9:20 PM Age: 68 years old Clinical indication: Stroke-like symptoms; Altered mental status/memory loss; Additional info: AMS. Hemorrhagic conversion of left sided infarct noted on head w/o. Neurologist requested. TECHNIQUE: Imaging protocol: Computed tomographic angiography of the head with contrast. Exam focused on the arteries. 3D rendering (Not supervised by radiologist): MIP and/or 3D reconstructed images were created by the technologist. Radiation optimization: All CT scans at this facility use at least one of these dose optimization techniques: automated exposure control; mA and/or kV adjustment per patient size (includes targeted exams where dose is matched to clinical indication); or iterative reconstruction. Contrast material: OMNI 350; Contrast volume: 100 ml; Contrast route: INTRAVENOUS (IV); REPORTING DATA: Count of CT and Cardiac NM exams in prior 12 months: This patient has received 3 known CTs and 0 known cardiac nuclear medicine studies in the 12 months prior to the current study. COMPARISON: CT angio headneck* [id number] 04/10/2023 6:41 AM RADIATION DOSE METRICS: Total DLP (mGy-cm): 1120.4 FINDINGS: ANTERIOR CIRCULATION: Right internal carotid artery: Intracranial segment is patent with no significant stenosis. No aneurysm. Right middle cerebral artery: No occlusion or significant stenosis. No aneurysm. Right anterior cerebral artery: No occlusion or significant stenosis. No aneurysm. Left internal carotid artery: Intracranial segment is patent with no significant stenosis. No aneurysm. Left middle cerebral artery: No occlusion or significant stenosis. No aneurysm. Left anterior cerebral artery: No occlusion or significant stenosis. No aneurysm. POSTERIOR CIRCULATION: Right vertebral artery: No occlusion or significant stenosis. No aneurysm. Left vertebral artery: No occlusion or significant stenosis. No aneurysm. Basilar artery: No occlusion or significant stenosis. No aneurysm. Right posterior cerebral artery: No occlusion or significant stenosis. No aneurysm. Left posterior cerebral artery: No occlusion or significant stenosis. No aneurysm. Brain: Cortical hyperdensity in the area of the subacute infarction again identified not changed from the examination done earlier this evening.. Cerebral ventricles: No ventriculomegaly. Bones/joints: Unremarkable. No acute fracture. Soft tissues: Unremarkable. PROCEDURE INFORMATION: Exam: CTA Neck With Contrast Exam date and time: 04/29/2023 9:20 PM Age: 68 years old Clinical indication: Stroke-like symptoms; Altered mental status/memory loss; Additional info: AMS. Hemorrhagic conversion of left sided infarct noted on head w/o. Neurologist requested. TECHNIQUE: Imaging protocol: Computed tomographic angiography of the neck with contrast. 3D rendering (Not supervised by radiologist): MIP and/or 3D reconstructed images were created by the technologist. Radiation optimization: All CT scans at this facility use at least one of these dose optimization techniques: automated exposure control; mA and/or kV adjustment per patient size (includes targeted exams where dose is matched to clinical indication); or iterative reconstruction. Contrast material: OMNI 350; Contrast volume: 100 ml; Contrast route: INTRAVENOUS (IV); REPORTING DATA: Count of CT and Cardiac NM exams in prior 12 months: This patient has received 3 known CTs and 0 known cardiac nuclear medicine studies in the 12 months prior to the current study. COMPARISON: CT angio headneck* [id number] 04/10/2023 6:41 AM RADIATION DOSE METRICS: Total DLP (mGy-cm): 1120.4 FINDINGS: Limitations: Study is somewhat limited by patient respiratory motion. This limits visualization findings in the upper chest Right common carotid artery: No stenosis. No dissection or occlusion. Right internal carotid artery: No stenosis of the extracranial segment. No dissection or occlusion. Right external carotid artery: No occlusion or stenosis of the origin. Left common carotid artery: No stenosis. No dissection or occlusion. Left internal carotid artery: There is some mild narrowing of the origin of the left internal carotid artery with approximately 10-20% stenosis according to the NASCET criteria. Findings of pulmonary emphysema unchanged. Left external carotid artery: No occlusion or stenosis of the origin. Right vertebral artery: No stenosis. No dissection or occlusion. Left vertebral artery: No stenosis. No dissection or occlusion. Lymph nodes: Right paratracheal adenopathy not significantly changed. Soft tissues: There is a lipoma of the left serratus anterior muscle Bones/joints: Degenerative changes. No acute fracture. CT/CT angio headneck* [id number] IMPRESSION: 1. No large vessel stenosis or occlusion. 2. Findings of hemorrhagic conversion of the early chronic infarct again identified. IMPRESSION: 1. Mild left internal carotid artery stenosis. 2. No vascular occlusion involving the carotid or vertebral arteries in the neck. REFERENCES: NASCET CRITERIA. The degree of stenosis in the cervical segment of the internal carotid artery is based on NASCET criteria. Normal is no stenosis. Mild is less than 50% stenosis. Moderate is 50-69% stenosis. Severe is 70% to 99% stenosis. Total occlusion is no detectable patent lumen.
--- NOTE | 2023-04-29 19:35 | USCV_ITS ---
Ken Sarah Age: 68 Gender: F : 1955 Exam Date: 04/29/2023 20:34 Ordering Phys: Andry Torres MD Technologist: SAMUEL [place] [facility] [place]ication: cerebral hemorrhage at CT. Patient is delirious and uncontrollable in ER -10. Patient was given Ativan, but this did not help. BP: 160 / 89 HR: 102 Rhythm: Sinus Technical Quality: Technically difficult study due to pt condition MEASUREMENTS (Male / Female) Normal Values 2D ECHO LV Diastolic Diameter PLAX 5.8 cm 4.2 - 5.9 / 3.9 - 5.3 cm LV Systolic Diameter PLAX 4.5 cm IVS Diastolic Thickness 1.6 cm 0.6 - 1.0 / 0.6 - 0.9 cm IVS Systolic Thickness 2.6 cm LVPW Diastolic Thickness 0.9 cm 0.6 - 1.0 / 0.6 - 0.9 cm LVPW Systolic Thickness 1.4 cm LVOT Diameter 2.1 cm LV Ejection Fraction 2D Teich 43.0 % LV Ejection Fraction MOD 2C 44.6 % LV Ejection Fraction 2C AL 47.2 % LA Diameter 4.6 cm LA Width 3.5 cm LA Height 5.0 cm RA Width 3.1 cm RA Height 4.7 cm Aorta at Sinotubular Diameter 3.0 cm IVC Diameter 2.2 cm M-MODE Aortic Annulus Diameter 3.5 cm LA Ao Ratio MM 1.4 DOPPLER AV Peak Velocity 166.0 cm/s LVOT Peak Velocity 114.0 cm/s AV Area Cont Eq vti 2.5 cm squared AV Area Cont Eq pk 2.5 cm squared TR Peak Velocity 231.0 cm/s TR Peak Gradient 21.3 mmHg TV Peak E Velocity 53.0 cm/s Right Atrial Pressure 10.0 mmHg Pulmonary Artery Systolic Pressu 31.3 mmHg PV Peak Velocity 127.0 cm/s RV Acceleration Time 0.1 s RV Ejection Time 0.3 s RV AcT/ET 0.3 FINDINGS Left Ventricle Normal left ventricular cavity size. Moderately decreased left ventricular systolic function. Left ventricular ejection fraction is estimated at 35 %. There is moderate to severe hypokinesis of basal to apical anterior, basal to mid anteroseptal and apical septal [place]. Right Ventricle Normal right ventricular size and systolic function. Right Atrium Normal right atrial size. Left Atrium Moderately increased left atrial size. Mitral Valve Structurally normal mitral valve. No mitral valve stenosis. Trace mitral valve regurgitation. Aortic Valve Structurally normal trileaflet aortic valve. No aortic valve stenosis. No aortic valve regurgitation. Tricuspid Valve Structurally normal tricuspid valve. Pulmonic Valve Pulmonic valve not well visualized. No pulmonary valve regurgitation. Pericardium No pericardial effusion. Aorta Normal size aortic root and proximal ascending aorta. IVC Normal IVC dimension with >50% respiratory change of the inferior vena cava. CONCLUSIONS 1. Technically difficult study. 2. Normal left ventricular cavity size. Moderately decreased left ventricular systolic function. Left ventricular ejection fraction is estimated at 35 %. There is moderate to severe hypokinesis of basal to apical anterior, basal to mid anteroseptal and apical septal [place]. Dee Gannon MD (Electronically Signed) Final Date: 06 May 2023 18:41 S
[2023-04-29 19:45] LABS: Reflex Lactate Order REFLEX LACTIC ORDERD
[2023-04-29] MEDS: LORazepam 2 mg/mL INJ 1 mL IVP (20:21)
[2023-04-29] MEDS: hyDRALAzine 20 mg/mL INJ 1 mL 10 MG IVP (20:21)
[2023-04-29] MEDS: vancomycin 2,000 MG/400 ML PIGGYBACK 200 MG IV (21:10)
[2023-04-29 21:20] LABS: Lactic Acid level (Lactate) 2.3 mmol/L (0.5-2.2)
[2023-04-29] MEDS: iohexol 350 mg/mL 500 mL Btl (per mL) IV (21:22)
--- NOTE | 2023-04-29 22:02 | P.HP_ITS ---
Providers/Chief Complaint Primary Care Provider: Joann Cardona Chief Complaint: ams History of Present Illness Sarah Rogers is a 68 year old female who was discharged on 04/17 after management of stroke, suffering from global aphasia, she was treated for pneumonia as well, she was discharged to a residential, she has expressive aphasia, as per the sister who is at the bedside that patient wanted to leave the residential same day however she checked herself out AMA next day and now she was living with her nephew, presented today with chief complaint of worsening of confusion and fever. In the ER she has been diagnosed with sepsis, I requested UA, concern for aspiration pneumonitis as well, will start her on empirical meningitis treatment CT head without contrast showed cortical bleed at stroke area, CTA head and neck was recommended by the neurologist we did not show any active bleeding from aneurysm, seem like there is hemorrhagic conversion from previous stroke, Patient has expressive aphasia, she eats pur?ed diet, at this point she is not able to give any history at all most of the information has been taken from the ER physician and the sister at bedside Patient is full code We will admit to ICU Start Keppra in case she start experiencing any seizure related episodes I have started her on acyclovir, ampicillin and vancomycin and Zosyn Fever criteria met with tachypnea tachycardia leukocytosis and high lactic acid Altered mental status Review of Systems General: Reports: ROS unobtainable due to mental status Medications/Allergies Home Medications Medication Instructions Recorded Confirmed Last Taken Type lancets (Accu-Chek Fastclix Lancet #100 ea 01/26/22 04/10/23 Unknown Rx Drum) miscellaneous medical supply #1 ea 01/26/22 04/10/23 Unknown Rx (Blood Pressure Cuff) aspirin 81 mg chewable tablet 81 mg PO EVERY OTHER DAY #30 tabs 07/09/22 04/10/23 Unknown Rx furosemide 40 mg tablet (Lasix) 40 mg PO DAILY 30 days #30 tabs 07/09/22 04/10/23 Unknown Rx lisinopril 10 mg tablet 20 mg PO DAILY 30 days #30 tabs 07/09/22 04/10/23 Unknown Rx metoprolol succinate 25 mg 25 mg PO DAILY #30 tabs 07/09/22 04/10/23 Unknown Rx tablet,extended release 24 hr nitroglycerin 0.4 mg sublingual 0.4 mg sublingual Q5M PRN Chest 07/09/22 04/10/23 Unknown Rx tablet Pain 30 days #10 tabs pantoprazole 40 mg tablet,delayed 40 mg PO DAILY #30 tabs 07/09/22 04/10/23 Unknown Rx release potassium chloride 20 mEq 20 meq PO DAILY 30 days #30 tabs 07/09/22 04/10/23 Unknown Rx tablet,extended release(part/cryst) bupropion HCl 150 mg 24 hr tablet, 150 mg PO DAILY 04/10/23 04/10/23 Unknown History extended release insulin degludec 200 unit/mL (3 10 unit SUBCUT DAILY 04/10/23 04/10/23 Unknown History mL) subcutaneous pen (Tresiba FlexTouch U-200 insulin) ipratropium 20 mcg-albuterol 100 1 puff inhalation QID PRN 04/10/23 04/10/23 Unknown History mcg/actuation mist for inhalation Shortness Of Breath (Combivent Respimat) metformin 1,000 mg tablet 1,000 mg PO BID 04/10/23 04/10/23 Unknown History atorvastatin 40 mg tablet 80 mg PO DAILY #30 tabs 04/17/23 04/10/23 Unknown Rx nicotine 14 mg/24 hr daily 1 patch transdermal DAILY #30 ea 04/17/23 Unknown Rx transdermal patch thiamine mononitrate (vit B1) 100 100 mg PO DAILY #30 tabs 04/17/23 Unknown Rx mg tablet (Vitamin B-1 (mononitrate)) Allergies Allergy/AdvReac Type Severity Reaction Status Date / Time Sulfa (Sulfonamide Allergy na Verified 11/03/21 11:28 Antibiotics) PFSH Acute PFSH: Medical History Anxiety and depression Benign essential HTN Chest pain CHF (congestive heart failure), NYHA class III COPD exacerbation COPD, moderate GERD (gastroesophageal reflux disease) H/O cholecystitis Heart failure Hematoma of left kidney Major contusion of left kidney, subsequent encounter Type 2 diabetes mellitus, without long-term current use of insulin Uncontrolled diabetes mellitus Urinary incontinence, mixed Urinary tract infection, site not specified Surgical History H/O: hysterectomy Family History Family/Other Diabetes CAD (coronary artery disease) Hypertension Lung disease Social History Smoking and tobacco status: current every day smoker cigarettes Packs smoked per day: 1 Alcohol intake: never Substance/Drug Use: never Adopted: No Caregiver/support person: No Marital status: Current occupational status: disabled Vitals/I&O/Wt Last Vital Signs Temp 101.2 F H 04/29/23 17:08 Pulse 115 H 04/29/23 22:00 Resp 18 04/29/23 22:00 BP 121/92 04/29/23 22:00 Pulse Ox 96 04/29/23 22:00 O2 Del Method Oxymask 04/29/23 22:00 O2 Flow Rate 7 04/29/23 22:00 04/29/23 04/29/23 04/29/23 06:59 14:59 22:59 Intake Total 2049 Balance 2049 Weight last 48 hrs Weight 86.636 kg Physical Exam Narrative: Patient has expressive aphasia Currently in deep sleep Able to protect airways Saturating well on 7 L OxyMask Hemodynamic stable Sinus tachycardia appropriate to fever Abdomen soft No extremity no edema As per the sister she was able to move her extremities, she was able to walk without significant assistance Her pupils are reactive to light and are symmetrical Patient is in deep sleep after getting sedatives for her CT head Sepsis exam No skin mottling Cap refill less than 3 seconds Patient is confused Not able to follow commands Urinary Catheter Management: Boyd: Cath Placed During This Visit: yes Urinary Catheter Date of Insertion: 04/29/23 Urinary Catheter Time of Insertion: 18:30 Data 04/29/23 16:55 04/29/23 16:55 Micro: Microbiology 04/29/23 17:54 Blood Culture - Preliminary Blood SPECIMEN COLLECTED 04/29/23 17:50 Blood Culture - Preliminary Blood SPECIMEN COLLECTED A&P Assessment and plan (1) Cerebral infarction, left hemisphere: (2) Encephalopathy acute: (3) Altered mental status: Qualifiers: Altered mental status type: unspecified Qualified Code(s): R41.82 - Altered mental status, unspecified (4) Type 2 diabetes mellitus, without long-term current use of insulin: Qualifiers: Diabetes mellitus complication status: with hyperglycemia Qualified Code(s): E11.65 - Type 2 diabetes mellitus with hyperglycemia (5) COPD, moderate: (6) Intracranial bleed: (7) Sepsis: Plan Hemorrhagic conversion of her intracranial bleed Previous history of left MCA stroke with global aphasia Patient also has history of polysubstance abuse, methamphetamine positive previous drug screen Patient checked herself out from residential and left AMA currently coming from nephew's home No medical DPOA older sister at the bedside Patient is on pur?ed diet Repeat CT head in the morning without contrast We will keep head elevated, patient is showing signs of respiratory alkalosis, pupils are equal and reactive to light, Septic shock, start patient empirical antibiotics for meningitis with acyclovir vancomycin and Zosyn Blood cultures taken, I am waiting for urine analysis, my other concern is related to aspiration pneumonia however chest x-ray shows pulmonary vascular prominence, We will keep her n.p.o. until speech evaluation I am not sure if patient has capacity to make decisions which should be reevaluated once she is more lucid Septic bolus given 30 mill per kilo Sepsis criteria met with leukocytosis, tachypnea tachycardia, high lactic acid, I will start patient on Keppra in case she develops seizure related activity related to intracranial bleed CTA head and neck recommended by neurologist did not show active aneurysm or bleed other than hemorrhagic conversion of previous stroke Will request echo to rule out infective endocarditis since she has history of methamphetamine abuse Requested another echo in the ER on stat basis Previous EF 40% with grade 2 diastolic function I have also requested COVID PCR Acute COPD exacerbation Currently requiring 7 L via OxyMask Able to clear airway however very drowsy after getting Ativan Respiratory alkalosis evident on the ABG Full code N.p.o. Will request PT OT ST Decision making patient should be reevaluated No medical DPOA Older sister is at the bedside but stating that brother Humble Shaver tries to make most of the decisions of the family his phone number is [phone] Guarded prognosis Attestations Medical Necessity Statement*: Anticipating more than 2 midnights for management of sepsis, intracranial bleed Coding Level of Care Code Critical Care >/= 30 minutes Critical care time (in minutes): 40 The high probability of a clinically significant, sudden or life threatening deterioration, as referenced in this documentation, required my full and direct attention, intervention and personal management. The critical care time shown is in addition to time spent performing any reported separately billable procedures and includes the following: [x] Data and vital sign review and interpretation [x ] Patient assessment, examination and intervention [x] Medication orders and management [x] Patient/Family updates as able [x] Care Coordination and Documen tation. Diagnoses Cerebral infarction, left hemisphere I63.9 Encephalopathy acute G93.40 Altered mental status R41.82 Altered mental status type: unspecified Type 2 diabetes mellitus, without long-term current use of insulin E11.65 Diabetes mellitus complication status: with hyperglycemia COPD, moderate J44.9 Intracranial bleed I62.9 Sepsis A41.9
--- NOTE | 2023-04-29 22:27 | ECG_ITS ---
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 Measurements Intervals [place] Rate: 102 P: 43 WI: 169 QRS: -31 QRSD: 97 T: 87 QT: 351 QTc: 458 Interpretive Statements SINUS TACHYCARDIA WITH OCCASIONAL SUPRAVENTRICULAR PREMATURE COMPLEXES LEFT AXIS DEVIATION [QRS AXIS < -30] MODERATE VOLTAGE CRITERIA FOR LVH, CONSIDER NORMAL VARIANT [MEETS CRITERIA IN ONE OF: R(aVL), S(V1), R(V5), R(V5/V6)+S(V1)] NONSPECIFIC ST & T-WAVE ABNORMALITY Compared to ECG 04/29/2023 17:51:31 T-wave abnormality now present Sinus rhythm no longer present Incomplete right bundle-branch block no longer present Myocardial infarct finding no longer present Electronically Signed On 04-30-2023 3:49:12 CDT by Dee Gannon M.D. [id number]
[2023-04-29 23:19] LABS: Add Urine Microscopic? YES; Bilirubin Urine Neg (Negative); Blood Urine 3+ (Negative); Glucose Urine UA Trace (Normal); Ketones Urine 1+ (Negative); Leukocyte Esterase Urine 2+ (Negative); Nitrate Urine Positive (Negative); Protein Urine 2+ (Negative); Specific Gravity, Urine 1.005 (1.005-1.030); Urine Appearance Cloudy (CLEAR); Urine Color Yellow (Yellow); Urobilinogen Urine Neg (Negative); WBC Urine 55-80 /hpf (0-5); pH Urine 6.5 (5-7)
[2023-04-29 23:20] LABS: Add Urine Culture? Yes; Bacteria Urine 3+ /hpf
[2023-04-29] MEDS: sodium chloride 0.9% 1,000 ML 75 ML IV (23:30)
[2023-04-29] MEDS: lactated ringers 1,000 ML 999 ML IV (23:30)
[2023-04-30] VITALS (95 sets, daily range): BP systolic 111–172; BP diastolic 58–110; PULSE 72–97; RESP 16–51; TEMP 36.7–37.2; O2SAT 67–100
--- NOTE | 2023-04-30 | PC.PHAR ---
Pharmacokinetic dosing service Date: 04/30/23 Time: 0001 Objective: Patient: Sarah Rogers Floor: ICU-2 Age: 68 yo Serum creatinine: 0.8 mg/dL Height: 63.0 Inches Weight (kg): 86.636 Diagnosis: Relevant medical/social history: Cultures and sensitivities: Other labs: Assessment: IBW (kg): 52.40 Dosing wt(kg): 86.636 Estimated Creatinine clearance (ml/min): 56.4 CRCL method: Cockcroft and Gault using ibw(default). Drug selected: Vancomycin Loading dose (mg): 0 Vd (liters): 78.0 (factor used: 0.9 L/kg) Tyrell (hr-1): 0.051 Half life (hrs): 13.59 Recommended dose: 1500 mg Interval: 18 hrs Infusion time (hrs): 1.5 Predicted peak (mcg/mL): 30.8 Predicted trough (mcg/mL): 13.28 Total body weight is being used for vancomycin dosing. Renal function is stable [ ] /unstable [ ] Recommendations: Give Vancomycin 1500 mg q 18 hrs with an expected Cpeak of 30.8 mcg/ml and an expected Ctrough of 13.28 mcg/ml Renal dosing of other antibiotics (review renal dosing of other medications and list guidelines here): Thank you for the consult, will continue to follow. Signature: Val[facility]
[2023-04-30] MEDS: labetalol 5 mg/mL SDV 20mL 10 MG IVP (00:36)
[2023-04-30] MEDS: lactated ringers 1,000 ML 999 ML IV (00:37)
[2023-04-30 00:54] LABS: Adenovirus Not Detected (NOT DETECT); Chlamydia Pneumoniae Not Detected (NOT DETECT); Coronavirus 229E,HKU1,NL63,OC4 Not Detected (NOT DETECT); Human Metapneumovirus Not Detected (NOT DETECT); Human Rhinovirus/Enterovirus Not Detected (NOT DETECT); Influenza A Not Detected (NOT DETECT); Influenza A H1 Not Detected (NOT DETECT); Influenza A H1-2009 Not Detected (NOT DETECT); Influenza A H3 Not Detected (NOT DETECT); Influenza B Not Detected (NOT DETECT); Mycoplasma Pneumoniae Not Detected (NOT DETECT); Parainfluenza Virus Type 1 Not Detected (NOT DETECT); Parainfluenza Virus Type 2 Not Detected (NOT DETECT); Parainfluenza Virus Type 3 Not Detected (NOT DETECT); Parainfluenza Virus Type 4 Not Detected (NOT DETECT); Respiratory Syncytial Virus A Not Detected (NOT DETECT); Respiratory Syncytial Virus B Not Detected (NOT DETECT); SARS-COV-2 Not Detected (NOT DETECT)
--- NOTE | 2023-04-30 01:14 | PC.NURSE ---
Increased alertness since arrival to ICU. Opens eyes with loud voice or tactile stimuli. Movement of all four exts observed. 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 Intermittently restless in bed.
[2023-04-30 05:09] LABS: Basophils # 0.1 10^3/uL (0.0-0.1); Basophils % 0.4 %; Eosinophils % 0.3 %; Hematocrit 34.9 % (37.0-47.0); Lymphocytes # 1.7 10^3/uL (0.8-4.8); Lymphocytes % 14.1 %; Mean Corpuscular HGB Conc 31.5 g/dL (30.0-36.0); Mean Corpuscular Volume 85.5 fl (81-99); Mean Platelet Volume 10.7 fL (7.4-10.4); Monocytes # 0.7 10^3/uL (0.2-0.9); Monocytes % 5.4 %; Neutrophils # 9.49 10^3/uL (1.8-7.7); Neutrophils % 79.5 %; Nucleated Red Blood Cells % 0 %; Platelet Count 164 10^3/cmm (130-400); Red Blood Count 4.08 10^6/uL (4.1-5.3); White Blood Count 11.9 10^3/uL (4.0-10.0)
[2023-04-30 05:46] LABS: Anion Gap 13.6 (5-19); Blood Urea Nitrogen 11 mg/dL (8-23); C Reactive Protein 114.8 mg/L (0.0-4.9); Calcium 8.5 mg/dL (8.5-10.5); Carbon Dioxide 23 mmol/L (22-29); Chloride 103 mmol/L (98-107); Glomerular Filtration Rate 71.5 mL/min (90-130); Glucose 256 mg/dL (65-115); Magnesium 1.4 mg/dL (1.7-2.3); Osmolality Calculated 290 mOsm/kg (285-295); Potassium 3.6 mmol/L (3.5-5.1); Sodium 136 mmol/L (136-145)
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
[2023-04-30 08:14] LABS: Glucose Point of Care 227 mg/dL (70-110)
[2023-04-30] MEDS: acetaminophen 500 mg Tablet PO (08:52)
[2023-04-30] MEDS: pantoprazole 40 mg SDV IVP ×2 (09:27→17:38)
[2023-04-30] MEDS: insulin lispro 100 unit/1 mL SUBCUT (09:27)
[2023-04-30] MEDS: LORazepam 2 mg/mL INJ 1 mL IVP ×3 (11:10→19:30)
[2023-04-30 11:50] LABS: Glucose Point of Care 158 mg/dL (70-110)
--- NOTE | 2023-04-30 11:51 | PC.OT ---
OT EVALUATION ORDER RECEIVED. PER NURSE, HOLD EVAL TODAY D/T ATIVAN. WILL ATTEMPT EVALUATION TOMORROW.
--- NOTE | 2023-04-30 14:01 | P.PN_ITS ---
Subjective Subjective: Patient remains severely encephalopathic. She is agitated and restless in bed. Most of her speech is incomprehensible. Given this clinical presentation, reliable history cannot be obtained. Collateral information obtained from other providers previous familiar with patient. She was here couple weeks ago with similar presentation. UDS was positive at that time. She has known history of drug abuse reportedly. From the last admission she was reportedly discharged to a nursing facility at then checked herself out. Medications: Reviewed: Yes Vitals/I&O/Wt Last Vital Signs Temp 98.9 F 04/30/23 07:00 Pulse 74 04/30/23 13:15 Resp 16 04/30/23 12:00 BP 115/66 04/30/23 13:15 Pulse Ox 90 04/30/23 13:15 O2 Del Method Nasal Cannula 04/30/23 08:54 O2 Flow Rate 3 04/30/23 08:54 04/29/23 04/30/23 04/30/23 22:59 06:59 14:59 Intake Total 2049 / 2049 2400 / 4450 Output Total 1500 / 1500 2099 / 2099 Balance 2049 / 2049 900 / 2950 -2100 / -2100 Weight last 48 hrs Weight 86.636 kg Physical Exam Narrative: General: Patient is awake. Severely encephalopathic. Restless. Head: Normocephalic. Neck: JVD difficult to assess due to restlessness. Cardiovascular: RRR. No gallops. No murmurs. Lungs: Breath sounds are diminished in bases, no use of accessory muscles, no crackles or wheezes. Skin: No jaundice. Abdomen: Normal bowel sounds, abdomen soft and nontender. Genito Urinary: Boyd Extremities: No cyanosis or clubbing. Musculoskeletal: Normal muscle development for demographic Neurological: Moves all 4 extremities. No myoclonus. Severely agitated. Urinary Catheter Management: Boyd: Cath Placed During This Visit: yes Reason for Continuing Indwelling Catheter: Accurate Measurement of Urinary Output in Critically Ill Patients Urinary Catheter Date of Insertion: 04/29/23 Urinary Catheter Time of Insertion: 18:30 Data 04/30/23 04:47 04/30/23 04:47 Micro: Microbiology 04/29/23 17:54 Blood Culture - Preliminary Blood SPECIMEN COLLECTED 04/29/23 17:50 Blood Culture - Preliminary Blood SPECIMEN COLLECTED A&P Assessment and plan (1) Encephalopathy acute: Patient remains severely encephalopathic Suspect presentation is multifactorial with at least components of acute metabolic and acute toxic encephalopathy Continue empiric antibiotics Avoid sedating medications Requiring sitter (2) Sepsis: Source: Acute complicated urinary tract infection Follow-up cultures Continue broad-spectrum antimicrobials with Zosyn, vancomycin, Follow-up echo (3) Cerebral infarction, left hemisphere: 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 prior left MCA stroke with global aphasia Imaging reviewed Neurology following, appreciate recommendations Given current level agitation, will hold off on CT as image quality will be exceptionally poor Continue with [facility] Speech therapy, physical therapy, Occupational Therapy Aspiration precautions, head of bed elevation Neurochecks Prognosis is highly guarded (4) COPD, moderate: Acute COPD exacerbation Acute hypoxic respiratory failure Continue supplemental oxygen support Broad-spectrum antibiotics Nebulizing treatments (5) Substance abuse: Component of drug withdrawal remains within the differential [facility] protocol (6) Uncontrolled diabetes mellitus: Uncontrolled type 2 diabetes mellitus with hyperglycemia A1c 10.6 in March Hold home metformin Sliding-scale insulin correction (7) Benign essential HTN: Home antihypertensives on hold due to sepsis Plan DVT prophylaxis: SCDs CODE STATUS: Assume full code Attestations Medical Necessity Statement*: Patient severely encephalopathic likely multifactorial and nightly allergy requiring ongoing hospitalization for IV antibiotics, serial imaging, telemetry, electrolyte monitoring, and supportive care. Coding Level of Care Code Acute Code for [facility] Diagnoses Encephalopathy acute G93.40 Sepsis A41.9 Cerebral infarction, left hemisphere I63.9 COPD, moderate J44.9 Substance abuse F19.10 Uncontrolled diabetes mellitus E11.65 Benign essential HTN I10
[2023-04-30] MEDS: vancomycin 1,500 MG/300 ML PIGGYBACK 200 MG IV (14:52)
--- NOTE | 2023-04-30 16:30 | PC.SOCIAL ---
SDOH SDOH completed w/ unable to assess as patients decision making capacity is being considered @ this time.
[2023-04-30 16:54] LABS: Glucose Point of Care 126 mg/dL (70-110)
[2023-05-01] VITALS (56 sets, daily range): BP systolic 118–185; BP diastolic 72–112; PULSE 70–95; RESP 15–62; TEMP 36.9–37.3; O2SAT 84–99
[2023-05-01] MEDS: labetalol 5 mg/mL SDV 20mL 10 MG IVP (01:24)
[2023-05-01] MEDS: LORazepam 2 mg/mL INJ 1 mL IVP (01:55)
[2023-05-01] MEDS: piperacillin-tazobactam 3.375 GM in sodium chloride 0.9% (plus) 50 ML IV ×3 (02:11→19:03)
[2023-05-01 03:00] LABS: ABG PCO2 35.2 mmHg (35-45); Arterial Blood Gas Hematocrit 35.8 % (37-47); Base Excess ABG -2.8 mmol/L (-2.0-2.0); Blood Gas Allen Test Pos; Blood Gas Sample Site Radial, left; Blood Gas Sample Type Arterial; HCO3 ABG 21.6 mmol/L (22-26); Oxygen Device OXY MASK
[2023-05-01 03:26] LABS: Glucose Point of Care 232 mg/dL (70-110)
--- NOTE | 2023-05-01 03:31 | XRR_ITS ---
PROCEDURE INFORMATION: Exam: XR Chest Exam date and time: 05/01/2023 3:38 AM Age: 68 years old Clinical indication: Shortness of breath; Additional info: Dyspnea, decline in condition, recent CVA TECHNIQUE: Imaging protocol: Radiologic exam of the chest. Views: 1 view. COMPARISON: 1. CR (CHEST, ) 04/29/2023 5:24 PM 2. XR CHEST 1V PORTABLE 01/27/2022 9:42 AM FINDINGS: Tubes, catheters and devices: EKG monitoring leads overlie the thoracic wall. Lungs: Diffuse interstitial coarsening similar to prior examinations. However, there is a new area of consolidation at the right lung base consistent with pneumonia. Pleural spaces: No pleural effusion or pneumothorax. Heart/Mediastinum: Borderline cardiomegaly, stable. Bones/joints: No acute fracture is identified. XR/XR chest 1V portable [id number] IMPRESSION: 1. Chronic or recurrent interstitial coarsening. 2. New right basilar consolidation consistent with pneumonia.
[2023-05-01] MEDS: morphine 4 mg/mL SDV 1 mL 2 MG IVP (03:49)
--- NOTE | 2023-05-01 03:50 | CTR_ITS ---
PROCEDURE INFORMATION: Exam: CT Head Without Contrast Exam date and time: 05/01/2023 4:14 AM Age: 68 years old Clinical indication: Altered mental status/memory loss; Additional info: Worsening mental status TECHNIQUE: Imaging protocol: Computed tomography of the head without contrast. Radiation optimization: All CT scans at this facility use at least one of these dose optimization techniques: automated exposure control; mA and/or kV adjustment per patient size (includes targeted exams where dose is matched to clinical indication); or iterative reconstruction. REPORTING DATA: Count of CT and Cardiac NM exams in prior 12 months: This patient has received 5 known CTs and 0 known cardiac nuclear medicine studies in the 12 months prior to the current study. COMPARISON: CT head wo con* [id number] 04/29/2023 5:39 PM RADIATION DOSE METRICS: Total DLP (mGy-cm): 1198.38 FINDINGS: Brain: There is stable hypodensity in the left posterior insula, posterior temporal lobe and inferior parietal lobe compared with 04/29/2023 consistent with evolving infarct. There is unchanged cortical hyperdensity in the left posterior parietal region which likely represents petechial hemorrhage in area of prior infarction. No new areas of infarction are identified. There is no large area of parenchymal hemorrhage. There is no mass effect or midline shift. Consider further evaluation with MRI to better determine the age of these findings. Moderate age-related changes. Cerebral ventricles: No ventriculomegaly. Paranasal sinuses: Visualized sinuses are unremarkable. No fluid levels. Mastoid air cells: Visualized mastoid air cells are well aerated. Bones/joints: Unremarkable. No acute fracture. Soft tissues: Unremarkable. CT/CT head wo con* [id number] IMPRESSION: 1. No new or progressive hemorrhage. 2. Hemorrhagic conversion of early chronic infarcts as described. Stable head from 2 days ago.
--- NOTE | 2023-05-01 03:50 | CTR_ITS ---
PROCEDURE INFORMATION: Exam: CT Abdomen And Pelvis Without Contrast Exam date and time: 05/01/2023 4:16 AM Age: 68 years old Clinical indication: Other: Unspecified pain, decline in condition; Additional info: Abdominal pain, UTI TECHNIQUE: Imaging protocol: Computed tomography of the abdomen and pelvis without contrast. Radiation optimization: All CT scans at this facility use at least one of these dose optimization techniques: automated exposure control; mA and/or kV adjustment per patient size (includes targeted exams where dose is matched to clinical indication); or iterative reconstruction. REPORTING DATA: Count of CT and Cardiac NM exams in prior 12 months: This patient has received 5 known CTs and 0 known cardiac nuclear medicine studies in the 12 months prior to the current study. COMPARISON: CT abdomen pelvis w con* [id number] 11/26/2020 2:19 PM RADIATION DOSE METRICS: Total DLP (mGy-cm): 941.35 FINDINGS: Limitations: Streak and motion artifacts limit evaluation. Lungs: The visual lung bases demonstrate diffuse interstitial coarsening. Pleural spaces: There are small bilateral pleural effusions, larger on the right. Liver: The liver is top-normal in size measuring 17.3 cm in length. Gallbladder and bile ducts: There has been a cholecystectomy. Pancreas: The pancreas is normal. Spleen: The spleen is normal in size and density. Adrenal glands: The adrenal glands are normal. Kidneys and ureters: Mild fullness of the left renal collecting system and ureter with periureteral stranding. No obstructive ureteral calculus is identified. There are no renal calculi. Stomach and bowel: There is no evidence of small bowel or colonic obstruction. There is moderate diverticulosis of the descending colon sigmoid. In the proximal sigmoid colon, there is a segment of colonic wall thickening containing diverticula with some pericolonic inflammatory stranding series 3, image 166; series 5, image 39; series 6, image 76). There is no evidence of perforation or abscess. Appendix: No evidence of appendicitis. Intraperitoneal space: No free air. No significant fluid collection. Vasculature: There is moderate atherosclerotic calcification of the abdominal aorta and its branches without aneurysm. Lymph nodes: No enlarged retroperitoneal or mesenteric lymph nodes. Urinary bladder: There is mild bladder wall thickening. Bladder is partially decompressed by Boyd catheter. Reproductive: Unremarkable as visualized. Bones/joints: Multilevel degenerative disc disease without significant spinal canal stenosis. No acute fracture. There is mild facet arthrosis. Soft tissues: Unremarkable. CT/CT kidney stone [id number] IMPRESSION: 1. Mild fullness of the left renal collecting system and ureter with periureteral stranding. Given the absence of ureteral calculi this is likely secondary to urinary tract infection/pyelitis. 2. Bladder wall thickening suggesting cystitis, incomplete distention or chronic outflow obstruction. 3. Findings suggestive of mild acute colitis/diverticulitis of the proximal sigmoid. Artifact limits evaluation. As an underlying colonic malignancy cannot be excluded, a follow-up examination after a course of treatment is recommended if clinically warranted.
[2023-05-01] MEDS: FUROsemide 10 mg/mL SDV 4mL 40 MG IVP (03:54)
[2023-05-01 04:47] LABS: Basophils % 0.4 %; Eosinophils # 0.1 10^3/uL (0.0-0.8); Eosinophils % 1.2 %; Hemoglobin 11.1 g/dL (11.5-15.3); Lymphocytes # 0.8 10^3/uL (0.8-4.8); Lymphocytes % 7.6 %; Mean Corpuscular HGB Conc 30.8 g/dL (30.0-36.0); Mean Corpuscular Hemoglobin 26.7 pg (28.0-34.0); Mean Corpuscular Volume 86.7 fl (81-99); Mean Platelet Volume 11.2 fL (7.4-10.4); Monocytes # 0.6 10^3/uL (0.2-0.9); Monocytes % 5.7 %; Neutrophils # 8.46 10^3/uL (1.8-7.7); Neutrophils % 84.6 %; Nucleated Red Blood Cells % 0 %; Platelet Count 161 10^3/cmm (130-400); Red Blood Count 4.15 10^6/uL (4.1-5.3); Red Cell Distribution Width 14.1 % (12.1-15.1)
--- NOTE | 2023-05-01 04:48 | W.PM.EVENTAC ---
Event Note Event Note: Called to evaluate patient for increasing grunting, respiratory distress. Blood gas had been done earlier which demonstrated adequate oxygenation on 6 L, no evidence of CO2 retention or severe acidosis. On my evaluation she had a few expiratory wheezes and was certainly tachypneic. It was unclear, considering her severe encephalopathy, whether she was having abdominal pain. Urinalysis on admission was concerning for complicated UTI. She had previously had some Ativan, for agitation several hours before. I gave her morphine 2 mg IV x1. I performed a chest x-ray which demonstrated a right lung infiltrate, possible small effusion. CT of head was done to follow-up on bleed, which showed no acute worsening. I ordered a CT abdomen and pelvis, renal protocol, secondary to her complicated UTI. Results of this are pending. I checked on her multiple times, totaling 46 minutes of ICU care. She seemed to improve, following morphine administration. Lasix 40 mg IV x1 was also given for my concern of fluid overload causing worsening respiratory symptomatology. Event Notes Attestations Time Spent in Patient Care: Greater than 35 minutes 46 minutes spent in ICU care at bedside, in this patient with a life-threatening condition with multiple organ involvement requiring further treatment and testing.
[2023-05-01 05:12] LABS: Alanine Aminotransferase 16 U/L (0-33); Albumin Level 3.3 g/dL (3.5-5.2); Alkaline Phosphatase 119 U/L (35-105); Aspartate Amino Transferase 20 U/L (0-32); Blood Urea Nitrogen 11 mg/dL (8-23); C Reactive Protein 149.4 mg/L (0.0-4.9); Calcium 8.4 mg/dL (8.5-10.5); Carbon Dioxide 21 mmol/L (22-29); Chloride 105 mmol/L (98-107); Glomerular Filtration Rate 71.5 mL/min (90-130); Glucose 229 mg/dL (65-115); Magnesium 1.5 mg/dL (1.7-2.3); Osmolality Calculated 297 mOsm/kg (285-295); Phosphorus 3.6 mg/dL (2.5-4.5); Procalcitonin 1.21 ng/mL (0-0.5); Sodium 140 mmol/L (136-145); Total Bilirubin 0.6 mg/dL (0.15-1.2); Total Protein 6.3 g/dL (6.6-8.7)
[2023-05-01 05:20] LABS: Anion Gap 17.8 (5-19); Potassium 3.8 mmol/L (3.5-5.1)
[2023-05-01 05:30] LABS: Slide Review Slide Review Perform
[2023-05-01 06:47] LABS: Glucose Point of Care 239 mg/dL (70-110)
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
--- NOTE | 2023-05-01 10:10 | PM.PN ---
Subjective Subjective: Patient with change in condition overnight requiring evaluation by fence gate assembler. Refer to overnight event documentation. This morning, patient remains altered and agitated. She arouses to verbal and physical stimulation but unable to provide any history due to altered mentation and history of expressive aphasia. She does not follow my commands. Further history cannot be obtained due to clinical condition. Medications: Reviewed: Yes Vitals/I&O/Wt Last Vital Signs Temp 98.9 F 05/01/23 04:00 Pulse 77 05/01/23 08:00 Resp 16 05/01/23 08:00 BP 145/87 05/01/23 06:00 Pulse Ox 93 05/01/23 08:00 O2 Del Method Oxymask 05/01/23 08:00 O2 Flow Rate 6 05/01/23 08:00 04/30/23 05/01/23 05/01/23 22:59 06:59 14:59 Intake Total 455 / 455 Output Total 1600 / 3700 Balance -1600 / -3595 455 / 455 Weight last 48 hrs Weight 86.636 kg Physical Exam Narrative: General: Patient is altered. Does not follow commands. Head: Normocephalic. Cardiovascular: RRR. No gallops. No murmurs. Lungs: Breath sounds are diminished in bases, no use of accessory muscles, no crackles or wheezes. On supplemental support. Skin: No jaundice. Abdomen: Normal bowel sounds, abdomen soft and nontender. Genito Urinary: Boyd Extremities: No cyanosis or clubbing. Musculoskeletal: Normal muscle development for demographic Neurological: Moves all 4 extremities. No myoclonus. Urinary Catheter Management: Byod: Cath Placed During This Visit: yes Reason for Continuing Indwelling Catheter: Accurate Measurement of Urinary Output in Critically Ill Patients Urinary Catheter Date of Insertion: 04/29/23 Urinary Catheter Time of Insertion: 18:30 Data 05/01/23 04:00 05/01/23 04:00 Micro: Microbiology 04/29/23 22:28 Urine Culture - Preliminary Urine,Clean Catch Gram Negative Rods 04/29/23 17:54 Blood Culture - Preliminary Blood NEGATIVE TO DATE 04/29/23 17:50 Blood Culture - Preliminary Blood NEGATIVE TO DATE A&P Assessment and plan (1) Encephalopathy acute: Patient remains severely encephalopathic, not responding to treatment as intended Continue empiric antibiotics Avoid sedating medications Requiring sitter (2) Sepsis: Source: Acute complicated urinary tract infection Follow-up cultures Continue broad-spectrum antimicrobials with Zosyn, vancomycin, Follow-up echo (3) Cerebral infarction, left hemisphere: 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 prior left MCA stroke with global aphasia CTH overnight w/o significant change Neurology following, appreciate recommendations Continue with [facility] Speech therapy, physical therapy, Occupational Therapy Aspiration precautions, head of bed elevation Neurochecks Prognosis remains highly guarded (4) COPD, moderate: Acute COPD exacerbation Acute hypoxic respiratory failure Continue supplemental oxygen support Broad-spectrum antibiotics Nebulizing treatments (5) Substance abuse: Component of drug withdrawal remains within the differential CIWA protocol (6) Uncontrolled diabetes mellitus: Uncontrolled type 2 diabetes mellitus with hyperglycemia A1c 10.6 in March Hold home metformin Sliding-scale insulin correction (7) Benign essential HTN: Home antihypertensives on hold due to sepsis Plan DVT prophylaxis: SCDs CODE STATUS: Assume full code Attestations Medical Necessity Statement*: Patient remains severely encephalopathic requiring ongoing hospitalization for IV antibiotics, telemetry, and supportive care. Coding Level of Care Code Acute Code for [facility] Diagnoses Encephalopathy acute G93.40 Sepsis A41.9 Cerebral infarction, left hemisphere I63.9 COPD, moderate J44.9 Substance abuse F19.10 Uncontrolled diabetes mellitus E11.65 Benign essential HTN I10
[2023-05-01] MEDS: insulin lispro 100 unit/1 mL SUBCUT ×2 (10:38→13:14)
[2023-05-01] MEDS: pantoprazole 40 mg SDV IVP ×2 (10:39→19:02)
[2023-05-01] MEDS: vancomycin 1,500 MG/300 ML PIGGYBACK 200 MG IV (10:54)
[2023-05-01 11:58] LABS: Glucose Point of Care 164 mg/dL (70-110)
[2023-05-01 16:29] LABS: Glucose Point of Care 111 mg/dL (70-110)
[2023-05-01 21:59] LABS: Glucose Point of Care 144 mg/dL (70-110)
--- NOTE | 2023-05-01 23:00 | PC.NURSE ---
Pt does not follow commands at this time. Has some intermittent restlessness but appears to rest comfortably most of the time. Pt can not answer questions, only moans and has incompressible sounds, occasionally the pt will look directly at this nurse.
[2023-05-02] VITALS (32 sets, daily range): BP systolic 141–169; BP diastolic 67–108; PULSE 70–81; RESP 15–32; TEMP 36.6–36.9; O2SAT 89–95
[2023-05-02] MEDS: piperacillin-tazobactam 3.375 GM in sodium chloride 0.9% (plus) 50 ML IV ×3 (02:20→18:05)
[2023-05-02 02:54] LABS: Basophils % 0.4 %; Eosinophils # 0.3 10^3/uL (0.0-0.8); Eosinophils % 4.4 %; Hematocrit 33.1 % (37.0-47.0); Hemoglobin 10.4 g/dL (11.5-15.3); Lymphocytes # 1.2 10^3/uL (0.8-4.8); Lymphocytes % 16.5 %; Mean Corpuscular HGB Conc 31.4 g/dL (30.0-36.0); Mean Corpuscular Hemoglobin 27.1 pg (28.0-34.0); Mean Corpuscular Volume 86.2 fl (81-99); Mean Platelet Volume 10.2 fL (7.4-10.4); Monocytes # 0.5 10^3/uL (0.2-0.9); Monocytes % 7.5 %; Neutrophils # 4.97 10^3/uL (1.8-7.7); Neutrophils % 70.9 %; Nucleated Red Blood Cells % 0 %; Platelet Count 153 10^3/cmm (130-400); Red Blood Count 3.84 10^6/uL (4.1-5.3)
[2023-05-02 03:15] LABS: Alanine Aminotransferase 10 U/L (0-33); Albumin Level 3.1 g/dL (3.5-5.2); Alkaline Phosphatase 100 U/L (35-105); Anion Gap 15.2 (5-19); Aspartate Amino Transferase 19 U/L (0-32); Blood Urea Nitrogen 13 mg/dL (8-23); Calcium 8.2 mg/dL (8.5-10.5); Carbon Dioxide 23 mmol/L (22-29); Chloride 109 mmol/L (98-107); Globulin 2.9 g/dL (1.3-4.6); Glomerular Filtration Rate 62.5 mL/min (90-130); Glucose 135 mg/dL (65-115); Magnesium 1.6 mg/dL (1.7-2.3); Osmolality Calculated 300 mOsm/kg (285-295); Phosphorus 3.1 mg/dL (2.5-4.5); Potassium 3.2 mmol/L (3.5-5.1); Sodium 144 mmol/L (136-145); Total Bilirubin 0.5 mg/dL (0.15-1.2)
[2023-05-02 03:17] LABS: Vancomycin Trough 11.3 ug/mL (10-15)
[2023-05-02] MEDS: vancomycin 1,500 MG/300 ML PIGGYBACK 200 MG IV (03:25)
--- NOTE | 2023-05-02 03:38 | PC.NURSE ---
Dr. Mcintyre notified of BP 168/100 @approximately 0330. No change in plan of care at this time.
[2023-05-02 07:35] LABS: Glucose Point of Care 133 mg/dL (70-110)
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
[2023-05-02] MEDS: pantoprazole 40 mg SDV IVP ×2 (08:45→17:47)
[2023-05-02] MEDS: magnesium sulfate premix 2 GM/50 ML PIGGYBACK IV (09:50)
[2023-05-02] MEDS: potassium chloride premix 100 ML 25 MEQ IV (10:52)
[2023-05-02 12:33] LABS: Glucose Point of Care 147 mg/dL (70-110)
[2023-05-02] MEDS: insulin lispro 100 unit/1 mL SUBCUT ×2 (12:35→17:28)
--- NOTE | 2023-05-02 12:58 | P.PN_ITS ---
Subjective Subjective: Patient was reportedly following commands this morning. However on my evaluation her mentation had again changed. She is again agitated not following commands. Moaning repeatedly. She is unable to provide any pertinent clinical history due to her mental status. Medications: Reviewed: Yes Vitals/I&O/Wt Last Vital Signs Temp 98.5 F 05/02/23 09:00 Pulse 81 05/02/23 12:00 Resp 25 H 05/02/23 12:00 BP 149/108 05/02/23 12:00 Pulse Ox 94 05/02/23 12:00 O2 Del Method Nasal Cannula 05/02/23 12:00 O2 Flow Rate 4 05/02/23 12:00 05/01/23 05/02/23 05/02/23 22:59 06:59 14:59 Intake Total 155 / 1015 350 / 1365 565 / 565 Output Total 400 / 1400 250 / 1650 Balance -245 / -385 100 / -285 565 / 565 Physical Exam Narrative: General: Patient is altered. Agitated. Moaning. Does not follow commands. Head: Normocephalic. Cardiovascular: RRR. No gallops. No murmurs. Lungs: Breath sounds are diminished in bases, no use of accessory muscles, no crackles or wheezes. On supplemental support. Skin: No jaundice. Abdomen: Normal bowel sounds, abdomen soft and nontender. Genito Urinary: Boyd Extremities: No cyanosis or clubbing. Musculoskeletal: Normal muscle development for demographic Neurological: Moves all 4 extremities. No myoclonus. Urinary Catheter Management: Boyd: Cath Placed During This Visit: yes Reason for Continuing Indwelling Catheter: Accurate Measurement of Urinary Output in Critically Ill Patients Urinary Catheter Date of Insertion: 04/29/23 Urinary Catheter Time of Insertion: 18:30 Data 05/02/23 02:45 05/02/23 02:45 Micro: Microbiology 04/29/23 22:28 Urine Culture - Final Urine,Clean Catch Escherichia coli A&P Assessment and plan (1) Encephalopathy acute: Still encephalopathic this morning but overall seems to be improving with waxing and waning course Continue antibiotics for urinary tract infection/sepsis Avoid sedating medications (2) Sepsis: Source: Acute complicated E. coli urinary tract infection Follow cultures Continue Zosyn Discontinue vancomycin (3) Cerebral infarction, left hemisphere: 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 prior left MCA stroke with global aphasia Neurology following, appreciate recommendations Continue with Keppra Speech therapy, physical therapy, Occupational Therapy Aspiration precautions, head of bed elevation Neurochecks Prognosis remains highly guarded (4) COPD, moderate: Acute COPD exacerbation Acute hypoxic respiratory failure Continue supplemental oxygen support Antibiotics as above Nebulizing treatments (5) Substance abuse: [facility] protocol (6) Uncontrolled diabetes mellitus: Uncontrolled type 2 diabetes mellitus with hyperglycemia A1c 10.6 in March Hold home metformin Sliding-scale insulin correction (7) Benign essential HTN: Home antihypertensives on hold due to sepsis Plan DVT prophylaxis: SCDs CODE STATUS: Assume full code Attestations Medical Necessity Statement*: Patient remains severely encephalopathic requiring ongoing hospitalization for IV antibiotics, therapy, and supportive care. Coding Level of Care Code Acute Code for [facility] Diagnoses Encephalopathy acute G93.40 Sepsis A41.9 Cerebral infarction, left hemisphere I63.9 COPD, moderate J44.9 Substance abuse F19.10 Uncontrolled diabetes mellitus E11.65 Benign essential HTN I10
--- NOTE | 2023-05-02 13:14 | PC.SOCIAL ---
IMM Update pg 2 of IMM updated and reviewed w/ patients sister. Copy left @ bedside and copy dated, initialed and placed in chart.
--- NOTE | 2023-05-02 14:33 | PC.NURSE ---
BrotherJyaesh, called and notified of patient transfer to room 277-2.
--- NOTE | 2023-05-02 14:33 | PC.NURSE ---
Report called to Joseph. Patient and belongings taken to room 277-2.
[2023-05-02 17:00] LABS: Glucose Point of Care 221 mg/dL (70-110)
--- NOTE | 2023-05-02 19:38 | PC.NURSE ---
Upon nursing shift assessment, pt is able to follow commands and is alert to self but is unable to communicate verbally and continues to moan for responses to questions.
[2023-05-02] MEDS: atorvastatin 40 mg Tablet 20 MG PO (20:50)
[2023-05-02 21:06] LABS: Glucose Point of Care 155 mg/dL (70-110)
[2023-05-03] VITALS (25 sets, daily range): BP systolic 146–191; BP diastolic 84–101; PULSE 69–78; RESP 16–20; TEMP 36.4–36.9; O2SAT 90–100
[2023-05-03] MEDS: labetalol 5 mg/mL SDV 20mL 10 MG IVP (00:53)
[2023-05-03] MEDS: piperacillin-tazobactam 3.375 GM in sodium chloride 0.9% (plus) 50 ML IV ×3 (02:41→18:17)
[2023-05-03 05:06] LABS: Basophils # 0.1 10^3/uL (0.0-0.1); Basophils % 0.6 %; Eosinophils # 0.5 10^3/uL (0.0-0.8); Eosinophils % 5.9 %; Hematocrit 34.2 % (37.0-47.0); Lymphocytes # 1.1 10^3/uL (0.8-4.8); Lymphocytes % 13.8 %; Mean Corpuscular HGB Conc 32.2 g/dL (30.0-36.0); Mean Corpuscular Hemoglobin 27.4 pg (28.0-34.0); Mean Corpuscular Volume 85.3 fl (81-99); Mean Platelet Volume 10.1 fL (7.4-10.4); Monocytes # 0.6 10^3/uL (0.2-0.9); Monocytes % 7.6 %; Neutrophils # 5.85 10^3/uL (1.8-7.7); Neutrophils % 71.7 %; Nucleated Red Blood Cells % 0 %; Platelet Count 183 10^3/cmm (130-400); Red Blood Count 4.01 10^6/uL (4.1-5.3); White Blood Count 8.2 10^3/uL (4.0-10.0)
[2023-05-03 05:32] LABS: Alanine Aminotransferase 10 U/L (0-33); Albumin Level 3.3 g/dL (3.5-5.2); Alkaline Phosphatase 96 U/L (35-105); Anion Gap 16.3 (5-19); Aspartate Amino Transferase 11 U/L (0-32); Blood Urea Nitrogen 11 mg/dL (8-23); Calcium 8.8 mg/dL (8.5-10.5); Carbon Dioxide 22 mmol/L (22-29); Chloride 108 mmol/L (98-107); Glomerular Filtration Rate 83.5 mL/min (90-130); Glucose 156 mg/dL (65-115); Magnesium 1.8 mg/dL (1.7-2.3); Osmolality Calculated 299 mOsm/kg (285-295); Potassium 3.3 mmol/L (3.5-5.1); Sodium 143 mmol/L (136-145); Total Bilirubin 0.5 mg/dL (0.15-1.2); Total Protein 6.3 g/dL (6.6-8.7)
[2023-05-03 06:42] LABS: Glucose Point of Care 154 mg/dL (70-110)
[2023-05-03] MEDS: insulin lispro 100 unit/1 mL SUBCUT ×3 (08:38→18:03)
[2023-05-03] MEDS: multivitamin therapeutic Tablet 1 TAB PO (08:38)
[2023-05-03] MEDS: folic acid 1 mg Tablet PO (08:38)
[2023-05-03] MEDS: thiamine 100 mg Tablet PO (08:38)
[2023-05-03 11:16] LABS: Glucose Point of Care 234 mg/dL (70-110)
[2023-05-03] MEDS: pantoprazole 40 mg SDV IVP ×2 (11:54→18:43)
--- NOTE | 2023-05-03 15:15 | PM.PN ---
Subjective Subjective: Patient is up to bedside chair. She follows commands. She attempts verbal communication but almost all of her speech is incomprehensible. There is an occasional word that is comprehensible. She is attempting to communicate verbally. She denies any pain, fevers or chills. Discussed plan of care and she seems to be in agreement. Medications: Reviewed: Yes Vitals/I&O/Wt Last Vital Signs Temp 98.0 F 05/03/23 13:41 Pulse 75 05/03/23 13:41 Resp 16 05/03/23 13:41 BP 154/84 05/03/23 13:41 Pulse Ox 93 05/03/23 11:18 O2 Del Method Nasal Cannula 05/03/23 11:18 O2 Flow Rate 4 05/03/23 08:00 05/03/23 05/03/23 05/03/23 06:59 14:59 22:59 Intake Total 445 / 445 Output Total 100 / 650 Balance -100 / 460 445 / 445 Physical Exam Narrative: General: Patient is awake. Sitting in bedside chair. Interactive. Follows commands.. Head: Normocephalic. Cardiovascular: RRR. No gallops. No murmurs. Lungs: Breath sounds are diminished in bases, no use of accessory muscles, no crackles or wheezes. On nasal cannula supplemental support. Skin: No jaundice. Abdomen: Normal bowel sounds, abdomen soft and nontender. Genito Urinary: Boyd Extremities: No cyanosis or clubbing. Musculoskeletal: Normal muscle development for demographic Neurological: No myoclonus. Urinary Catheter Management: Boyd: Cath Placed During This Visit: yes Reason for Continuing Indwelling Catheter: Other Urinary Catheter Date of Insertion: 04/29/23 Urinary Catheter Time of Insertion: 18:30 Data 05/03/23 04:45 05/03/23 04:45 Micro: Microbiology 05/02/23 13:14 C.difficile Toxin B Gene (PCR) - Final Stool Routine Collection A&P Assessment and plan (1) Encephalopathy acute: Mentation is improving, still not back to recent reported baseline but showing significant progress with treatment Continue antibiotics for urinary tract infection/sepsis Avoid sedating medications (2) Sepsis: Source: Acute complicated E. coli urinary tract infection Follow cultures Continue Zosyn, consider narrowing over this weekend pending on her clinical course (3) Cerebral infarction, left hemisphere: 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 prior left MCA stroke with global aphasia Neurology following, appreciate recommendations Continue with Keppra Speech therapy, physical therapy, Occupational Therapy Aspiration precautions, head of bed elevation Neurochecks Prognosis remains highly guarded (4) COPD, moderate: Acute COPD exacerbation Acute hypoxic respiratory failure Continue supplemental oxygen support Antibiotics as above Nebulizing treatments (5) Substance abuse: [facility] protocol (6) Uncontrolled diabetes mellitus: Uncontrolled type 2 diabetes mellitus with hyperglycemia A1c 10.6 in March Hold home metformin Sliding-scale insulin correction (7) Benign essential HTN: Home antihypertensives on hold due to sepsis Plan DVT prophylaxis: SCDs CODE STATUS: Assume full code Attestations Medical Necessity Statement*: Patient requires ongoing hospitalization for IV antibiotics, therapy, cultures, and supportive care. Coding Level of Care Code Acute Code for [facility] Diagnoses Encephalopathy acute G93.40 Sepsis A41.9 Cerebral infarction, left hemisphere I63.9 COPD, moderate J44.9 Substance abuse F19.10 Uncontrolled diabetes mellitus E11.65 Benign essential HTN I10
[2023-05-03 17:14] LABS: Glucose Point of Care 141 mg/dL (70-110)
[2023-05-03] MEDS: atorvastatin 40 mg Tablet 20 MG PO (21:18)
[2023-05-03 21:46] LABS: Glucose Point of Care 137 mg/dL (70-110)
[2023-05-03] MEDS: acetaminophen 500 mg Tablet PO (23:20)
[2023-05-04] VITALS (17 sets, daily range): BP systolic 155–167; BP diastolic 63–101; PULSE 72–85; RESP 15–23; TEMP 36.4–37.2; O2SAT 93–100
[2023-05-04] MEDS: lisinopril 10 mg Tablet PO ×2 (00:21→08:07)
[2023-05-04] MEDS: piperacillin-tazobactam 3.375 GM in sodium chloride 0.9% (plus) 50 ML IV ×2 (02:02→09:35)
[2023-05-04 05:42] LABS: Basophils # 0.1 10^3/uL (0.0-0.1); Basophils % 0.9 %; Eosinophils # 0.5 10^3/uL (0.0-0.8); Eosinophils % 7.3 %; Hemoglobin 11.1 g/dL (11.5-15.3); Lymphocytes # 1.3 10^3/uL (0.8-4.8); Lymphocytes % 17.1 %; Mean Corpuscular HGB Conc 31.7 g/dL (30.0-36.0); Mean Corpuscular Hemoglobin 26.6 pg (28.0-34.0); Mean Corpuscular Volume 83.9 fl (81-99); Mean Platelet Volume 10.1 fL (7.4-10.4); Monocytes # 0.6 10^3/uL (0.2-0.9); Monocytes % 7.5 %; Neutrophils # 4.97 10^3/uL (1.8-7.7); Neutrophils % 66.8 %; Nucleated Red Blood Cells % 0 %; Platelet Count 205 10^3/cmm (130-400); Red Blood Count 4.17 10^6/uL (4.1-5.3); White Blood Count 7.4 10^3/uL (4.0-10.0)
[2023-05-04 06:04] LABS: Albumin Level 3.3 g/dL (3.5-5.2); Anion Gap 17.2 (5-19); Blood Urea Nitrogen 10 mg/dL (8-23); Carbon Dioxide 21 mmol/L (22-29); Chloride 110 mmol/L (98-107); Glomerular Filtration Rate 71.5 mL/min (90-130); Glucose 133 mg/dL (65-115); Magnesium 1.7 mg/dL (1.7-2.3); Phosphorus 3.4 mg/dL (2.5-4.5); Potassium 3.2 mmol/L (3.5-5.1); Sodium 145 mmol/L (136-145)
[2023-05-04 06:43] LABS: Glucose Point of Care 152 mg/dL (70-110)
[2023-05-04] MEDS: multivitamin therapeutic Tablet 1 TAB PO (08:06)
[2023-05-04] MEDS: thiamine 100 mg Tablet PO (08:07)
[2023-05-04] MEDS: folic acid 1 mg Tablet PO (08:07)
[2023-05-04] MEDS: pantoprazole 40 mg SDV IVP (08:10)
[2023-05-04] MEDS: insulin lispro 100 unit/1 mL SUBCUT ×3 (08:12→17:57)
--- NOTE | 2023-05-04 08:50 | PC.SOCIAL ---
Imm update Imm updated with patient at bedside. Copy of page 2 provided. Patient was able to shake her head yes. Copy in chart initialed, dated and timed.
[2023-05-04 10:49] LABS: Glucose Point of Care 235 mg/dL (70-110)
--- NOTE | 2023-05-04 15:16 | PM.PN ---
Subjective Subjective: Patient is awake and alert. She still has Broca aphasia but seems to be comprehending well. She has a lot of questions pertaining to her coverage and SNF placement. She has couple family members bedside who are supportive. Patient denies any fevers, chills, nausea or emesis. Family is encouraging patient to continue skilled therapy. Medications: Reviewed: Yes Vitals/I&O/Wt Last Vital Signs Temp 97.6 F 05/04/23 15:08 Pulse 73 05/04/23 15:08 Resp 15 05/04/23 15:08 BP 167/100 05/04/23 15:08 Pulse Ox 94 05/04/23 12:00 O2 Del Method Room Air 05/04/23 12:00 O2 Flow Rate 2.5 05/04/23 07:57 05/04/23 05/04/23 05/04/23 06:59 14:59 22:59 Intake Total 50 / 890 755 / 755 Output Total 150 / 750 Balance -100 / 140 755 / 755 Physical Exam Narrative: General: Patient is awake.? Alert. Interactive. Speech is still almost completely incomprehensible with the occasional word being comprehensible Head:? Normocephalic. Cardiovascular: RRR. No gallops. No murmurs. Lungs: Breath sounds are diminished in bases, no use of accessory muscles, no crackles or wheezes.? On nasal cannula supplemental support. Skin: No jaundice. Abdomen: Normal bowel sounds, abdomen soft and nontender. Genito Urinary: Boyd Extremities: No cyanosis or clubbing. Musculoskeletal: Normal muscle development for demographic Neurological:? No myoclonus.? Urinary Catheter Management: Boyd: Cath Placed During This Visit: yes Reason for Continuing Indwelling Catheter: Other Urinary Catheter Date of Insertion: 04/29/23 Urinary Catheter Time of Insertion: 18:30 Data 05/04/23 05:22 05/04/23 05:22 A&P Assessment and plan (1) Encephalopathy acute: Encephalopathy has improved with treatment of urinary tract infection Suspect her mentation is at or close to her baseline Continue to monitor (2) Sepsis: Acute complicated E. coli urinary tract infection Continue antibiotics (3) Cerebral infarction, left hemisphere: 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 prior left MCA stroke with global aphasia Neurology following, appreciate recommendations Continue with [facility] Speech therapy, physical therapy, Occupational Therapy Aspiration precautions, head of bed elevation Neurochecks Prognosis remains highly guarded (4) COPD, moderate: Acute COPD exacerbation Acute hypoxic respiratory failure Continue supplemental oxygen support Antibiotics as above Nebulizing treatments (5) Substance abuse: [facility] protocol (6) Uncontrolled diabetes mellitus: Uncontrolled type 2 diabetes mellitus with hyperglycemia A1c 10.6 in March Hold home metformin Sliding-scale insulin correction (7) Benign essential HTN: Blood pressure is increasing his sepsis is improving Start home antihypertensives Plan DVT prophylaxis: SCD CODE STATUS: Full code Attestations Medical Necessity Statement*: Patient requires ongoing hospitalization for IV antibiotics, therapy, and supportive care. Coding Level of Care Code Acute Code for [facility] Diagnoses Encephalopathy acute G93.40 Sepsis A41.9 Cerebral infarction, left hemisphere I63.9 COPD, moderate J44.9 Substance abuse F19.10 Uncontrolled diabetes mellitus E11.65 Benign essential HTN I10
[2023-05-04] MEDS: cefTRIAXone 1,000 MG in sodium chloride 0.9% (plus) 50 ML 100 MG IV (15:59)
[2023-05-04 17:06] LABS: Glucose Point of Care 196 mg/dL (70-110)
[2023-05-04] MEDS: levETIRAcetam 1,000 mg/10 mL UDC 500 MG PO (17:57)
[2023-05-04 20:39] LABS: Glucose Point of Care 217 mg/dL (70-110)
[2023-05-04] MEDS: atorvastatin 40 mg Tablet 20 MG PO (21:27)
[2023-05-05] VITALS (7 sets, daily range): BP systolic 146–171; BP diastolic 79–99; PULSE 71–75; RESP 16–23; TEMP 36.4–36.9; O2SAT 91–93
[2023-05-05] MEDS: cefTRIAXone 1,000 MG in sodium chloride 0.9% (plus) 50 ML 100 MG IV ×2 (03:10→15:59)
[2023-05-05] MEDS: lisinopril 10 mg Tablet PO ×3 (03:30→17:55)
[2023-05-05 06:42] LABS: Glucose Point of Care 179 mg/dL (70-110)
[2023-05-05] MEDS: insulin glargine 100 units/1 mL 10 UNIT SUBCUT (08:41)
[2023-05-05] MEDS: potassium chloride ER 20 mEq Tablet PO (08:41)
[2023-05-05] MEDS: thiamine 100 mg Tablet PO (08:41)
[2023-05-05] MEDS: insulin lispro 100 unit/1 mL SUBCUT ×2 (08:41→17:55)
[2023-05-05] MEDS: folic acid 1 mg Tablet PO (08:42)
[2023-05-05] MEDS: multivitamin therapeutic Tablet 1 TAB PO (08:42)
[2023-05-05] MEDS: metoprolol succinate ER (24 HR) 25 mg Tablet PO (08:42)
[2023-05-05] MEDS: FUROsemide 40 mg Tablet PO (08:42)
[2023-05-05] MEDS: pantoprazole DR 40 mg Tablet PO (08:42)
[2023-05-05] MEDS: levETIRAcetam 1,000 mg/10 mL UDC 500 MG PO ×2 (08:42→17:55)
[2023-05-05] MEDS: buPROPion XL (24 HR) 150 mg Tablet PO (08:55)
[2023-05-05 11:32] LABS: Glucose Point of Care 150 mg/dL (70-110)
--- NOTE | 2023-05-05 12:21 | PC.OT ---
Therapist entered room. One-on-one sitter stated that pt. was in the bathroom, had dressed herself, and was agitated. Lunch tray in room. Sitter stated that pt. was refusing to eat it. Therapist noticed cylindrical foam was not on tray and went to retrieve more. When therapist came back up the steps, sitter was next to [facility] with security; pt. was looking out the window in the waiting room. Pt. indicated that she did not want OT tx but accepted the foam being placed in her room. Pt. not treated secondary to refusal of services.
[2023-05-05] MEDS: bismuth subsalicylate 240 mL Btl 15 ML PO (15:58)
[2023-05-05] MEDS: acetaminophen 500 mg Tablet PO (15:58)
--- NOTE | 2023-05-05 16:03 | P.PN_ITS ---
Subjective Subjective: Patient sitting on edge of bed. She is much more restless today. Expressive aphasia still persistent. Unable to understand almost all of her words today. She is more impulsive. She seems to deny fevers, chills, nausea or emesis. Medications: Reviewed: Yes Vitals/I&O/Wt Last Vital Signs Temp 97.7 F 05/05/23 07:30 Pulse 73 05/05/23 11:36 Resp 18 05/05/23 11:36 BP 165/92 05/05/23 11:36 Pulse Ox 91 05/05/23 11:36 O2 Del Method Room Air 05/05/23 11:36 O2 Flow Rate 3 05/05/23 08:00 05/05/23 05/05/23 05/05/23 06:59 14:59 22:59 Intake Total 50 / 1455 640 / 640 Output Total 700 / 700 700 / 700 Balance -650 / 755 -60 / -60 Physical Exam Narrative: General: Patient is awake.? Sitting on edge of bed. Restless. Expressive aphasia with incomprehensible speech persists. Head:? Normocephalic. Cardiovascular: RRR. No gallops. No murmurs. Lungs: Breath sounds are diminished in bases, no use of accessory muscles, no crackles or wheezes.? Skin: No jaundice. Abdomen: Normal bowel sounds, abdomen soft and nontender. Extremities: No cyanosis or clubbing. Musculoskeletal: Normal muscle development for demographic Neurological:? No myoclonus.? Dysarthria. Restless. Expressive aphasia. Urinary Catheter Management: Boyd: Cath Placed During This Visit: yes, but has since been removed by the nurse Reason for Continuing Indwelling Catheter: Other Urinary Catheter Date of Insertion: 04/29/23 Urinary Catheter Time of Insertion: 18:30 Date Urinary Catheter Removed: 05/05/23 Time Urinary Catheter Discontinued: 12:00 Data 05/04/23 05:22 05/04/23 05:22 Micro: Microbiology 04/29/23 17:54 Blood Culture - Final Blood NO GROWTH AFTER 5 DAYS 04/29/23 17:50 Blood Culture - Final Blood NO GROWTH AFTER 5 DAYS A&P Assessment and plan (1) Encephalopathy acute: Overall, mentation has improved Mentation is close to her baseline, she is more restless today Treating underlying infection Stroke continues to evolve (2) Sepsis: Secondary to acute complicated E. 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 Neurology following, appreciate recommendations Continue with [facility] Speech therapy, physical therapy, Occupational Therapy Aspiration precautions, head of bed elevation Case management has sent referrals to [facility] (4) COPD, moderate: Acute COPD exacerbation Acute hypoxic respiratory failure Continue supplemental oxygen support Antibiotics as above Nebulizing treatments (5) Substance abuse: [facility] protocol (6) Uncontrolled diabetes mellitus: Uncontrolled type 2 diabetes mellitus with hyperglycemia A1c 10.6 in March Hold home metformin Sliding-scale insulin correction (7) Benign essential HTN: Continue home antihypertensives Plan DVT prophylaxis: SCD CODE STATUS: Full code Attestations Medical Necessity Statement*: Patient requires ongoing hospitalization for supportive care, neurological exams, therapy, and placement. Coding Level of Care Code Acute Code for [facility] Diagnoses Encephalopathy acute G93.40 Sepsis A41.9 Cerebral infarction, left hemisphere I63.9 COPD, moderate J44.9 Substance abuse F19.10 Uncontrolled diabetes mellitus E11.65 Benign essential HTN I10
[2023-05-05 17:06] LABS: Glucose Point of Care 265 mg/dL (70-110)
[2023-05-05] MEDS: cefdinir 300 MG CAPSULE PO (17:55)
--- NOTE | 2023-05-05 18:32 | PC.NURSE ---
Patient currently sitting on side of bed, OOBTC and ambulating at will, AAOx1 with aphasia throughout shift. Patient has had a sitter. BP elevated with VSS. Patient had an episode mid-shift where she hid from psa, pulled out holman and an IV line, got dressed and left room. Patient appears steady on feet but refuses walker or any assistance. Patient was able to be de-escalated and returned to room, sitter replaced and patient calmed down. Room clean and clutter free with call light within reach. Patient c/o headache and abdominal pain throughout shift with no other changes. Physician aware with orders placed.
[2023-05-05 20:17] LABS: Glucose Point of Care 131 mg/dL (70-110)
[2023-05-05] MEDS: atorvastatin 40 mg Tablet 20 MG PO (20:25)
[2023-05-06] MEDS: acetaminophen 500 mg Tablet PO ×2 (00:56→08:57)
[2023-05-06 03:50] VITALS: BP 136/73; PULSE 68; RESP 17; TEMP 36.8; O2SAT 90
[2023-05-06 06:21] LABS: Glucose Point of Care 150 mg/dL (70-110)
[2023-05-06 07:23] VITALS: BP 134/72; PULSE 66; RESP 15; O2SAT 90
[2023-05-06] MEDS: FUROsemide 40 mg Tablet PO (08:51)
[2023-05-06] MEDS: buPROPion XL (24 HR) 150 mg Tablet PO (08:51)
[2023-05-06] MEDS: cefdinir 300 MG CAPSULE PO ×2 (08:51→17:42)
[2023-05-06] MEDS: metoprolol succinate ER (24 HR) 25 mg Tablet PO (08:56)
[2023-05-06] MEDS: folic acid 1 mg Tablet PO (08:56)
[2023-05-06] MEDS: pantoprazole DR 40 mg Tablet PO (08:56)
[2023-05-06] MEDS: thiamine 100 mg Tablet PO (08:57)
[2023-05-06] MEDS: lisinopril 10 mg Tablet PO ×2 (08:57→17:43)
[2023-05-06] MEDS: insulin glargine 100 units/1 mL 10 UNIT SUBCUT (08:57)
[2023-05-06] MEDS: potassium chloride ER 20 mEq Tablet PO (08:57)
[2023-05-06] MEDS: insulin lispro 100 unit/1 mL SUBCUT ×2 (08:57→12:29)
[2023-05-06] MEDS: multivitamin therapeutic Tablet 1 TAB PO (08:57)
[2023-05-06] MEDS: levETIRAcetam 1,000 mg/10 mL UDC 500 MG PO ×2 (10:41→17:43)
[2023-05-06 10:58] VITALS: PULSE 71; RESP 17; O2SAT 95
[2023-05-06 11:44] LABS: Glucose Point of Care 196 mg/dL (70-110)
[2023-05-06 11:46] VITALS: BP 146/86; PULSE 66; RESP 16; TEMP 36.6; O2SAT 94
--- NOTE | 2023-05-06 12:59 | PC.SOCIAL ---
IMM Updated Updated pt on IMM. No questions voiced. Provided pt a copy. Initialed, dated, & timed copy in chart.
--- NOTE | 2023-05-06 13:01 | PM.PN ---
Subjective Subjective: Patient is awake and alert. She is sitting on the edge of bed. Another brother is initially present and talking to her. She seems to deny any complaints. She is restless and seems to want to get out of the hospital. She has persistent expressive aphasia the vast majority of her speech incomprehensible. It is unclear to what degree that she appreciates this deficits. Medications: Reviewed: Yes Vitals/I&O/Wt Last Vital Signs Temp 97.8 F 05/06/23 11:46 Pulse 66 05/06/23 11:46 Resp 16 05/06/23 11:46 BP 146/86 05/06/23 11:46 Pulse Ox 94 05/06/23 11:46 O2 Del Method Room Air 05/06/23 11:46 O2 Flow Rate 1 05/06/23 10:58 05/05/23 05/06/23 05/06/23 22:59 06:59 14:59 Intake Total 560 / 1200 30 / 1230 240 / 240 Balance 560 / 500 30 / 530 240 / 240 Physical Exam Narrative: General: Patient is awake.? Chronically ill-appearing. Expressive Broca aphasia. Head:? Normocephalic. Cardiovascular: RRR. No gallops. No murmurs. Lungs: Breath sounds are diminished in bases, no use of accessory muscles, no crackles or wheezes.? Skin: No jaundice. Abdomen: Normal bowel sounds, abdomen soft and nontender. Extremities: No cyanosis or clubbing. Musculoskeletal: Normal muscle development for demographic Neurological:? No myoclonus. Expressive aphasia. Urinary Catheter Management: Boyd: Cath Placed During This Visit: yes, but has since been removed by the nurse Reason for Continuing Indwelling Catheter: Other Urinary Catheter Date of Insertion: 04/29/23 Urinary Catheter Time of Insertion: 18:30 Date Urinary Catheter Removed: 05/05/23 Time Urinary Catheter Discontinued: 12:00 Data 05/04/23 05:22 05/04/23 05:22 A&P Assessment and plan (1) Encephalopathy acute: Mentation is likely at her new baseline She is very restless Avoid sedating medications Treating underlying UTI (2) Sepsis: Secondary to acute complicated E. 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 Neurology evaluated Continue with [facility] Speech therapy, physical therapy, Occupational Therapy Aspiration precautions, head of bed elevation Placement to be determined (4) COPD, moderate: Acute COPD exacerbation, resolved Acute hypoxic respiratory failure Continue supplemental oxygen support Antibiotics as above Nebulizing treatments (5) Substance abuse: Discontinue [facility] protocol (6) Uncontrolled diabetes mellitus: Uncontrolled type 2 diabetes mellitus with hyperglycemia A1c 10.6 in March Hold home metformin Sliding-scale insulin correction (7) Benign essential HTN: Continue home antihypertensives Plan DVT prophylaxis: SCD CODE STATUS: Full code Attestations Medical Necessity Statement*: Patient requires ongoing hospitalization as safe placement has not been procured. Coding Level of Care Code Acute Code for [facility] Diagnoses Encephalopathy acute G93.40 Sepsis A41.9 Cerebral infarction, left hemisphere I63.9 COPD, moderate J44.9 Substance abuse F19.10 Uncontrolled diabetes mellitus E11.65 Benign essential HTN I10
[2023-05-06 15:48] VITALS: BP 146/79; PULSE 70; RESP 16; TEMP 36.9; O2SAT 92
[2023-05-06 17:03] LABS: Glucose Point of Care 119 mg/dL (70-110)
[2023-05-06 20:00] VITALS: BP 131/82; PULSE 68; PULSE 70; RESP 17; RESP 18; TEMP 36.8; O2SAT 93; O2SAT 95
[2023-05-06 20:21] LABS: Glucose Point of Care 268 mg/dL (70-110)
[2023-05-06] MEDS: atorvastatin 40 mg Tablet 20 MG PO (20:53)
[2023-05-07] VITALS: BP 134/83; PULSE 73; RESP 17; TEMP 36.3; O2SAT 92
[2023-05-07 04:00] VITALS: BP 112/69; PULSE 78; RESP 17; TEMP 37.2; O2SAT 92
[2023-05-07 06:39] LABS: Glucose Point of Care 156 mg/dL (70-110)
[2023-05-07 07:22] VITALS: BP 153/90; PULSE 72; RESP 16; TEMP 36.4; O2SAT 94
[2023-05-07] MEDS: insulin lispro 100 unit/1 mL SUBCUT (07:37)
[2023-05-07] MEDS: insulin glargine 100 units/1 mL 10 UNIT SUBCUT (07:37)
[2023-05-07] MEDS: levETIRAcetam 1,000 mg/10 mL UDC 500 MG PO (07:38)
[2023-05-07] MEDS: folic acid 1 mg Tablet PO (07:38)
[2023-05-07] MEDS: pantoprazole DR 40 mg Tablet PO (07:38)
[2023-05-07] MEDS: potassium chloride ER 20 mEq Tablet PO (07:38)
[2023-05-07] MEDS: FUROsemide 40 mg Tablet PO (07:38)
[2023-05-07] MEDS: metoprolol succinate ER (24 HR) 25 mg Tablet PO (07:38)
[2023-05-07] MEDS: cefdinir 300 MG CAPSULE PO (07:38)
[2023-05-07] MEDS: lisinopril 10 mg Tablet PO (07:39)
[2023-05-07] MEDS: thiamine 100 mg Tablet PO (07:39)
[2023-05-07] MEDS: multivitamin therapeutic Tablet 1 TAB PO (07:39)
[2023-05-07] MEDS: buPROPion XL (24 HR) 150 mg Tablet PO (07:41)
[2023-05-07 08:28] VITALS: PULSE 71; RESP 18; O2SAT 94
--- NOTE | 2023-05-07 13:43 | P.DS_ITS ---
Discharge Providers Date of Admission: 04/29/23 23:20 Date of Discharge: May 07, 2023 Attending Provider at Admission: Danna Campos MD Attending Provider at Discharge: Dami Lamar MD Consults: Neurology Primary Care Provider: Joann Cardona Diagnoses at Discharge Discharge Diagnosis (1) Encephalopathy acute: Status: Acute (2) Sepsis: Status: Acute (3) Cerebral infarction, left hemisphere: Status: Acute (4) COPD, moderate: Status: Acute (5) Substance abuse: Status: Acute (6) Uncontrolled diabetes mellitus: Status: Acute (7) Benign essential HTN: Status: Acute Reason for Visit Reason for Visit: [facility] Hospital Course Hospital Course Sarah Rogers is a 68-year-old female with a complicated past medical history who presented with altered mental status, found to have septic shock secondary to acute complicated E coli urinary tract infection complicated by severe acute metabolic encephalopathy. Patient treated with IV fluids, vasopressors and broad spectrum antibiotics. Neurology consulted and followed given recent stroke. Head imaging showed evolution of known recent stroke for which aspirin was discontinued. Patient worked with therapy with mentation and functional status returning to recent baseline which unfortunately includes Broca's expressive aphasia with ~95% of verbal communication being incomprehensible. Patient refused group home facility placement (recently placed in SNF and left AMA). Home health established for nursing and speech therapy. Patient discharged back to her apartment. Family agreed to assist patient as well. She is to take medications as prescribed and follow up with PCP in 1-2 weeks. Physical Exam Narrative: General: Patient is awake.? Alert. NAD. Expressive Broca aphasia. Head:? Normocephalic. Cardiovascular: RRR. No gallops. No murmurs. Lungs: Breath sounds are diminished in bases, no use of accessory muscles, no crackles or wheezes.? Skin: No jaundice. Abdomen: Normal bowel sounds, abdomen soft and nontender. Extremities: No cyanosis or clubbing. Musculoskeletal: Normal muscle development for demographic Neurological:? No myoclonus. Expressive aphasia. Urinary Catheter Management: Boyd: Cath Placed During This Visit: yes, but has since been removed by the nurse Reason for Continuing Indwelling Catheter: Other Urinary Catheter Date of Insertion: 04/29/23 Urinary Catheter Time of Insertion: 18:30 Date Urinary Catheter Removed: 05/05/23 Time Urinary Catheter Discontinued: 12:00 Discharge Data Studies Completed and Pending Completed Studies During Hospitalization Category Date Time Status CT abdomen renal stone [CT kidney stone 61316] Urgent Cat Scan 05/01/23 03:[address] head wo con* [id number] Stat Cat Scan 04/29/23 17:[address] head wo con* [id number] Urgent Cat Scan 05/01/23 03:50 Completed CTA head neck [CT angio headneck* [id number]/[id number]] Stat Cat Scan 04/29/23 19:33 Completed XR chest 1V portable [id number] Stat Exams 04/29/23 17:17 Completed XR chest 1V portable [id number] Stat Exams 05/01/23 03:31 Completed US echo complete [CV. echo complete* [id number]] Stat Ultrasound 04/29/23 19:35 Completed Radiology Impressions Head/Neck CTA 04/29/23 19:33 IMPRESSION: 1. No large vessel stenosis or occlusion. 2. Findings of hemorrhagic conversion of the early chronic infarct again identified. IMPRESSION: 1. Mild left internal carotid artery stenosis. 2. No vascular occlusion involving the carotid or vertebral arteries in the neck. REFERENCES: NASCET CRITERIA. The degree of stenosis in the cervical segment of the internal carotid artery is based on NASCET criteria. Normal is no stenosis. Mild is less than 50% stenosis. Moderate is 50-69% stenosis. Severe is 70% to 99% stenosis. Total occlusion is no detectable patent lumen. Chest X-Ray 05/01/23 03:31 IMPRESSION: 1. Chronic or recurrent interstitial coarsening. 2. New right basilar consolidation consistent with pneumonia. ADDENDUM: 05/01/23 0601 SIGRID Islas indicated that they would relay the critical findings to Dr. Moore, who is currently unavailable for a phone conference. Abdomen/Pelvis CT 05/01/23 03:50 IMPRESSION: 1. Mild fullness of the left renal collecting system and ureter with periureteral stranding. Given the absence of ureteral calculi this is likely secondary to urinary tract infection/pyelitis. 2. Bladder wall thickening suggesting cystitis, incomplete distention or chronic outflow obstruction. 3. Findings suggestive of mild acute colitis/diverticulitis of the proximal sigmoid. Artifact limits evaluation. As an underlying colonic malignancy cannot be excluded, a follow-up examination after a course of treatment is recommended if clinically warranted. ADDENDUM: 05/01/23 0601 RN Itzel Islas indicated that they would relay the critical findings to Dr. Moore, who is currently unavailable for a phone conference. Head CT 05/01/23 03:50 IMPRESSION: 1. No new or progressive hemorrhage. 2. Hemorrhagic conversion of early chronic infarcts as described. Stable head from 2 days ago. Laboratory Results WBC 7.4 10^3/uL (4.0-10.0) 05/04/23 05:22 RBC 4.17 10^6/uL (4.1-5.3) 05/04/23 05:22 Hgb 11.1 g/dL (11.5-15.3) L 05/04/23 05:22 Hct 35.0 % (37.0-47.0) L 05/04/23 05:22 MCV 83.9 fl (81-99) 05/04/23 05:22 MCH 26.6 pg (28.0-34.0) L 05/04/23 05:22 MCHC 31.7 g/dL (30.0-36.0) 05/04/23 05:22 RDW 14.0 % (12.1-15.1) 05/04/23 05:22 Plt Count 205 10^3/cmm (130-400) 05/04/23 05:22 MPV 10.1 fL (7.4-10.4) 05/04/23 05:22 Neut % (Auto) 66.8 % 05/04/23 05:22 Lymph % (Auto) 17.1 % 05/04/23 05:22 [place] % (Auto) 7.5 % 05/04/23 05:22 Eos % (Auto) 7.3 % 05/04/23 05:22 Baso % (Auto) 0.9 % 05/04/23 05:22 Neut # (Auto) 4.97 10^3/uL (1.8-7.7) 05/04/23 05:22 Lymph # (Auto) 1.3 10^3/uL (0.8-4.8) 05/04/23 05:22 [place] # (Auto) 0.6 10^3/uL (0.2-0.9) 05/04/23 05:22 Eos # (Auto) 0.5 10^3/uL (0.0-0.8) 05/04/23 05:22 Baso # (Auto) 0.1 10^3/uL (0.0-0.1) 05/04/23 05:22 Nucleated RBC % (auto) 0 % 05/04/23 05:22 Nucleated RBCs # 0.0 /100WBC 05/04/23 05:22 PT 15.50 SECONDS (12.1-14.9) H 04/29/23 16:55 INR 1.19 (0.8-1.2) 04/29/23 16:55 APTT 28.8 SECONDS (23.9-36.7) 04/29/23 16:55 Specimen Type Arterial 05/01/23 02:57 Sample Site Radial, left 05/01/23 02:57 ABG pH 7.40 (7.35-7.45) 05/01/23 02:57 ABG pCO2 35.2 mmHg (35-45) 05/01/23 02:57 ABG pO2 100.0 mmHg (80.0-100.0) 05/01/23 02:57 ABG HCO3 21.6 mmol/L (22-26) L 05/01/23 02:57 ABG Base Excess -2.8 mmol/L (-2.0-2.0) L 05/01/23 02:57 Renaldo Test Pos 05/01/23 02:57 Hematocrit 35.8 % (37-47) L 05/01/23 02:57 Hgb O2 Saturation 90.6 % (95-100) L 04/29/23 17:27 Carboxyhemoglobin 2.2 %THgb (0.4-20.1) 04/29/23 17:27 Methemoglobin < 0.0 % (0.4-1.5) L 04/29/23 17:27 Total Hemoglobin 13.9 g/dL (12-16) 04/29/23 17:27 O2 Delivery Device Oxy mask 05/01/23 02:57 O2 Liters/Min 6.0 % 05/01/23 02:57 FiO2 21.0 % 04/29/23 17:27 Order Packer Or Packager ID [email or web address] 05/01/23 02:57 Sodium 145 mmol/L (136-145) 05/04/23 05:22 Potassium 3.2 mmol/L (3.5-5.1) L 05/04/23 05:22 Chloride 110 mmol/L (98-107) H 05/04/23 05:22 Carbon Dioxide 21 mmol/L (22-29) L 05/04/23 05:22 Anion Gap 17.2 (5-19) 05/04/23 05:22 BUN 10 mg/dL (8-23) 05/04/23 05:22 Creatinine 0.8 mg/dL (0.5-0.9) 05/04/23 05:22 GFR Calculation 71.5 mL/min (90-130) L 05/04/23 05:22 Glucose 133 mg/dL (65-115) H 05/04/23 05:22 POC Glucose 156 mg/dL (70-110) H 05/07/23 06:32 Calculated Osmolality 299 mOsm/kg (285-295) H 05/03/23 04:45 Lactic Acid 2.2 mmol/L (0.5-2.2) 04/29/23 17:50 Lactic Acid (Sepsis) 2.3 mmol/L (0.5-2.2) H 04/29/23 20:59 Calcium 9.0 mg/dL (8.5-10.5) 05/04/23 05:22 Phosphorus 3.4 mg/dL (2.5-4.5) 05/04/23 05:22 Magnesium 1.7 mg/dL (1.7-2.3) 05/04/23 05:22 Total Bilirubin 0.5 mg/dL (0.15-1.2) 05/03/23 04:45 AST 11 U/L (0-32) 05/03/23 04:45 ALT 10 U/L (0-33) 05/03/23 04:45 Alkaline Phosphatase 96 U/L (35-105) 05/03/23 04:45 C-Reactive Protein 149.4 mg/L (0.0-4.9) H 05/01/23 04:00 Total Protein 6.3 g/dL (6.6-8.7) L 05/03/23 04:45 Albumin 3.3 g/dL (3.5-5.2) L 05/04/23 05:22 Globulin 3.0 g/dL (1.3-4.6) 05/03/23 04:45 Procalcitonin 1.21 ng/mL (0-0.5) H 05/01/23 04:00 Urine Color Yellow (Yellow) 04/29/23 22:28 Urine Appearance Cloudy (CLEAR) A 04/29/23 22:28 Urine pH 6.5 (5-7) 04/29/23 22:[address] 1.005 (1.005-1.030) 04/29/23 22:28 Urine Protein 2+ (Negative) H 04/29/23 22:28 Urine Glucose (UA) Trace (Normal) H 04/29/23 22:28 Urine Ketones 1+ (Negative) H 04/29/23 22:28 Urine Blood 3+ (Negative) H 04/29/23 22:28 Urine Nitrate Positive (Negative) H 04/29/23 22:28 Urine Bilirubin Neg (Negative) 04/29/23 22:28 Urine Urobilinogen Neg mg/dL (Negative) 04/29/23 22:28 Ur Leukocyte Esterase 2+ (Negative) H 04/29/23 22:28 Urine RBC 10-15 /hpf (0-2) H 04/29/23 22:28 Urine WBC 55-80 /hpf (0-5) H 04/29/23 22:28 Ur Squamous Epith Cells None /hpf (0-5) 04/29/23 22:28 Amorphous Sediment Not Reportable 04/29/23 22:28 Urine Bacteria 3+ /hpf (NONE) H 04/29/23 22:28 Vancomycin Trough 11.3 ug/mL (10-15) 05/02/23 02:45 Urine Opiates Screen Negative ng/mL (Negative) 04/29/23 18:24 Ur Barbiturates Screen Negative ng/mL (Negative) 04/29/23 18:24 Ur Phencyclidine Scrn Negative ng/mL (Negative) 04/29/23 18:24 Ur Amphetamines Screen Negative ng/mL (Negative) 04/29/23 18:24 U Benzodiazepines Scrn Positive ng/mL (Negative) H 04/29/23 18:24 Urine Cocaine Screen Negative ng/mL (Negative) 04/29/23 18:24 U Marijuana (THC) Screen Negative ng/mL (Negative) 04/29/23 18:24 Ethyl Alcohol < 10 mg/dL (0-10) 04/29/23 16:55 Coronavirus 229E (PCR) Not detected (NOT DETECT) 04/29/23 22:27 SARS-CoV-2 (PCR) Not detected (NOT DETECT) 04/29/23 22:27 Vitals Last Vital Signs Temp 97.6 F 05/07/23 07:22 Pulse 71 05/07/23 08:28 Resp 18 05/07/23 08:28 BP 153/90 05/07/23 07:22 Pulse Ox 94 05/07/23 08:28 O2 Del Method Room Air 05/07/23 08:28 O2 Flow Rate 1 05/06/23 20:56 Discharge Plan Discharge Patient Disposition: Home Health Service Condition: Stable Prescriptions: New levetiracetam 500 mg Tablet 500 mg PO BID@0900,2100 30 Days Qty: 60 1RF folic acid 1 mg Tablet 1 mg PO DAILY 30 Days Qty: 30 0RF Continued (DME) lancets [Accu-Chek Fastclix Lancet Drum] Misc See Rx Instructions .Route Qty: 100 0RF Rx Instructions: As directed (DME) Blood Pressure Cuff Misc See Rx Instructions .Route Qty: 1 0RF Rx Instructions: As directed furosemide [Lasix] 40 mg tablet 40 mg PO DAILY 30 Days Qty: 30 0RF potassium chloride 20 mEq tablet,ER particles/crystals 20 meq PO DAILY 30 Days Qty: 30 0RF pantoprazole 40 mg tablet,delayed release (DR/EC) 40 mg PO DAILY Qty: 30 0RF lisinopril 10 mg tablet 20 mg PO DAILY 30 Days Qty: 30 0RF nitroglycerin 0.4 mg tablet, sublingual 0.4 mg SUBLINGUAL Q5M PRN (Reason: Chest Pain) 30 Days Qty: 10 0RF metoprolol succinate 25 mg tablet extended release 24 hr 25 mg PO DAILY Qty: 30 0RF metformin 1,000 mg tablet 1,000 mg PO BID bupropion HCl 150 mg tablet extended release 24 hr 150 mg PO DAILY insulin degludec [Tresiba FlexTouch U-200] 200 unit/mL (3 mL) insulin pen 10 unit SUBCUT DAILY Combivent Respimat 20-100 mcg/actuation mist 1 puff INHALATION QID PRN (Reason: Shortness Of Breath) atorvastatin 40 mg tablet 80 mg PO DAILY Qty: 30 0RF Discontinued aspirin 81 mg tablet,chewable 81 mg PO EVERY OTHER DAY Qty: 30 0RF Discharge Orders: Discharge Order (Routine); Ordered 05/07/23 Ordered By: Dami Lamar Other Ambulatory Orders: DME: Nebulizer with Neb Kit (Order) Location: None Selected Ordered By: Dami Lamar Referrals: [facility] ([facility]) [Outside] Joann Cardona PA [Primary Care Provider] - 05/17/23 10:00 am Discharge Diet: Advance as tolerated and Usual diet Discharge Activity: Limit activity as instructed and As per PT/OT instructions Patient Instructions: Hyponatremia (ED), Benzodiazepine Use Disorder (ED), Dementia (ED), Non-diabetic Hypoglycemia (ED), Hypoglycemia in a Person with Diabetes (ED), Concussion (ED), Alcohol Intoxication (ED), Subarachnoid Hemorrhage (GEN), Altered Mental Status (ED), Opioid Safety Activity Restrictions/Additional Instructions: 1. Increase activity as tolerated. 2. No driving or operating machinery. 3. Take medications as prescribed. 4. Follow up with home health. 5. Follow up with PCP. Discharge Attestations Time Spent in Discharge Care*: greater than 30 min Status at Discharge: Cognitive status at discharge: cognitively intact , Behavioral status at discharge: cooperative , Quality Metrics Clinical Quality Measures [ No reported AMI, CVA or VTE this stay] Coding Level of Care Code Acute Code for [facility] Diagnoses Encephalopathy acute G93.40 Sepsis A41.9 Cerebral infarction, left hemisphere I63.9 COPD, moderate J44.9 Substance abuse F19.10 Uncontrolled diabetes mellitus E11.65 Benign essential HTN I10
[2023-05-07 15:28] VITALS: PULSE 71; RESP 18; O2SAT 94
== END 2023-05-07 14:45 | disposition home health service (06) | DRG 871 ==
LOC: ER 22:28 → ICU 23:01 → MEDSURG 05-02 15:17
PROVIDERS: Internal Medicine; Admitting Provider Internal Medicine; Emergency Provider Family Medicine; PCP Physician Assistant; Visit Provider Internal Medicine
DX: A41.9 Sepsis, unspecified organism (principal); G93.41 Metabolic encephalopathy; R65.21 Severe sepsis with septic shock; I63.9 Cerebral infarction, unspecified; I61.8 Other nontraumatic intracerebral hemorrhage; J96.01 Acute respiratory failure with hypoxia; N39.0 Urinary tract infection, site not specified; R47.01 Aphasia; J44.1 Chronic obstructive pulmonary disease with (acute) exacerbation; E87.29 Other acidosis; B96.20 Unspecified Escherichia coli [E. coli] as the cause of diseases classified elsewhere; R29.705 NIHSS score 5; Z79.84 Long term (current) use of oral hypoglycemic drugs; Z79.4 Long term (current) use of insulin; Z87.01 Personal history of pneumonia (recurrent); F41.9 Anxiety disorder, unspecified; F32.A Depression, unspecified; I50.9 Heart failure, unspecified; I11.0 Hypertensive heart disease with heart failure; K21.9 Gastro-esophageal reflux disease without esophagitis; E11.65 Type 2 diabetes mellitus with hyperglycemia; F17.210 Nicotine dependence, cigarettes, uncomplicated; Z79.82 Long term (current) use of aspirin; Z88.2 Allergy status to sulfonamides; F15.10 Other stimulant abuse, uncomplicated
CPT/HCPCS: 36415; 36416; 36600; 51702; 70450; 70496; 70498; 71045; 74176; 80048; 80053; 80069; 80202; 80306; 80307; 81001; 82803; 82805; 82962; 83605; 83735; 84100; 84145; 85025; 85610; 85730; 86140; 87040; 87077; 87086; 87186; 87493; 87635; 92507; 92523; 92526; 92610; 93005; 93306; 96365; 96372; 96375; 96376; 97110; 97116; 97161; 97167; 97530; 97535; 99285; C9113; J0360; J0696; J1815; J1940; J1953; J2060; J2270; J2543; J3370; J3372; J3475; J3480; J3490; J7030; J7120; Q9967

== ENCOUNTER 2023-05-14 17:26 | Inpatient (IN) | payer MEDICARE, MEDICAID, SELFPAY ==
[2023-05-14 17:28] VITALS: BP 172/105; PULSE 75; TEMP 36.9; O2SAT 94
[2023-05-14 18:02] VITALS: BP 161/106; PULSE 75; O2SAT 93
--- NOTE | 2023-05-14 18:02 | CTR_ITS ---
PROCEDURE INFORMATION: Exam: CT Head Without Contrast Exam date and time: 05/14/2023 6:50 PM Age: 68 years old Clinical indication: Altered mental status/memory loss; Additional info: Aphasia, here with unknown complaint, recent CVA TECHNIQUE: Imaging protocol: Computed tomography of the head without contrast. Radiation optimization: All CT scans at this facility use at least one of these dose optimization techniques: automated exposure control; mA and/or kV adjustment per patient size (includes targeted exams where dose is matched to clinical indication); or iterative reconstruction. REPORTING DATA: Count of CT and Cardiac NM exams in prior 12 months: This patient has received 7 known CTs and 0 known cardiac nuclear medicine studies in the 12 months prior to the current study. COMPARISON: CT head wo con* [id number] 05/01/2023 4:14 AM RADIATION DOSE METRICS: Total DLP (mGy-cm): 1053.24 FINDINGS: Brain: Stable findings from prior chronic infarcts (associated hemorrhagic conversion of the infarcts in the left posterior parietal region). There are no new infarcts noted. There is no midline shift. Cerebral ventricles: No ventriculomegaly. Incidentally noted is a cavum septum pellucidum. Paranasal sinuses: Visualized sinuses are unremarkable. No fluid levels. Mastoid air cells: Visualized mastoid air cells are well aerated. Bones/joints: Unremarkable. No acute fracture. Soft tissues: Unremarkable. CT/CT head wo con* [id number] IMPRESSION: 1. No acute intracranial abnormality. 2. Stable findings of prior left cerebral infarcts with associated hemorrhagic conversion.
--- NOTE | 2023-05-14 18:02 | XRR_ITS ---
PROCEDURE INFORMATION: Exam: XR Chest Exam date and time: 05/14/2023 6:09 PM Age: 68 years old Clinical indication: Shortness of breath; Additional info: Hypoxia TECHNIQUE: Imaging protocol: Radiologic exam of the chest. Views: 1 view. COMPARISON: CR (CHEST, ) 05/01/2023 3:38 AM FINDINGS: Lungs: There has been interval progression of disease in the right lung base with the right middle lobe infiltrate and interval development of a moderate right pleural effusion. The chronic interstitial disease remains unchanged. Pleural spaces: See Lungs finding. Heart/Mediastinum: Unremarkable. No cardiomegaly. Bones/joints: Unremarkable. Intraperitoneal space: There is no free intraperitoneal air. XR/XR chest 1V portable [id number] IMPRESSION: 1. Interval development of a moderate right pleural effusion. 2. Interval progression of the right middle lobe infiltrate.
--- NOTE | 2023-05-14 18:03 | ECG_ITS ---
[facility] Test Date: 2023-05-14 Pat Name: Sarah Rogers Department: Room: Gender: Female Dot Compliance Coordinator: : [id number] Requested By: Thaddeus Schulz Order Number: [id number] Elana MD: Padmini Serrano M.D. Measurements Intervals [place] Rate: 76 P: 3 AL: 164 QRS: -35 QRSD: 101 T: 94 QT: 406 QTc: 459 Interpretive Statements SINUS RHYTHM LEFT AXIS DEVIATION [QRS AXIS < -30] VOLTAGE CRITERIA FOR LVH [MEETS CRITERIA IN ONE OF: R(aVL), S(V1), R(V5), R(V5/V6)+S(V1)] POSSIBLE SEPTAL MYOCARDIAL INFARCTION , OF INDETERMINATE AGE [30 ms Q WAVE IN V1/V2] Compared to ECG 04/29/2023 22:27:29 Myocardial infarct finding now present Sinus tachycardia no longer present T-wave abnormality no longer present Electronically Signed On 05-14-2023 23:58:40 CDT by Padmini Serrano M.D. [id number]
[2023-05-14] MEDS: ondansetron 2 mg/ML SDV 2 mL 4 MG IVP (18:17)
[2023-05-14 18:19] LABS: Basophils # 0.1 10^3/uL (0.0-0.1); Basophils % 1.2 %; Eosinophils # 0.3 10^3/uL (0.0-0.8); Eosinophils % 2.5 %; Hematocrit 41.6 % (36-47); Lymphocytes # 2.3 10^3/uL (0.8-4.8); Lymphocytes % 21.9 %; Mean Corpuscular HGB Conc 30.5 g/dL (30-55); Mean Corpuscular Hemoglobin 25.9 pg (27-33); Mean Corpuscular Volume 84.7 fl (85-98); Mean Platelet Volume 10.5 fL (7.4-10.4); Monocytes # 0.6 10^3/uL (0.2-0.9); Monocytes % 5.5 %; Neutrophils # 7.12 10^3/uL (1.8-7.7); Neutrophils % 68.7 %; Nucleated Red Blood Cells % 0 %; Platelet Count 386 10^3/cmm (157-399); Red Blood Count 4.91 10^6/uL (3.85-5.65); Red Cell Distribution Width 14.4 % (12.1-15.1); White Blood Count 10.36 10^3/uL (3.29-11.43)
[2023-05-14 18:22] LABS: ABG PCO2 33.9 mmHg (35-45); ABG PH Result 7.46 (7.35-7.45); Base Excess ABG 0.8 mmol/L (-2.0-2.0); Blood Gas Allen Test Pos; Blood Gas Operator Identificat CAK; Blood Gas Sample Site Brachial, left; Blood Gas Sample Type Arterial; HCO3 ABG 24.2 mmol/L (22-26); Oxygen Device NC; PO2 ABG 62.5 mmHg (80.0-100.0)
[2023-05-14 18:42] LABS: NT Pro B Type Natriuretic Pept 6209 pg/mL (0-125); Procalcitonin 0.06 ng/mL (0-0.5)
[2023-05-14 18:53] LABS: Alanine Aminotransferase 12 U/L (0-33); Albumin Level 4.1 g/dL (3.5-5.2); Alkaline Phosphatase 113 U/L (35-105); Aspartate Amino Transferase 15 U/L (0-32); Blood Urea Nitrogen 7 mg/dL (8-23); C Reactive Protein 27.7 mg/L (0.0-4.9); Calcium 9.3 mg/dL (8.5-10.5); Carbon Dioxide 22 mmol/L (22-29); Chloride 104 mmol/L (98-107); Globulin 3.3 g/dL (1.3-4.6); Glomerular Filtration Rate 71.5 mL/min (90-130); Glucose 183 mg/dL (65-115); Magnesium 1.9 mg/dL (1.7-2.3); Osmolality Calculated 295 mOsm/kg (285-295); Sodium 141 mmol/L (136-145); Total Bilirubin 0.5 mg/dL (0.15-1.2); Total Protein 7.4 g/dL (6.6-8.7)
[2023-05-14 18:56] LABS: Anion Gap 18.6 (5-19); Potassium 3.6 mmol/L (3.5-5.1)
--- NOTE | 2023-05-14 18:59 | W.ED.GENADLT ---
HPI - General Adult General: Chief complaint: General Medical Stated complaint: Anxeity Time Seen by Provider: 05/14/23 17:28 History of Present Illness: Sarah is a 68-year-old female who has recently had a stroke which has left her with aphasia. She is unable to write. She appears to understand most of what I am saying. She can sometimes answer yes or no. However, the vast majority of what she is saying is completely incomprehensible. Family is not here at this time as they dropped her off and went to get a drink. They should be back soon. Patient cannot tell me what her chief complaint is. However, patient is noted to be hypoxic and is requiring 3 L of oxygen by nasal cannula. This is new for her. When asked if she is having a chest pain, shortness of breath, stomach pain, nausea she shakes her head no. When asked if she is having headache, she shakes her head yes. Other questions I asked her she seems to want to answer without yes or no questions and we are unable to communicate. I tried giving her paper but she wrote down 3 letters which I do not understand. I have reviewed the following information from the chart: Discharge summary from 05/07/23: Hospital Course Sarah Rogers is a 68-year-old female with a complicated past medical history who presented with altered mental status, found to have septic shock secondary to acute complicated E coli urinary tract infection complicated by severe acute metabolic encephalopathy.? Patient treated with IV fluids, vasopressors and broad spectrum antibiotics.? Neurology consulted and followed given recent stroke.? Head imaging showed evolution of known recent stroke for which aspirin was discontinued.? Patient worked with therapy with mentation and functional status returning to recent baseline which unfortunately includes Broca's expressive aphasia with ~95% of verbal communication being incomprehensible.? Patient refused detention facility placement (recently placed in SNF and left AMA). ? Home health established for nursing and speech therapy.? Patient discharged back to her apartment.? Family agreed to assist patient as well.? She is to take medications as prescribed and follow up with PCP in 1-2 weeks. Subject: Admission Note Date/Time: 05/09/2023 10:54 Method: Team communication Action: Change Patient Status Communication Text: Patient functionally unsafe in the home, lives alone and is completely unable to verbalize anything understandable. Word salad is constant, patient's brother present during assessment today and he is also unable to understand patient. Was with patient and her brother for over one hour discussing her need for extensive inpatient therapy as her needs at this point could not be met with home health. Unsure if she completely understood, hence my reason for being there so long, I was also attempting to understand what she was trying to say, I was unable to understand her point and she is unable to write with mobility deficits as well. Was unable to physically assess patient or obtain vital signs, no consent given, patient's brother was able to understand that [facility] until she is able to be safe alone at home and more easily understood verbally. Physician notified. Sent To: Niurka Beltrán Jamie Review of Systems Narrative: Unable to obtain accurate review of systems due to patient's aphasia [facility] ED PFSH: Medical History Altered mental status Amphetamine abuse Anxiety and depression Benign essential HTN Cerebral infarction, left hemisphere Chest pain CHF (congestive heart failure), NYHA class III COPD exacerbation COPD, moderate GERD (gastroesophageal reflux disease) H/O cholecystitis Heart failure Hematoma of left kidney Intracerebral hemorrhage Intracranial bleed Major contusion of left kidney, subsequent encounter Nicotine dependence, cigarettes, with unspecified nicotine-induced disorders Substance abuse Type 2 diabetes mellitus, without long-term current use of insulin Uncontrolled diabetes mellitus Uncontrolled hypertension Urinary incontinence, mixed Urinary tract infection, site not specified Surgical History H/O: hysterectomy Family History Family/Other Diabetes CAD (coronary artery disease) Hypertension Lung disease Social History Smoking and tobacco status: current every day smoker cigarettes Packs smoked per day: 1 Alcohol intake: never Substance/Drug Use: never Adopted: No Caregiver/support person: No Marital status: Current occupational status: disabled Physical Exam Const: COMMON NORMALS: alert and well nourished HENMT: COMMON NORMALS: normocephalic, atraumatic and external ears normal HEAD & SCALP: normocephalic and atraumatic EXTERNAL EAR: Yes external ears normal MOUTH: no muffled voice Eye: COMMON NORMALS: EOMs intact bilaterally, conjunctivae normal and no scleral icterus CONJUNCTIVA: Yes conjunctivae normal Neck/C-Spine: COMMON NORMALS: no JVD GENERAL: Yes normal visual inspection and Yes trachea midline Resp: COMMON NORMALS: No use of accessory muscles EFFORT & INSPECTION: Yes tachypneic and No Actively coughing AUSCULTATION: crackles Cardio: COMMON NORMALS: no JVD, regular rate and regular rhythm RATE: regular rate RHYTHM: regular rhythm GI: COMMON NORMALS: Soft to palpation and non-tender PALPATION: Yes Soft to palpation and No Guarding due to palpation present (GI) Extremity: COMMON NORMALS: normal to inspection Neuro: COMMON NORMALS: moves all extremities SENSORIUM/ORIENTATION: Yes alert OTHER: word salad aphasia Skin: COMMON NORMALS: no rashes or lesions noted, turgor normal and no jaundice GENERAL SKIN EXAM: no rashes or lesions noted and turgor normal Course Vital Signs: Vital signs: Vital Signs Temperature 98.5 F 05/14/23 17:28 Pulse Rate 76 05/14/23 19:30 Blood Pressure 133/87 05/14/23 19:30 Pulse Oximetry 92 05/14/23 19:30 Oxygen Delivery Me thod Nasal Cannula 05/14/23 19:30 Oxygen Flow Rate 3 05/14/23 19:30 [facility] - General Adult Medical Decision Making NonsCommunication is difficult. Because of this I have ordered a broad work-up. The most obvious abnormality would be her new hypoxia and tachypnea. She seems to be hyperventilating. An ABG did support hyperventilation but also supported hypoxemia. Patient is on 3 L by nasal cannula. Chest x-ray shows right-sided pleural effusion and some right lower lobe infiltrate. A BNP was obtained and is very high. Patient did have an echocardiogram in the hospital that showed an EF of only 35%. I went ahead and added on a procalcitonin and a CRP to further risk stratify for infection. Procalcitonin is normal but CRP is moderately elevated. There is also the question whether the patient aspirated given her recent stroke. I will discuss this case with the hospitalist and plan for admission. I will also give 2 mg of Bumex to help with diuresis. Patient has a history of methamphetamine abuse. ? If she is on meth again. With CHF, psychomotor agitation, elevated blood pressure--> I'll add UDS. EKG shows a sinus rhythm at a rate of 76 bpm, LVH, QRS duration 101 ms, left axis deviation, nonspecific ST changes no concerning active ST elevations Head CT, my independent interpretation. Progression of previous findings. No acute hemorrhage. Paged hospitalist for admission. Discussed case. Admission orders placed. Lab Data 05/14/23 17:11 05/14/23 17:11 Radiology Impressions Chest X-Ray 05/14/23 18:02 IMPRESSION: 1. Interval development of a moderate right pleural effusion. 2. Interval progression of the right middle lobe infiltrate. Head CT 05/14/23 18:02 IMPRESSION: 1. No acute intracranial abnormality. 2. Stable findings of prior left cerebral infarcts with associated hemorrhagic conversion. Laboratory Results WBC 10.36 10^3/uL (3.29-11.43) 05/14/23 17:11 RBC 4.91 10^6/uL (3.85-5.65) 05/14/23 17:11 Hgb 12.70 g/dL (11.27-16.99) 05/14/23 17:11 Hct 41.6 % (36-47) 05/14/23 17:11 MCV 84.7 fl (85-98) L 05/14/23 17:11 MCH 25.9 pg (27-33) L 05/14/23 17:11 MCHC 30.5 g/dL (30-55) 05/14/23 17:11 RDW 14.4 % (12.1-15.1) 05/14/23 17:11 Plt Count 386 10^3/cmm (157-399) 05/14/23 17:11 MPV 10.5 fL (7.4-10.4) H 05/14/23 17:11 Neut % (Auto) 68.7 % 05/14/23 17:11 Lymph % (Auto) 21.9 % 05/14/23 17:11 Amelia % (Auto) 5.5 % 05/14/23 17:11 Eos % (Auto) 2.5 % 05/14/23 17:11 Baso % (Auto) 1.2 % 05/14/23 17:11 Neut # (Auto) 7.12 10^3/uL (1.8-7.7) 05/14/23 17:11 Lymph # (Auto) 2.3 10^3/uL (0.8-4.8) 05/14/23 17:11 Amelia # (Auto) 0.6 10^3/uL (0.2-0.9) 05/14/23 17:11 Eos # (Auto) 0.3 10^3/uL (0.0-0.8) 05/14/23 17:11 Baso # (Auto) 0.1 10^3/uL (0.0-0.1) 05/14/23 17:11 Nucleated RBC % (auto) 0 % 05/14/23 17:11 Nucleated RBCs # 0.0 /100WBC 05/14/23 17:11 Specimen Type Arterial 05/14/23 18:11 Sample Site Brachial, left 05/14/23 18:11 ABG pH 7.46 (7.35-7.45) H 05/14/23 18:11 ABG pCO2 33.9 mmHg (35-45) L 05/14/23 18:11 ABG pO2 62.5 mmHg (80.0-100.0) L 05/14/23 18:11 ABG HCO3 24.2 mmol/L (22-26) 05/14/23 18:11 ABG Base Excess 0.8 mmol/L (-2.0-2.0) 05/14/23 18:11 Renaldo Test Pos 05/14/23 18:11 Hematocrit 38.0 % (37-47) 05/14/23 18:11 O2 Delivery Device Nc 05/14/23 18:11 O2 Liters/Min 2.0 % 05/14/23 18:11 FiO2 28.0 % 05/14/23 18:11 Metal Moulder'S Assistant ID Cak 05/14/23 18:11 Sodium 141 mmol/L (136-145) 05/14/23 17:11 Potassium 3.6 mmol/L (3.5-5.1) 05/14/23 17:11 Chloride 104 mmol/L (98-107) 05/14/23 17:11 Carbon Dioxide 22 mmol/L (22-29) 05/14/23 17:11 Anion Gap 18.6 (5-19) 05/14/23 17:11 BUN 7 mg/dL (8-23) L 05/14/23 17:11 Creatinine 0.8 mg/dL (0.5-0.9) 05/14/23 17:11 GFR Calculation 71.5 mL/min (90-130) L 05/14/23 17:11 Glucose 183 mg/dL (65-115) H 05/14/23 17:11 Calculated Osmolality 295 mOsm/kg (285-295) 05/14/23 17:11 Lactic Acid 1.3 mmol/L (0.5-2.2) 05/14/23 18:31 Calcium 9.3 mg/dL (8.5-10.5) 05/14/23 17:11 Magnesium 1.9 mg/dL (1.7-2.3) 05/14/23 17:11 Total Bilirubin 0.5 mg/dL (0.15-1.2) 05/14/23 17:11 AST 15 U/L (0-32) 05/14/23 17:11 ALT 12 U/L (0-33) 05/14/23 17:11 Alkaline Phosphatase 113 U/L (35-105) H 05/14/23 17:11 C-Reactive Protein 27.7 mg/L (0.0-4.9) H 05/14/23 17:11 NT-Pro-B Natriuret Pep 6209 pg/mL (0-125) H 05/14/23 17:11 Total Protein 7.4 g/dL (6.6-8.7) 05/14/23 17:11 Albumin 4.1 g/dL (3.5-5.2) 05/14/23 17:11 Globulin 3.3 g/dL (1.3-4.6) 05/14/23 17:11 Procalcitonin 0.06 ng/mL (0-0.5) 05/14/23 17:11 Urine Color Yellow (Yellow) 05/14/23 18:22 Urine Appearance Hazy (CLEAR) A 05/14/23 18:22 Urine pH 5 (5-7) 05/14/23 18:22 Ur Specific [place] 1.020 (1.005-1.030) 05/14/23 18:22 Urine Protein Trace (Negative) 05/14/23 18:22 Urine Glucose (UA) Norm (Normal) 05/14/23 18:22 Urine Ketones Negative (Negative) 05/14/23 18:22 Urine Blood Neg (Negative) 05/14/23 18:22 Urine Nitrate Negative (Negative) 05/14/23 18:22 Urine Bilirubin Neg (Negative) 05/14/23 18:22 Urine Urobilinogen Norm mg/dL (Negative) 05/14/23 18:22 Ur Leukocyte Esterase Negative (Negative) 05/14/23 18:22 Urine RBC 0-4 /hpf (0-2) H 05/14/23 18:22 Urine WBC 5-10 /hpf (0-5) H 05/14/23 18:22 Ur Squamous Epith Cells 0-4 /hpf (0-5) H 05/14/23 18:22 Amorphous Sediment Not Reportable 05/14/23 18:22 Urine Bacteria None /hpf (NONE) 05/14/23 18:22 Urine Mucus 4+ /hpf 05/14/23 18:22 Discharge Plan Discharge Patient Disposition: Admitted As Inpatient Admit Provider: Rashard Trinidad Clinical Impression: Acute hypoxemic respiratory failure, Acute exacerbation of CHF (congestive heart failure) Condition: Stable Coding Level of Care Code [employer] for Bobby Rothman
[2023-05-14 19:00] VITALS: BP 163/112; PULSE 78; O2SAT 90
[2023-05-14 19:03] LABS: Add Urine Microscopic? YES; Bilirubin Urine Neg (Negative); Blood Urine Neg (Negative); Glucose Urine UA Norm (Normal); Ketones Urine Negative (Negative); Leukocyte Esterase Urine Negative (Negative); Nitrate Urine Negative (Negative); Protein Urine Trace (Negative); Urine Appearance Hazy (CLEAR); Urine Color Yellow (Yellow); Urobilinogen Urine Norm (Negative); pH Urine 5 (5-7)
[2023-05-14 19:04] LABS: Add Urine Culture? No; Mucus Urine 4+ /hpf; RBC Urine 0-4 /hpf (0-2); Squamous Epithelial Cell Urine 0-4 /hpf (0-5)
[2023-05-14 19:07] LABS: Lactic Sepsis W/Reflex 1.3 mmol/L (0.5-2.2)
[2023-05-14] MEDS: bumetanide 0.25 mg/mL SDV 4 mL 2 MG IVP (19:21)
[2023-05-14 19:30] VITALS: BP 133/87; PULSE 76; O2SAT 92
--- NOTE | 2023-05-14 19:56 | PC.NURSE ---
PATIENT REPORT CALLED TO [facility]. TRANSFER BEING DELAYED BY HOSPITALIST REQUEST TO SPEAK TO PATIENT IN THE ER WITH FAMILY PRESENT. FAMILY IS CURRENTLY NOT PRESENT AND IS BEING CALLED.
--- NOTE | 2023-05-14 20:00 | P.HP_ITS ---
Providers/Chief Complaint Admitting Physician: Rashard Trinidad DO Primary Care Provider: Joann Cardona Chief Complaint: Anxeity History of Present Illness Sarah Rogers is a 68 year old female status post CVA 04/09/2023. She has expressive aphasia so history is being taken from the chart. Patient was hospitalized for 8 days due to complicated complications related to pneumonia she was discharged to a snf and she left AMA according to records. Patient was readmitted 04/29/2023 to 05/07/2023 with E. coli septic shock. At that time she was discharged home with home health care. She presents today with severe expressive aphasia. Work-up in the ER found her to be hypoxic and she was placed on 3 L chest x-ray shows either an infiltrate in the right middle lobe or pulmonary edema with a right pleural effusion. Note her echo in the last couple months showed EF of 30 to 35%. Her last home health visit was concerning. The speech scientist on a 2422 said the p atient is functionally unsafe in the home. She lives alone and unable to verbalize. While the patient's brother was present during assessment he admits he is unable to understand the patient according to her note the patient's brother was able to understand the patient agreed to go back to inpatient facility rehab until she is able to be safe alone at home. Family has not been present in the emergency room. Brother Hemant arrived and provided further history. He states that the patient walked out of [facility]. A nurse there drove her home. Brother provides history that patient has a longstanding history of methamphetamine abuse. Apparently patient has a friend from assisted living that may be providing this at her home. Review of Systems General: Reports: ROS unobtainable due to medical condition (Expressive aphasia) Medications/Allergies Home Medications Medication Instructions Recorded Confirmed Last Taken Type lancets (Accu-Chek Fastclix Lancet #100 ea 01/26/22 04/30/23 Unknown Rx Drum) miscellaneous medical supply #1 ea 01/26/22 04/30/23 Unknown Rx (Blood Pressure Cuff) furosemide 40 mg tablet (Lasix) 40 mg PO DAILY 30 days #30 tabs 07/09/22 04/30/23 Unknown Rx lisinopril 10 mg tablet 20 mg PO DAILY 30 days #30 tabs 07/09/22 04/30/23 Unknown Rx metoprolol succinate 25 mg 25 mg PO DAILY #30 tabs 07/09/22 04/30/23 Unknown Rx tablet,extended release 24 hr nitroglycerin 0.4 mg sublingual 0.4 mg sublingual Q5M PRN Chest 07/09/22 04/30/23 Unknown Rx tablet Pain 30 days #10 tabs pantoprazole 40 mg tablet,delayed 40 mg PO DAILY #30 tabs 07/09/22 04/30/23 Unknown Rx release potassium chloride 20 mEq 20 meq PO DAILY 30 days #30 tabs 07/09/22 04/30/23 Unknown Rx tablet,extended release(part/cryst) bupropion HCl 150 mg 24 hr tablet, 150 mg PO DAILY 04/10/23 04/30/23 Unknown History extended release insulin degludec 200 unit/mL (3 10 unit SUBCUT DAILY 04/10/23 04/30/23 Unknown History mL) subcutaneous pen (Tresiba FlexTouch U-200 insulin) ipratropium 20 mcg-albuterol 100 1 puff inhalation QID PRN 04/10/23 04/30/23 Unknown History mcg/actuation mist for inhalation Shortness Of Breath (Combivent Respimat) metformin 1,000 mg tablet 1,000 mg PO BID 04/10/23 04/30/23 Unknown History atorvastatin 40 mg tablet 80 mg PO DAILY #30 tabs 04/17/23 04/30/23 Unknown Rx folic acid 1 mg tablet 1 mg PO DAILY 30 days #30 tabs 05/07/23 Unknown Rx levetiracetam 500 mg tablet 500 mg PO BID@0900,2100 30 days 05/07/23 Unknown Rx #60 tabs Allergies Allergy/AdvReac Type Severity Reaction Status Date / Time Sulfa (Sulfonamide Allergy na Verified 05/14/23 17:46 Antibiotics) PFSH Acute PFSH: Medical History Altered mental status Amphetamine abuse Anxiety and depression Benign essential HTN Cerebral infarction, left hemisphere Chest pain CHF (congestive heart failure), NYHA class III COPD exacerbation COPD, moderate GERD (gastroesophageal reflux disease) H/O cholecystitis Heart failure Hematoma of left kidney Intracerebral hemorrhage Intracranial bleed Major contusion of left kidney, subsequent encounter Nicotine dependence, cigarettes, with unspecified nicotine-induced disorders Substance abuse Type 2 diabetes mellitus, without long-term current use of insulin Uncontrolled diabetes mellitus Uncontrolled hypertension Urinary incontinence, mixed Urinary tract infection, site not specified Surgical History H/O: hysterectomy Family History Family/Other Diabetes CAD (coronary artery disease) Hypertension Lung disease Social History Smoking and tobacco status: current every day smoker cigarettes Packs smoked per day: 1 Alcohol intake: never Substance/Drug Use: never Adopted: No Caregiver/support person: No Marital status: Current occupational status: disabled Vitals/I&O/Wt Last Vital Signs Temp 98.5 F 05/14/23 17:28 Pulse 76 05/14/23 19:30 BP 133/87 05/14/23 19:30 Pulse Ox 92 05/14/23 19:30 O2 Del Method Nasal Cannula 05/14/23 19:30 O2 Flow Rate 3 05/14/23 19:30 Physical Exam Narrative: 68-year-old white female in mild distress at time of exam. She is moaning and has word salad. Neurologic. Patient appears alert and oriented although she cannot answer questions appropriately due to the expressive aphasia. She does seem to have receptive capabilities. There is no weakness or sensory changes in her extremities. HEENT head is normocephalic atraumatic pupils equal round reactive to light and accommodation extraocular muscles are intact there is no scleral icterus and mucous membranes are moist and pink she is edentulous neck is supple no JVD carotid bruits or lymphadenopathy Chest rises symmetrically with inspiration Cardiac: Normal S1 is 2 without loud murmur click gallop or rub. Respiratory. Patient was found off oxygen with a pulse ox of 83%. She was placed on 4 L to maintain a oxygen level of 90 to 92%. She has difficulty following commands for a deep breath I do hear crackles in the right base. And poor inspiratory and expiratory phase. GI: Abdomen is obese soft nontender nondistended positive bowel sounds no hepatosplenomegaly extremities no significant edema noted. Her feet are cold to touch Psych. Patient does present with odd behavior that is not how she presented to me at the end of her hospital stay in April. She seems a bit jittery and moaning. She is pointing to her mouth and neck. Questionable drug effect. Skin: No lesions or rashes noted Data 05/14/23 17:11 05/14/23 17:11 Micro: Microbiology 05/14/23 18:38 Blood Culture - Preliminary Blood SPECIMEN COLLECTED 05/14/23 18:31 Blood Culture - Preliminary Blood SPECIMEN COLLECTED CXR: My impression: Enlarged heart right pleural effusion. Questionable infiltrate versus localized edema in the right middle to lower lobe. Radiologist's impression: XR/XR chest 1V portable [id number] IMPRESSION: 1. ? Interval development of a moderate right pleural effusion. 2. ? Interval progression of the right middle lobe infiltrate. CT Head: Radiologist's impression: FINDINGS: Brain: Stable findings from prior chronic infarcts (associated hemorrhagic conversion of the infarcts in the left posterior parietal region). There are no new infarcts noted. There is no midline shift. Cerebral ventricles: No ventriculomegaly. Incidentally noted is a cavum septum pellucidum. Paranasal sinuses: Visualized sinuses are unremarkable. No fluid levels. Mastoid air cells: Visualized mastoid air cells are well aerated. Bones/joints: Unremarkable. No acute fracture. Soft tissues: Unremarkable. CT/CT head wo con* [id number] IMPRESSION: 1. ? No acute intracranial abnormality. 2. ? Stable findings of prior left cerebral infarcts with associated hemorrhagic conversion. A&P Assessment and plan (1) Acute hypoxemic respiratory failure: (2) Acute exacerbation of CHF (congestive heart failure): (3) Status post cerebrovascular accident: (4) Expressive aphasia: (5) Tobacco abuse: (6) Methamphetamine use: (7) Hypertension: (8) COPD, moderate: Plan Patient is being admitted for acute exacerbation of newly diagnosed heart failure and March 2023. At home she was on Lasix 40 mg once a day I will increase this to twice a day via IV. Follow labs and electrolytes accordingly. I had a long talk with patient and her brother Hemant. Patient currently appears to be unsafe at home alone and unable to live with family. She left AMA from [facility]. Patient is better than earlier this month. I highly recommend inpatient rehab at [facility]. It is unclear to me what the real reason she was not excepted there previously was: However, I would recommend retrying especially with new diagnosis of heart failure oxygen requirements and medication adjustment. She can clearly tolerate 3 hours of therapy. I think her qualifications would be occupational therapy and speech therapy she will be evaluated for her swallow again. Attestations Medical Necessity Statement*: Patient will require greater than 2 midnight stay for treatment of CHF and investigation for aspiration pneumonia. Coding Level of Care Code Acute Code for [facility] Fwd Diagnoses Acute hypoxemic respiratory failure J96.01 Acute exacerbation of CHF (congestive heart failure) I50.9 Status post cerebrovascular accident Z86.73 Expressive aphasia R47.01 Tobacco abuse Z72.0 Methamphetamine use F15.10 Hypertension I10 COPD, moderate J44.9
[2023-05-14 20:16] LABS: SARS Covid-2 Antigen negative (Negative)
[2023-05-14] MEDS: heparin 5,000 unit/mL INJ 1 mL 5000 UNIT SUBCUT (21:59)
[2023-05-14 22:22] LABS: Amphetamines Screen Urine Negative (Negative); Barbiturates Screen Urine Negative (Negative); Benzodiazepines Screen Urine Negative (Negative); Cocaine Screen Urine Negative (Negative); Opiate Screen Urine Negative (Negative); PCP Screen Urine Negative (Negative); THC Screen Urine Negative (Negative)
[2023-05-15] VITALS (8 sets, daily range): BP systolic 103–143; BP diastolic 65–84; PULSE 62–98; RESP 15–20; TEMP 36.4–36.9; O2SAT 90–96
[2023-05-15 05:31] LABS: Estmated Average Glucose 232; Hemoglobin A1C 9.7 % (4.0-6.0)
[2023-05-15 05:42] LABS: NT Pro B Type Natriuretic Pept 5021 pg/mL (0-125)
[2023-05-15] MEDS: FUROsemide 10 mg/mL SDV 4mL 40 MG IVP ×2 (06:19→17:12)
[2023-05-15] MEDS: buPROPion XL (24 HR) 150 mg Tablet PO (08:51)
[2023-05-15] MEDS: docusate sodium 100 mg Capsule PO (08:51)
[2023-05-15] MEDS: potassium chloride ER 20 mEq Tablet 40 MEQ PO (08:52)
[2023-05-15] MEDS: lisinopril 20 mg Tablet PO (08:52)
[2023-05-15] MEDS: heparin 5,000 unit/mL INJ 1 mL 5000 UNIT SUBCUT ×2 (08:52→20:27)
[2023-05-15] MEDS: metoprolol succinate ER (24 HR) 25 mg Tablet PO (08:52)
--- NOTE | 2023-05-15 11:16 | PM.PN ---
Subjective Subjective: Patient with known Broca aphasia with limits history. Only around ~5% of words is comprehensible. She seems to endorse some shortness of breath. Endorses dry nose and thirst. Denies fevers or chills. Multiple family members bedside. Discussed plan of care. They are in agreement. Eager to speak with case management. Medications: Reviewed: Yes Vitals/I&O/Wt Last Vital Signs Temp 98.3 F 05/15/23 07:37 Pulse 98 05/15/23 11:12 Resp 19 H 05/15/23 11:12 BP 143/84 05/15/23 07:37 Pulse Ox 96 05/15/23 11:12 O2 Del Method Nasal Cannula 05/15/23 11:12 O2 Flow Rate 4 05/15/23 11:12 05/14/23 05/15/23 05/15/23 22:59 06:59 14:59 Intake Total 100 / 100 Balance 100 / 100 Physical Exam Narrative: General: Patient is awake.? Alert. Lying in bed. Head:? Normocephalic. Atraumatic. Cardiovascular: RRR. No gallops. No murmurs. Lungs: Very faint crackle in right lung, no use of accessory muscles, no rales or wheezes.? On nasal canula support. Skin: No jaundice. Intact. Abdomen: Normal bowel sounds, abdomen soft and nontender. Extremities: No cyanosis or clubbing. Musculoskeletal: Normal muscle. Neurological:? No myoclonus. Expressive aphasia. Moves all extremities. Data 05/14/23 17:11 05/14/23 17:11 Micro: Microbiology 05/14/23 18:38 Blood Culture - Preliminary Blood SPECIMEN COLLECTED 05/14/23 18:31 Blood Culture - Preliminary Blood SPECIMEN COLLECTED A&P Assessment and plan (1) Acute hypoxemic respiratory failure: Imaging reviewed Continue supplemental oxygen support w/ goal to wean to room air as tolerated Continue diuresis (2) Expressive aphasia: Persisent Brocas aphasia from prior stroke Similar to prior exam from last admission ST consulted, appreciate recommendations Aspiration precautions (3) Status post cerebrovascular accident: Therapy ordered Patient discussed w/ CM Neurochecks Fall precautions Continue high intensity statin Not on antiplatelet/AC due to recent diagnosis of hemorrhagic conversion (4) Acute exacerbation of CHF (congestive heart failure): Pro BNP elevated Continue with IV diuresis Strict I&Os Daily weights Continue ACEI and BB (5) Tobacco abuse: Would benefit from cessation (6) Methamphetamine use: Would benefit from cessation Plan DVT ppx: Heparin Code: Full Attestations Medical Necessity Statement*: Patient requires ongoing hospitalization for IV diuresis, telemetry, therapy, supplemental respiratory support, and supportive care. Coding Level of Care Code Acute Code for [facility] Fwd Diagnoses Acute hypoxemic respiratory failure J96.01 Expressive aphasia R47.01 Status post cerebrovascular accident Z86.73 Acute exacerbation of CHF (congestive heart failure) I50.9 Tobacco abuse Z72.0 Methamphetamine use F15.10
[2023-05-15] MEDS: acetaminophen 325 mg Tablet 650 MG PO (15:07)
[2023-05-15] MEDS: atorvastatin 40 mg Tablet 80 MG PO (20:27)
[2023-05-16] VITALS (8 sets, daily range): BP systolic 115–141; BP diastolic 71–85; PULSE 63–73; RESP 15–18; TEMP 36.3–37; O2SAT 92–97
[2023-05-16] MEDS: FUROsemide 10 mg/mL SDV 4mL 40 MG IVP ×2 (05:53→17:42)
[2023-05-16 07:08] LABS: Albumin Level 3.6 g/dL (3.5-5.2); Anion Gap 13.5 (5-19); Blood Urea Nitrogen 15 mg/dL (8-23); Calcium 9.3 mg/dL (8.5-10.5); Carbon Dioxide 29 mmol/L (22-29); Chloride 103 mmol/L (98-107); Glomerular Filtration Rate 55.3 mL/min (90-130); Glucose 186 mg/dL (65-115); Phosphorus 3.7 mg/dL (2.5-4.5); Potassium 4.5 mmol/L (3.5-5.1); Sodium 141 mmol/L (136-145)
[2023-05-16] MEDS: heparin 5,000 unit/mL INJ 1 mL 5000 UNIT SUBCUT ×2 (09:26→20:23)
[2023-05-16] MEDS: docusate sodium 100 mg Capsule PO ×2 (09:27→17:42)
[2023-05-16] MEDS: lisinopril 20 mg Tablet PO (09:27)
[2023-05-16] MEDS: potassium chloride ER 20 mEq Tablet 40 MEQ PO (09:27)
[2023-05-16] MEDS: metoprolol succinate ER (24 HR) 25 mg Tablet PO (09:27)
[2023-05-16] MEDS: buPROPion XL (24 HR) 150 mg Tablet PO (09:27)
--- NOTE | 2023-05-16 11:01 | PC.CHAP ---
Pastoral Care Encounter/Spiritual Assessment Type of Contact [x] Declined golf ball winder visit [] Patient/Family/Request visit [] Outpatient visit [] Follow-up visit [] Physician referral [] Code/Alert [x] Routine visit [] Staff referral [] Actively dying [] Patient sleeping [] Family support [] [] Out of room [] Palliative care [] [] Receiving care in room [] Pre-surgical visit [] Trauma [] Long length of stay [] ICU visit [] Other: Relational/Emotional Strength [] Patient feels connected with others/family/visitors/staff [] Distress [] Loneliness/isolation [] Abandonment Spirituality of Patient [] Person of Nat [] Attends Taoism of their Nat [] Believes in Prayer [] Reads Bible or Mandaeism materials [] There are Spiritual issues to be addressed Sql Consultant Interventions [] Prayer [] Active listening [] Non-anxious presence [] Spiritual/emotional support [] Crisis/trauma care [] Spiritual counseling [] Bereavement support [] Provided bereavement packet [] Provided Bible/devotional materials [] Provided toy/stuffed animal, coloring book to patient or family member [] Provided Communion [] Anointing/[place] [] Salvation [] Completed spiritual assessment [] Other: Impact on Illness or Injury [] Angry [] Fearful [] Anxious [] Often cries [] Exhaustion [] Unable to work [] Unable to attend zoroastrianism [] Unable to walk/stand [] Unable to read [] Unable to drive [] Unable to eat/drink [] Unable to sleep [] Unable to be with family [] Patient intubated [] Other: Summary Declined golf ball winder visit Time spent with patient 5 mins
--- NOTE | 2023-05-16 11:42 | PM.PN ---
Subjective Subjective: Patient denies any new complaints. Seems to inquire about discharge plans which has yet to be determined. Still with expressive aphasia which limits history. Reports breathing is better. Still on supplemental support. Reports appetite is ok. Denies fevers, chills, or pain. Medications: Reviewed: Yes Vitals/I&O/Wt Last Vital Signs Temp 97.4 F L 05/16/23 11:40 Pulse 73 05/16/23 11:40 Resp 17 05/16/23 11:40 BP 127/83 05/16/23 11:40 Pulse Ox 97 05/16/23 11:40 O2 Del Method Nasal Cannula 05/16/23 11:40 O2 Flow Rate 4 05/16/23 08:00 05/15/23 05/16/23 05/16/23 22:59 06:59 14:59 Intake Total 240 / 460 360 / 820 480 / 480 Output Total 300 / 600 500 / 500 Balance -60 / -140 360 / 220 -20 / -20 Physical Exam Narrative: General: Patient is awake, alert and in bed watching TV. Head:? Normocephalic. Atraumatic. Cardiovascular: RRR. No gallops. No murmurs. Lungs: Adequate air movement with some course breath sounds in right lung. No use of accessory muscles, no rales or wheezes. Skin: No jaundice. Intact. Abdomen: Normal bowel sounds, abdomen soft and nontender. Extremities: No cyanosis or clubbing. Musculoskeletal: Normal muscle. Neurological:? No myoclonus. Expressive aphasia. Moves all extremities. Data 05/14/23 17:11 05/16/23 05:56 Micro: Microbiology 05/14/23 18:38 Blood Culture - Preliminary Blood NEGATIVE TO DATE 05/14/23 18:31 Blood Culture - Preliminary Blood NEGATIVE TO DATE A&P Assessment and plan (1) Acute hypoxemic respiratory failure: Continue diuresis Wean support as tolerated (2) Expressive aphasia: Persistent Broca's aphasia from prior stroke ST evaluated Aspiration precautions (3) Status post cerebrovascular accident: Continue therapy Patient discussed w/ CM Fall precautions Continue high intensity statin Not on antiplatelet/AC due to recent diagnosis of hemorrhagic conversion (4) Acute exacerbation of CHF (congestive heart failure): Acute decompensated CHF exacerbation Continue with IV diuresis Strict I&Os Daily weights Continue ACEI and BB (5) Tobacco abuse: Would benefit from cessation (6) Methamphetamine use: Would benefit from cessation Plan DVT ppx: Heparin Code: Full Attestations Medical Necessity Statement*: Patient requires ongoing hospitalization for IV diuresis, telemetry, therapy, supplemental respiratory support, and supportive care. Coding Level of Care Code Acute Code for [facility] Fwd Diagnoses Acute hypoxemic respiratory failure J96.01 Expressive aphasia R47.01 Status post cerebrovascular accident Z86.73 Acute exacerbation of CHF (congestive heart failure) I50.9 Tobacco abuse Z72.0 Methamphetamine use F15.10
[2023-05-16] MEDS: atorvastatin 40 mg Tablet 80 MG PO (20:23)
[2023-05-17 04:00] VITALS: BP 122/69; PULSE 64; RESP 15; TEMP 36.6; O2SAT 93
[2023-05-17] MEDS: FUROsemide 10 mg/mL SDV 4mL 40 MG IVP ×2 (05:21→17:35)
[2023-05-17 06:20] LABS: Albumin Level 4.2 g/dL (3.5-5.2); Anion Gap 16.7 (5-19); Blood Urea Nitrogen 18 mg/dL (8-23); Calcium 9.8 mg/dL (8.5-10.5); Carbon Dioxide 28 mmol/L (22-29); Chloride 100 mmol/L (98-107); Glomerular Filtration Rate 62.5 mL/min (90-130); Glucose 188 mg/dL (65-115); Phosphorus 3.8 mg/dL (2.5-4.5); Potassium 3.7 mmol/L (3.5-5.1); Sodium 141 mmol/L (136-145)
[2023-05-17 07:30] VITALS: BP 119/79; PULSE 68; RESP 18; TEMP 36.4; O2SAT 92
[2023-05-17] MEDS: lisinopril 20 mg Tablet PO (08:07)
[2023-05-17] MEDS: buPROPion XL (24 HR) 150 mg Tablet PO (08:07)
[2023-05-17] MEDS: metoprolol succinate ER (24 HR) 25 mg Tablet PO (08:07)
[2023-05-17] MEDS: potassium chloride ER 20 mEq Tablet 40 MEQ PO (08:07)
[2023-05-17] MEDS: heparin 5,000 unit/mL INJ 1 mL 5000 UNIT SUBCUT ×2 (08:07→20:03)
[2023-05-17 11:09] VITALS: BP 120/81; PULSE 62; RESP 18; TEMP 36.4; O2SAT 91
--- NOTE | 2023-05-17 11:12 | PC.SOCIAL ---
Pg 2 IMM Explained to pt's family via phone Pg 2 IMM. No questions voiced. Provided pt a copy. Initialed, dated, & timed a copy & placed in chart.
[2023-05-17 15:58] VITALS: BP 129/78; PULSE 63; RESP 16; TEMP 36.3; O2SAT 95
--- NOTE | 2023-05-17 16:37 | PM.PN ---
Subjective Subjective: Patient with stable expressive deficits. Endorses that breathing has improved. Denies fevers, chills, or chest pain. Medications: Reviewed: Yes Vitals/I&O/Wt Last Vital Signs Temp 97.4 F L 05/17/23 15:58 Pulse 63 05/17/23 15:58 Resp 16 05/17/23 15:58 BP 129/78 05/17/23 15:58 Pulse Ox 95 05/17/23 15:58 O2 Del Method Room Air 05/17/23 15:58 O2 Flow Rate 2 05/17/23 08:00 05/17/23 05/17/23 05/17/23 06:59 14:59 22:59 Intake Total 960 / 960 Balance 960 / 960 Physical Exam Narrative: General: Patient is awake, alert and in bed watching TV. No acute distress. Head:? Normocephalic. Atraumatic. Cardiovascular: RRR. No gallops. No murmurs. Lungs: Adequate air movement. No use of accessory muscles, no rales or wheezes. On room air. Skin: No jaundice. Intact. Abdomen: Normal bowel sounds, abdomen soft and nontender. Extremities: No cyanosis or clubbing. Musculoskeletal: Normal muscle. Neurological:? No myoclonus. Expressive aphasia. Moves all extremities. Data 05/14/23 17:11 05/17/23 05:37 A&P Assessment and plan (1) Acute hypoxemic respiratory failure: Continue diuresis Currently on room air, hypoxia is currently resolved Continue to monitor Repeat renal panel in AM (2) Expressive aphasia: Persistent Broca's aphasia from prior stroke ST evaluated Aspiration precautions (3) Status post cerebrovascular accident: Continue therapy Patient discussed w/ CM Fall precautions Continue high intensity statin Not on antiplatelet/AC due to recent diagnosis of hemorrhagic conversion (4) Acute exacerbation of CHF (congestive heart failure): Acute decompensated CHF exacerbation Continue with IV diuresis Strict I&Os Daily weights Continue ACEI and BB (5) Tobacco abuse: Would benefit from cessation (6) Methamphetamine use: Would benefit from cessation Plan DVT ppx: Heparin Code: Full Attestations Medical Necessity Statement*: Patient requires ongoing hospitalization for IV diuresis, telemetry, therapy, supplemental respiratory support, and supportive care. Coding Level of Care Code Acute Code for [facility] Fw Diagnoses Acute hypoxemic respiratory failure J96.01 Expressive aphasia R47.01 Status post cerebrovascular accident Z86.73 Acute exacerbation of CHF (congestive heart failure) I50.9 Tobacco abuse Z72.0 Methamphetamine use F15.10
[2023-05-17] MEDS: docusate sodium 100 mg Capsule PO (17:35)
[2023-05-17 20:00] VITALS: BP 132/91; PULSE 68; RESP 17; TEMP 36.6; O2SAT 93
[2023-05-17] MEDS: atorvastatin 40 mg Tablet 80 MG PO (20:03)
[2023-05-18] VITALS: BP 138/94; PULSE 66; RESP 14; TEMP 36.7; O2SAT 93
[2023-05-18 03:47] VITALS: BP 111/72; PULSE 85; RESP 14; TEMP 36.4; O2SAT 90
[2023-05-18] MEDS: FUROsemide 10 mg/mL SDV 4mL 40 MG IVP (05:23)
[2023-05-18 05:58] LABS: Albumin Level 3.9 g/dL (3.5-5.2); Anion Gap 15.1 (5-19); Blood Urea Nitrogen 25 mg/dL (8-23); Calcium 9.9 mg/dL (8.5-10.5); Carbon Dioxide 25 mmol/L (22-29); Chloride 100 mmol/L (98-107); Glomerular Filtration Rate 55.3 mL/min (90-130); Glucose 181 mg/dL (65-115); Phosphorus 4.8 mg/dL (2.5-4.5); Potassium 4.1 mmol/L (3.5-5.1); Sodium 136 mmol/L (136-145)
[2023-05-18 08:00] VITALS: BP 102/60; PULSE 72; RESP 17; TEMP 36.6; O2SAT 90
[2023-05-18] MEDS: buPROPion XL (24 HR) 150 mg Tablet PO (08:50)
[2023-05-18] MEDS: potassium chloride ER 20 mEq Tablet 40 MEQ PO (08:50)
[2023-05-18] MEDS: heparin 5,000 unit/mL INJ 1 mL 5000 UNIT SUBCUT ×2 (08:51→22:01)
[2023-05-18] MEDS: docusate sodium 100 mg Capsule PO ×2 (08:51→17:34)
[2023-05-18] MEDS: lisinopril 20 mg Tablet PO (08:51)
[2023-05-18] MEDS: metoprolol succinate ER (24 HR) 25 mg Tablet PO (08:51)
--- NOTE | 2023-05-18 16:11 | P.NPUCON_ITS ---
Providers/Reason for Consult Consulting Physican/Specialty*: Joe Ahmadi MD Reason for Consult*: evidence of decision making capacity or lack thereof Attending Physician: Dami Lamar MD Primary Care Provider: Joann Cardona Psych Consult HPI History of Present Illness Sarah Rogers is a 68 year old female with mixed expressive and receptive aphasia admitted with increased confusion, hypoxia. Chart was reviewed, patient was a poor historian and was unable to provide a useful history. Patient has hx of methamphetamine abuse. Patient has history of old posterior parietal infarct on left side of brain. Meds Home Medications and Allergies Home Medications Medication Instructions Recorded Confirmed Last Taken Type lancets (Accu-Chek Fastclix Lancet #100 ea 01/26/22 05/15/23 Unknown Rx Drum) miscellaneous medical supply #1 ea 01/26/22 05/15/23 Unknown Rx (Blood Pressure Cuff) furosemide 40 mg tablet (Lasix) 40 mg PO DAILY 30 days #30 tabs 07/09/22 05/15/23 Unknown Rx metoprolol succinate 25 mg 25 mg PO DAILY #30 tabs 07/09/22 05/15/23 Unknown Rx tablet,extended release 24 hr nitroglycerin 0.4 mg sublingual 0.4 mg sublingual Q5M PRN Chest 07/09/22 05/15/23 Unknown Rx tablet Pain 30 days #10 tabs pantoprazole 40 mg tablet,delayed 40 mg PO DAILY #30 tabs 07/09/22 05/15/23 Unknown Rx release potassium chloride 20 mEq 20 meq PO DAILY 30 days #30 tabs 07/09/22 05/15/23 Unknown Rx tablet,extended release(part/cryst) bupropion HCl 150 mg 24 hr tablet, 150 mg PO DAILY 04/10/23 05/15/23 Unknown Hi story extended release insulin degludec 200 unit/mL (3 10 unit SUBCUT DAILY 04/10/23 05/15/23 Unknown History mL) subcutaneous pen (Tresiba FlexTouch U-200 insulin) ipratropium 20 mcg-albuterol 100 1 puff inhalation QID PRN 04/10/23 05/15/23 Unknown History mcg/actuation mist for inhalation Shortness Of Breath (Combivent Respimat) atorvastatin 40 mg tablet 40 mg PO DAILY 05/15/23 05/15/23 Unknown History insulin lispro 100 unit/mL See Protocol SUBCUT TID #15 mL 05/23/23 Unknown Rx subcutaneous cartridge (Humalog U-100 Insulin) lisinopril 10 mg tablet 10 mg PO DAILY 30 days #30 tabs 05/23/23 05/15/23 Unknown Rx valproic acid 250 mg capsule 250 mg PO QID 30 days #120 caps 05/23/23 Unknown Rx Allergies Allergy/AdvReac Type Severity Reaction Status Date / Time Sulfa (Sulfonamide Allergy na Verified 05/14/23 17:46 Antibiotics) Current Medications Current Medications Generic Name Dose Route Start Last Admin Trade Name Freq PRN Reason Stop Dose Admin Atorvastatin Calcium 80 mg 05/15/23 21:00 05/17/23 20:03 Atorvastatin 40 Mg Tablet PO 80 mg BEDTIME JOCELYNN Administration Bupropion HCl 150 mg 05/15/23 09:00 05/18/23 08:50 Bupropion Xl (24 Hr) 150 Mg Tablet PO 150 mg DAILY JOCELYNN Administration Docusate Sodium 100 mg 05/15/23 09:00 05/18/23 08:51 Docusate Sodium 100 Mg Capsule PO 100 mg BID JOCELYNN Administration Furosemide 40 mg 05/15/23 06:00 05/18/23 05:23 Furosemide 10 Mg/Ml Sdv 4ml IVP 40 mg Q12H JOCELYNN Administration Heparin Sodium (Porcine) 5,000 unit 05/14/23 20:54 05/18/23 08:51 Heparin 5,000 Unit/Ml Inj 1 Ml SUBCUT 5,000 unit Q12H JOCELYNN Administration Lisinopril 20 mg 05/15/23 09:00 05/18/23 08:51 Lisinopril 20 Mg Tablet PO 20 mg DAILY JOCELYNN Administration Metoprolol Succinate 25 mg 05/15/23 09:00 05/18/23 08:51 Metoprolol Succinate Er (24 Hr) 25 Mg Tablet PO 25 mg DAILY JOCELYNN Administration Potassium Chloride 40 meq 05/15/23 09:00 05/18/23 08:50 Potassium Chloride Er 20 Meq Tablet PO 40 meq DAILY JOCELYNN Administration PFSH NPU PFSH: Medical History (Updated 06/10/23 @ 08:43 by Joe Ahmadi MD) Altered mental status Amphetamine abuse Anxiety and depression Benign essential HTN Cerebral infarction, left hemisphere Chest pain CHF (congestive heart failure), NYHA class III COPD exacerbation COPD, moderate GERD (gastroesophageal reflux disease) H/O cholecystitis Heart failure Hematoma of left kidney Intracerebral hemorrhage Intracranial bleed Major contusion of left kidney, subsequent encounter Nicotine dependence, cigarettes, with unspecified nicotine-induced disorders Substance abuse Type 2 diabetes mellitus, without long-term current use of insulin Uncontrolled diabetes mellitus Uncontrolled hypertension Urinary incontinence, mixed Urinary tract infection, site not specified Surgical History H/O: hysterectomy Family History Family/Other Diabetes CAD (coronary artery disease) Hypertension Lung disease Social History Smoking and tobacco status: current every day smoker cigarettes Packs smoked per day: 1 Alcohol intake: never Substance/Drug Use: never Adopted: No Caregiver/support person: No Marital status: Current occupational status: disabled Mental Status Exam MSE Comments: Difficult to assess, alert productive but unintelligible speech with very little understood, she was unable to describe her mood and her affect appeared slightly constricted. She did not appear to be responding to internal stimuli, She was unable to follow or complete three step commands but could follow one step command. She was unable to write out an answer to any questions asked of her as her writing was also unidentifiable. She was able to successfully point to the year when given options. She appeared quite frustrated during the examination. She appeared in only moderate distress. She had good eye contact and appeared to enjoy watching something on the television. 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 At this time, uncertain whether she has capacity to make decisions, appreciate OT evaluation but neuropsychological testing would be helpful. She appears to have problems with understanding language as well and would make it extremely difficult to be able to provide informed consent given this issue. She appears quite confused and this is likely to be permanent. 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
--- NOTE | 2023-05-18 17:17 | PM.PN ---
Subjective Subjective: Clinically unchanged. She denies fevers, chills, nausea, or emesis. Medications: Reviewed: Yes Vitals/I&O/Wt Last Vital Signs Temp 97.9 F 05/18/23 08:00 Pulse 72 05/18/23 08:00 Resp 17 05/18/23 08:00 BP 102/60 05/18/23 08:00 Pulse Ox 90 05/18/23 08:00 O2 Del Method Room Air 05/18/23 03:47 O2 Flow Rate 2 05/18/23 08:00 05/18/23 05/18/23 05/18/23 06:59 14:59 22:59 Intake Total 720 / 720 Balance 720 / 720 Physical Exam Narrative: General: Patient is awake. No acute distress. Head:? Normocephalic. Atraumatic. Cardiovascular: RRR. No gallops. No murmurs. Lungs: Adequate air movement. No use of accessory muscles, no rales or wheezes. On room air. Skin: No jaundice. Intact. Abdomen: Normal bowel sounds, abdomen soft and nontender. Extremities: No cyanosis or clubbing. Musculoskeletal: Normal muscle. Neurological:? No myoclonus. Expressive aphasia. Moves all extremities. Data 05/14/23 17:11 05/18/23 04:55 A&P Assessment and plan (1) Acute hypoxemic respiratory failure: Hypoxia resolved Rotate to oral diuresis (2) Expressive aphasia: Persistent deficits (3) Status post cerebrovascular accident: Continue therapy Patient discussed w/ CM Fall precautions Continue high intensity statin Not on antiplatelet/AC due to recent diagnosis of hemorrhagic conversion (4) Acute exacerbation of CHF (congestive heart failure): Acute decompensated CHF exacerbation Continue ACEI and BB Rotate to oral Lasix (5) Tobacco abuse: Would benefit from cessation (6) Methamphetamine use: Would benefit from cessation Plan DVT ppx: Heparin Code: Full Attestations Medical Necessity Statement*: Patient requires ongoing medical care for diuresis, therapy and supportive care until safe disposition can be determined. Coding Level of Care Code Acute Code for Chg Fwd Diagnoses Acute hypoxemic respiratory failure J96.01 Expressive aphasia R47.01 Status post cerebrovascular accident Z86.73 Acute exacerbation of CHF (congestive heart failure) I50.9 Tobacco abuse Z72.0 Methamphetamine use F15.10
[2023-05-18 19:59] VITALS: BP 121/76; PULSE 59; RESP 18; TEMP 36.3; O2SAT 93
[2023-05-18] MEDS: atorvastatin 40 mg Tablet 80 MG PO (22:01)
[2023-05-18 23:54] VITALS: BP 128/75; PULSE 68; RESP 18; TEMP 36.5; O2SAT 94
[2023-05-19 04:00] VITALS: BP 131/72; PULSE 72; RESP 16; TEMP 36.5; O2SAT 96
[2023-05-19 08:00] VITALS: BP 119/77; PULSE 69; RESP 16; TEMP 37.4; O2SAT 95
[2023-05-19] MEDS: buPROPion XL (24 HR) 150 mg Tablet PO (08:28)
[2023-05-19] MEDS: metoprolol succinate ER (24 HR) 25 mg Tablet PO (08:28)
[2023-05-19] MEDS: FUROsemide 40 mg Tablet PO ×2 (08:28→16:22)
[2023-05-19] MEDS: potassium chloride ER 20 mEq Tablet 40 MEQ PO (08:28)
[2023-05-19] MEDS: docusate sodium 100 mg Capsule PO ×2 (08:29→17:58)
[2023-05-19] MEDS: heparin 5,000 unit/mL INJ 1 mL 5000 UNIT SUBCUT ×2 (08:29→20:34)
[2023-05-19] MEDS: lisinopril 20 mg Tablet PO (08:29)
--- NOTE | 2023-05-19 10:57 | PC.SOCIAL ---
IMM update Imm updated with family via phone Pg 2 IMM. No questions voiced. Provided pt a copy. Initialed, dated, & timed a copy & placed in chart.
[2023-05-19 12:00] VITALS: BP 121/82; PULSE 72; RESP 16; TEMP 36.4; O2SAT 95
[2023-05-19 16:00] VITALS: BP 102/68; PULSE 65; RESP 18; TEMP 36.8; O2SAT 96
[2023-05-19 16:31] VITALS: PULSE 66; O2SAT 98
--- NOTE | 2023-05-19 16:48 | PM.PN ---
Subjective Subjective: Sitting in chair. Eating lunch. Speech unchanged. Denies nausea, chest pain or abdominal pains. Medications: Reviewed: Yes Vitals/I&O/Wt Last Vital Signs Temp 98.2 F 05/19/23 16:00 Pulse 66 05/19/23 16:31 Resp 18 05/19/23 16:00 BP 102/68 05/19/23 16:00 Pulse Ox 98 05/19/23 16:31 O2 Del Method Nasal Cannula 05/19/23 16:31 O2 Flow Rate 3 05/19/23 16:31 05/19/23 05/19/23 05/19/23 06:59 14:59 22:59 Intake Total 1196 / 1196 Balance 1196 / 1196 Physical Exam Narrative: General: Patient is awake. No acute distress. Sitting in chair. Speech still mostly incomprehensible. Head:? Normocephalic. Atraumatic. Cardiovascular: RRR. No gallops. No murmurs. Lungs: Adequate air movement. No use of accessory muscles, no rales or wheezes. On room air. Skin: No jaundice. Abdomen: Normal bowel sounds, abdomen soft and nontender. Extremities: No cyanosis or clubbing. Musculoskeletal: Normal muscle. Neurological:? No myoclonus. Expressive aphasia. Moves all extremities. Data 05/14/23 17:11 05/18/23 04:55 A&P Assessment and plan (1) Expressive aphasia: Persistent deficits Medical decision making capacity difficult to determine Psychiatry consulted, appreciate recommendations (2) Status post cerebrovascular accident: Continue high intensity statin Not on antiplatelet/AC due to recent diagnosis of hemorrhagic conversion Placement to be determined, CM working with SNF (3) Acute exacerbation of CHF (congestive heart failure): Continue ACEI and BB Continue w/ current oral Lasix Hypoxia has resolved (4) Tobacco abuse: Would benefit from cessation (5) Methamphetamine use: Would benefit from cessation (6) Acute hypoxemic respiratory failure: Resolved Plan DVT ppx: Heparin Code: Full Attestations Medical Necessity Statement*: Patient requires ongoing medical care for diuresis, therapy and supportive care until safe disposition can be determined. Coding Level of Care Code Acute Code for Chg Fwd Diagnoses Expressive aphasia R47.01 Status post cerebrovascular accident Z86.73 Acute exacerbation of CHF (congestive heart failure) I50.9 Tobacco abuse Z72.0 Methamphetamine use F15.10 Acute hypoxemic respiratory failure J96.01
[2023-05-19 20:00] VITALS: BP 115/72; PULSE 63; RESP 17; TEMP 36.4; O2SAT 94
[2023-05-19] MEDS: atorvastatin 40 mg Tablet 80 MG PO (20:34)
[2023-05-19] MEDS: ondansetron 2 mg/ML SDV 2 mL 4 MG IVP (23:14)
[2023-05-20] VITALS (7 sets, daily range): BP systolic 105–130; BP diastolic 65–84; PULSE 57–74; RESP 16–22; TEMP 36.4–36.7; O2SAT 90–96
[2023-05-20] MEDS: ondansetron 2 mg/ML SDV 2 mL 4 MG IVP (05:09)
[2023-05-20 05:56] LABS: Albumin Level 4.3 g/dL (3.5-5.2); Anion Gap 18.5 (5-19); Blood Urea Nitrogen 37 mg/dL (8-23); Calcium 9.7 mg/dL (8.5-10.5); Carbon Dioxide 24 mmol/L (22-29); Chloride 99 mmol/L (98-107); Glucose 281 mg/dL (65-115); Phosphorus 5.4 mg/dL (2.5-4.5); Potassium 5.5 mmol/L (3.5-5.1); Sodium 136 mmol/L (136-145)
[2023-05-20] MEDS: metoprolol succinate ER (24 HR) 25 mg Tablet PO (09:10)
[2023-05-20] MEDS: lisinopril 20 mg Tablet PO (09:10)
[2023-05-20] MEDS: FUROsemide 40 mg Tablet PO ×2 (09:10→17:25)
[2023-05-20] MEDS: docusate sodium 100 mg Capsule PO ×2 (09:10→17:25)
[2023-05-20] MEDS: buPROPion XL (24 HR) 150 mg Tablet PO (09:10)
[2023-05-20] MEDS: heparin 5,000 unit/mL INJ 1 mL 5000 UNIT SUBCUT ×2 (09:11→20:33)
[2023-05-20 11:06] LABS: Basophils # 0.1 10^3/uL (0.0-0.1); Basophils % 0.7 %; Eosinophils % 0.3 %; Hematocrit 44.1 % (36-47); Lymphocytes # 1.4 10^3/uL (0.8-4.8); Lymphocytes % 11.1 %; Mean Corpuscular HGB Conc 30.2 g/dL (30-55); Mean Corpuscular Hemoglobin 25.8 pg (27-33); Mean Corpuscular Volume 85.6 fl (85-98); Mean Platelet Volume 11.2 fL (7.4-10.4); Monocytes # 0.7 10^3/uL (0.2-0.9); Monocytes % 5.3 %; Neutrophils # 10.03 10^3/uL (1.8-7.7); Neutrophils % 82.3 %; Nucleated Red Blood Cells % 0 %; Platelet Count 263 10^3/cmm (157-399); Red Blood Count 5.15 10^6/uL (3.85-5.65); Red Cell Distribution Width 13.8 % (12.1-15.1)
[2023-05-20 11:39] LABS: Glucose Point of Care 279 mg/dL (70-110)
[2023-05-20] MEDS: dextrose 50% syringe 50 mL IVP (12:43)
[2023-05-20] MEDS: insulin regular-human 10 UNIT in SYRINGE 1 EACH IVP (12:43)
[2023-05-20 13:44] LABS: Glucose Point of Care 282 mg/dL (70-110)
[2023-05-20] MEDS: pantoprazole DR 40 mg Tablet PO (13:54)
[2023-05-20] MEDS: insulin lispro 100 unit/1 mL SUBCUT ×2 (13:54→21:17)
--- NOTE | 2023-05-20 15:22 | PM.PN ---
Subjective Subjective: Hospital course, labs appreciated. Seen laying comfortably in bed during examination. Waking up to verbal stimulus. Denies any nausea. Patient did have mild episode of vomiting during breakfast today. Has remained hemodynamically stable and afebrile. Saturating well on room air. Blood work appreciated Fluorivitamin of 12.2, stable hemoglobin, CMP showing creatinine up to 1.7 from 1 on 05/18, potassium up to 5.5, elevated blood sugars, elevated phosphorus of 5.4 Vitals/I&O/Wt Last Vital Signs Temp 97.5 F L 05/20/23 12:00 Pulse 69 05/20/23 12:00 Resp 19 H 05/20/23 12:00 BP 121/74 05/20/23 12:00 Pulse Ox 90 05/20/23 12:00 O2 Del Method Room Air 05/20/23 12:00 O2 Flow Rate 2 05/20/23 08:00 05/20/23 05/20/23 05/20/23 06:59 14:59 22:59 Intake Total 0.1 / 0.1 Output Total 400 / 400 Balance -400 / 1036 0.1 / 0.1 Physical Exam Narrative: General: Patient is awake. No acute distress. Sitting in chair. Speech still mostly incomprehensible. Head:? Normocephalic. Atraumatic. Cardiovascular: RRR. No gallops. No murmurs. Lungs: Adequate air movement. No use of accessory muscles, no rales or wheezes. On room air. Skin: No jaundice. Abdomen: Normal bowel sounds, abdomen soft and nontender. Extremities: No cyanosis or clubbing. Musculoskeletal: Normal muscle. Neurological:? No myoclonus. Expressive aphasia. Moves all extremities. Data 05/20/23 05:13 05/20/23 05:13 Micro: Microbiology 05/14/23 18:38 Blood Culture - Final Blood NO GROWTH AFTER 5 DAYS 05/14/23 18:31 Blood Culture - Final Blood NO GROWTH AFTER 5 DAYS A&P Assessment and plan (1) Acute kidney injury: Combination of overdiuresis along with poor oral intake and continuation of home dose of lisinopril. Medical reconciliation done for nephrotoxic drugs. Hold off on lisinopril and potassium. Check urinalysis, urine lites, urine creatinine. Monitor BMP daily. BMP showing hyperkalemia today. D50 with 10 units of insulin. Repeat BMP in evening. (2) Acute exacerbation of CHF (congestive heart failure): Most recent echocardiogram from 05/06 showing EF of 35% with regional wall motion abnormality. Acute on chronic systolic congestive heart failure. Continue beta-kenny. Holding off on MARCOS inhibitor given development of MAGALIS. Patient euvolemic for now. Continue with home dose of Lasix 40 mg twice daily. Gentle IV hydration of 500 cc over next 10 hours at 50 cc/h. Watch for fluid overload. Given new finding of low EF patient would benefit from ACS work-up but given overall health and recent hemorrhagic conversion of old stroke as patient will not be able to on DAPT will discuss with family first regarding goals of care. (3) Uncontrolled diabetes mellitus: Most recent A1c more than 9.5. Start on insulin sliding scale at moderate dose protocol. Carb consistent diet. Monitor blood sugars with hypoglycemia protocol. (4) Expressive aphasia: Persistent deficits Medical decision making capacity difficult to determine Psychiatry consulted, appreciate recommendations (5) Status post cerebrovascular accident: Continue high intensity statin Not on antiplatelet/AC due to recent diagnosis of hemorrhagic conversion Placement to be determined, CM working with SNF (6) Tobacco abuse: Would benefit from cessation (7) Methamphetamine use: Would benefit from cessation (8) Acute hypoxemic respiratory failure: Resolved Plan DVT ppx: Heparin 5000 every 12 hourly. Code: Full. We will discuss in detail with family members regarding further goals of care. Cardiac carb consistent diet. Discharge planning: Patient is significant debilitated given recent stroke and hemorrhagic conversion with new congestive heart failure with recurrent admissions (3 in last 3 months) and would benefit from discharge to SNF for possible rehabilitation and closer monitoring going forward and as per PT evaluation. Case management working on same. Family/DPOA agreeable. Attestations Medical Necessity Statement*: Requires further hospitalization for management of MAGALIS with hyperkalemia in setting of congestive heart failure, significant debilitation from recent stroke and hemorrhagic conversion while safe discharge planning is sought. Diagnoses Acute kidney injury N17.9 Acute exacerbation of CHF (congestive heart failure) I50.9 Uncontrolled diabetes mellitus E11.65 Expressive aphasia R47.01 Status post cerebrovascular accident Z86.73 Tobacco abuse Z72.0 Methamphetamine use F15.10 Acute hypoxemic respiratory failure J96.01
[2023-05-20 16:54] LABS: Glucose Point of Care 116 mg/dL (70-110)
[2023-05-20 17:10] LABS: Potassium, Radom Urine 75 mmol/L; Urine Creatinine 131 mg/dL (28-217); Urine Random Chloride 26 mmol/L
[2023-05-20 17:11] LABS: Urine Random Sodium 18 mmol/L
[2023-05-20] MEDS: acetaminophen 500 mg Tablet 1000 MG PO (20:32)
[2023-05-20] MEDS: levETIRAcetam 500 mg Tablet PO (20:33)
[2023-05-20] MEDS: atorvastatin 40 mg Tablet 80 MG PO (20:33)
[2023-05-20 21:11] LABS: Glucose Point of Care 207 mg/dL (70-110)
[2023-05-20] MEDS: sodium chloride 0.9% 1,000 ML 50 ML IV (21:17)
[2023-05-21] VITALS: BP 132/79; PULSE 71; RESP 16; TEMP 36.6; O2SAT 94
[2023-05-21 00:06] LABS: Blood Urea Nitrogen 46 mg/dL (8-23); Calcium 9.5 mg/dL (8.5-10.5); Carbon Dioxide 23 mmol/L (22-29); Chloride 100 mmol/L (98-107); Glucose 171 mg/dL (65-115); Osmolality Calculated 298 mOsm/kg (285-295); Sodium 136 mmol/L (136-145)
[2023-05-21 00:08] LABS: Anion Gap 17.7 (5-19); Potassium 4.7 mmol/L (3.5-5.1)
[2023-05-21 04:00] VITALS: BP 99/65; PULSE 63; RESP 18; TEMP 36.4; O2SAT 97
[2023-05-21 05:27] LABS: Alanine Aminotransferase 9 U/L (0-33); Alkaline Phosphatase 116 U/L (35-105); Anion Gap 17.6 (5-19); Aspartate Amino Transferase 12 U/L (0-32); Blood Urea Nitrogen 44 mg/dL (8-23); Calcium 9.9 mg/dL (8.5-10.5); Carbon Dioxide 23 mmol/L (22-29); Chloride 100 mmol/L (98-107); Globulin 3.5 g/dL (1.3-4.6); Glucose 200 mg/dL (65-115); Osmolality Calculated 299 mOsm/kg (285-295); Potassium 4.6 mmol/L (3.5-5.1); Sodium 136 mmol/L (136-145); Total Bilirubin 0.6 mg/dL (0.15-1.2); Total Protein 7.5 g/dL (6.6-8.7)
[2023-05-21 05:30] LABS: Magnesium 2.1 mg/dL (1.7-2.3)
[2023-05-21 06:36] LABS: Glucose Point of Care 251 mg/dL (70-110)
[2023-05-21 07:44] LABS: Add Urine Microscopic? YES; Bilirubin Urine Neg (Negative); Blood Urine Neg (Negative); Glucose Urine UA 2+ (Normal); Ketones Urine Negative (Negative); Leukocyte Esterase Urine Negative (Negative); Nitrate Urine Positive (Negative); Protein Urine Neg (Negative); Urine Appearance Cloudy (CLEAR); Urine Color Yellow (Yellow); Urobilinogen Urine Norm (Negative); pH Urine 5 (5-7)
[2023-05-21 07:45] LABS: Bacteria Urine 3+ /hpf; RBC Urine RARE /hpf (0-2); Squamous Epithelial Cell Urine 0-4 /hpf (0-5)
[2023-05-21 07:46] LABS: Add Urine Culture? Yes; Charge for UA Resulting for Rev; Hyaline Casts Urine 40-55 /lpf; Mucus Urine TRACE /hpf
[2023-05-21 07:49] VITALS: BP 102/68; PULSE 65; RESP 19; TEMP 36.2; O2SAT 95
[2023-05-21] MEDS: buPROPion XL (24 HR) 150 mg Tablet PO (08:29)
[2023-05-21] MEDS: pantoprazole DR 40 mg Tablet PO (08:29)
[2023-05-21] MEDS: docusate sodium 100 mg Capsule PO ×2 (08:29→16:13)
[2023-05-21] MEDS: levETIRAcetam 500 mg Tablet PO ×2 (08:29→20:19)
[2023-05-21] MEDS: heparin 5,000 unit/mL INJ 1 mL 5000 UNIT SUBCUT ×2 (08:29→20:19)
[2023-05-21] MEDS: FUROsemide 40 mg Tablet PO (08:29)
[2023-05-21] MEDS: folic acid 1 mg Tablet PO (08:29)
[2023-05-21] MEDS: insulin lispro 100 unit/1 mL SUBCUT ×2 (08:30→17:40)
[2023-05-21] MEDS: cefTRIAXone 1,000 MG in sodium chloride 0.9% (plus) 50 ML 100 MG IV (11:15)
[2023-05-21] MEDS: insulin glargine 100 units/1 mL 10 UNIT SUBCUT (11:19)
[2023-05-21 11:28] LABS: Glucose Point of Care 132 mg/dL (70-110)
[2023-05-21 11:42] VITALS: BP 93/59; PULSE 69; RESP 19; TEMP 35.9; O2SAT 94
[2023-05-21] MEDS: acetaminophen 500 mg Tablet 1000 MG PO (11:51)
--- NOTE | 2023-05-21 12:58 | PC.OT ---
Patient kindly but adamantly refused OT services this date. Patient teary eyed upon my entry and not willing to engage nor participate with OT this date. Spoke with RN regarding patient and she states patient has been up ad rohit in room this date.
[2023-05-21 16:00] VITALS: BP 107/67; PULSE 73; RESP 20; TEMP 36.9; O2SAT 93
[2023-05-21] MEDS: sodium chloride 0.9% 1,000 ML 50 ML IV (16:12)
--- NOTE | 2023-05-21 16:37 | P.PN_ITS ---
Subjective Subjective: No acute vents overnight. Today morning examination patient is a lot more awake sitting up in bed. On room air. Seen with sister at bedside. Patient seems to be at her baseline mentation. Aphasic though trying to communicate with actions. Has remained hemodynamically stable and afebrile. Blood work done today shows creatinine stable at 1.7, mild improvement in uremia down to 44, hyperglycemia Medications: Reviewed: Yes Vitals/I&O/Wt Last Vital Signs Temp 96.6 F L 05/21/23 11:42 Pulse 69 05/21/23 11:42 Resp 19 H 05/21/23 11:42 BP 93/59 05/21/23 11:42 Pulse Ox 94 05/21/23 11:42 O2 Del Method Room Air 05/21/23 11:42 O2 Flow Rate 2 05/21/23 08:00 05/21/23 05/21/23 05/21/23 06:59 14:59 22:59 Intake Total 150 / 390.1 1010 / 1010 945.833 / 1955.833 Balance 150 / 390.1 1010 / 1010 945.833 / 5.833 Physical Exam Narrative: General: Patient is awake. No acute distress. Sitting in chair. Speech still mostly incomprehensible. Head:? Normocephalic. Atraumatic. Cardiovascular: RRR. No gallops. No murmurs. Lungs: Adequate air movement. No use of accessory muscles, no rales or wheezes. On room air. Skin: No jaundice. Abdomen: Normal bowel sounds, abdomen soft and nontender. Extremities: No cyanosis or clubbing. Musculoskeletal: Normal muscle. Neurological:? No myoclonus. Expressive aphasia. Moves all extremities. Data 05/20/23 05:13 05/21/23 04:50 A&P Assessment and plan (1) Acute kidney injury: Combination of overdiuresis along with poor oral intake and continuation of home dose of lisinopril. Medical reconciliation done for nephrotoxic drugs. Hold off on lisinopril and potassium. Appreciate urinalysis, urine lites, urine creatinine. Monitor BMP daily. Continue with gentle IV hydration. Holding off on Lasix. Hyperkalemia has resolved. Continue to monitor BMP daily for now. (2) Acute exacerbation of CHF (congestive heart failure): Most recent echocardiogram from 05/06 showing EF of 35% with regional wall motion abnormality. Acute on chronic systolic congestive heart failure. Continue beta-kenny. Holding off on MARCOS inhibitor given development of MAGALIS. Patient euvolemic for now. Hold off on home dose of Lasix 40 mg twice daily. Gentle IV hydration with NS at 50 cc/h Watch for fluid overload. Discussed in detail with patient's sister at bedside about new low EF. In past cardiac angiogram was not done because of poor baseline physical capacity, recent hemorrhagic stroke. They are agreeable to continue to hold off on further work-up for now. Patient seems chest pain-free. (3) Uncontrolled diabetes mellitus: Most recent A1c more than 9.5. Blood sugar still elevated. Continue with insulin sliding scale at moderate dose protocol. Add Lantus 10 units every morning. Carb consistent diet. Monitor blood sugars with hypoglycemia protocol. (4) Expressive aphasia: Persistent deficits Medical decision making capacity difficult to determine Psychiatry consulted, appreciate recommendations (5) Status post cerebrovascular accident: Continue high intensity statin Not on antiplatelet/AC due to recent diagnosis of hemorrhagic conversion Placement to be determined, CM working with SNF (6) Tobacco abuse: Would benefit from cessation (7) Methamphetamine use: Would benefit from cessation (8) Acute hypoxemic respiratory failure: Resolved Plan DVT ppx: Heparin 5000 every 12 hourly. Code: Full. We will discuss in detail with family members regarding further goals of care. Cardiac carb consistent diet. Discharge planning: Patient is significant debilitated given recent stroke and hemorrhagic conversion with new congestive heart failure with recurrent admissions (3 in last 3 months) and would benefit from discharge to SNF for possible rehabilitation and closer monitoring going forward and as per PT evaluation. Case management working on same. Family/DPOA agreeable. Goals of care discussion: Discussed in detail with patient's sister over the phone and at bedside. 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 Discussed that unfortunately in an adverse event of cardiac arrest patient would have further deterioration of her baseline health. Sister would like to discuss further with the patient and her brother before making any decision. Attestations Medical Necessity Statement*: Requires further hospitalization for management of acute kidney injury in setting of a patient admitted for congestive heart failure while safe discharge planning is sought. Diagnoses Acute kidney injury N17.9 Acute exacerbation of CHF (congestive heart failure) I50.9 Uncontrolled diabetes mellitus E11.65 Expressive aphasia R47.01 Status post cerebrovascular accident Z86.73 Tobacco abuse Z72.0 Methamphetamine use F15.10 Acute hypoxemic respiratory failure J96.01
[2023-05-21 17:09] LABS: Glucose Point of Care 223 mg/dL (70-110)
[2023-05-21 19:29] VITALS: BP 89/52; PULSE 63; RESP 18; TEMP 36.4; O2SAT 90
[2023-05-21] MEDS: atorvastatin 40 mg Tablet 80 MG PO (20:19)
[2023-05-21 20:26] LABS: Glucose Point of Care 137 mg/dL (70-110)
[2023-05-22] VITALS: BP 106/63; PULSE 66; RESP 18; TEMP 36.8; O2SAT 91
[2023-05-22 04:00] VITALS: BP 126/83; PULSE 60; RESP 18; TEMP 36.6; O2SAT 93
[2023-05-22 05:48] LABS: Glucose Point of Care 164 mg/dL (70-110)
[2023-05-22 05:52] LABS: Magnesium 2.1 mg/dL (1.7-2.3)
[2023-05-22] MEDS: insulin glargine 100 units/1 mL 10 UNIT SUBCUT (05:53)
[2023-05-22 05:57] LABS: Alanine Aminotransferase 7 U/L (0-33); Albumin Level 3.6 g/dL (3.5-5.2); Alkaline Phosphatase 102 U/L (35-105); Anion Gap 16.2 (5-19); Aspartate Amino Transferase 12 U/L (0-32); Blood Urea Nitrogen 38 mg/dL (8-23); Calcium 9.2 mg/dL (8.5-10.5); Carbon Dioxide 22 mmol/L (22-29); Chloride 104 mmol/L (98-107); Globulin 3.4 g/dL (1.3-4.6); Glomerular Filtration Rate 44.8 mL/min (90-130); Glucose 166 mg/dL (65-115); Osmolality Calculated 299 mOsm/kg (285-295); Potassium 4.2 mmol/L (3.5-5.1); Sodium 138 mmol/L (136-145); Total Bilirubin 0.3 mg/dL (0.15-1.2)
[2023-05-22] MEDS: insulin lispro 100 unit/1 mL SUBCUT ×4 (07:30→21:11)
[2023-05-22 07:38] VITALS: BP 126/77; PULSE 72; RESP 16; TEMP 36.8; O2SAT 92
[2023-05-22] MEDS: levETIRAcetam 500 mg Tablet PO ×2 (08:25→21:09)
[2023-05-22] MEDS: docusate sodium 100 mg Capsule PO ×2 (08:25→17:24)
[2023-05-22] MEDS: metoprolol succinate ER (24 HR) 25 mg Tablet PO (08:25)
[2023-05-22] MEDS: pantoprazole DR 40 mg Tablet PO (08:25)
[2023-05-22] MEDS: folic acid 1 mg Tablet PO (08:25)
[2023-05-22] MEDS: heparin 5,000 unit/mL INJ 1 mL 5000 UNIT SUBCUT ×2 (08:25→21:11)
[2023-05-22] MEDS: buPROPion XL (24 HR) 150 mg Tablet PO (08:25)
[2023-05-22] MEDS: cefTRIAXone 1,000 MG in sodium chloride 0.9% (plus) 50 ML 100 MG IV (10:43)
[2023-05-22 10:52] VITALS: BP 109/68; PULSE 65; RESP 16; TEMP 36.7; O2SAT 91
[2023-05-22 11:36] LABS: Glucose Point of Care 210 mg/dL (70-110)
[2023-05-22] MEDS: sodium chloride 0.9% 1,000 ML 50 ML IV (13:54)
--- NOTE | 2023-05-22 14:19 | P.PN_ITS ---
Subjective Subjective: No acute events overnight.Today morning patient seen with sister and [id number] at bedside. Patient is able to have her medications through nodding head. She nods yes to her name and being in the hospital. Denies any pain. Has been on room air. Blood work today shows CMP with creatinine down to 1.2, BUN improving to 38 Medications: Reviewed: Yes Vitals/I&O/Wt Last Vital Signs Temp 98.0 F 05/22/23 10:52 Pulse 65 05/22/23 10:52 Resp 16 05/22/23 10:52 BP 109/68 05/22/23 10:52 Pulse Ox 91 05/22/23 10:52 O2 Del Method Room Air 05/22/23 10:52 O2 Flow Rate 2 05/21/23 08:00 05/21/23 05/22/23 05/22/23 22:59 06:59 14:59 Intake Total 1545.833 / 2555.833 1530 / 1530 Balance 1545.833 / 2555.833 1530 / 1530 Physical Exam Narrative: General: Patient is awake, alert being in hospital her name. No acute distress. Sitting in chair. Speech still mostly incomprehensible. Able to have c ommunication through nodding head yes and no Head:? Normocephalic. Atraumatic. Cardiovascular: RRR. No gallops. No murmurs. Lungs: Adequate air movement. No use of accessory muscles, no rales or wheezes. On room air. Skin: No jaundice. Abdomen: Normal bowel sounds, abdomen soft and nontender. Extremities: No cyanosis or clubbing. Musculoskeletal: Normal muscle. Neurological:? No myoclonus. Expressive aphasia. Moves all extremities. Data 05/20/23 05:13 05/22/23 04:49 Micro: Microbiology 05/20/23 16:50 Urine Culture - Preliminary Urine,Clean Catch Gram Negative Rods A&P Assessment and plan (1) Acute kidney injury: Combination of overdiuresis along with poor oral intake and continuation of home dose of lisinopril. Medical reconciliation done for nephrotoxic drugs. Hold off on lisinopril and potassium. Appreciate urinalysis, urine lites, urine creatinine. Monitor BMP daily. Continue with gentle IV hydration. Holding off on Lasix. Hyperkalemia has resolved. Continue to monitor BMP daily for now. (2) Acute exacerbation of CHF (congestive heart failure): Most recent echocardiogram from 05/06 showing EF of 35% with regional wall motion abnormality. Acute on chronic systolic congestive heart failure. Continue beta-kenny. Holding off on MARCOS inhibitor given development of MAGALIS. Patient euvolemic for now. Hold off on home dose of Lasix 40 mg twice daily. Gentle IV hydration with NS at 50 cc/h Watch for fluid overload. Discussed in detail with patient's sister at bedside about new low EF. In past cardiac angiogram was not done because of poor baseline physical capacity, recent hemorrhagic stroke. They are agreeable to continue to hold off on further work-up for now. Patient seems chest pain-free. (3) Uncontrolled diabetes mellitus: Most recent A1c more than 9.5. Blood sugar still elevated. Continue with insulin sliding scale at moderate dose protocol. Add Lantus 10 units every morning. Carb consistent diet. Monitor blood sugars with hypoglycemia protocol. (4) Expressive aphasia: Persistent deficits Medical decision making capacity difficult to determine Psychiatry consulted, appreciate recommendations (5) Status post cerebrovascular accident: Continue high intensity statin Not on antiplatelet/AC due to recent diagnosis of hemorrhagic conversion Placement to be determined, CM working with SNF (6) Tobacco abuse: Would benefit from cessation (7) Methamphetamine use: Would benefit from cessation (8) Acute hypoxemic respiratory failure: Resolved Plan DVT ppx: Heparin 5000 every 12 hourly. Code: Full. We will discuss in detail with family members regarding further goals of care. Cardiac carb consistent diet. Discharge planning: Patient is significant debilitated given recent stroke and hemorrhagic conversion with new congestive heart failure with recurrent admissions (3 in last 3 months) and would benefit from discharge to SNF for possible rehabilitation and closer monitoring going forward and as per PT evaluation. Case management working on same. Family/DPOA agreeable. Plan for the day: Continue monitor BMP daily. Continue with gentle IV hydration at 50 cc/h with normal saline while monitoring for fluid overload. Hold off on diuretics for now. Urine culture growing gram-negative rods. Continue with IV ceftriaxone. Most likely will switch to oral Levaquin on discharge. Patient having occasional episodes of agitation as per the nursing staff. Milly nue with home dose of Keppra. Will add low-dose Depakote to 50 mg 4 times daily which would help with overall mentation as well. Awaiting prior authorization from SNF for discharge. Plan-further goals of care discussion with patient, patient's sister at bedside. Patient would not want to be on life support but is okay with chest compressions. CODE STATUS changed to limited resuscitation. Goals of care discussion: Discussed in detail with patient's sister over the phone and at bedside. 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 Discussed that unfortunately in an adverse event of cardiac arrest pat ient would have further deterioration of her baseline health. Sister would like to discuss further with the patient and her brother before making any decision. Attestations Medical Necessity Statement*: Requires further hospitalization for management of acute kidney injury in a patient admitted for hypoxic respiratory failure from congestive heart failure by safe discharge planning is sought Diagnoses Acute kidney injury N17.9 Acute exacerbation of CHF (congestive heart failure) I50.9 Uncontrolled diabetes mellitus E11.65 Expressive aphasia R47.01 Status post cerebrovascular accident Z86.73 Tobacco abuse Z72.0 Methamphetamine use F15.10 Acute hypoxemic respiratory failure J96.01
[2023-05-22 16:00] VITALS: PULSE 75; RESP 16; TEMP 36.7; O2SAT 95
[2023-05-22 17:22] LABS: Glucose Point of Care 174 mg/dL (70-110)
[2023-05-22 20:00] VITALS: BP 130/87; PULSE 66; RESP 18; TEMP 36.8; O2SAT 94
[2023-05-22 20:59] LABS: Glucose Point of Care 200 mg/dL (70-110)
[2023-05-22] MEDS: atorvastatin 40 mg Tablet 80 MG PO (21:09)
[2023-05-23] VITALS: BP 127/73; PULSE 68; RESP 19; TEMP 36.7; O2SAT 95
[2023-05-23 03:52] VITALS: BP 122/80; PULSE 63; RESP 18; TEMP 36.6; O2SAT 94
[2023-05-23 05:36] LABS: Glucose Point of Care 130 mg/dL (70-110)
[2023-05-23 05:39] LABS: Alanine Aminotransferase 8 U/L (0-33); Albumin Level 3.6 g/dL (3.5-5.2); Alkaline Phosphatase 96 U/L (35-105); Aspartate Amino Transferase 11 U/L (0-32); Blood Urea Nitrogen 27 mg/dL (8-23); Calcium 9.4 mg/dL (8.5-10.5); Carbon Dioxide 22 mmol/L (22-29); Chloride 106 mmol/L (98-107); Globulin 3.3 g/dL (1.3-4.6); Glomerular Filtration Rate 55.3 mL/min (90-130); Glucose 135 mg/dL (65-115); Osmolality Calculated 297 mOsm/kg (285-295); Sodium 140 mmol/L (136-145); Total Bilirubin 0.2 mg/dL (0.15-1.2); Total Protein 6.9 g/dL (6.6-8.7)
[2023-05-23 05:40] LABS: Magnesium 2.1 mg/dL (1.7-2.3)
[2023-05-23] MEDS: insulin glargine 100 units/1 mL 10 UNIT SUBCUT (05:48)
[2023-05-23 07:58] VITALS: BP 133/82; PULSE 65; RESP 18; TEMP 36.6; O2SAT 94
[2023-05-23] MEDS: folic acid 1 mg Tablet PO (08:29)
[2023-05-23] MEDS: metoprolol succinate ER (24 HR) 25 mg Tablet PO (08:29)
[2023-05-23] MEDS: buPROPion XL (24 HR) 150 mg Tablet PO (08:29)
[2023-05-23] MEDS: docusate sodium 100 mg Capsule PO (08:29)
[2023-05-23] MEDS: heparin 5,000 unit/mL INJ 1 mL 5000 UNIT SUBCUT (08:29)
[2023-05-23] MEDS: pantoprazole DR 40 mg Tablet PO (08:29)
[2023-05-23] MEDS: sodium chloride 0.9% 1,000 ML 50 ML IV (08:50)
[2023-05-23] MEDS: levETIRAcetam 500 mg Tablet PO (08:50)
[2023-05-23] MEDS: nicotine 14 mg Patch 1 PATCH TRANSDERMA (10:01)
[2023-05-23] MEDS: cefTRIAXone 1,000 MG in sodium chloride 0.9% (plus) 50 ML 100 MG IV (11:38)
[2023-05-23 11:42] VITALS: BP 130/85; PULSE 64; RESP 18; TEMP 36.9; O2SAT 95
--- NOTE | 2023-05-23 12:56 | PM.DCS ---
Discharge Providers Date of Admission: 05/14/23 19:21 Date of Discharge: May 23, 2023 Attending Provider at Admission: Rashard rTinidad DO Attending Provider at Discharge: Anthony Kelly MD Primary Care Provider: Joann Cardona Diagnoses at Discharge Discharge Diagnosis (1) Acute kidney injury: Status: Acute (2) Acute exacerbation of CHF (congestive heart failure): Status: Acute (3) Uncontrolled diabetes mellitus: Status: Acute (4) Expressive aphasia: Status: Acute (5) Status post cerebrovascular accident: Status: Acute (6) Tobacco abuse: Status: Acute (7) Methamphetamine use: Status: Acute (8) Acute hypoxemic respiratory failure: Status: Acute Reason for Visit Reason for Visit: Anxeity Brief History: History as per HPI: Sarah Rogers is a 68 year old female status post CVA 04/09/2023.? She has expressive aphasia so history is being taken from the chart.? Patient was hospitalized for 8 days due to complicated complications related to pneumonia she was discharged to a [facility] and she left AMA according to records.? Patient was readmitted 04/29/2023 to 05/07/2023 with E. coli septic shock.? At that time she was discharged home with home health care.? She presents today with severe expressive aphasia.? Work-up in the ER found her to be hypoxic and she was placed on 3 L chest x-ray shows either an infiltrate in the right middle lobe or pulmonary edema with a right pleural effusion.? Note her echo in the last couple months showed EF of 30 to 35%. Her last home health visit was concerning.? The sprayer auto parts on a 2423 said the patient is functionally unsafe in the home.? She lives alone and unable to verbalize.? While the patient's brother was present during assessment he admits he is unable to understand the patient according to her note the patient's brother was able to understand the patient agreed to go back to inpatient facility rehab until she is able to be safe alone at home.? Family has not been present in the emergency room.? Brother Hemant arrived and provided further history.? He states that the patient walked out of [place].? A nurse there drove her home.? Brother provides history that patient has a longstanding history of methamphetamine abuse.? Apparently patient has a friend from assisted living that may be providing this at her home. Hospital Course Hospital Course Patient was admitted to the hospital for further evaluation and management of shortness of breath with hypoxic respiratory failure in setting of congestive systolic heart failure. On review it seems patient has been admitted multiple times within last 3 months. She was started on IV diuretics for congestive heart failure. Her hospitalization was complicated by patient developing acute kidney injury in setting of overdiuresis which was treated with IV hydration. Given her baseline severe decline in health recently, multiple admissions goals of care discussions were done in detail with patient, patient's sister at bedside. Patient is able to communicate through nodding yes and no but continues to have expressive aphasia. Patient would be okay with chest compressions but does not want to be on ventilator hence has been changed to limited resuscitation. Safe discharge planning was discussed in detail with patient's family members at bedside given multiple recent admissions for various reasons including difficulty in breathing from congestive heart failure. Patient is at high risk of recurrent admissions, falling, failure to thrive hence both patient and family were agreeable for SNF placement. She has been discharged to SNF in hemodynamically stable condition. She is to take lisinopril 10 mg daily, Lasix 40 mg daily, fluid restriction up to 1500 cc/day. She is to follow-up with neurology and cardiology in 1 month. Physical Exam Narrative: General: Patient is awake, alert being in hospital her name. No acute distress. Sitting in chair. Speech still mostly incomprehensible. Able to have communication through nodding head yes and no Head:? Normocephalic. Atraumatic. Cardiovascular: RRR. No gallops. No murmurs. Lungs: Adequate air movement. No use of accessory muscles, no rales or wheezes. On room air. Skin: No jaundice. Abdomen: Normal bowel sounds, abdomen soft and nontender. Extremities: No cyanosis or clubbing. Musculoskeletal: Normal muscle. Neurological:? No myoclonus. Expressive aphasia. Moves all extremities. Discharge Data Studies Completed and Pending Completed Studies During Hospitalization Category Date Time Status CT head wo con* [id number] Stat Cat Scan 05/14/23 18:02 Completed XR chest 1V portable [id number] Stat Exams 05/14/23 18:02 Completed Pending at discharge Category Date Time Status SARS Covid-2 Antigen Stat Lab 05/23/23 10:31 Ordered Urine Culture Routine Lab 05/20/23 16:50 Results Radiology Impressions Chest X-Ray 05/14/23 18:02 IMPRESSION: 1. Interval development of a moderate right pleural effusion. 2. Interval progression of the right middle lobe infiltrate. Head CT 05/14/23 18:02 IMPRESSION: 1. No acute intracranial abnormality. 2. Stable findings of prior left cerebral infarcts with associated hemorrhagic conversion. Laboratory Results WBC 12.20 10^3/uL (3.29-11.43) H 05/20/23 05:13 RBC 5.15 10^6/uL (3.85-5.65) 05/20/23 05:13 Hgb 13.30 g/dL (11.27-16.99) 05/20/23 05:13 Hct 44.1 % (36-47) 05/20/23 05:13 MCV 85.6 fl (85-98) 05/20/23 05:13 MCH 25.8 pg (27-33) L 05/20/23 05:13 MCHC 30.2 g/dL (30-55) 05/20/23 05:13 RDW 13.8 % (12.1-15.1) 05/20/23 05:13 Plt Count 263 10^3/cmm (157-399) 05/20/23 05:13 MPV 11.2 fL (7.4-10.4) H 05/20/23 05:13 Neut % (Auto) 82.3 % 05/20/23 05:13 Lymph % (Auto) 11.1 % 05/20/23 05:13 [place] % (Auto) 5.3 % 05/20/23 05:13 Eos % (Auto) 0.3 % 05/20/23 05:13 Baso % (Auto) 0.7 % 05/20/23 05:13 Neut # (Auto) 10.03 10^3/uL (1.8-7.7) H 05/20/23 05:13 Lymph # (Auto) 1.4 10^3/uL (0.8-4.8) 05/20/23 05:13 [place] # (Auto) 0.7 10^3/uL (0.2-0.9) 05/20/23 05:13 Eos # (Auto) 0.0 10^3/uL (0.0-0.8) 05/20/23 05:13 Baso # (Auto) 0.1 10^3/uL (0.0-0.1) 05/20/23 05:13 Nucleated RBC % (auto) 0 % 05/20/23 05:13 Nucleated RBCs # 0.0 /100WBC 05/20/23 05:13 Specimen Type Arterial 05/14/23 18:11 Sample Site Brachial, left 05/14/23 18:11 ABG pH 7.46 (7.35-7.45) H 05/14/23 18:11 ABG pCO2 33.9 mmHg (35-45) L 05/14/23 18:11 ABG pO2 62.5 mmHg (80.0-100.0) L 05/14/23 18:11 ABG HCO3 24.2 mmol/L (22-26) 05/14/23 18:11 ABG Base Excess 0.8 mmol/L (-2.0-2.0) 05/14/23 18:11 Renaldo Test Pos 05/14/23 18:11 Hematocrit 38.0 % (37-47) 05/14/23 18:11 O2 Delivery Device Nc 05/14/23 18:11 O2 Liters/Min 2.0 % 05/14/23 18:11 FiO2 28.0 % 05/14/23 18:11 Pottery Decoration Designer ID Cak 05/14/23 18:11 Sodium 140 mmol/L (136-145) 05/23/23 04:38 Potassium 4.0 mmol/L (3.5-5.1) 05/23/23 04:38 Chloride 106 mmol/L (98-107) 05/23/23 04:38 Carbon Dioxide 22 mmol/L (22-29) 05/23/23 04:38 Anion Gap 16.0 (5-19) 05/23/23 04:38 BUN 27 mg/dL (8-23) H 05/23/23 04:38 Creatinine 1.0 mg/dL (0.5-0.9) H 05/23/23 04:38 GFR Calculation 55.3 mL/min (90-130) L 05/23/23 04:38 Glucose 135 mg/dL (65-115) H 05/23/23 04:38 POC Glucose 130 mg/dL (70-110) H 05/23/23 05:31 Estimat Average Glucose 232 05/15/23 04:54 Hemoglobin A1c 9.7 % (4.0-6.0) H 05/15/23 04:54 Calculated Osmolality 297 mOsm/kg (285-295) H 05/23/23 04:38 Lactic Acid 1.3 mmol/L (0.5-2.2) 05/14/23 18:31 Calcium 9.4 mg/dL (8.5-10.5) 05/23/23 04:38 Phosphorus 5.4 mg/dL (2.5-4.5) H 05/20/23 05:13 Magnesium 2.1 mg/dL (1.7-2.3) 05/23/23 04:38 Total Bilirubin 0.2 mg/dL (0.15-1.2) 05/23/23 04:38 AST 11 U/L (0-32) 05/23/23 04:38 ALT 8 U/L (0-33) 05/23/23 04:38 Alkaline Phosphatase 96 U/L (35-105) 05/23/23 04:38 C-Reactive Protein 27.7 mg/L (0.0-4.9) H 05/14/23 17:11 NT-Pro-B Natriuret Pep 5021 pg/mL (0-125) H 05/15/23 04:54 Total Protein 6.9 g/dL (6.6-8.7) 05/23/23 04:38 Albumin 3.6 g/dL (3.5-5.2) 05/23/23 04:38 Globulin 3.3 g/dL (1.3-4.6) 05/23/23 04:38 Procalcitonin 0.06 ng/mL (0-0.5) 05/14/23 17:11 Urine Color Yellow (Yellow) 05/20/23 16:50 Urine Appearance Cloudy (CLEAR) A 05/20/23 16:50 Urine pH 5 (5-7) 05/20/23 16:50 Ur Specific [place] 1.020 (1.005-1.030) 05/20/23 16:50 Urine Protein Neg (Negative) 05/20/23 16:50 Urine Glucose (UA) 2+ (Normal) H 05/20/23 16:50 Urine Ketones Negative (Negative) 05/20/23 16:50 Urine Blood Neg (Negative) 05/20/23 16:50 Urine Nitrate Positive (Negative) H 05/20/23 16:50 Urine Bilirubin Neg (Negative) 05/20/23 16:50 Urine Urobilinogen Norm mg/dL (Negative) 05/20/23 16:50 Ur Leukocyte Esterase Negative (Negative) 05/20/23 16:50 Urine RBC Rare /hpf (0-2) 05/20/23 16:50 Urine WBC 5-10 /hpf (0-5) H 05/20/23 16:50 Ur Squamous Epith Cells 0-4 /hpf (0-5) H 05/20/23 16:50 Amorphous Sediment Not Reportable 05/20/23 16:50 Urine Bacteria 3+ /hpf (NONE) H 05/20/23 16:50 Hyaline Casts 40-55 /lpf H 05/20/23 16:50 Urine Mucus Trace /hpf 05/20/23 16:50 Ur Random Sodium 18 mmol/L 05/20/23 16:50 Ur Random Potassium 75 mmol/L 05/20/23 16:50 Ur Random Chloride 26 mmol/L 05/20/23 16:50 Urine Creatinine 131 mg/dL (28-217) 05/20/23 16:50 Urine Opiates Screen Negative ng/mL (Negative) 05/14/23 18:22 Ur Barbiturates Screen Negative ng/mL (Negative) 05/14/23 18:22 Ur Phencyclidine Scrn Negative ng/mL (Negative) 05/14/23 18:22 Ur Amphetamines Screen Negative ng/mL (Negative) 05/14/23 18:22 U Benzodiazepines Scrn Negative ng/mL (Negative) 05/14/23 18:22 Urine Cocaine Screen Negative ng/mL (Negative) 05/14/23 18:22 U Marijuana (THC) Screen Negative ng/mL (Negative) 05/14/23 18:22 SARS-CoV-2 Ag (Rapid) negative (Negative) 05/14/23 19:43 Vitals Last Vital Signs Temp 98.5 F 05/23/23 11:42 Pulse 64 05/23/23 11:42 Resp 18 05/23/23 11:42 BP 130/85 05/23/23 11:42 Pulse Ox 95 05/23/23 11:42 O2 Del Method Room Air 05/23/23 03:52 O2 Flow Rate 2 05/21/23 08:00 Discharge Plan Discharge Patient Disposition: Xfer SNF Condition: Stable Prescriptions: New valproic acid 250 mg Capsule 250 mg PO QID 30 Days Qty: 120 0RF Humalog U-100 Insulin 100 unit/mL cartridge See Protocol SUBCUT TID Qty: 15 0RF Protocol: Insulin Corrective High-Dose Regimen Condition: Fingerstick Blood Glucose Dose/Route: Insulin Units Condition: 141-180 mg/dl Dose/Route: 2 units/SQ Condition: 181-220 mg/dl Dose/Route: 4 units/SQ Condition: 221-260 mg/dl Dose/Route: 6 units/SQ Condition: 261-300 mg/dl Dose/Route: 8 units/SQ Condition: 301-350 mg/dl Dose/Route: 10 units/SQ Condition: 351-400 mg/dl Dose/Route: 12 units/SQ Condition: greater than 400 mg/dl Dose/Route: 14 units/SQ Continued (DME) lancets [Accu-Chek Fastclix Lancet Drum] Misc See Rx Instructions .Route Qty: 100 0RF Rx Instructions: As directed (DME) Blood Pressure Cuff Misc See Rx Instructions .Route Qty: 1 0RF Rx Instructions: As directed atorvastatin 40 mg Tablet 40 mg PO DAILY furosemide [Lasix] 40 mg tablet 40 mg PO DAILY 30 Days Qty: 30 0RF potassium chloride 20 mEq tablet,ER particles/crystals 20 meq PO DAILY 30 Days Qty: 30 0RF pantoprazole 40 mg tablet,delayed release (DR/EC) 40 mg PO DAILY Qty: 30 0RF nitroglycerin 0.4 mg tablet, sublingual 0.4 mg SUBLINGUAL Q5M PRN (Reason: Chest Pain) 30 Days Qty: 10 0RF metoprolol succinate 25 mg tablet extended release 24 hr 25 mg PO DAILY Qty: 30 0RF bupropion HCl 150 mg tablet extended release 24 hr 150 mg PO DAILY insulin degludec [Tresiba FlexTouch U-200] 200 unit/mL (3 mL) insulin pen 10 unit SUBCUT DAILY Combivent Respimat 20-100 mcg/actuation mist 1 puff INHALATION QID PRN (Reason: Shortness Of Breath) folic acid 1 mg Tablet 1 mg PO DAILY 30 Days Qty: 30 0RF Changed lisinopril 10 mg tablet 10 mg PO DAILY 30 Days Qty: 30 0RF Rx Instructions: Fingerstick Blood Glucose Then Insulin Units; If 141-180 mg/dl, then 2 units/SQ; If 181-220 mg/dl, then 4 units/SQ; If 221-260 mg/dl, then 6 units/SQ; If 261-300 mg/dl, then 8 units/SQ; If 301-350 mg/dl, then 10 units/SQ; If 351-400 mg/dl, then 12 units/SQ; If greater than 400 mg/dl, then 14 units/SQ Discontinued metformin 1,000 mg tablet 1,000 mg PO BID levetiracetam 500 mg Tablet 500 mg PO BID@0900,2100 30 Days Qty: 60 1RF Discharge Orders: Discharge Order (Routine); Ordered 05/23/23 Ordered By: Anthony Kelly Referrals: Joann Cardona PA [Primary Care Provider] - 2 weeks Michael Faye MD [Physician] - 1 month Dee Gannon MD [Physician] - 1 month Discharge Diet: Cardiac and Diabetic Discharge Activity: Resume usual activity and Increase activity as tolerated Patient Instructions: Opioid Safety Activity Restrictions/Additional Instructions: Fluid restriction up to 1500 cc. Lisinopril dose has been changed to 10 mg daily. Continue Lantus as before. Take Humalog before each meal as per insulin sliding below. If Fingerstick Blood Glucose, then Insulin Units; If 141-180 mg/dl, then 2 units/SQ; If 181-220 mg/dl, then 4 units/SQ; If 221-260 mg/dl, then 6 units/SQ; If 261-300 mg/dl, then 8 units/SQ; If 301-350 mg/dl, then 10 units/SQ; If 351-400 mg/dl, then 12 units/SQ; If greater than 400 mg/dl, then 14 units/SQ Keppra has been stopped and changed to valproic acid. Please follow-up with neurology/Dr. Faye in 2 weeks and with cardiology within next 1 month. Discharge Attestations Time Spent in Discharge Care*: greater than 30 min Specific Discharge Activities: educating patient, educating and/or supporting family/caregiver, discussing with pcp/other providers, discussing with classification case manager/social workers/dc planners, documenting/other paperwork and evaluating patient/reviewing data Status at Discharge: Cognitive status at discharge: mildly impaired cognition, Behavioral status at discharge: cooperative, Functional status at discharge: uses cane/walker, Overall status at discharge: patient is back to baseline Quality Metrics Clinical Quality Measures [ No reported AMI, CVA or VTE this stay] Coding Level of Care Code 67649 Total time (in minutes) for Discharge: 60 Diagnoses Acute kidney injury N17.9 Acute exacerbation of CHF (congestive heart failure) I50.9 Uncontrolled diabetes mellitus E11.65 Expressive aphasia R47.01 Status post cerebrovascular accident Z86.73 Tobacco abuse Z72.0 Methamphetamine use F15.10 Acute hypoxemic respiratory failure J96.01
--- NOTE | 2023-05-23 13:07 | PC.SOCIAL ---
IMM Updated Updated pt on IMM. No questions voiced. Provided pt a copy. Initialed, dated, & timed copy in chart.
[2023-05-23 14:33] LABS: SARS Covid-2 Antigen negative (Negative)
[2023-05-23 15:33] VITALS: BP 130/85; PULSE 64; RESP 18; TEMP 36.9; O2SAT 95
== END 2023-05-23 15:34 | disposition skilled nursing facility (03) | DRG 291 ==
LOC: ER 19:37 → MEDSURG 19:40
PROVIDERS: Internal Medicine; Admitting Provider Internal Medicine; Emergency Provider Emergency Medicine; PCP Physician Assistant; Visit Provider Student in an Organized Health Care Education/Training Program
DX: I11.0 Hypertensive heart disease with heart failure (principal); I50.23 Acute on chronic systolic (congestive) heart failure; J96.01 Acute respiratory failure with hypoxia; N17.9 Acute kidney failure, unspecified; I69.920 Aphasia following unspecified cerebrovascular disease; F15.10 Other stimulant abuse, uncomplicated; Z79.4 Long term (current) use of insulin; F41.9 Anxiety disorder, unspecified; F32.A Depression, unspecified; J44.9 Chronic obstructive pulmonary disease, unspecified; K21.9 Gastro-esophageal reflux disease without esophagitis; F17.210 Nicotine dependence, cigarettes, uncomplicated; E11.65 Type 2 diabetes mellitus with hyperglycemia; Z87.440 Personal history of urinary (tract) infections; Z75.1 Person awaiting admission to adequate facility elsewhere; E87.5 Hyperkalemia
CPT/HCPCS: 36415; 36416; 36600; 51701; 70450; 71045; 80048; 80053; 80069; 80306; 81001; 81003; 82436; 82570; 82803; 82962; 83036; 83605; 83735; 83880; 84133; 84145; 84300; 85025; 86140; 87040; 87077; 87086; 87186; 87426; 92507; 92523; 92526; 92610; 93005; 96372; 96374; 96375; 97166; 97167; 97530; 99285; J0696; J1644; J1815; J1940; J2405; J3490; J7030

== ENCOUNTER 2023-10-02 11:32 | Outpatient (RCR) | payer MEDICARE, MEDICAID, SELFPAY | END 2023-10-16 23:59 | disposition home or self-care (01) | LOC: SST 11:32 | PROVIDERS: PCP Physician Assistant; Visit Provider Physician Assistant | DX: F80.1 Expressive language disorder (principal) | CPT/HCPCS: 92507; 92523 ==

== ENCOUNTER 2023-10-03 13:09 | Outpatient (CLI) | payer MEDICARE, MEDICAID, SELFPAY ==
--- NOTE | 2023-10-03 13:16 | MR_ITS ---
WS: [id number] MRI HEAD WITHOUT CONTRAST TECHNIQUE: Sagittal T1, T2 axial, T2 axial FLAIR, axial and coronal T1 images, axial susceptibility w eighted imaging, axial diffusion weighted images, and coronal T2 images were obtained. 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 Ventricular system and basilar cistern s are patent. Chronic infarct in the LEFT MCA territory with encephalomalacia and gliosis. Associated laminar necrosis and hemosiderin. Mild ex vacuo dilatation LEFT lateral ventricle. Mild parenchymal volume loss. Small vessel changes in the gita. Normal vascular flow voids at the skull base. No extra -axial fluid collections. Paranasal sinuses and mastoid air cells are well aerated. Normal posterior nasopharynx. Tiny chronic lacunar infarcts in the LEFT gerardo radiata. Normal optic chiasm and pituitary infundibulum. Moderate symmetric atrophy temporal lobes and hippoca mpal formations. Bilateral parotid cysts partially evaluated. LEFT parotid cyst measuring 12 mm. Intr aparotid ductal dilatation. IMPRESSION: 1. No evidence of restricted diffusion to suggest acute ischemia. 2. Chronic infarct LEFT MCA territory with encephalomalacia and gliosis. Associated hemosiderin. Ex vacuo dictation LEFT lateral ventricle. 3. Moderate small vessel changes with mild parenchymal volume loss. 4. No other acute findings.
== END 2023-10-03 13:10 | disposition home or self-care (01) ==
LOC: RAD 13:09
PROVIDERS: PCP Physician Assistant; Visit Provider Physician Assistant
DX: I69.359 Hemiplegia and hemiparesis following cerebral infarction affecting unspecified side (principal); I69.398 Other sequelae of cerebral infarction; G93.89 Other specified disorders of brain; I67.89 Other cerebrovascular disease
CPT/HCPCS: 70551

== ENCOUNTER 2023-10-17 06:00 | Outpatient (RCR) | payer MEDICARE, MEDICAID, SELFPAY | END 2023-11-14 23:59 | disposition home or self-care (01) | LOC: SST 06:00 | PROVIDERS: PCP Physician Assistant; Visit Provider Physician Assistant | DX: F80.1 Expressive language disorder (principal) | CPT/HCPCS: 92507 ==

== ENCOUNTER 2023-11-15 06:00 | Outpatient (RCR) | payer MEDICARE, MEDICAID, SELFPAY | END 2023-12-15 23:59 | disposition home or self-care (01) | LOC: SST 06:00 | PROVIDERS: PCP Physician Assistant; Visit Provider Physician Assistant | DX: F80.1 Expressive language disorder (principal) | CPT/HCPCS: 92507 ==

== ENCOUNTER 2023-12-03 15:56 | Emergency (ER) | payer MEDICARE, MEDICAID, SELFPAY ==
[2023-12-03 16:28] VITALS: BMI 38.9
[2023-12-03 17:12] LABS: Glucose Point of Care 122 mg/dL (70-110)
--- NOTE | 2023-12-03 17:25 | XRR_ITS ---
PROCEDURE INFORMATION: Exam: XR Chest Exam date and time: 12/03/2023 5:55 PM Age: 68 years old Clinical indication: Pain; Other: Toothache TECHNIQUE: Imaging protocol: Radiologic exam of the chest. Views: 2 views. COMPARISON: CR (CHEST, ) 05/14/2023 6:09 PM FINDINGS: Lungs: See Heart/Mediastinum finding. Pleural spaces: Unremarkable. No pleural effusion. No pneumothorax. Heart/Mediastinum: There is evidence of cardiomegaly and both lungs demonstrate chronic interstitial coarsening. No lung mass or infiltrate. Bones/joints: Unremarkable. XR/XR chest 2V* [id number] IMPRESSION: No acute findings.
--- NOTE | 2023-12-03 17:47 | ED_ITS ---
Documented by User: HEIDI Hough 12/03/23 20:41 HPI - Dental/Oral 2 General: Chief complaint: Dental/Oral Stated complaint: Toothache Time Seen by Provider: 12/03/23 16:34 Source: family Mode of arrival: EMS Limitations: physical limitation (Difficulty with verbalization from prior stroke) History of Present Illness: Patient is a 68-year-old female who presents to the emergency department via EMS reportedly due to weakness onset today. Family serves as primary historians, and they reportedly called EMS because family reported the patient being unable to walk and looking great. They are also concerned of her history of hemorrhagic stroke last March, as well as some new swelling to the left lateral face. Patient reported that this has been there for years, however family states that it is new and she was recently prescribed medication for it from her primary care. They also report that she is set to see an ENT specialist for the swelling. Otherwise, family denies any facial asymmetries, new neurological deficits, or other concerning symptoms. They state that they noticed her weakness began this morning when they arrived to pick her up for her doctor's appointment. However, they note that she is no longer as weak as she was and her color has returned. Review of systems unobtainable due to patient's incoherent verbalization, which family notes is a result of prior stroke. Review of Systems 2 General: Reports: ROS unobtainable due to medical condition (Prior stroke) PFSH ED 2 PFSH: Medical History Intracerebral hemorrhage Substance abuse Intracranial bleed Cerebral infarction, left hemisphere Amphetamine abuse Uncontrolled hypertension Altered mental status CHF (congestive heart failure), NYHA class III Uncontrolled diabetes mellitus Heart failure COPD exacerbation Chest pain Anxiety and depression Urinary incontinence, mixed Nicotine dependence, cigarettes, with unspecified nicotine-induced disorders GERD (gastroesophageal reflux disease) Urinary tract infection, site not specified Major contusion of left kidney, subsequent encounter H/O cholecystitis Hematoma of left kidney COPD, moderate Benign essential HTN Type 2 diabetes mellitus, without long-term current use of insulin Surgical History H/O: hysterectomy Family History Family/Other Diabetes CAD (coronary artery disease) Hypertension Lung disease Social History Smoking and tobacco/nicotine status: current every day tobacco/nicotine user cigarettes Packs smoked per day: 1 Alcohol intake: never Substance/Drug Use: never Adopted: No Caregiver/support person: No Marital status: Current occupational status: disabled Physical Exam 2 Const: COMMON NORMALS: no acute distress, average body habitus, patient oriented x3 and alert EXAM LIMITATIONS: physical limitations (Patient's verbalization skills) GENERAL APPEARANCE: cooperative and comfortable O RIENTATION/CONSCIOUSNESS: Yes awake HENMT: COMMON NORMALS: atraumatic, hearing grossly normal bilaterally, external ears normal, EAC's normal, TM's normal bilaterally, Normal external nose present and Normal nasal mucous membranes and turbinates present HEAD & SCALP: atraumatic NOSE: Normal external nose present and Normal nasal mucous membranes and turbinates present EXTERNAL EAR: Yes external ears normal E XTERNAL AUDITORY CANAL: EAC's normal TYMPANIC MEMBRANE: TM's normal bilaterally MOUTH: Normal oral and palatal mucosa present, lip normal and tongue normal TEETH & GINGIVA: Yes edentulous THROAT: posterior oropharynx normal and tonsils normal OTHER: Large mass palpated near the left parotid gland, no fluctuance. Oral examination of the mass unremarkable. Eye: COMMON NORMALS: Equal, round and reactive pupils present, EOMs intact bilaterally and conjunctivae normal CONJUNCTIVA: Yes conjunctivae normal P UPIL: Yes Equal, round and reactive pupils present Neck/C-Spine: COMMON NORMALS: full ROM, no lymphadenopathy, supple and no meningeal signs Resp: COMMON NORMALS: normal respiratory effort, No retractions, No use of accessory muscles and clear to auscultation bilaterally AUSCULTATION: clear to auscultation bilaterally Cardio: COMMON NORMALS: regular rate, regular rhythm, S1 normal heart sound present and S2 normal heart sound present RATE: regular rate RHYTHM: r egular rhythm HEART SOUNDS: S1 normal heart sound present and S2 normal heart sound present Extremity: COMMON NORMALS: normal to inspection and full ROM Neuro: ANYI COMA SCALE: document GCS findings Anyi coma scale eye opening: Spontaneous [place] coma scale verbal response: Orientated Anyi coma scale motor response: Obey commands [place] coma scale total score: 15 COMMON NORMALS: patient oriented x3, CN's II-XII intact bilaterally, moves all extremities, no focal motor deficits and no sensory deficits noted S ENSORIUM/ORIENTATION: Yes alert MENINGEAL SIGNS: Yes no meningeal signs C OORDINATION/BALANCE: [id number] test normal SPEECH: abnormal speech Details: garbled (Baseline from prior stroke, family reports) MOTOR EXAM: 5/5 motor strength present throughout, Pronator motor function not present and no tremor noted COORDINATION: [id number] test normal Psych: COMMON NORMALS: mental status grossly normal Skin: COMMON NORMALS: no rashes or lesions noted and no wounds GENERAL SKIN EXAM: no rashes or lesions noted Course 2 Vital Signs: Vital signs: Vital Signs Respiratory Rate 18 12/03/23 20:35 Blood Pressure 164/112 12/03/23 18:42 Pulse Oximetry 96 12/03/23 18:42 Oxygen Delivery Me thod Room Air 12/03/23 18:42 MDM - Dental/Oral Medical Decision Making This patient was seen and evaluated in the emergency department today after presenting via EMS due to weakness and evaluation of her left-sided facial swelling. Patient's family called due to the weakness, which she reportedly had resolved by the time she got to the emergency department, with baseline blood sugar readings and normal laboratory evaluation. She also had no acute findings on her head CT, EKG baseline, chest x-ray normal. She also presents for evaluation of worsening swelling to her left face, that has been there for some time. Patient reports it has been 2 years, however family states it cannot have been longer than a few months. Regardless, CT face was ordered which showed poorly defined 2.2 cm soft tissue mass that involves the left tonsil, suspicious for neoplasm. I consulted Dr. John, ENT, who states that this patient can follow-up with him as an outpatient. Patient had previously been prescribed antibiotics by her primary care provider, which Dr. John states she can take as prescribed. Otherwise, return precautions are given and family agrees with discharge home. Patient is given her regular doses of blood pressure medication prior to discharge. Lab Data 12/03/23 17:37 12/03/23 17:37 Radiology Impressions Chest X-Ray 12/03/23 17:25 IMPRESSION: No acute findings. Head CT 12/03/23 18:03 IMPRESSION: 1. Late subacute infarct of the left frontal lobe which has evolved since 10/03/2023. 2. Old infarct involving the left temporoparietal region 3. No acute abnormality noted Face CT 12/03/23 18:49 IMPRESSION: 1. Poorly defined 2.2 cm soft tissue mass involving the left tonsil. This is suspicious for neoplasm. 2. Salivary duct dilatation involving both parotid glands, more pronounced on the left than right. 3. Reactive adenopathy Laboratory Results WBC 9.39 10^3/uL (3.29-11.43) 12/03/23 17:37 RBC 5.66 10^6/uL (3.85-5.65) H 12/03/23 17:37 Hgb 15.40 g/dL (11.27-16.99) 12/03/23 17:37 Hct 48.5 % (36-47) H 12/03/23 17:37 MCV 85.7 fl (85-98) 12/03/23 17:37 MCH 27.2 pg (27-33) 12/03/23 17:37 MCHC 31.8 g/dL (30-55) 12/03/23 17:37 RDW 13.4 % (12.1-15.1) 12/03/23 17:37 Plt Count 262 10^3/cmm (157-399) 12/03/23 17:37 MPV 10.3 fL (7.4-10.4) 12/03/23 17:37 Neut % (Auto) 64.4 % 12/03/23 17:37 Lymph % (Auto) 26.6 % 12/03/23 17:37 [place] % (Auto) 6.2 % 12/03/23 17:37 Eos % (Auto) 1.6 % 12/03/23 17:37 Baso % (Auto) 0.9 % 12/03/23 17:37 Neut # (Auto) 6.05 10^3/uL (1.8-7.7) 12/03/23 17:37 Lymph # (Auto) 2.5 10^3/uL (0.8-4.8) 12/03/23 17:37 [place] # (Auto) 0.6 10^3/uL (0.2-0.9) 12/03/23 17:37 Eos # (Auto) 0.2 10^3/uL (0.0-0.8) 12/03/23 17:37 Baso # (Auto) 0.1 10^3/uL (0.0-0.1) 12/03/23 17:37 Nucleated RBC % (auto) 0 % 12/03/23 17:37 Nucleated RBCs # 0.0 /100WBC 12/03/23 17:37 Sodium 140 mmol/L (136-145) 12/03/23 17:37 Potassium 4.5 mmol/L (3.5-5.1) 12/03/23 17:37 Chloride 103 mmol/L (98-107) 12/03/23 17:37 Carbon Dioxide 25 mmol/L (22-29) 12/03/23 17:37 Anion Gap 16.5 (5-19) 12/03/23 17:37 BUN 13 mg/dL (8-23) 12/03/23 17:37 Creatinine 0.7 mg/dL (0.5-0.9) 12/03/23 17:37 GFR Calculation 83.5 mL/min (90-130) L 12/03/23 17:37 Glucose 112 mg/dL (65-115) 12/03/23 17:37 POC Glucose 122 mg/dL (70-110) H 12/03/23 17:09 Calculated Osmolality 291 mOsm/kg (285-295) 12/03/23 17:37 Calcium 9.5 mg/dL (8.5-10.5) 12/03/23 17:37 Total Bilirubin 0.2 mg/dL (0.15-1.2) 12/03/23 17:37 AST 11 U/L (0-32) 12/03/23 17:37 ALT 9 U/L (0-33) 12/03/23 17:37 Alkaline Phosphatase 116 U/L (35-105) H 12/03/23 17:37 Total Protein 7.0 g/dL (6.6-8.7) 12/03/23 17:37 Albumin 4.3 g/dL (3.5-5.2) 12/03/23 17:37 Globulin 2.7 g/dL (1.3-4.6) 12/03/23 17:37 All radiology interpretation(s) finalized by discharge EKG Data EKG 1: I personally reviewed and interpreted this EKG as follows: EKG interpretation date: 12/03/23 EKG interpretation time: 17:50 Prior EKG tracings: available for review Interpretation: EKG reviewed by me. Normal sinus rhythm. Rate 72. Left axis deviation. No acute ST segment changes. No change from previous on 05/08/2023. Discharge Plan Discharge Patient Disposition: Home Clinical Impression: Mass of soft tissue of face Condition: Stable Prescriptions: No Action (DME) lancets [Accu-Chek Fastclix Lancet Drum] Misc See Rx Instructions .Route Qty: 100 0RF Rx Instructions: As directed (DME) Blood Pressure Cuff Misc See Rx Instructions .Route Qty: 1 0RF Rx Instructions: As directed atorvastatin 40 mg Tablet 40 mg PO DAILY Humalog U-100 Insulin 100 unit/mL cartridge See Protocol SUBCUT TID Qty: 15 0RF Protocol: Insulin Corrective High-Dose Regimen Condition: Fingerstick Blood Glucose Dose/Route: Insulin Units Condition: 141-180 mg/dl Dose/Route: 2 units/SQ Condition: 181-220 mg/dl Dose/Route: 4 units/SQ Condition: 221-260 mg/dl Dose/Route: 6 units/SQ Condition: 261-300 mg/dl Dose/Route: 8 units/SQ Condition: 301-350 mg/dl Dose/Route: 10 units/SQ Condition: 351-400 mg/dl Dose/Route: 12 units/SQ Condition: greater than 400 mg/dl Dose/Route: 14 units/SQ lisinopril 10 mg tablet 10 mg PO DAILY 30 Days Qty: 30 0RF Rx Instructions: Fingerstick Blood Glucose Then Insulin Units; If 141-180 mg/dl, then 2 units/SQ; If 181-220 mg/dl, then 4 units/SQ; If 221-260 mg/dl, then 6 units/SQ; If 261-300 mg/dl, then 8 units/SQ; If 301-350 mg/dl, then 10 units/SQ; If 351-400 mg/dl, then 12 units/SQ; If greater than 400 mg/dl, then 14 units/SQ furosemide [Lasix] 40 mg tablet 40 mg PO DAILY 30 Days Qty: 30 0RF potassium chloride 20 mEq tablet,ER particles/crystals 20 meq PO DAILY 30 Days Qty: 30 0RF pantoprazole 40 mg tablet,delayed release (DR/EC) 40 mg PO DAILY Qty: 30 0RF nitroglycerin 0.4 mg tablet, sublingual 0.4 mg SUBLINGUAL Q5M PRN (Reason: Chest Pain) 30 Days Qty: 10 0RF metoprolol succinate 25 mg tablet extended release 24 hr 25 mg PO DAILY Qty: 30 0RF bupropion HCl 150 mg tablet extended release 24 hr 150 mg PO DAILY insulin degludec [Tresiba FlexTouch U-200] 200 unit/mL (3 mL) insulin pen 10 unit SUBCUT DAILY Combivent Respimat 20-100 mcg/actuation mist 1 puff INHALATION QID PRN (Reason: Shortness Of Breath) Discharge Orders: Discharge ED (Routine); Ordered 12/03/23 Ordered By: Juni Barnett Referrals: Joann Cardona PA [Primary Care Provider] - Discharge Diet: Usual diet Discharge Activity: Increase activity as tolerated Patient Instructions: Soft Tissue Mass (ED) Activity Restrictions/Additional Instructions: Follow-up with ENT this week as instructed. Continue medications as prescribed. Return with any new or worsening symptoms. Coding Level of Care Code ED Load Dispatcher Local for Chg Fwd Documented by User: Gary Jose DO 12/04/23 05:46 HPI - Dental/Oral 2 General: Chief complaint: Dental/Oral Stated complaint: Toothache Time Seen by Provider: 12/03/23 16:34 PFSH ED 2 PFSH: Medical History Intracerebral hemorrhage Substance abuse Intracranial bleed Cerebral infarction, left hemisphere Amphetamine abuse Uncontrolled hypertension Altered mental status CHF (congestive heart failure), NYHA class III Uncontrolled diabetes mellitus Heart failure COPD exacerbation Chest pain Anxiety and depression Urinary incontinence, mixed Nicotine dependence, cigarettes, with unspecified nicotine-induced disorders GERD (gastroesophageal reflux disease) Urinary tract infection, site not specified Major contusion of left kidney, subsequent encounter H/O cholecystitis Hematoma of left kidney COPD, moderate Benign essential HTN Type 2 diabetes mellitus, without long-term current use of insulin Surgical History H/O: hysterectomy Family History Family/Other Diabetes CAD (coronary artery disease) Hypertension Lung disease Social History Smoking and tobacco/nicotine status: current every day tobacco/nicotine user cigarettes Packs smoked per day: 1 Alcohol intake: never Substance/Drug Use: never Adopted: No Caregiver/support person: No Marital status: Current occupational status: disabled Physical Exam 2 Neuro: ANYI COMA SCALE: document GCS findings [place] coma scale total score: 15 Course 2 Vital Signs: Vital signs: Vital Signs Respiratory Rate 18 12/03/23 20:35 Blood Pressure 164/112 12/03/23 18:42 Pulse Oximetry 96 12/03/23 18:42 Oxygen Delivery Me thod Room Air 12/03/23 18:42 MDM - Dental/Oral Medical Decision Making This patient was seen and evaluated in the emergency department today after presenting via EMS due to weakness and evaluation of her left-sided facial swelling. Patient's family called due to the weakness, which she reportedly had resolved by the time she got to the emergency department, with baseline blood sugar readings and normal laboratory evaluation. She also had no acute findings on her head CT, EKG baseline, chest x-ray normal. She also presents for evaluation of worsening swelling to her left face, that has been there for some time. Patient reports it has been 2 years, however family states it cannot have been longer than a few months. Regardless, CT face was ordered which showed poorly defined 2.2 cm soft tissue mass that involves the left tonsil, suspicious for neoplasm. I consulted Dr. John, ENT, who states that this patient can follow-up with him as an outpatient. Patient had previously been prescribed antibiotics by her primary care provider, which Dr. John states she can take as prescribed. Otherwise, return precautions are given and family agrees with discharge home. Patient is given her regular doses of blood pressure medication prior to discharge. Chart reviewed Lab Data 12/03/23 17:37 12/03/23 17:37 Radiology Impressions Chest X-Ray 12/03/23 17:25 IMPRESSION: No acute findings. Head CT 12/03/23 18:03 IMPRESSION: 1. Late subacute infarct of the left frontal lobe which has evolved since 10/03/2023. 2. Old infarct involving the left temporoparietal region 3. No acute abnormality noted Face CT 12/03/23 18:49 IMPRESSION: 1. Poorly defined 2.2 cm soft tissue mass involving the left tonsil. This is suspicious for neoplasm. 2. Salivary duct dilatation involving both parotid glands, more pronounced on the left than right. 3. Reactive adenopathy Laboratory Results WBC 9.39 10^3/uL (3.29-11.43) 12/03/23 17:37 RBC 5.66 10^6/uL (3.85-5.65) H 12/03/23 17:37 Hgb 15.40 g/dL (11.27-16.99) 12/03/23 17:37 Hct 48.5 % (36-47) H 12/03/23 17:37 MCV 85.7 fl (85-98) 12/03/23 17:37 MCH 27.2 pg (27-33) 12/03/23 17:37 MCHC 31.8 g/dL (30-55) 12/03/23 17:37 RDW 13.4 % (12.1-15.1) 12/03/23 17:37 Plt Count 262 10^3/cmm (157-399) 12/03/23 17:37 MPV 10.3 fL (7.4-10.4) 12/03/23 17:37 Neut % (Auto) 64.4 % 12/03/23 17:37 Lymph % (Auto) 26.6 % 12/03/23 17:37 [place] % (Auto) 6.2 % 12/03/23 17:37 Eos % (Auto) 1.6 % 12/03/23 17:37 Baso % (Auto) 0.9 % 12/03/23 17:37 Neut # (Auto) 6.05 10^3/uL (1.8-7.7) 12/03/23 17:37 Lymph # (Auto) 2.5 10^3/uL (0.8-4.8) 12/03/23 17:37 [place] # (Auto) 0.6 10^3/uL (0.2-0.9) 12/03/23 17:37 Eos # (Auto) 0.2 10^3/uL (0.0-0.8) 12/03/23 17:37 Baso # (Auto) 0.1 10^3/uL (0.0-0.1) 12/03/23 17:37 Nucleated RBC % (auto) 0 % 12/03/23 17:37 Nucleated RBCs # 0.0 /100WBC 12/03/23 17:37 Sodium 140 mmol/L (136-145) 12/03/23 17:37 Potassium 4.5 mmol/L (3.5-5.1) 12/03/23 17:37 Chloride 103 mmol/L (98-107) 12/03/23 17:37 Carbon Dioxide 25 mmol/L (22-29) 12/03/23 17:37 Anion Gap 16.5 (5-19) 12/03/23 17:37 BUN 13 mg/dL (8-23) 12/03/23 17:37 Creatinine 0.7 mg/dL (0.5-0.9) 12/03/23 17:37 GFR Calculation 83.5 mL/min (90-130) L 12/03/23 17:37 Glucose 112 mg/dL (65-115) 12/03/23 17:37 POC Glucose 122 mg/dL (70-110) H 12/03/23 17:09 Calculated Osmolality 291 mOsm/kg (285-295) 12/03/23 17:37 Calcium 9.5 mg/dL (8.5-10.5) 12/03/23 17:37 Total Bilirubin 0.2 mg/dL (0.15-1.2) 12/03/23 17:37 AST 11 U/L (0-32) 12/03/23 17:37 ALT 9 U/L (0-33) 12/03/23 17:37 Alkaline Phosphatase 116 U/L (35-105) H 12/03/23 17:37 Total Protein 7.0 g/dL (6.6-8.7) 12/03/23 17:37 Albumin 4.3 g/dL (3.5-5.2) 12/03/23 17:37 Globulin 2.7 g/dL (1.3-4.6) 12/03/23 17:37 Discharge Plan Discharge Patient Disposition: Home Clinical Impression: Mass of soft tissue of face Condition: Stable Prescriptions: No Action (DME) lancets [Accu-Chek Fastclix Lancet Drum] Misc See Rx Instructions .Route Qty: 100 0RF Rx Instructions: As directed (DME) Blood Pressure Cuff Misc See Rx Instructions .Route Qty: 1 0RF Rx Instructions: As directed atorvastatin 40 mg Tablet 40 mg PO DAILY Humalog U-100 Insulin 100 unit/mL cartridge See Protocol SUBCUT TID Qty: 15 0RF Protocol: Insulin Corrective High-Dose Regimen Condition: Fingerstick Blood Glucose Dose/Route: Insulin Units Condition: 141-180 mg/dl Dose/Route: 2 units/SQ Condition: 181-220 mg/dl Dose/Route: 4 units/SQ Condition: 221-260 mg/dl Dose/Route: 6 units/SQ Condition: 261-300 mg/dl Dose/Route: 8 units/SQ Condition: 301-350 mg/dl Dose/Route: 10 units/SQ Condition: 351-400 mg/dl Dose/Route: 12 units/SQ Condition: greater than 400 mg/dl Dose/Route: 14 units/SQ lisinopril 10 mg tablet 10 mg PO DAILY 30 Days Qty: 30 0RF Rx Instructions: Fingerstick Blood Glucose Then Insulin Units; If 141-180 mg/dl, then 2 units/SQ; If 181-220 mg/dl, then 4 units/SQ; If 221-260 mg/dl, then 6 units/SQ; If 261-300 mg/dl, then 8 units/SQ; If 301-350 mg/dl, then 10 units/SQ; If 351-400 mg/dl, then 12 units/SQ; If greater than 400 mg/dl, then 14 units/SQ furosemide [Lasix] 40 mg tablet 40 mg PO DAILY 30 Days Qty: 30 0RF potassium chloride 20 mEq tablet,ER particles/crystals 20 meq PO DAILY 30 Days Qty: 30 0RF pantoprazole 40 mg tablet,delayed release (DR/EC) 40 mg PO DAILY Qty: 30 0RF nitroglycerin 0.4 mg tablet, sublingual 0.4 mg SUBLINGUAL Q5M PRN (Reason: Chest Pain) 30 Days Qty: 10 0RF metoprolol succinate 25 mg tablet extended release 24 hr 25 mg PO DAILY Qty: 30 0RF bupropion HCl 150 mg tablet extended release 24 hr 150 mg PO DAILY insulin degludec [Tresiba FlexTouch U-200] 200 unit/mL (3 mL) insulin pen 10 unit SUBCUT DAILY Combivent Respimat 20-100 mcg/actuation mist 1 puff INHALATION QID PRN (Reason: Shortness Of Breath) Discharge Orders: Discharge ED (Routine); Ordered 12/03/23 Ordered By: Juni Barnett Referrals: Joann Cardona PA [Primary Care Provider] - Discharge Diet: Usual diet Discharge Activity: Increase activity as tolerated Patient Instructions: Soft Tissue Mass (ED) Activity Restrictions/Additional Instructions: Follow-up with ENT this week as instructed. Continue medications as prescribed. Return with any new or worsening symptoms. Coding Level of Care Code ED Load Dispatcher Local for Bobby Rothman
--- NOTE | 2023-12-03 17:48 | ECG_ITS ---
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 Measurements Intervals [place] Rate: 72 P: 48 CT: 168 QRS: -45 QRSD: 93 T: 75 QT: 415 QTc: 456 Interpretive Statements SINUS RHYTHM LEFT AXIS DEVIATION [QRS AXIS < -30] VOLTAGE CRITERIA FOR LVH [MEETS CRITERIA IN ONE OF: R(aVL), S(V1), R(V5), R(V5/V6)+S(V1)] NONSPECIFIC T-WAVE ABNORMALITY Compared to ECG 05/14/2023 19:04:01 T-wave abnormality now present Myocardial infarct finding no longer present Electronically Signed On 12-03-2023 21:37:29 CDT by Oj Rojas M.D. [id number]
--- NOTE | 2023-12-03 18:03 | CTR_ITS ---
PROCEDURE INFORMATION: Exam: CT Head Without Contrast Exam date and time: 12/03/2023 6:05 PM Age: 68 years old Clinical indication: Other: Left facial pain, weakness TECHNIQUE: Imaging protocol: Computed tomography of the head without contrast. Radiation optimization: All CT scans at this facility use at least one of these dose optimization techniques: automated exposure control; mA and/or kV adjustment per patient size (includes targeted exams where dose is matched to clinical indication); or iterative reconstruction. COMPARISON: MR head wo con* [id number] 10/03/2023 3:09 PM RADIATION DOSE METRICS: Total DLP (mGy-cm): 1031.8 FINDINGS: Brain: There is an area of late subacute infarct involving the posterior aspect of the left frontal lobe. A large area of old infarct is scattered throughout the left temporoparietal region. I see no new area of infarct, hemorrhage or mass effect. Cerebral ventricles: No ventriculomegaly. No midline shift. Paranasal sinuses: Visualized sinuses are unremarkable. No fluid levels. Mastoid air cells: Visualized mastoid air cells are well aerated. Bones/joints: Unremarkable. No acute fracture. Soft tissues: Unremarkable. CT/CT head wo con* [id number] IMPRESSION: 1. Late subacute infarct of the left frontal lobe which has evolved since 10/03/2023. 2. Old infarct involving the left temporoparietal region 3. No acute abnormality noted
[2023-12-03 18:14] LABS: Basophils # 0.1 10^3/uL (0.0-0.1); Basophils % 0.9 %; Eosinophils # 0.2 10^3/uL (0.0-0.8); Eosinophils % 1.6 %; Hematocrit 48.5 % (36-47); Lymphocytes # 2.5 10^3/uL (0.8-4.8); Lymphocytes % 26.6 %; Mean Corpuscular HGB Conc 31.8 g/dL (30-55); Mean Corpuscular Hemoglobin 27.2 pg (27-33); Mean Corpuscular Volume 85.7 fl (85-98); Mean Platelet Volume 10.3 fL (7.4-10.4); Monocytes # 0.6 10^3/uL (0.2-0.9); Monocytes % 6.2 %; Neutrophils # 6.05 10^3/uL (1.8-7.7); Neutrophils % 64.4 %; Nucleated Red Blood Cells % 0 %; Platelet Count 262 10^3/cmm (157-399); Red Blood Count 5.66 10^6/uL (3.85-5.65); Red Cell Distribution Width 13.4 % (12.1-15.1); White Blood Count 9.39 10^3/uL (3.29-11.43)
[2023-12-03 18:39] LABS: Alanine Aminotransferase 9 U/L (0-33); Albumin Level 4.3 g/dL (3.5-5.2); Alkaline Phosphatase 116 U/L (35-105); Anion Gap 16.5 (5-19); Aspartate Amino Transferase 11 U/L (0-32); Blood Urea Nitrogen 13 mg/dL (8-23); Calcium 9.5 mg/dL (8.5-10.5); Carbon Dioxide 25 mmol/L (22-29); Chloride 103 mmol/L (98-107); Creatinine Clr Calc Pharmacy 76.8687; Globulin 2.7 g/dL (1.3-4.6); Glomerular Filtration Rate 83.5 mL/min (90-130); Glucose 112 mg/dL (65-115); Osmolality Calculated 291 mOsm/kg (285-295); Potassium 4.5 mmol/L (3.5-5.1); Sodium 140 mmol/L (136-145); Total Bilirubin 0.2 mg/dL (0.15-1.2)
[2023-12-03 18:42] VITALS: BP 164/112; RESP 20; O2SAT 96
--- NOTE | 2023-12-03 18:49 | CTR_ITS ---
PROCEDURE INFORMATION: Exam: CT Maxillofacial With Contrast Exam date and time: 12/03/2023 7:25 PM Age: 68 years old Clinical indication: Mass, lump, or swelling; Other: Swelling to left ramus area of mandible; Additional info: Facial mass TECHNIQUE: Imaging protocol: Computed tomography of the face with contrast. Radiation optimization: All CT scans at this facility use at least one of these dose optimization techniques: automated exposure control; mA and/or kV adjustment per patient size (includes targeted exams where dose is matched to clinical indication); or iterative reconstruction. Contrast material: OMNI 350; Contrast volume: 100 ml; Contrast route: INTRAVENOUS (IV); COMPARISON: CT head wo con* [id number] 12/03/2023 6:05 PM RADIATION DOSE METRICS: Total DLP (mGy-cm): 652.68 FINDINGS: Orbital cavities: Orbits are normal. Globes are unremarkable. Bones/joints: No acute fracture. Paranasal sinuses: Normal. No air-fluid levels. Salivary glands: There is a curvilinear cystic structure lying within the substance of the left parotid gland. The structure measures 7 mm in width and 2.5 cm in length. A smaller curvilinear cystic structure lies in the right parotid gland measuring 4 mm by 2.2 cm. I see no evidence of salivary stone. There is no acute inflammation or abscess. Lymph nodes: Reactive lymph nodes are noted bilaterally. Soft tissues: There is a 2.2 cm diameter rounded poorly defined area of mass effect involving the left tonsillar region. There is no evidence of abscess here. CT/CT facial bones w con [id number] IMPRESSION: 1. Poorly defined 2.2 cm soft tissue mass involving the left tonsil. This is suspicious for neoplasm. 2. Salivary duct dilatation involving both parotid glands, more pronounced on the left than right. 3. Reactive adenopathy
[2023-12-03] MEDS: iohexol 350 mg/mL 500 mL Btl (per mL) IV (19:25)
[2023-12-03 20:35] VITALS: RESP 18
[2023-12-03] MEDS: lisinopril 10 mg Tablet PO (20:43)
[2023-12-03] MEDS: metoprolol succinate ER (24 HR) 25 mg Tablet PO (20:43)
--- NOTE | 2023-12-04 07:55 | DCPLANNER ---
Message sent to ENT for a follow up
== END 2023-12-03 20:47 | disposition home or self-care (01) ==
PROVIDERS: Emergency Provider Physician Assistant; PCP Physician Assistant
DX: R22.0 Localized swelling, mass and lump, head (principal); Z79.4 Long term (current) use of insulin; I11.0 Hypertensive heart disease with heart failure; I50.9 Heart failure, unspecified; E11.9 Type 2 diabetes mellitus without complications; J44.9 Chronic obstructive pulmonary disease, unspecified; F17.210 Nicotine dependence, cigarettes, uncomplicated
CPT/HCPCS: 36415; 36416; 70450; 70487; 71046; 80053; 82962; 85025; 93005; 99285; Q9967

== ENCOUNTER → 2023-12-10 10:51 | Outpatient (BNVA) | payer MEDICARE, MEDICAID, SELFPAY | PROVIDERS: PCP Physician Assistant; Visit Provider Otolaryngology | DX: J35.8 Other chronic diseases of tonsils and adenoids (principal); M79.89 Other specified soft tissue disorders; F17.210 Nicotine dependence, cigarettes, uncomplicated | CPT/HCPCS: 99203; 99205 ==

== ENCOUNTER 2023-12-16 06:00 | Outpatient (RCR) | payer MEDICARE, MEDICAID, SELFPAY | END 2024-01-14 23:59 | disposition home or self-care (01) | LOC: SST 06:00 | PROVIDERS: PCP Physician Assistant; Visit Provider Physician Assistant | DX: F80.1 Expressive language disorder (principal) | CPT/HCPCS: 92507 ==

== ENCOUNTER 2024-01-15 06:00 | Outpatient (RCR) | payer MEDICARE, MEDICAID, SELFPAY | END 2024-02-14 23:59 | disposition home or self-care (01) | LOC: SST 06:00 | PROVIDERS: PCP Physician Assistant; Visit Provider Physician Assistant | DX: F80.1 Expressive language disorder (principal) | CPT/HCPCS: 92507 ==

== ENCOUNTER 2024-04-02 09:30 | Outpatient (CLI) | payer MEDICARE, MEDICAID, SELFPAY ==
--- NOTE | 2024-04-02 09:36 | MR_ITS ---
WS: [id number] MRI LUMBAR SPINE NONCONTRAST HISTORY: LUMBAR REGION SPINAL STENOSIS, RIGHT hip pain. COMPARISON: None available. TECHNIQUE: Sagittal and axial multisequence imaging is submitted. L4 anterolisthesis by 2 mm. No acute fracture. No vertebral body marrow edema. There is a very minima l amount of edema in the posterior elements of L4 and L5. Disc spaces and vertebral body heights are well-preserved. Conus terminates normally at L1-2 disc level. L1-L2: Normal. L2-L3: Bilateral mild facet joint arthritis and ligamentum flavum hypertrophy. No disc protrusions or stenosis. L3-L4: Mild annular disc bulging with ligamentum flavum and facet arthritis. Mild disc encroachment u gregor the ventral thecal sac. No significant stenosis. L4-L5: Diffuse annular disc bulging. Severe bilateral ligamentum flavum and facet arthritis. Small am ount of fluid in the facet joints. Narrowing of the central canal Moderate to severe central with bilateral subarticular recess and mild foraminal stenosis. There is m ost significant contact and narrowing upon the traversing L5 nerve roots. L5-S1: Diffuse annular disc bulging. Small bilateral foraminal disc protrusions. Disc bulging contact s the S1 nerve roots. There is also mild disc contact on the exiting L5 nerve roots. No central steno sis. Mild bilateral subarticular recess and foraminal stenosis. Bilateral renal cysts. MR/MR lumbar spine wo con* [id number] IMPRESSION: 1. L4-5: Moderate to severe central with bilateral subarticular recess and mil d foraminal stenosis. Significant encroachment upon the traversing L5 nerve ela ts. 2. 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 3. L5-S1: Small central disc protrusion with bilateral foraminal disc protrusi ons. Mild disc contact on the exiting and traversing nerve roots at L5-S1. 4. L4 anterolisthesis by 2 mm.
== END 2024-04-02 09:31 | disposition home or self-care (01) ==
LOC: RAD 09:31
PROVIDERS: PCP Physician Assistant; Visit Provider Physician Assistant
DX: M48.061 Spinal stenosis, lumbar region without neurogenic claudication (principal); M43.16 Spondylolisthesis, lumbar region; M47.816 Spondylosis without myelopathy or radiculopathy, lumbar region; M51.36 Other intervertebral disc degeneration, lumbar region; M51.37 Other intervertebral disc degeneration, lumbosacral region; M48.07 Spinal stenosis, lumbosacral region; Q61.02 Congenital multiple renal cysts
CPT/HCPCS: 72148

== ENCOUNTER 2025-01-08 10:24 | Outpatient (CLI) | payer MEDICARE, MEDICAID, SELFPAY ==
--- NOTE | 2025-01-08 | MM_ITS ---
WS: [id number] BILATERAL SCREENING DIGITAL TOMOSYNTHESIS MAMMOGRAM WITH CAD HISTORY: ANNUAL SCREENING COMPARISON: 11/03/2013 Bilateral CC and MLO views with tomosynthesis and synthetic mammography submitted. Computer aided detection analyzed. Breast composition: There are scattered areas of fibroglandular density. No suspicious masses, microcalcifications or architectural distortion. Stable lymph node upper outer quadrant RIGHT breast and benign calcifications within each breast and arterial calcifications. MM/MM scr BI tomosynthesis [id number] IMPRESSION: BI-RADS: 2 - Benign. FOLLOW UP: 1 Year Follow-up
== END 2025-01-08 10:25 | disposition home or self-care (01) ==
PROVIDERS: PCP Physician Assistant; Visit Provider Physician Assistant
DX: Z12.31 Encounter for screening mammogram for malignant neoplasm of breast (principal); R92.323 Mammographic fibroglandular density, bilateral breasts; R59.0 Localized enlarged lymph nodes; R92.1 Mammographic calcification found on diagnostic imaging of breast
CPT/HCPCS: 77063; 77067

== ENCOUNTER 2025-01-20 10:30 | Outpatient (CLI) | payer MEDICARE, MEDICAID, SELFPAY ==
--- NOTE | 2025-01-20 10:33 | CT_ITS ---
WS: [id number] LDCT LUNG CANCER SCREENING TECHNIQUE: Noncontrast CT of the chest with coronal and sagittal reformatted images. CLINICAL INFORMATION: NICOTINE DEPENDENCE,CIGARETTES COMPARISON: None. DLP: 82.30 mGy.cm DIvol: Mean CTDIvol: 2.20 (mGy) All CT scans at [facility] use at least one of these dose optimization techniques: automated exposure control; mA and/or kV adjustment per patient size (includes targeted exams where dose is matched to clinical indication); or iterative reconstruction. FINDINGS: Moderate chronic emphysematous changes. No suspicious pulmonary parenchymal abnormalities. A few tiny micronodules in the LEFT lung apex Aortic calcification. Normal caliber thoracic aorta. Dense coronary calcification. No mediastinal or hilar lymphadenopathy. A few slightly prominent paratracheal lymph nodes likely reactive. No axillary lymphadenopathy. Moderate thoracic kyphosis. Ankylosis thoracic spine. Small esophageal hiatal hernia. CT/CT lung screening [id number] IMPRESSION: LUNG-RADS: 2-Benign Appearance or Behavior FOLLOW UP: 12 Month: Continue annual screening with LDCT
== END 2025-01-20 10:31 | disposition home or self-care (01) ==
LOC: RAD 10:32
PROVIDERS: PCP Physician Assistant; Visit Provider Physician Assistant
DX: Z12.2 Encounter for screening for malignant neoplasm of respiratory organs (principal); F17.210 Nicotine dependence, cigarettes, uncomplicated; J43.8 Other emphysema; I70.0 Atherosclerosis of aorta; I25.10 Atherosclerotic heart disease of native coronary artery without angina pectoris; R59.0 Localized enlarged lymph nodes; M40.294 Other kyphosis, thoracic region; M43.24 Fusion of spine, thoracic region; K44.9 Diaphragmatic hernia without obstruction or gangrene
CPT/HCPCS: 71271